=== PATIENT | female | born 1945 | race Caucasian/White ===

== ENCOUNTER 2019-03-03 18:29 | Emergency (ER) | payer MEDICARE, OTHER ==
--- NOTE | 2019-03-03 18:56 | ERPHSYRPT ---
- History of Present Illness Time Seen by Provider: 03/03/19 18:39 Historian: patient Exam Limitations: no limitations Patient Subjective Stated Complaint: Abdominal pain Triage Nursing Assessment: Patient brought back to ED via w/c and transferred to bed with assist of 1. Patient A+O x 3. Patient's skin pink, warm and dry. Patient complains of lower abdominal pain that radiate up through chest and into ha[place] shoulders 04/19 starting yesterday morning . Patient's abdomen round and tender. Physician History: C/o epigastric pain since yesterday, not radiating, denies nausea, vomiting, no cough SOB, fever, other complaints, blood pressure high, took baby ASA this morning, she had CABG in 2002. Timing/Duration: yesterday Activities at Onset: none Quality: sharpness Abdominal Pain Onset Location: epigastric Pain Radiation: no radiation Severity of Pain-Max: severe Severity of Pain-Current: moderate Modifying Factors: Improves With: nothing Associated Symptoms: No chest pain, No nausea, No rash, No shortness of breath, No vomiting Previous symptoms: no prior history Allergies/Adverse Reactions: No Known Drug Allergies Allergy (Unverified 03/03/19 18:37) Hx Influenza Vaccination/Date Given: No Hx Pneumococcal Vaccination/Date Given: No Immunizations Up to Date: Yes - Review of Systems Constitutional: No Symptoms Ears, Nose, & Throat: No Symptoms Respiratory: No Symptoms Cardiac: No Symptoms Abdominal/Gastrointestinal: Abdominal Pain, No Nausea, No Vomiting Genitourinary Symptoms: No Symptoms Skin: No Symptoms Neurological: No Symptoms All Other Systems: Reviewed and Negative - Past Medical History Pertinent Past Medical History: Yes Neurological History: No Pertinent History ENT History: No Pertinent History Cardiac History: Hypertension Respiratory History: No Pertinent History Endocrine Medical History: No Pertinent History Musculoskeletal History: No Pertinent History GI Medical History: No Pertinent History History: No Pertinent History Psycho-Social History: No Pertinent History Female Reproductive Disorders: No Pertinent History - Past Surgical History Past Surgical History: Yes Neuro Surgical History: No Pertinent History Cardiac: CABG, Pacemaker Respiratory: No Pertinent History Gastrointestinal: Cholecystectomy Genitourinary: No Pertinent History Musculoskeletal: No Pertinent History Female Surgical History: No Pertinent History - Social History Smoking Status: Never smoker Exposure to second hand smoke: No Drug Use: none Patient Lives Alone: No - Female History Hx Last Menstrual Period: menopausal Hx Now: No - Nursing Vital Signs Nursing Vital Signs: Initial Vital Signs Pulse Rate 65 03/03/19 18:38 Respiratory Rate 20 03/03/19 18:38 Blood Pressure 225/103 03/03/19 18:38 O2 Sat by Pulse Oximetry 100 03/03/19 18:38 Pain Scale Pain Intensity 0 - Physical Exam General Appearance: no apparent distress Eye Exam: eyes nml inspection Ears, Nose, Throat Exam: normal ENT inspection, moist mucous membranes Neck Exam: normal inspection, non-tender, supple, No carotid bruit, No JVD Respiratory Exam: normal breath sounds, lungs clear, airway intact Cardiovascular Exam: regular rate/rhythm, normal heart sounds, normal peripheral pulses, No murmur Gastrointestinal/Abdomen Exam: soft, normal bowel sounds, tenderness (epigastric , mild), No distention, No mass, No guarding, No pulsatile mass, No rebound, No organomegaly Back Exam: normal inspection, No CVA tenderness, No rash Extremity Exam: normal inspection, No calf tenderness, No deangelo's sign Neurologic Exam: alert, oriented x 3, cooperative, normal mood/affect Skin Exam: normal color, warm, dry, No rash, No petechiae, No cyanosis Lymphatic Exam: No adenopathy SpO2 Interpretation: normal SpO2: 100 O2 Delivery: Room Air - Course Nursing assessment & vital signs reviewed: Yes EKG Interpreted by Me: RATE (67/min), Other (paced) - Radiology Exams Chest X-ray Interpretation: Interpreted by me, Negative, Other (COPD, chronic changes) Ordered Tests: Active Orders 24 hr Category Date Time Status Band Leader STAT Care 03/03/19 18:48 Active EKG-ER Only STAT Care 03/03/19 18:48 Active EKG-ER Only STAT Care 03/03/19 20:56 Active IV Insertion STAT Care 03/03/19 18:48 Active CHEST 1 VIEW (PORTABLE) Stat Exams 03/03/19 18:48 Completed CBC W DIFF Stat Lab 03/03/19 19:07 Completed CK-Creatinine Phosphokinase Stat Lab 03/03/19 19:07 Completed CMP Stat Lab 03/03/19 19:07 Completed D-DIMER QUANTITATION Stat Lab 03/03/19 19:07 Completed LIPASE Stat Lab 03/03/19 19:07 Completed NT PRO BNP Stat Lab 03/03/19 19:07 Completed PROTIME WITH INR Stat Lab 03/03/19 19:07 Completed PTT Stat Lab 03/03/19 19:07 Completed TROPONIN Q3H Lab 03/03/19 19:07 Completed TROPONIN Q3H Lab 03/03/19 21:10 Completed TROPONIN Q3H Lab 03/04/19 01:00 Ordered TROPONIN Q3H Lab 03/04/19 04:00 Ordered TROPONIN Q3H Lab 03/04/19 07:00 Ordered Medication Summary Discontinued Medications Generic Name Dose Route Start Last Admin Trade Name Freq PRN Reason Stop Dose Admin Al Hydrox/Mg Hydrox/Simethicone Confirm 03/03/19 19:34 Maalox Es 30 Ml Unit Dose Administered 03/03/19 19:35 Dose 30 ml .ROUTE .STK-MED ONE Famotidine 20 mg 03/03/19 18:48 03/03/19 19:44 Pepcid 20 Mg Vial IV 03/03/19 18:49 20 mg STAT ONE Administration Famotidine Confirm 03/03/19 19:32 Pepcid 20 Mg Vial Administered 03/03/19 19:33 Dose 20 mg IV .STK-MED ONE Labetalol HCl 20 mg 03/03/19 18:49 03/03/19 19:44 Trandate 20 Mg/5 Ml Syringe IV 03/03/19 18:50 20 mg STAT ONE Administration Labetalol HCl Confirm 03/03/19 19:33 Trandate 100 Mg/20 Ml Mdv For Drip Administered 03/03/19 19:34 Dose 100 mg IV .STK-MED ONE Lidocaine HCl Confirm 03/03/19 19:34 Xylocaine Hcl Viscous * Administered 03/03/19 19:35 Dose 15 ml .ROUTE .STK-MED ONE Magnesium Hydroxide 45 ml 03/03/19 18:49 03/03/19 19:44 Gi Cocktail 45 Ml (Maalox/Lidocaine) PO 03/03/19 18:50 45 ml STAT ONE Administration Lab/Rad Data: Laboratory Result Diagrams 03/03/19 19:07 03/03/19 19:07 Laboratory Results 03/03/19 03/03/19 03/03/19 Range/Units 21:10 19:07 19:07 WBC (4.0-10.5) K/mm3 RBC (4.1-5.4) M/mm3 Hgb (12.0-16.0) gm/dl Hct (35-47) % MCV (78-100) fl MCH (26-32) pg MCHC (32-36) g/dl RDW (11.5-14.0) % Plt Count (150-450) K/mm3 MPV (6-9.5) fl Gran % (36.0-66.0) % Eos # (Auto) (0-0.5) Absolute Lymphs (auto) (1.0-4.6) Absolute Monos (auto) (0.0-1.3) Lymphocytes % (24.0-44.0) % Monocytes % (0.0-12.0) % Eosinophils % (0.00-5.0) % Basophils % (0.0-0.4) % Absolute Granulocytes (1.4-6.9) Basophils # (0-0.4) PT (9.95-12.35) SECONDS INR (0.8-3.0) APTT (25.3-37.0) SECONDS D-Dimer 423 (215-500) ng/mL Sodium (137-145) mmol/L Potassium (3.5-5.1) mmol/L Chloride (98-107) mmol/L Carbon Dioxide (22-30) mmol/L Anion Gap (5-15) MEQ/L BUN (7-17) mg/dL Creatinine (0.52-1.04) mg/dL Estimated GFR ML/MIN Glucose (74-106) mg/dL Calcium (8.4-10.2) mg/dL Total Bilirubin (0.2-1.3) mg/dL AST (14-36) U/L ALT (0-35) U/L Alkaline Phosphatase (38-126) U/L Creatine Kinase (30-135) U/L Troponin I 0.025 (0.000-0.034) ng/mL NT-Pro-B Natriuret Pep (0-1800) pg/mL Serum Total Protein (6.3-8.2) g/dL Albumin (3.5-5.0) g/dL Lipase 162 (23-300) U/L 03/03/19 03/03/19 03/03/19 Range/Units 19:07 19:07 19:07 WBC (4.0-10.5) K/mm3 RBC (4.1-5.4) M/mm3 Hgb (12.0-16.0) gm/dl Hct (35-47) % MCV (78-100) fl MCH (26-32) pg MCHC (32-36) g/dl RDW (11.5-14.0) % Plt Count (150-450) K/mm3 MPV (6-9.5) fl Gran % (36.0-66.0) % Eos # (Auto) (0-0.5) Absolute Lymphs (auto) (1.0-4.6) Absolute Monos (auto) (0.0-1.3) Lymphocytes % (24.0-44.0) % Monocytes % (0.0-12.0) % Eosinophils % (0.00-5.0) % Basophils % (0.0-0.4) % Absolute Granulocytes (1.4-6.9) Basophils # (0-0.4) PT 28.9 H (9.95-12.35) SECONDS INR 2.46 (0.8-3.0) APTT 34.0 (25.3-37.0) SECONDS D-Dimer (215-500) ng/mL Sodium 142 (137-145) mmol/L Potassium 3.8 (3.5-5.1) mmol/L Chloride 106 (98-107) mmol/L Carbon Dioxide 25 (22-30) mmol/L Anion Gap 15.3 H (5-15) MEQ/L BUN 25 H (7-17) mg/dL Creatinine 0.87 (0.52-1.04) mg/dL Estimated GFR > 60.0 ML/MIN Glucose 118 H (74-106) mg/dL Calcium 10.2 (8.4-10.2) mg/dL Total Bilirubin 0.60 (0.2-1.3) mg/dL AST 29 (14-36) U/L ALT 17 (0-35) U/L Alkaline Phosphatase 96 (38-126) U/L Creatine Kinase 28 L (30-135) U/L Troponin I < 0.012 (0.000-0.034) ng/mL NT-Pro-B Natriuret Pep 1980 H (0-1800) pg/mL Serum Total Protein 7.4 (6.3-8.2) g/dL Albumin 4.3 (3.5-5.0) g/dL Lipase (23-300) U/L 03/03/19 Range/Units 19:07 WBC 8.4 (4.0-10.5) K/mm3 RBC 4.32 (4.1-5.4) M/mm3 Hgb 13.1 (12.0-16.0) gm/dl Hct 40.2 (35-47) % MCV 93.1 (78-100) fl MCH 30.3 (26-32) pg MCHC 32.6 (32-36) g/dl RDW 13.2 (11.5-14.0) % Plt Count 173 (150-450) K/mm3 MPV 10.9 H (6-9.5) fl Gran % 81.4 H (36.0-66.0) % Eos # (Auto) 0.08 (0-0.5) Absolute Lymphs (auto) 0.97 L (1.0-4.6) Absolute Monos (auto) 0.48 (0.0-1.3) Lymphocytes % 11.5 L (24.0-44.0) % Monocytes % 5.7 (0.0-12.0) % Eosinophils % 1.0 (0.00-5.0) % Basophils % 0.4 (0.0-0.4) % Absolute Granulocytes 6.86 (1.4-6.9) Basophils # 0.03 (0-0.4) PT (9.95-12.35) SECONDS INR (0.8-3.0) APTT (25.3-37.0) SECONDS D-Dimer (215-500) ng/mL Sodium (137-145) mmol/L Potassium (3.5-5.1) mmol/L Chloride (98-107) mmol/L Carbon Dioxide (22-30) mmol/L Anion Gap (5-15) MEQ/L BUN (7-17) mg/dL Creatinine (0.52-1.04) mg/dL Estimated GFR ML/MIN Glucose (74-106) mg/dL Calcium (8.4-10.2) mg/dL Total Bilirubin (0.2-1.3) mg/dL AST (14-36) U/L ALT (0-35) U/L Alkaline Phosphatase (38-126) U/L Creatine Kinase (30-135) U/L Troponin I (0.000-0.034) ng/mL NT-Pro-B Natriuret Pep (0-1800) pg/mL Serum Total Protein (6.3-8.2) g/dL Albumin (3.5-5.0) g/dL Lipase (23-300) U/L - Progress Progress: improved Progress Note: 03/03/19 21:52 Pt was given labetalol IV GI cocktail and Pepcid IV, she states, her pain completely resolved, denies nausea, SOB or dizziness, feels much better. Repeat troponin: 0.025, slightly higher than the first one, but still within normal range. We discussed all her results, she is being discharged completely asymptomatic, stable, advised to rest x 2-3 days, and keep her appointment with her physician next Wednesday. She was advised to return immediately if shortness of breath, pain, vomiting, dizziness. Counseled pt/family regarding: lab results, diagnosis, need for follow-up, rad results - Departure Departure Disposition: Home Clinical Impression: Abdominal pain Qualifiers: Abdominal location: epigastric Qualified Code(s): R10.13 - Epigastric pain Condition: Stable Critical Care Time: No [facility] - Instructions: Acute Abdomen (Belly Pain), Adult (DC), Acid Reflux ( Gastroesophageal Reflux Disease), Adult (DC) Additional Instructions: Rest x 2-3 days, diet, and keep your appointment with your physician next Wednesday, return if difficulty breathing, pain, nausea, dizziness! Continue taking Omeprazole as directed!
[2019-03-03 19:19] LABS: BASOPHIL % 0.4 % (0.0-0.4); Basophil (Absolute #) 0.03 (0-0.4); Eosinophil (Absolute #) 0.08 (0-0.5); Granulocyte Absolute (ANC) 6.86 (1.4-6.9); Granulocytes % 81.4 % (36.0-66.0); Hematocrit 40.2 % (35-47); Hemoglobin 13.1 gm/dl (12.0-16.0); Lymphocyte (Absolute #) 0.97 (1.0-4.6); Lymphocytes % 11.5 % (24.0-44.0); Mean Cell Volume 93.1 fl (78-100); Mean Corpuscular Hemoglobin 30.3 pg (26-32); Mean Corpuscular Hgb Concent. 32.6 g/dl (32-36); Mean Platelet Volume 10.9 fl (6-9.5); Monocyte (Absolute #) 0.48 (0.0-1.3); Monocytes % 5.7 % (0.0-12.0); Platelet Count 173 K/mm3 (150-450); Red Blood Count 4.32 M/mm3 (4.1-5.4); Red Cell Distribution Width 13.2 % (11.5-14.0); White Blood Count 8.4 K/mm3 (4.0-10.5)
[2019-03-03 19:23] LABS: INR 2.46 (0.8-3.0); PROTIME 28.9 SECONDS (9.95-12.35)
[2019-03-03] MEDS ORDERED: Pepcid 20 MG VIAL IV ONE (19:32)
[2019-03-03] MEDS ORDERED: TRANDATE 100 MG/20 ML MDV FOR DRIP IV ONE (19:33)
[2019-03-03] MEDS ORDERED: MAALOX ES 30 ML UNIT DOSE ONE (19:34)
[2019-03-03] MEDS ORDERED: XYLOCAINE HCl Viscous ONE (19:34)
[2019-03-03 19:39] LABS: ALBUMIN 4.3 g/dL (3.5-5.0); ALKALINE PHOSPHATASE 96 U/L (38-126); ANION GAP 15.3 MEQ/L (5-15); BLOOD UREA NITROGEN 25 mg/dL (7-17); CHLORIDE 106 mmol/L (98-107); CK-Creatinine Phosphokinase 28 U/L (30-135); Calcium 10.2 mg/dL (8.4-10.2); Carbon Dioxide 25 mmol/L (22-30); Creatinine 1 0.87 mg/dL (0.52-1.04); Glucose 118 mg/dL (74-106); NT PRO BNP 1980 pg/mL (0-1800); Potassium 3.8 mmol/L (3.5-5.1); SGOT/AST 29 U/L (14-36); SGPT/ALT 17 U/L (0-35); SODIUM 142 mmol/L (137-145); Total Protein 7.4 g/dL (6.3-8.2)
[2019-03-03] MEDS: TRANDATE 20 MG/5 ML SYRINGE IV ONE (19:44)
[2019-03-03] MEDS: Pepcid 20 MG VIAL IV ONE (19:44)
[2019-03-03] MEDS: GI COCKTAIL 45 ML (Maalox/Lidocaine) PO ONE (19:44)
--- NOTE | 2019-03-03 21:50 | XRAY ---
Indication: Chest pain. Comparison: None Portable apical lordotic chest hyperinflated with chronic lung markings. No focal infiltrate, consolidation, or large effusion. Heart is not enlarged for AP portable technique and demonstrates CABG surgery and left-sided pacemaker. Bony thorax intact with osteopenia and degenerative changes. Impression: Nonacute chest with chronic features.
[2019-03-03 21:57] VITALS: O2SAT 100
[2019-03-03 22:06] VITALS: BP 128/49; PULSE 56
== END 2019-03-03 22:08 | disposition home or self-care (01) ==
LOC: ED 18:29
DX: R10.13 Epigastric pain (principal); I10 Essential (primary) hypertension; Z98.62 Peripheral vascular angioplasty status
CPT/HCPCS: 36000; 36415; 71045; 80053; 82550; 83690; 83880; 84484; 85025; 85379; 85610; 85730; 93005; 93041; 96374; 96375; 99284; A9270-GY

== ENCOUNTER 2019-10-18 17:44 | Emergency (ER) | payer MEDICARE ==
[2019-10-18] MEDS ORDERED: Zofran 4 MG/2 ML VIAL IV ONE (18:03)
[2019-10-18] MEDS ORDERED: MORPHINE SULFATE 4 MG INJ IV ONE (18:03)
[2019-10-18] MEDS ORDERED: TYLENOL 325 MG PO ONE (18:03)
[2019-10-18] MEDS ORDERED: NORCO 7.5/325 MG TAB PO ONE (18:06)
--- NOTE | 2019-10-18 18:22 | ERPHSYRPT ---
- History of Present Illness Time Seen by Provider: 10/18/19 18:00 Source: patient, family Patient Subjective Stated Complaint: pt here for a fall, she tripped stepping out of garage and fell outside on ground, pt co pain to left lower arm and wrist , and pain to left hip Triage Nursing Assessment: pt alert, resp easy, arrived per , she was able to get out of wc to bed with assist of one, she has deformity to left lower arrm, has strong raidal pulse, nail beds pink Physician History: 74 yo presented after she tripped while getting out of the garage , tried to catch herself with left outstretched hand and heard a popping sound. landed on left hip which is not casing much pain now. able to move her fingers but pain at wrist. no numbness of fingers. didnt hit her head , no LOC Occurred: just prior to arrival Method of Injury: fell Quality: sharpness Severity of Pain-Max: moderate Severity of Pain-Current: moderate Extremities Pain Location: forearm: left, wrist: left, hand: left Modifying Factors: Improves With: immobilization, movement Associated Symptoms: none Allergies/Adverse Reactions: No Known Drug Allergies Allergy (Verified 10/18/19 17:58) Home Medications: Atorvastatin Calcium 40 mg PO DAILY 12/22/15 [History] Losartan Potassium 50 mg [Cozaar 50 MG] 100 mg PO DAILY 12/22/15 [History] Escitalopram Oxalate [Lexapro] 20 mg PO DAILY 02/04/16 [History] Aspirin [Aspirin EC] 81 mg PO HS 02/15/18 [History] FA/Vit C/E/Zinc/Copper/Lut/Dov [Ocuvel Capsule] 1 each PO DAILY 02/15/18 [ History] Ferrous Sulfate 325 mg [Feosol 325 mg] 325 mg PO HS 02/15/18 [History] [place]-3 Fatty Acids [[place]-3] 1,000 mg PO DAILY 02/15/18 [History] Warfarin Sodium 3 mg [Coumadin 3 MG] 3 mg PO DAILY@1800 02/15/18 [History] Carvedilol 3.125 mg [Coreg 3.125 MG] 12.5 mg PO BID 02/16/18 [History] Cyanocobalamin/Folic AC/Vit B6 [Homocysteine Formula Tablet] 1 each PO DAILY [History] Buspirone HCl 5 mg [Buspar 5 mg] 5 mg DAILY 10/18/19 [History] Famotidine 20 mg [Pepcid 20 MG] 20 mg DAILY 10/18/19 [History] Hx Tetanus, Diphtheria Vaccination/Date Given: No Hx Influenza Vaccination/Date Given: Yes Hx Pneumococcal Vaccination/Date Given: Yes - Review of Systems Constitutional: No Symptoms Eyes: No Symptoms Ears, Nose, & Throat: No Symptoms Respiratory: No Symptoms Cardiac: No Symptoms Abdominal/Gastrointestinal: No Symptoms Genitourinary Symptoms: No Symptoms Musculoskeletal: Fall, Injury, Joint Pain, Joint Swelling Skin: No Symptoms Neurological: No Symptoms Psychological: No Symptoms Endocrine: No Symptoms Hematologic/Lymphatic: No Symptoms - Past Medical History Pertinent Past Medical History: Yes Neurological History: No Pertinent History ENT History: No Pertinent History, Cataracts, Macular Degeneration Cardiac History: Coronary Artery Disease, Myocardial Infarction (PR), High Cholesterol, Hypertension Respiratory History: No Pertinent History, Pneumonia Endocrine Medical History: No Pertinent History Musculoskeletal History: No Pertinent History, Other GI Medical History: No Pertinent History, Diverticulosis, Diverticulitis, Gallbladder Disease History: No Pertinent History, Other Psycho-Social History: No Pertinent History, Depression, Anxiety Female Reproductive Disorders: No Pertinent History Other Medical History: scleraderma? - Past Surgical History Past Surgical History: Yes Neuro Surgical History: No Pertinent History Cardiac: CABG, Valve Replacement, Cardiac Catheterization, Pacemaker Respiratory: No Pertinent History Gastrointestinal: Other, Cholecystectomy Genitourinary: Kidney Surgery Musculoskeletal: No Pertinent History Female Surgical History: No Pertinent History Other Surgical History: kidney stent x 2. colonoscopy and EGD 2016 - Social History Smoking Status: Former smoker How long have you smoked: 50 YEARS Exposure to second hand smoke: No Alcohol Use: Socially Drug Use: none Patient Lives Alone: No Significant Family History: hypertension - Female History Hx Last Menstrual Period: psot Hx Now: No - Nursing Vital Signs Nursing Vital Signs: Initial Vital Signs Pulse Rate 59 L 10/18/19 17:51 Respiratory Rate 18 10/18/19 17:51 Blood Pressure 129/71 10/18/19 17:51 O2 Sat by Pulse Oximetry 100 10/18/19 17:51 Pain Scale Pain Intensity 5 - Physical Exam General Appearance: no apparent distress Eyes, Ears, Nose, Throat Exam: normal ENT inspection, TMs normal, pharynx normal Neck Exam: normal inspection, non-tender, supple, full range of motion Cardiovascular/Respiratory Exam: chest non-tender, normal breath sounds, regular rate/rhythm, heart sounds normal Abdominal Exam: non-tender, soft Back Exam: normal inspection, normal range of motion Shoulder Exam: normal inspection, non-tender Elbow/Forearm Exam: normal inspection, non-tender, no evidence of injury, normal ROM Wrist Exam: bone tenderness, deformity, limited ROM, pain, soft tissue tenderness, swelling (LEFT WRIST) Hand Exam: limited ROM, soft tissue tenderness, swelling Neuro/Tendon Exam: normal sensation Mental Status Exam: alert, oriented x 3, cooperative Skin Exam: normal color SpO2 Interpretation: normal SpO2: 100 O2 Delivery: Room Air - Course Nursing assessment & vital signs reviewed: Yes Ordered Tests: Active Orders 24 hr Category Date Time Status WRIST (MIN 3 VIEWS) Stat Exams 10/18/19 18:19 Taken Medication Summary Discontinued Medications Generic Name Dose Route Start Last Admin Trade Name Nicolas PRN Reason Stop Dose Admin Acetaminophen 975 mg 10/18/19 18:03 10/18/19 18:19 Tylenol 325 Mg PO 10/18/19 18:04 Not Given STAT ONE Hydrocodone Bitart/Acetaminophen 1 tab 10/18/19 18:06 10/18/19 18:32 [place] 7.5/325 Mg Tab PO 10/18/19 18:07 1 tab STAT ONE Administration Morphine Sulfate 4 mg 10/18/19 18:03 10/18/19 18:19 Morphine Sulfate 4 Mg Inj IV 10/18/19 18:04 Not Given STAT ONE Ondansetron HCl 4 mg 10/18/19 18:03 10/18/19 18:19 Zofran 4 Mg/2 Ml Vial IV 10/18/19 18:04 Not Given STAT ONE - Progress Progress: improved, pain not gone completely, re-examined Progress Note: 10/18/19 18:57 Has left distal rad/ulna fracture with displacement but intact joint line. intact distal NV. SUGAR TONG IS APPLIED , RECOMMENDED ORTHOPEDIC FOLLOW UP WITH [facility]. Counseled pt/family regarding: diagnosis, need for follow-up, rad results - Departure Departure Disposition: Home Clinical Impression: Wrist fracture, left Qualifiers: Encounter type: initial encounter Fracture type: closed Qualified Code(s): S62.102A - Fracture of unspecified carpal bone, left wrist, initial encounter for closed fracture Condition: Stable Critical Care Time: No Referrals: BESSIE LANGSTON [Primary Care Provider] - Additional Instructions: FOLLOW UP WITH ORTHO CLINIC. USE PAIN MEDS NEEDED. KEEP IT ELEVATED. Prescriptions: Hydrocodone/Acetaminophen [[place] 7.5-325 Tablet] 1 tab PO Q4-6HPRN PRN 3 Days # 12 tablet MDD 4 PRN Reason: Pain
[2019-10-18 19:50] VITALS: BP 161/110; PULSE 100; O2SAT 97
--- NOTE | 2019-10-19 08:37 | XRAY ---
Indication: Pain following fall. Comparison: None 3 views of the left wrist demonstrates oblique fractures distal metadiaphysis of the radius/ulna with distal bony fragments displaced/subluxed posteriorly with soft tissue swelling. Elsewhere osteopenia and mild 1st metacarpal multangular degenerative changes.
== END 2019-10-18 19:51 | disposition home or self-care (01) ==
LOC: ED 17:44
DX: S62.102A Fracture of unspecified carpal bone, left wrist, initial encounter for closed fracture (principal); W01.198A Fall on same level from slipping, tripping and stumbling with subsequent striking against other object, initial encounter; M25.532 Pain in left wrist; M25.552 Pain in left hip; Z79.01 Long term (current) use of anticoagulants; Z79.899 Other long term (current) drug therapy; M25.432 Effusion, left wrist
CPT/HCPCS: 29126; 73110; 99284; A9270-GY

== ENCOUNTER 2019-11-04 13:39 | Emergency (ER) | payer MEDICARE ==
[2019-11-04] MEDS ORDERED: DUONEB 0.5-3 MG/3 ml Neb IH ONE ×2 (13:50→14:25)
[2019-11-04] MEDS ORDERED: Sodium Chloride 0.9% 1000 ML 1,000 ML ONE (13:57)
[2019-11-04] MEDS ORDERED: Sodium Chloride 0.9% 1000 ML 1,000 ML IV SCH (14:00)
--- NOTE | 2019-11-04 14:02 | ERPHSYRPT ---
- History of Present Illness Time Seen by Provider: 11/04/19 13:59 Source: patient, family Exam Limitations: no limitations Patient Subjective Stated Complaint: Pt had arm surgery almost 2 weeks ago and has just been laying around, she has been having a harder time breathing and she went to see Dr. Welch on Wednesday and was placed on an antibiotic and she feels that it is getting worse Triage Nursing Assessment: Pt brought to the ER by her , hypertensive, denies pain, stridor in right side lungs, coughs up mucus but unsure of color, pulses normal, skin N/W/D, pacemaker, arrythmia Physician History: Patient had arm surgery almost 2 weeks ago and has just been laying around, she has been having a harder time breathing and she went to see Dr. Welch on Wednesday and was placed on an antibiotic and she feels that it is getting worse enies pain, stridor in right side lungs, coughs up mucus but unsure of color,, no fever Timing/Duration: week(s) Activities at Onset: activity Severity of Dyspnea-Max: moderate Severity of Dyspnea-Current: moderate Possible Cause: occasional episodes Modifying Factors: Improves With: activity Associated Symptoms: cough, wheezing, weakness, productive cough International travel in last 2 weeks: No Allergies/Adverse Reactions: No Known Drug Allergies Allergy (Verified 11/04/19 13:54) Home Medications: Atorvastatin Calcium 40 mg PO DAILY 12/22/15 [History] Losartan Potassium 50 mg [Cozaar 50 MG] 100 mg PO DAILY 12/22/15 [History] Escitalopram Oxalate [Lexapro] 20 mg PO DAILY 02/04/16 [History] Aspirin [Aspirin EC] 81 mg PO HS 02/15/18 [History] FA/Vit C/E/Zinc/Copper/Lut/Dov [Ocuvel Capsule] 1 each PO DAILY 02/15/18 [ History] Ferrous Sulfate 325 mg [Feosol 325 mg] 325 mg PO HS 02/15/18 [History] [place]-3 Fatty Acids [[place]-3] 1,000 mg PO DAILY 02/15/18 [History] Warfarin Sodium 3 mg [Coumadin 3 MG] 3 mg PO DAILY@1800 02/15/18 [History] Carvedilol 3.125 mg [Coreg 3.125 MG] 12.5 mg PO BID 02/16/18 [History] Cyanocobalamin/Folic AC/Vit B6 [Homocysteine Formula Tablet] 1 each PO DAILY [History] Buspirone HCl 5 mg [Buspar 5 mg] 5 mg DAILY 10/18/19 [History] Famotidine 20 mg [Pepcid 20 MG] 20 mg DAILY 10/18/19 [History] Tramadol HCl 50 mg [Ultram 50 mg] 50 mg PO UD 11/04/19 [History] Hx Tetanus, Diphtheria Vaccination/Date Given: No Hx Influenza Vaccination/Date Given: Yes Hx Pneumococcal Vaccination/Date Given: Yes - Review of Systems Constitutional: Fatigue, Lethargy, No Fever, No Chills Eyes: No Symptoms Ears, Nose, & Throat: No Symptoms Respiratory: Dyspnea, Wheezing, No Cough Cardiac: No Chest Pain, No Edema, No Syncope Abdominal/Gastrointestinal: No Abdominal Pain, No Nausea, No Vomiting, No Diarrhea Genitourinary Symptoms: No Dysuria Musculoskeletal: No Back Pain, No Neck Pain Skin: No Rash Neurological: No Dizziness, No Focal Weakness, No Sensory Changes Psychological: No Symptoms Endocrine: No Symptoms All Other Systems: Reviewed and Negative - Past Medical History Pertinent Past Medical History: Yes Neurological History: No Pertinent History ENT History: No Pertinent History, Cataracts, Macular Degeneration Cardiac History: Coronary Artery Disease, Myocardial Infarction ([place]), High Cholesterol, Hypertension Respiratory History: No Pertinent History, Pneumonia Endocrine Medical History: No Pertinent History Musculoskeletal History: No Pertinent History, Other GI Medical History: No Pertinent History, Diverticulosis, Diverticulitis, Gallbladder Disease History: No Pertinent History, Other Psycho-Social History: No Pertinent History, Depression, Anxiety Female Reproductive Disorders: No Pertinent History Other Medical History: scleraderma? - Past Surgical History Past Surgical History: Yes Neuro Surgical History: No Pertinent History Cardiac: CABG, Valve Replacement, Cardiac Catheterization, Pacemaker Respiratory: No Pertinent History Gastrointestinal: Other, Cholecystectomy Genitourinary: Kidney Surgery Musculoskeletal: No Pertinent History Female Surgical History: No Pertinent History Other Surgical History: kidney stent x 2. colonoscopy and EGD 2016 - Social History Smoking Status: Former smoker How long have you smoked: 50 YEARS Exposure to second hand smoke: No Alcohol Use: Socially Drug Use: none Patient Lives Alone: No Significant Family History: hypertension - Nursing Vital Signs Nursing Vital Signs: Initial Vital Signs Temperature 98.1 F 11/04/19 13:42 Pulse Rate 63 11/04/19 13:42 Respiratory Rate 13 11/04/19 13:42 Blood Pressure 174/60 11/04/19 13:42 O2 Sat by Pulse Oximetry 98 11/04/19 13:42 Pain Scale Pain Intensity 0 - Physical Exam General Appearance: no apparent distress, alert Eye Exam: PERRL/EOMI Neck Exam: normal inspection, supple Respiratory Exam: crackles/rales, rhonchi, wheezing Cardiovascular/Chest Exam: irregular Abdominal/Gastrointestinal Exam: soft, No tenderness, No distention, No mass Extremity Exam: non-tender, normal range of motion, normal inspection, no calf tenderness, no pedal edema Neurologic Exam: alert, oriented x 3, cooperative, die caster II-XII nml as tested, sensation nml, No motor deficits Skin Exam: normal color, warm, No dry SpO2 Interpretation: normal SpO2: 98 O2 Delivery: Room Air - Course Nursing assessment & vital signs reviewed: Yes - Radiology Exams Chest X-ray Interpretation: Reviewed by me Ordered Tests: Active Orders 24 hr Category Date Time Status Loading Dock Helper STAT Care 11/04/19 13:55 Active EKG-ER Only STAT Care 11/04/19 13:50 Active IV Insertion STAT Care 11/04/19 13:55 Active Oxygen-ED Only Nasal Cannula 2 lpm Care 11/04/19 13:50 Active Pulse Oximetry (ED) STAT Care 11/04/19 13:55 Active CHEST 1 VIEW (PORTABLE) Stat Exams 11/04/19 13:52 Taken CBC W DIFF Stat Lab 11/04/19 13:50 Completed CMP Stat Lab 11/04/19 13:50 Completed D-DIMER QUANTITATIVE Stat Lab 11/04/19 13:50 Completed Lactic Acid Stat Lab 11/04/19 13:50 Completed MAGNESIUM Stat Lab 11/04/19 13:50 Completed NT PRO BNP Stat Lab 11/04/19 13:50 Completed PROTIME WITH INR Stat Lab 11/04/19 13:50 Completed TROPONIN Q3H Lab 11/04/19 13:50 Completed TROPONIN Q3H Lab 11/04/19 17:00 Ordered TROPONIN Q3H Lab 11/04/19 20:00 Ordered TROPONIN Q3H Lab 11/04/19 23:00 Ordered TROPONIN Q3H Lab 11/05/19 02:00 Ordered Peak Expiratory Flow Rate ONCE RT 11/04/19 14:35 Completed Respiratory Therapy Assessment DAILY RT 11/04/19 14:35 Completed Medication Summary Generic Name Dose Route Start Last Admin Trade Name Freq PRN Reason Stop Dose Admin Sodium Chloride 1,000 mls @ 50 mls/hr 11/04/19 14:00 11/04/19 13:58 Sodium Chloride 0.9% 1000 Ml IV 12/04/19 13:59 50 mls/hr .Q20H FELICIA Administration Discontinued Medications Generic Name Dose Route Start Last Admin Trade Name Freq PRN Reason Stop Dose Admin Albuterol/Ipratropium 3 ml 11/04/19 13:50 11/04/19 14:28 Duoneb 0.5-3 Mg/3 Ml Neb IH 11/04/19 13:51 3 ml STAT ONE Administration Albuterol/Ipratropium Confirm 11/04/19 14:25 Duoneb 0.5-3 Mg/3 Ml Neb Administered 11/04/19 14:26 Dose 3 ml IH .STK-MED ONE Lab/Rad Data: Laboratory Result Diagrams 11/04/19 13:50 11/04/19 13:50 Laboratory Results 11/04/19 11/04/19 11/04/19 Range/Units 13:50 13:50 13:50 WBC (4.0-10.5) K/mm3 RBC (4.1-5.4) M/mm3 Hgb (12.0-16.0) gm/dl Hct (35-47) % MCV (78-100) fl MCH (26-32) pg MCHC (32-36) g/dl RDW (11.5-14.0) % Plt Count (150-450) K/mm3 MPV (7.5-11.0) fl Gran % (36.0-66.0) % Eos # (Auto) (0-0.5) Absolute Lymphs (auto) (1.0-4.6) Absolute Monos (auto) (0.0-1.3) Lymphocytes % (24.0-44.0) % Monocytes % (0.0-12.0) % Eosinophils % (0.00-5.0) % Basophils % (0.0-0.4) % Absolute Granulocytes (1.4-6.9) Basophils # (0-0.4) PT 33.0 H (9.95-12.35) SECONDS INR 2.86 (0.8-3.0) D-Dimer 465 (215-500) ng/mL Sodium 143 (137-145) mmol/L Potassium 3.7 (3.5-5.1) mmol/L Chloride 106 (98-107) mmol/L Carbon Dioxide 29 (22-30) mmol/L Anion Gap 11.4 (5-15) MEQ/L BUN 24 H (7-17) mg/dL Creatinine 1.14 H (0.52-1.04) mg/dL Estimated GFR 49.3 ML/MIN Glucose 143 H (74-106) mg/dL Lactic Acid (0.4-2.0) Calcium 9.4 (8.4-10.2) mg/dL Magnesium 1.7 (1.6-2.3) mg/dL Total Bilirubin 0.80 (0.2-1.3) mg/dL AST 27 (14-36) U/L ALT 12 (0-35) U/L Alkaline Phosphatase 126 (38-126) U/L Troponin I < 0.012 (0.000-0.034) ng/mL NT-Pro-B Natriuret Pep 3410 H (0-1800) pg/mL Serum Total Protein 7.2 (6.3-8.2) g/dL Albumin 3.9 (3.5-5.0) g/dL 11/04/19 11/04/19 Range/Units 13:50 13:50 WBC 8.8 (4.0-10.5) K/mm3 RBC 3.76 L (4.1-5.4) M/mm3 Hgb 11.4 L (12.0-16.0) gm/dl Hct 35.6 (35-47) % MCV 94.7 (78-100) fl MCH 30.3 (26-32) pg MCHC 32.0 (32-36) g/dl RDW 13.8 (11.5-14.0) % Plt Count 217 (150-450) K/mm3 MPV 10.6 (7.5-11.0) fl Gran % 77.1 H (36.0-66.0) % Eos # (Auto) 0.23 (0-0.5) Absolute Lymphs (auto) 0.82 L (1.0-4.6) Absolute Monos (auto) 0.94 (0.0-1.3) Lymphocytes % 9.3 L (24.0-44.0) % Monocytes % 10.7 (0.0-12.0) % Eosinophils % 2.6 (0.00-5.0) % Basophils % 0.3 (0.0-0.4) % Absolute Granulocytes 6.78 (1.4-6.9) Basophils # 0.03 (0-0.4) PT (9.95-12.35) SECONDS INR (0.8-3.0) D-Dimer (215-500) ng/mL Sodium (137-145) mmol/L Potassium (3.5-5.1) mmol/L Chloride (98-107) mmol/L Carbon Dioxide (22-30) mmol/L Anion Gap (5-15) MEQ/L BUN (7-17) mg/dL Creatinine (0.52-1.04) mg/dL Estimated GFR ML/MIN Glucose (74-106) mg/dL Lactic Acid 1.4 (0.4-2.0) Calcium (8.4-10.2) mg/dL Magnesium (1.6-2.3) mg/dL Total Bilirubin (0.2-1.3) mg/dL AST (14-36) U/L ALT (0-35) U/L Alkaline Phosphatase (38-126) U/L Troponin I (0.000-0.034) ng/mL NT-Pro-B Natriuret Pep (0-1800) pg/mL Serum Total Protein (6.3-8.2) g/dL Albumin (3.5-5.0) g/dL - Progress Progress: unchanged Air Movement: good Blood Culture(s) Obtained: No Antibiotics given: No Discussed with Dr.: Other (Dr Johnny Mo covering for Dr Adelfo Arredondo. He advised patient to be seen at [facility] wednesday11/05/2019 8 AM) - Departure Departure Disposition: Home Clinical Impression: Pacemaker lead failure Qualifiers: Encounter type: initial encounter Qualified Code(s): T82.110A - Breakdown ( mechanical) of cardiac electrode, initial encounter Pacemaker lead malfunction Qualifiers: Encounter type: initial encounter Qualified Code(s): T82.110A - Breakdown ( mechanical) of cardiac electrode, initial encounter Condition: Stable Critical Care Time: Yes Critical Care Time(excluding separately billable procedures): Critical 30-74 mins Referrals: BESSIE WELCH [Primary Care Provider] - Instructions: Pacemaker Check Additional Instructions: Discharge/Care Plan ERICK SONG was seen on 11/04/19 in the Emergency Room. The patient was counseled regarding Diagnosis,Lab results, Imaging studies, need for follow up and when to return to the Emergency Room. Prescriptions given: Discharge Note I have spoken with the patient and/or caregivers. I have explained the patient' s condition, diagnosis and treatment plan based on the information available to me at this time. I have answered the patient's and/or caregiver's questions and addressed any concerns. The patient and/or caregivers have as good understanding of the patient's diagnosis, condition and treatment plan as can be expected at this point. The vital signs have been stable. The patient's condition is stable and appropriate for discharge from the emergency department. The patient will pursue further outpatient evaluation with the primary care physician or other designated or consulting physician as outlined in the discharge instructions. The patient and/or caregivers are agreeable to this plan of care and follow-up instructions have been explained in detail. The patient and/or caregivers have received these instruction. The patient/and or caregivers are aware that any significant change in condition or worsening of symptoms should prompt an immediate return to this or the closest emergency department or call 911. You are advised to be seen at pacemaker clinic on Wednesday06 November 2019 8 AM at [facility], advised by Dr. Johnny Mo who is covering for Dr. Hector Arredondo on 04 November 2019
[2019-11-04 14:09] LABS: Absolute Neutrophil Ct (ANC) 6.78 (1.4-6.9); BASOPHIL % 0.3 % (0.0-0.4); Basophil (Absolute #) 0.03 (0-0.4); Eosinophil % 2.6 % (0.00-5.0); Eosinophil (Absolute #) 0.23 (0-0.5); Hematocrit 35.6 % (35-47); Hemoglobin 11.4 gm/dl (12.0-16.0); Lymphocyte (Absolute #) 0.82 (1.0-4.6); Lymphocytes % 9.3 % (24.0-44.0); Mean Cell Volume 94.7 fl (78-100); Mean Corpuscular Hemoglobin 30.3 pg (26-32); Mean Platelet Volume 10.6 fl (7.5-11.0); Monocyte (Absolute #) 0.94 (0.0-1.3); Monocytes % 10.7 % (0.0-12.0); Neutrophil % 77.1 % (36.0-66.0); Platelet Count 217 K/mm3 (150-450); Red Blood Count 3.76 M/mm3 (4.1-5.4); Red Cell Distribution Width 13.8 % (11.5-14.0); White Blood Count 8.8 K/mm3 (4.0-10.5)
[2019-11-04 14:16] LABS: INR 2.86 (0.8-3.0)
[2019-11-04 14:29] LABS: ALBUMIN 3.9 g/dL (3.5-5.0); ANION GAP 11.4 MEQ/L (5-15); BILIRUBIN,TOTAL 0.8 mg/dL (0.2-1.3); Calcium 9.4 mg/dL (8.4-10.2); Creatinine 1 1.14 mg/dL (0.52-1.04); MAGNESIUM 1.7 mg/dL (1.6-2.3); Potassium 3.7 mmol/L (3.5-5.1); Total Protein 7.2 g/dL (6.3-8.2)
[2019-11-04 14:43] VITALS: O2SAT 98
[2019-11-04 15:17] VITALS: BP 156/61; PULSE 64
--- NOTE | 2019-11-04 20:49 | XRAY ---
Indication: Short of breath 3 days. COPD. Comparison: March 03, 2019. Portable chest demonstrates new bibasilar infiltrates versus atelectasis. Remaining heart and lungs unremarkable with stable left costophrenic angle blunting, cardiothoracic surgery, left pacemaker, and osteopenia.
== END 2019-11-04 15:25 | disposition home or self-care (01) ==
LOC: ED 13:39
DX: T82.110A Breakdown (mechanical) of cardiac electrode, initial encounter (principal)
CPT/HCPCS: 36000; 36415; 71045; 80053; 83605; 83735; 83880; 84484; 85025; 85379; 85610; 93005; 93041; 94150; 94640; 94760; 96360; 99284; 99291; A9270-GY

== ENCOUNTER 2019-11-23 01:10 | Observation (INO) | payer MEDICARE ==
[2019-11-23] MEDS ORDERED: Zithromax 500 MG/ 250 ML NaCl Premix 500 MG/250 ML IVPB IV STA (01:19)
[2019-11-23] MEDS ORDERED: ROCEPHIN 1 Gm-D5w 50 ml Bag** 1 G/50 ML IVPB IV STA (01:19)
--- NOTE | 2019-11-23 01:19 | ERPHSYRPT ---
- History of Present Illness Time Seen by Provider: 11/23/19 01:12 Source: patient Exam Limitations: no limitations Physician History: For the past hour pt has had shortness of air; denies chest pain, abdominal pain , nausea, vomiting, fever. Allergies/Adverse Reactions: No Known Drug Allergies Allergy (Verified 11/23/19 01:26) Home Medications: Atorvastatin Calcium 40 mg PO DAILY 12/22/15 [History] Aspirin [Aspirin EC] 81 mg PO HS 02/15/18 [History] FA/Vit C/E/Zinc/Copper/Lut/Dov [Ocuvel Capsule] 1 each PO DAILY 02/15/18 [ History] Ferrous Sulfate 325 mg [Feosol 325 mg] 325 mg PO HS 02/15/18 [History] [place]-3 Fatty Acids [[place]-3] 1,000 mg PO DAILY 02/15/18 [History] Warfarin Sodium 3 mg [Coumadin 3 MG] 3 mg PO DAILY@1800 02/15/18 [History] Carvedilol 3.125 mg [Coreg 3.125 MG] 12.5 mg PO BID 02/16/18 [History] Cyanocobalamin/Folic AC/Vit B6 [Homocysteine Formula Tablet] 1 each PO DAILY [History] Buspirone HCl 5 mg [Buspar 5 mg] 5 mg DAILY 10/18/19 [History] Famotidine 20 mg [Pepcid 20 MG] 20 mg DAILY 10/18/19 [History] Tramadol HCl 50 mg [Ultram 50 mg] 50 mg PO UD PRN 11/04/19 [History] PARoxetine HCl [Paxil] 10 mg PO DAILY 11/23/19 [History] Hx Tetanus, Diphtheria Vaccination/Date Given: No Hx Influenza Vaccination/Date Given: Yes Hx Pneumococcal Vaccination/Date Given: Yes - Review of Systems Constitutional: No Fever Respiratory: Dyspnea Cardiac: No Chest Pain Abdominal/Gastrointestinal: No Abdominal Pain, No Nausea, No Vomiting All Other Systems: Reviewed and Negative - Past Medical History Pertinent Past Medical History: Yes Neurological History: No Pertinent History ENT History: No Pertinent History, Cataracts, Macular Degeneration Cardiac History: Coronary Artery Disease, Myocardial Infarction ([place]), High Cholesterol, Hypertension Respiratory History: No Pertinent History, Pneumonia Endocrine Medical History: No Pertinent History Musculoskeletal History: No Pertinent History, Other GI Medical History: No Pertinent History, Diverticulosis, Diverticulitis, Gallbladder Disease History: No Pertinent History, Other Psycho-Social History: No Pertinent History, Depression, Anxiety Female Reproductive Disorders: No Pertinent History Other Medical History: scleraderma? - Past Surgical History Past Surgical History: Yes Neuro Surgical History: No Pertinent History Cardiac: CABG, Valve Replacement, Cardiac Catheterization, Pacemaker Respiratory: No Pertinent History Gastrointestinal: Other, Cholecystectomy Genitourinary: Kidney Surgery Musculoskeletal: No Pertinent History Female Surgical History: No Pertinent History Other Surgical History: kidney stent x 2. colonoscopy and EGD 2017 - Social History Smoking Status: Former smoker How long have you smoked: 50 YEARS Exposure to second hand smoke: No Alcohol Use: Socially Drug Use: none Patient Lives Alone: No Significant Family History: hypertension - Nursing Vital Signs Nursing Vital Signs: Initial Vital Signs Temperature 97.8 F 11/23/19 01:13 Pulse Rate 71 11/23/19 01:13 Respiratory Rate 22 11/23/19 01:13 Blood Pressure 194/105 11/23/19 01:13 O2 Sat by Pulse Oximetry 99 11/23/19 01:13 Pain Scale Pain Intensity 0 - Physical Exam General Appearance: alert Eye Exam: PERRL/EOMI Ears, Nose, Throat Exam: normal pharynx Neck Exam: normal inspection Respiratory Exam: wheezing (mild expiratory wheezing over posterior bases.) Cardiovascular/Chest Exam: No friction rub Abdominal/Gastrointestinal Exam: normal bowel sounds Extremity Exam: no pedal edema Neurologic Exam: alert, cooperative Skin Exam: warm, dry SpO2 Interpretation: normal SpO2: 99 - Course Nursing assessment & vital signs reviewed: Yes EKG Interpreted by Me: RATE (68), NORMAL AXIS, NORMAL INTERVALS, Right Bundle Branch Block, Other (pacemaker) - Radiology Exams Chest X-ray Interpretation: Teleradiologist Report (bibasilar subsegmental streaky opacities; persistent blunting of costophrenic sulci, left more conspicuous than right.) - CT Exams Chest CT Interpretation: Tele-radiologist Report (see report) Ordered Tests: Active Orders 24 hr Category Date Time Status Cow Washer STAT Care 11/23/19 01:20 Active EKG-ER Only STAT Care 11/23/19 01:19 Active IV Insertion STAT Care 11/23/19 01:19 Active Oxygen-ED Only Nasal Cannula 2 lpm Care 11/23/19 01:19 Active Pulse Oximetry (ED) STAT Care 11/23/19 01:19 Active CHEST 2 VIEWS (PA AND LAT) Stat Exams 11/23/19 01:21 Taken CHEST WITHOUT CONTRAST [CT] Stat Exams 11/23/19 03:12 Taken BLOOD CULTURE Stat Lab 11/23/19 01:35 Received CBC W DIFF Stat Lab 11/23/19 01:35 Completed CMP Stat Lab 11/23/19 01:35 Completed CULTURE,SPUTUM Stat Lab 11/23/19 01:19 Uncollected D-DIMER QUANTITATIVE Stat Lab 11/23/19 01:35 Completed MAGNESIUM Stat Lab 11/23/19 01:35 Completed NT PRO BNP Stat Lab 11/23/19 01:35 Completed PROTIME WITH INR Stat Lab 11/23/19 01:35 Completed PTT Stat Lab 11/23/19 01:35 Completed TROPONIN Q3H Lab 11/23/19 01:36 Completed TROPONIN Q3H Lab 11/23/19 04:30 Ordered TROPONIN Q3H Lab 11/23/19 07:30 Ordered TROPONIN Q3H Lab 11/23/19 10:30 Ordered TROPONIN Q3H Lab 11/23/19 13:30 Ordered Peak Expiratory Flow Rate ONCE RT 11/23/19 01:36 Active Respiratory Therapy Assessment DAILY RT 11/23/19 01:35 Active Medication Summary Generic Name Dose Route Start Last Admin Trade Name Freq PRN Reason Stop Dose Admin Sodium Chloride 1,000 mls @ 100 mls/hr 11/23/19 01:30 11/23/19 01:40 Sodium Chloride 0.9% 1000 Ml IV 12/23/19 01:29 100 mls/hr .Q10H FELICIA Administration Discontinued Medications Generic Name Dose Route Start Last Admin Trade Name Freq PRN Reason Stop Dose Admin Ceftriaxone Sodium/Dextrose 1 g in 50 mls @ 100 mls/hr 11/23/19 01:19 01:58 Rocephin 1 Gm-D5w 50 Ml Bag IV 11/23/19 01:48 100 ml/hr STAT STA 100 mls/hr Administration Azithromycin 500 mg in 250 mls @ 250 mls/hr 11/23/19 01:19 11/23/19 02:40 Zithromax 500 Mg/ 250 Ml Nacl Premix IV 11/23/19 02:18 500 mg/hr STAT STA 250 mls/hr Administration Azithromycin Confirm 11/23/19 01:30 Zithromax 500 Mg/ 250 Ml Nacl Premix Administered 11/23/19 01:31 Dose 500 mg in 250 mls @ ud IV .STK-MED ONE Ceftriaxone Sodium/Dextrose Confirm 11/23/19 01:30 Rocephin 1 Gm-D5w 50 Ml Bag Administered 11/23/19 01:31 Dose 1 g in 50 mls @ ud IV .STK-MED ONE Levalbuterol HCl 1.25 mg 11/23/19 01:25 11/23/19 01:32 Xopenex 1.25 Mg/0.5 Ml Ud Nebule IH 11/23/19 01:26 1.25 mg STAT ONE Administration Levalbuterol HCl Confirm 11/23/19 01:31 Xopenex 1.25 Mg/0.5 Ml Ud Nebule Administered 11/23/19 01:32 Dose 1.25 mg IH .STK-MED ONE Sodium Chloride Confirm 11/23/19 01:31 Sodium Chloride 3 Ml Ud Nebules Administered 11/23/19 01:32 Dose 3 ml IH .STK-MED ONE Lab/Rad Data: Laboratory Result Diagrams 11/23/19 01:35 11/23/19 01:35 Laboratory Results 11/23/19 11/23/19 11/23/19 Range/Units 01:36 01:35 01:35 WBC (4.0-10.5) K/mm3 RBC (4.1-5.4) M/mm3 Hgb (12.0-16.0) gm/dl Hct (35-47) % MCV (78-100) fl MCH (26-32) pg MCHC (32-36) g/dl RDW (11.5-14.0) % Plt Count (150-450) K/mm3 MPV (7.5-11.0) fl Gran % (36.0-66.0) % Eos # (Auto) (0-0.5) Absolute Lymphs (auto) (1.0-4.6) Absolute Monos (auto) (0.0-1.3) Lymphocytes % (24.0-44.0) % Monocytes % (0.0-12.0) % Eosinophils % (0.00-5.0) % Basophils % (0.0-0.4) % Absolute Granulocytes (1.4-6.9) Basophils # (0-0.4) PT 56.3 H (9.95-12.35) SECONDS INR 4.82 H (0.8-3.0) APTT 53.7 H (25.3-37.0) SECONDS D-Dimer 321 (215-500) ng/mL Sodium 142 (137-145) mmol/L Potassium 3.5 (3.5-5.1) mmol/L Chloride 111 H (98-107) mmol/L Carbon Dioxide 24 (22-30) mmol/L Anion Gap 10.4 (5-15) MEQ/L BUN 24 H (7-17) mg/dL Creatinine 1.07 H (0.52-1.04) mg/dL Estimated GFR 53.0 ML/MIN Glucose 143 H (74-106) mg/dL Calcium 9.0 (8.4-10.2) mg/dL Magnesium 1.8 (1.6-2.3) mg/dL Total Bilirubin 0.60 (0.2-1.3) mg/dL AST 30 (14-36) U/L ALT 13 (0-35) U/L Alkaline Phosphatase 127 H (38-126) U/L Troponin I 0.012 (0.000-0.034) ng/mL NT-Pro-B Natriuret Pep 2220 H (0-1800) pg/mL Serum Total Protein 6.8 (6.3-8.2) g/dL Albumin 3.7 (3.5-5.0) g/dL 11/23/19 Range/Units 01:35 WBC 10.7 H (4.0-10.5) K/mm3 RBC 3.57 L (4.1-5.4) M/mm3 Hgb 10.5 L (12.0-16.0) gm/dl Hct 33.8 L (35-47) % MCV 94.7 (78-100) fl MCH 29.4 (26-32) pg MCHC 31.1 L (32-36) g/dl RDW 14.4 H (11.5-14.0) % Plt Count 217 (150-450) K/mm3 MPV 10.7 (7.5-11.0) fl Gran % 73.8 H (36.0-66.0) % Eos # (Auto) 0.42 (0-0.5) Absolute Lymphs (auto) 1.28 (1.0-4.6) Absolute Monos (auto) 1.06 (0.0-1.3) Lymphocytes % 11.9 L (24.0-44.0) % Monocytes % 9.9 (0.0-12.0) % Eosinophils % 3.9 (0.00-5.0) % Basophils % 0.5 (0.0-0.4) % Absolute Granulocytes 7.93 H (1.4-6.9) Basophils # 0.05 (0-0.4) PT (9.95-12.35) SECONDS INR (0.8-3.0) APTT (25.3-37.0) SECONDS D-Dimer (215-500) ng/mL Sodium (137-145) mmol/L Potassium (3.5-5.1) mmol/L Chloride (98-107) mmol/L Carbon Dioxide (22-30) mmol/L Anion Gap (5-15) MEQ/L BUN (7-17) mg/dL Creatinine (0.52-1.04) mg/dL Estimated GFR ML/MIN Glucose (74-106) mg/dL Calcium (8.4-10.2) mg/dL Magnesium (1.6-2.3) mg/dL Total Bilirubin (0.2-1.3) mg/dL AST (14-36) U/L ALT (0-35) U/L Alkaline Phosphatase (38-126) U/L Troponin I (0.000-0.034) ng/mL NT-Pro-B Natriuret Pep (0-1800) pg/mL Serum Total Protein (6.3-8.2) g/dL Albumin (3.5-5.0) g/dL - Progress Discussed with : Keesha (obs) - Departure Departure Disposition: Observation Clinical Impression: Dyspnea, Bronchitis, Hypertension, Coronary artery disease, Depression Condition: Stable Critical Care Time: No Referrals: BESSIE LANGSTON [Primary Care Provider] -
[2019-11-23] MEDS ORDERED: Xopenex 1.25 MG/0.5 ML UD NEBULE IH ONE ×2 (01:25→01:31)
[2019-11-23] MEDS ORDERED: Sodium Chloride 0.9% 1000 ML 1,000 ML IV SCH (01:30)
[2019-11-23] MEDS ORDERED: Zithromax 500 MG/ 250 ML NaCl Premix 500 MG/250 ML IVPB IV ONE (01:30)
[2019-11-23] MEDS ORDERED: ROCEPHIN 1 Gm-D5w 50 ml Bag** 1 G/50 ML IVPB IV ONE (01:30)
[2019-11-23] MEDS ORDERED: Sodium Chloride 0.9% 1000 ML 1,000 ML ONE (01:30)
[2019-11-23] MEDS ORDERED: Sodium Chloride 3 ML UD NEBULES IH ONE (01:31)
[2019-11-23 01:39] LABS: Absolute Neutrophil Ct (ANC) 7.93 (1.4-6.9); BASOPHIL % 0.5 % (0.0-0.4); Basophil (Absolute #) 0.05 (0-0.4); Eosinophil % 3.9 % (0.00-5.0); Eosinophil (Absolute #) 0.42 (0-0.5); Hematocrit 33.8 % (35-47); Hemoglobin 10.5 gm/dl (12.0-16.0); Lymphocyte (Absolute #) 1.28 (1.0-4.6); Lymphocytes % 11.9 % (24.0-44.0); Mean Cell Volume 94.7 fl (78-100); Mean Corpuscular Hemoglobin 29.4 pg (26-32); Mean Corpuscular Hgb Concent. 31.1 g/dl (32-36); Mean Platelet Volume 10.7 fl (7.5-11.0); Monocyte (Absolute #) 1.06 (0.0-1.3); Monocytes % 9.9 % (0.0-12.0); Neutrophil % 73.8 % (36.0-66.0); Platelet Count 217 K/mm3 (150-450); Red Blood Count 3.57 M/mm3 (4.1-5.4); Red Cell Distribution Width 14.4 % (11.5-14.0); White Blood Count 10.7 K/mm3 (4.0-10.5)
[2019-11-23 01:49] LABS: INR 4.82 (0.8-3.0); PROTIME 56.3 SECONDS (9.95-12.35)
[2019-11-23 01:50] LABS: PTT 53.7 SECONDS (25.3-37.0)
[2019-11-23 02:01] LABS: ALBUMIN 3.7 g/dL (3.5-5.0); ANION GAP 10.4 MEQ/L (5-15); BILIRUBIN,TOTAL 0.6 mg/dL (0.2-1.3); Creatinine 1 1.07 mg/dL (0.52-1.04); MAGNESIUM 1.8 mg/dL (1.6-2.3); Potassium 3.5 mmol/L (3.5-5.1); Total Protein 6.8 g/dL (6.3-8.2)
[2019-11-23] MEDS ORDERED: MORPHINE SULFATE 2 MG INJ IV PRN (05:09)
[2019-11-23] MEDS ORDERED: Zofran 4 MG/2 ML VIAL IV PRN (05:09)
[2019-11-23] MEDS ORDERED: PROVENTIL 2.5 MG/3 ML NEB IH ONE (05:29)
[2019-11-23] MEDS: TYLENOL 325 MG PO PRN ×2 (05:32→18:41)
[2019-11-23] MEDS: PROVENTIL 2.5 MG/3 ML NEB IH SCH ×2 (05:32→10:14)
--- NOTE | 2019-11-23 08:58 | PCM.HP ---
History of Present Illness - Chief Complaint History of Present Illness: is a 74 year old female pt of mine from [facility] with HTD, CAD, hx blood clot, chronic renal insufficiency, mitral valve disorder, sclerodermatomyositis , and depression who was admitted to ER yesterday with acute SOB. She had been taking breathing tx but finished those a few days ago and was feeling well, but 1 hr prior to admission had SOB. No chest pain or discomfort whatsoever. She did feel presyncopal when she got up to go to the ER. In ER, her troponin was neg. Labs were non acute, some anemia (hgb 10.5). EKG grossly abnormal with widened QRS, paced rhythm, no change from old ekg, and no ST changes indicative of ischemia. This morning her second troponin has come back somewhat elevated at 0.036. Her CT chest showed bibasilar airspace disease, possibly infection. She was started on IV rocephin and zithromax. - Review of Systems Constitutional: No Fever Respiratory: Cough, Short Of Breath Neurological: Dizziness Psychological: No Anxiety, No Depression, No Suicidal Ideations, No Homicidal Ideations All Other Systems: Reviewed and Negative Medications & Allergies Home Medications: Home Medication List Atorvastatin Calcium 40 mg PO DAILY 12/22/15 [History Confirmed 11/23/19] Aspirin [Aspirin EC] 81 mg PO HS 02/15/18 [History Confirmed 11/23/19] FA/Vit C/E/Zinc/Copper/Lut/Dov [Ocuvel Capsule] 1 each PO DAILY 02/15/18 [ History Confirmed 11/23/19] Ferrous Sulfate 325 mg [Feosol 325 mg] 325 mg PO HS 02/15/18 [History Confirmed 11/23/19] Jupiter-3 Fatty Acids [Jupiter-3] 1,000 mg PO DAILY 02/15/18 [History Confirmed ] Warfarin Sodium 3 mg [Coumadin 3 MG] 3 mg PO DAILY@1800 02/15/18 [History Confirmed 11/23/19] Carvedilol 3.125 mg [Coreg 3.125 MG] 12.5 mg PO BID 02/16/18 [History Confirmed 11/23/19] Cyanocobalamin/Folic AC/Vit B6 [Homocysteine Formula Tablet] 1 each PO DAILY [History Confirmed 11/23/19] Buspirone HCl 5 mg [Buspar 5 mg] 5 mg BID 10/18/19 [History Confirmed ] Famotidine 20 mg [Pepcid 20 MG] 20 mg DAILY 10/18/19 [History Confirmed ] Tramadol HCl 50 mg [Ultram 50 mg] 50 mg PO UD PRN 11/04/19 [History Confirmed 11/23/19] PARoxetine HCl [Paxil] 40 mg PO DAILY 11/23/19 [History Confirmed 11/23/19] Allergies/Adverse Reactions: Allergies Allergy/AdvReac Type Severity Reaction Status Date / Time No Known Drug Allergies Allergy Verified 11/23/19 01:26 - Past Medical History Past Medical History: Yes Neurological History: No Pertinent History ENT History: No Pertinent History, Cataracts, Macular Degeneration Cardiac History: Coronary Artery Disease, Myocardial Infarction ([place]), High Cholesterol, Hypertension Respiratory History: No Pertinent History, Bronchitis, Pneumonia Endocrine Medical History: No Pertinent History Musculoskelatal History: No Pertinent History, Other GI Medical History: No Pertinent History, Gallbladder Disease History: No Pertinent History, Other Pyscho-Social History: No Pertinent History, Depression, Anxiety Reproductive Disorders: No Pertinent History Comment: skin ca, - Past Surgical History Past Surgical History: Yes Neuro Surgical History: No Pertinent History Cardiac History: CABG, Valve Replacement, Cardiac Catheterization, Pacemaker Respiratory Surgery: No Pertinent History GI Surgical History: Other, Cholecystectomy Genitourinary Surgical Hx: Kidney Surgery Musculskeletal Surgical Hx: No Pertinent History Female Surgical History: No Pertinent History Other Surgical History: kidney stent x 2. colonoscopy and EGD 2017 - Social History Smoking Status: Former smoker How long have you smoked: 50 YEARS Exposure to second hand smoke: No Alcohol: None Drug Use: none Significant Family History: hypertension - Physical Exam Vital Signs: Vital Signs - 24 hr Temp Pulse Resp BP Pulse Ox 11/23/19 07:56 98 F 66 16 166/70 95 11/23/19 06:23 68 18 99 11/23/19 06:04 97.7 F 58 L 17 139/65 97 11/23/19 05:08 97.8 F 62 20 167/78 99 11/23/19 04:32 99 11/23/19 04:16 62 20 167/78 100 11/23/19 03:12 63 14 174/61 100 11/23/19 02:18 61 18 176/74 100 11/23/19 01:37 61 18 100 11/23/19 01:24 99 11/23/19 01:13 97.8 F 71 22 194/105 97 Oxygen-Last 24 hours Oxygen Flowrate (L/min)-RT 2 General Appearance: no apparent distress, alert Neurologic Exam: oriented x 3, cooperative Eye Exam: eyes nml inspection Ears, Nose, Throat Exam: pharynx normal, moist mucous membranes Neck Exam: normal inspection, non-tender, No lymphadenopathy Respiratory Exam: normal breath sounds, lungs clear, No crackles/rales, No rhonchi, No wheezing Cardiovascular Exam: regular rate/rhythm (occ extra beat), normal heart sounds, No murmur Gastrointestinal/Abdomen Exam: soft, normal bowel sounds, No tenderness, No distention, No mass, No guarding, No rebound Back Exam: normal inspection, No CVA tenderness Extremity Exam: normal inspection, No pedal edema, No swelling Skin Exam: normal color, warm, dry, No rash Results - Labs Lab/Micro Results: Lab Results-Last 24 Hours 11/23/19 11/23/19 11/23/19 Range/Units 01:35 01:35 01:35 WBC 10.7 H (4.0-10.5) K/mm3 RBC 3.57 L (4.1-5.4) M/mm3 Hgb 10.5 L (12.0-16.0) gm/dl Hct 33.8 L (35-47) % MCV 94.7 (78-100) fl MCH 29.4 (26-32) pg MCHC 31.1 L (32-36) g/dl RDW 14.4 H (11.5-14.0) % Plt Count 217 (150-450) K/mm3 MPV 10.7 (7.5-11.0) fl Gran % 73.8 H (36.0-66.0) % Eos # (Auto) 0.42 (0-0.5) Absolute Lymphs (auto) 1.28 (1.0-4.6) Absolute Monos (auto) 1.06 (0.0-1.3) Lymphocytes % 11.9 L (24.0-44.0) % Monocytes % 9.9 (0.0-12.0) % Eosinophils % 3.9 (0.00-5.0) % Basophils % 0.5 (0.0-0.4) % Absolute Granulocytes 7.93 H (1.4-6.9) Basophils # 0.05 (0-0.4) PT 56.3 H (9.95-12.35) SECONDS INR 4.82 H (0.8-3.0) APTT 53.7 H (25.3-37.0) SECONDS D-Dimer 321 (215-500) ng/mL Sodium 142 (137-145) mmol/L Potassium 3.5 (3.5-5.1) mmol/L Chloride 111 H (98-107) mmol/L Carbon Dioxide 24 (22-30) mmol/L Anion Gap 10.4 (5-15) MEQ/L BUN 24 H (7-17) mg/dL Creatinine 1.07 H (0.52-1.04) mg/dL Estimated GFR 53.0 ML/MIN Glucose 143 H (74-106) mg/dL Calcium 9.0 (8.4-10.2) mg/dL Magnesium 1.8 (1.6-2.3) mg/dL Total Bilirubin 0.60 (0.2-1.3) mg/dL AST 30 (14-36) U/L ALT 13 (0-35) U/L Alkaline Phosphatase 127 H (38-126) U/L Troponin I (0.000-0.034) ng/mL NT-Pro-B Natriuret Pep 2220 H (0-1800) pg/mL Serum Total Protein 6.8 (6.3-8.2) g/dL Albumin 3.7 (3.5-5.0) g/dL 11/23/19 11/23/19 11/23/19 Range/Units 01:36 04:43 07:46 WBC (4.0-10.5) K/mm3 RBC (4.1-5.4) M/mm3 Hgb (12.0-16.0) gm/dl Hct (35-47) % MCV (78-100) fl MCH (26-32) pg MCHC (32-36) g/dl RDW (11.5-14.0) % Plt Count (150-450) K/mm3 MPV (7.5-11.0) fl Gran % (36.0-66.0) % Eos # (Auto) (0-0.5) Absolute Lymphs (auto) (1.0-4.6) Absolute Monos (auto) (0.0-1.3) Lymphocytes % (24.0-44.0) % Monocytes % (0.0-12.0) % Eosinophils % (0.00-5.0) % Basophils % (0.0-0.4) % Absolute Granulocytes (1.4-6.9) Basophils # (0-0.4) PT (9.95-12.35) SECONDS INR (0.8-3.0) APTT (25.3-37.0) SECONDS D-Dimer (215-500) ng/mL Sodium (137-145) mmol/L Potassium (3.5-5.1) mmol/L Chloride (98-107) mmol/L Carbon Dioxide (22-30) mmol/L Anion Gap (5-15) MEQ/L BUN (7-17) mg/dL Creatinine (0.52-1.04) mg/dL Estimated GFR ML/MIN Glucose (74-106) mg/dL Calcium (8.4-10.2) mg/dL Magnesium (1.6-2.3) mg/dL Total Bilirubin (0.2-1.3) mg/dL AST (14-36) U/L ALT (0-35) U/L Alkaline Phosphatase (38-126) U/L Troponin I 0.012 0.036 H* 0.039 H* (0.000-0.034) ng/mL NT-Pro-B Natriuret Pep (0-1800) pg/mL Serum Total Protein (6.3-8.2) g/dL Albumin (3.5-5.0) g/dL - Radiology Impressions Radiology Exams & Impressions: Radiology Procedures Category Date Time Status CHEST 2 VIEWS (PA AND LAT) Stat Exams 11/23/19 01:21 Taken CHEST WITHOUT CONTRAST [CT] Stat Exams 11/23/19 03:12 Taken - Other Procedures and Tests Respiratory Therapy 11/23/19 05:09 Oxygen Nasal Cannula 2 lpm 11/23/19 06:21 Peak Expiratory Flow Rate ONCE Respiratory Therapy Assessment DAILY Assessment/Plan (1) Dyspnea Current Visit: Yes Status: Acute Assessment & Plan: D-dimer was normal. CT chest with possible lung infection, so treating for pneumonia. Her second troponin is elevated - if this trend continues upward, will consult cardiology. Code(s): R06.00 - DYSPNEA, UNSPECIFIED (2) Pneumonia Current Visit: Yes Status: Acute Qualifiers: Pneumonia type: due to unspecified organism Laterality: bilateral Lung location: lower lobe of lung Qualified Code(s): J18.9 - Pneumonia, unspecified organism Code(s): J18.9 - PNEUMONIA, UNSPECIFIED ORGANISM (3) Elevated INR Current Visit: Yes Status: Acute Assessment & Plan: INR 4.3 Code(s): R79.1 - ABNORMAL COAGULATION PROFILE (4) Coronary artery disease Current Visit: Yes Status: Chronic Qualifiers: Coronary Disease-Associated Artery/Lesion type: bypass graft [place] vs. transplanted heart: [place] heart Associated angina: without angina Qualified Code(s): I25.810 - Atherosclerosis of coronary artery bypass graft(s) without angina pectoris Code(s): I25.10 - ATHSCL HEART DISEASE OF [place] CORONARY ARTERY W/O ANG PCTRS (5) Hypertension Current Visit: Yes Status: Chronic Qualifiers: Hypertension type: essential hypertension Qualified Code(s): I10 - Essential (primary) hypertension Code(s): I10 - ESSENTIAL (PRIMARY) HYPERTENSION
--- NOTE | 2019-11-23 09:02 | XRAY ---
Indication: Dyspnea. Comparison: November 04, 2019. AP/lateral chest demonstrates new cardiomegaly with new small bibasilar infiltrates/atelectasis/effusions. Upper lungs clear. Rule out cardiac decompensation/fluid overload. Superimposed pneumonia not completely excluded.
--- NOTE | 2019-11-23 09:03 | XRAY ---
Indication: Chest pain and dyspnea. Recent pneumonia. Multiple contiguous axial images obtained through the chest without contrast as ordered. Comparison: September 11, 2015. Heart is now enlarged again with previous mitral valve replacement surgery. New left-sided dual-lead pacemaker. No pericardial effusion. Aorta remains arteriosclerotic without aneurysm. Again a few paratracheal lymph nodes minimally enlarged in the interim. Largest lymph node measures 1.6 x 2.1 cm distally. New small hiatal hernia. Examination of the lungs demonstrates new small bilateral pleural effusions right greater than left with minimal bibasilar compressive atelectasis. Elsewhere there is scattered bilateral mid to lower lung fibrosis/scarring. Stable tiny right lung calcified granulomas and 8 mm left lower lobe noncalcified nodule. Bony thorax again demonstrates moderate osteopenia, minimal degenerative changes throughout the spine, and sternotomy wires. Limited upper abdomen now demonstrates 12.3 cm splenomegaly. Micro-calculus in each kidney not previously imaged largest measuring 6 mm on the right. Query incompletely visualized right hydronephrosis versus extrarenal pelvis. Impression: 1. New cardiomegaly with left-sided dual-lead pacemaker. Also new small bilateral effusions. Rule out cardiac decompensation/fluid overload. Superimposed pneumonia not completely excluded. 2. New enlarged nonspecific distal paratracheal lymph node, small hiatal hernia, and splenomegaly. 3. Stable benign 8 mm left lower lobe noncalcified nodule and right lung calcified granulomas. 4. New finding bilateral renal micro-calculus not previously imaged. Query incompletely visualized right hydronephrosis versus extrarenal pelvis. Comment: Preliminary interpretation was made by C. No critical discrepancy.
[2019-11-23] MEDS ORDERED: ULTRAM 50 MG PO PRN (09:39)
[2019-11-23] MEDS ORDERED: [UNRECOGNIZED DRUG - OTHER] PO SCH (10:00)
[2019-11-23] MEDS ORDERED: VIT B6 PO SCH (10:00)
[2019-11-23] MEDS ORDERED: [UNRECOGNIZED DRUG - OTHER] PO SCH (10:00)
[2019-11-23] MEDS ORDERED: OMEGA PO SCH (10:00)
[2019-11-23] MEDS ORDERED: NON-FORMULARY ITEM (Atorvastatin Calcium [Atorvastatin Calcium] 40 MG) PO SCH (10:00)
[2019-11-23] MEDS ORDERED: CYANOCOBALAMIN PO SCH (10:00)
[2019-11-23] MEDS ORDERED: FATTY ACIDS PO SCH (10:00)
[2019-11-23] MEDS ORDERED: FOLIC AC PO SCH (10:00)
[2019-11-23] MEDS ORDERED: Coreg 3.125 MG PO SCH (10:00)
[2019-11-23] MEDS ORDERED: MEDICATION INTERVENTION MC SCH (10:15)
[2019-11-23] MEDS ORDERED: PROVENTIL 2.5 MG/3 ML NEB IH PRN (10:18)
[2019-11-23] MEDS: THERAGRAN MULTIVITAMIN PO SCH (10:42)
[2019-11-23] MEDS: COREG 12.5 MG PO SCH ×2 (10:42→21:32)
[2019-11-23] MEDS: Ocuvite Tablet PO SCH (10:43)
[2019-11-23] MEDS: Pepcid 20 MG PO SCH (10:43)
[2019-11-23] MEDS: Paxil 20 MG PO SCH (10:43)
[2019-11-23] MEDS: FISH OIL 1,000 MG CAPSULE PO SCH (10:43)
[2019-11-23] MEDS: BUSPAR 5 MG PO SCH ×2 (10:44→18:41)
[2019-11-23] MEDS: Sodium Chloride 0.9% 1000 ML 1,000 ML IV SCH ×2 (12:36→21:48)
[2019-11-23] MEDS: ECOTRIN 81 MG PO SCH (21:32)
[2019-11-23] MEDS: FEOSOL 325 MG PO SCH (21:32)
[2019-11-23] MEDS: ROCEPHIN 1 Gm-D5w 50 ml Bag** 1 G/50 ML IVPB IV SCH (21:32)
[2019-11-23] MEDS: ZOCOR 20MG PO SCH (21:33)
[2019-11-23] MEDS: Zithromax 500 MG/ 250 ML NaCl Premix 500 MG/250 ML IVPB IV SCH (22:37)
[2019-11-24] MEDS: TYLENOL 325 MG PO PRN ×2 (00:23→19:18)
[2019-11-24 05:23] LABS: Absolute Neutrophil Ct (ANC) 6.35 (1.4-6.9); BASOPHIL % 0.3 % (0.0-0.4); Basophil (Absolute #) 0.02 (0-0.4); Eosinophil % 0.3 % (0.00-5.0); Eosinophil (Absolute #) 0.02 (0-0.5); Hematocrit 28.2 % (35-47); Hemoglobin 8.6 gm/dl (12.0-16.0); Lymphocytes % 8.9 % (24.0-44.0); Mean Cell Volume 95.9 fl (78-100); Mean Corpuscular Hemoglobin 29.3 pg (26-32); Mean Corpuscular Hgb Concent. 30.5 g/dl (32-36); Mean Platelet Volume 10.9 fl (7.5-11.0); Monocyte (Absolute #) 0.76 (0.0-1.3); Monocytes % 9.7 % (0.0-12.0); Neutrophil % 80.8 % (36.0-66.0); Platelet Count 154 K/mm3 (150-450); Red Blood Count 2.94 M/mm3 (4.1-5.4); Red Cell Distribution Width 14.6 % (11.5-14.0); White Blood Count 7.9 K/mm3 (4.0-10.5)
[2019-11-24 05:50] LABS: INR 4.19 (0.8-3.0); PROTIME 48.8 SECONDS (9.95-12.35)
[2019-11-24 06:15] LABS: ALBUMIN 3.1 g/dL (3.5-5.0); ALKALINE PHOSPHATASE 99 U/L (38-126); ANION GAP 6.4 MEQ/L (5-15); BLOOD UREA NITROGEN 22 mg/dL (7-17); CHLORIDE 118 mmol/L (98-107); Calcium 8.5 mg/dL (8.4-10.2); Carbon Dioxide 23 mmol/L (22-30); Creatinine 1 0.95 mg/dL (0.52-1.04); Glucose 109 mg/dL (74-106); Potassium 3.4 mmol/L (3.5-5.1); SGOT/AST 40 U/L (14-36); SGPT/ALT 18 U/L (0-35); SODIUM 144 mmol/L (137-145)
--- NOTE | 2019-11-24 08:28 | PCM.NOTE ---
Date and Time: 11/24/19821 Subjective Assessment: Pt's BPs upt o 160s, 170s systolic; at home when she checks they run 120s, 130s systolic. She is feeling a little short of breath this morning. - Review of Systems Constitutional: No Fever Respiratory: Cough, Short Of Breath Objective Exam General Appearance: no apparent distress, alert Neurologic Exam: oriented x 3, cooperative Skin Exam: normal color, warm, dry, No rash Ears, Nose, Throat Exam: moist mucous membranes Respiratory Exam: diminished breath sounds, wheezing (throughout), No crackles/ rales, No rhonchi Cardiovascular Exam: regular rate/rhythm, normal heart sounds, No murmur Extremity Exam: normal inspection, swelling (trace LE edema bilat) Back Exam: normal inspection OBJECTIVE DATA Vital Signs: Vital Signs - 24 hr Temp Pulse Resp BP Pulse Ox 11/24/19 08:18 62 18 96 11/24/19 07:44 97 11/24/19 07:26 97.4 F 61 18 132/61 95 11/24/19 04:00 97.4 F 63 17 140/65 95 11/24/19 00:00 97.4 F 71 17 142/65 98 11/23/19 20:00 97.8 F 73 19 176/70 98 11/23/19 16:00 98.2 F 68 20 170/62 96 11/23/19 11:51 97.9 F 64 23 169/65 94 L 11/23/19 10:55 97 11/23/19 10:16 72 16 98 11/23/19 08:50 98 F 66 16 166/70 95 Pain Assessment - Last Documented Pain Intensity 4 Pain Scale Used 0-10 Pain Scale,FLACC Intake and Output: Intake & Output 11/21/19 11/22/19 11/23/19 11/24/19 11:59 11:59 11:59 11:59 Intake Total 3719 Balance 3719 Weight 65.2 kg 67 kg Lab Results: Lab Results-Last 24 Hours 11/23/19 11/23/19 11/23/19 Range/Units 07:46 10:20 14:00 WBC (4.0-10.5) K/mm3 RBC (4.1-5.4) M/mm3 Hgb (12.0-16.0) gm/dl Hct (35-47) % MCV (78-100) fl MCH (26-32) pg MCHC (32-36) g/dl RDW (11.5-14.0) % Plt Count (150-450) K/mm3 MPV (7.5-11.0) fl Gran % (36.0-66.0) % Eos # (Auto) (0-0.5) Absolute Lymphs (auto) (1.0-4.6) Absolute Monos (auto) (0.0-1.3) Lymphocytes % (24.0-44.0) % Monocytes % (0.0-12.0) % Eosinophils % (0.00-5.0) % Basophils % (0.0-0.4) % Absolute Granulocytes (1.4-6.9) Basophils # (0-0.4) PT (9.95-12.35) SECONDS INR (0.8-3.0) Sodium (137-145) mmol/L Potassium (3.5-5.1) mmol/L Chloride (98-107) mmol/L Carbon Dioxide (22-30) mmol/L Anion Gap (5-15) MEQ/L BUN (7-17) mg/dL Creatinine (0.52-1.04) mg/dL Estimated GFR ML/MIN Glucose (74-106) mg/dL Calcium (8.4-10.2) mg/dL Total Bilirubin (0.2-1.3) mg/dL AST (14-36) U/L ALT (0-35) U/L Alkaline Phosphatase (38-126) U/L Troponin I 0.039 H* 0.030 0.022 (0.000-0.034) ng/mL Serum Total Protein (6.3-8.2) g/dL Albumin (3.5-5.0) g/dL 11/24/19 11/24/19 11/24/19 Range/Units 05:00 05:00 05:00 WBC 7.9 (4.0-10.5) K/mm3 RBC 2.94 L (4.1-5.4) M/mm3 Hgb 8.6 L (12.0-16.0) gm/dl Hct 28.2 L (35-47) % MCV 95.9 (78-100) fl MCH 29.3 (26-32) pg MCHC 30.5 L (32-36) g/dl RDW 14.6 H (11.5-14.0) % Plt Count 154 (150-450) K/mm3 MPV 10.9 (7.5-11.0) fl Gran % 80.8 H (36.0-66.0) % Eos # (Auto) 0.02 (0-0.5) Absolute Lymphs (auto) 0.70 L (1.0-4.6) Absolute Monos (auto) 0.76 (0.0-1.3) Lymphocytes % 8.9 L (24.0-44.0) % Monocytes % 9.7 (0.0-12.0) % Eosinophils % 0.3 (0.00-5.0) % Basophils % 0.3 (0.0-0.4) % Absolute Granulocytes 6.35 (1.4-6.9) Basophils # 0.02 (0-0.4) PT 48.8 H (9.95-12.35) SECONDS INR 4.19 H (0.8-3.0) Sodium 144 (137-145) mmol/L Potassium 3.4 L (3.5-5.1) mmol/L Chloride 118 H (98-107) mmol/L Carbon Dioxide 23 (22-30) mmol/L Anion Gap 6.4 (5-15) MEQ/L BUN 22 H (7-17) mg/dL Creatinine 0.95 (0.52-1.04) mg/dL Estimated GFR > 60.0 ML/MIN Glucose 109 H (74-106) mg/dL Calcium 8.5 (8.4-10.2) mg/dL Total Bilirubin 0.40 (0.2-1.3) mg/dL AST 40 H (14-36) U/L ALT 18 (0-35) U/L Alkaline Phosphatase 99 (38-126) U/L Troponin I (0.000-0.034) ng/mL Serum Total Protein 6.0 L (6.3-8.2) g/dL Albumin 3.1 L (3.5-5.0) g/dL Radiology Exams: Radiology Procedures Category Date Time Status CHEST 2 VIEWS (PA AND LAT) Stat Exams 11/23/19 01:21 Completed CHEST WITHOUT CONTRAST [CT] Stat Exams 11/23/19 03:12 Completed Assessment/Plan (1) Pneumonia Current Visit: Yes Status: Acute Qualifiers: Pneumonia type: due to unspecified organism Laterality: bilateral Lung location: lower lobe of lung Qualified Code(s): J18.9 - Pneumonia, unspecified organism Assessment & Plan: On Rocephin and zithromax day #3. Added IV solumedrol 40mg TID tid. Code(s): J18.9 - PNEUMONIA, UNSPECIFIED ORGANISM (2) Dyspnea Current Visit: Yes Status: Acute Qualifiers: Dyspnea type: shortness of breath Qualified Code(s): R06.02 - Shortness of breath; R06.00 - Dyspnea, unspecified; R06.01 - Orthopnea Assessment & Plan: Likely due to pneumonia; she ruled out for AR with an initial very small troponin elevation that returned to normal for her 4th and 5th troponins. If she gets up and is feeling well today she may be able to go home, but if continues short of breath at all, she needs to stay and have an overnight pulse ox done tonight. Code(s): R06.00 - DYSPNEA, UNSPECIFIED (3) Elevated INR Current Visit: Yes Status: Acute Code(s): R79.1 - ABNORMAL COAGULATION PROFILE (4) Coronary artery disease Current Visit: Yes Status: Chronic Qualifiers: Coronary Disease-Associated Artery/Lesion type: bypass graft [place] vs. transplanted heart: [place] heart Associated angina: without angina Qualified Code(s): I25.810 - Atherosclerosis of coronary artery bypass graft(s) without angina pectoris Code(s): I25.10 - ATHSCL HEART DISEASE OF [place] CORONARY ARTERY W/O ANG PCTRS (5) Hypertension Current Visit: Yes Status: Chronic Qualifiers: Hypertension type: essential hypertension Qualified Code(s): I10 - Essential (primary) hypertension Code(s): I10 - ESSENTIAL (PRIMARY) HYPERTENSION
[2019-11-24] MEDS: BUSPAR 5 MG PO SCH ×2 (09:56→21:42)
[2019-11-24] MEDS: solu-MEDROL 40 MG IV SCH ×3 (09:56→21:42)
[2019-11-24] MEDS: COREG 12.5 MG PO SCH ×2 (09:56→21:43)
[2019-11-24] MEDS: FISH OIL 1,000 MG CAPSULE PO SCH (09:56)
[2019-11-24] MEDS: Paxil 20 MG PO SCH (09:56)
[2019-11-24] MEDS: Pepcid 20 MG PO SCH (09:56)
[2019-11-24] MEDS: Ocuvite Tablet PO SCH (09:56)
[2019-11-24] MEDS: THERAGRAN MULTIVITAMIN PO SCH (09:56)
[2019-11-24] MEDS: Sodium Chloride 0.9% 1000 ML 1,000 ML IV SCH ×2 (09:57→20:14)
[2019-11-24] MEDS: PROVENTIL 2.5 MG/3 ML NEB IH SCH ×3 (11:06→21:24)
[2019-11-24] MEDS: FEOSOL 325 MG PO SCH (21:42)
[2019-11-24] MEDS: ROCEPHIN 1 Gm-D5w 50 ml Bag** 1 G/50 ML IVPB IV SCH (21:42)
[2019-11-24] MEDS: ECOTRIN 81 MG PO SCH (21:42)
[2019-11-24] MEDS: ZOCOR 20MG PO SCH (21:42)
[2019-11-24] MEDS: Zithromax 500 MG/ 250 ML NaCl Premix 500 MG/250 ML IVPB IV SCH (22:28)
[2019-11-25] MEDS: PROVENTIL 2.5 MG/3 ML NEB IH SCH ×4 (07:01→19:02)
[2019-11-25] MEDS: Sodium Chloride 0.9% 1000 ML 1,000 ML IV SCH ×2 (08:38→17:57)
[2019-11-25] MEDS ORDERED: APRESOLINE 20 MG/ML INJ IV ONE (08:50)
[2019-11-25] MEDS ORDERED: KLONOPIN PO ONE (09:17)
[2019-11-25] MEDS ORDERED: Klonopin 0.5 MG PO ONE (09:30)
[2019-11-25] MEDS: BUSPAR 5 MG PO SCH ×2 (09:33→21:05)
[2019-11-25] MEDS: Pepcid 20 MG PO SCH (09:33)
[2019-11-25] MEDS: THERAGRAN MULTIVITAMIN PO SCH (09:34)
[2019-11-25] MEDS: FISH OIL 1,000 MG CAPSULE PO SCH (09:34)
[2019-11-25] MEDS: Ocuvite Tablet PO SCH (09:34)
[2019-11-25] MEDS: COREG 12.5 MG PO SCH ×2 (09:34→21:05)
[2019-11-25] MEDS: Paxil 20 MG PO SCH (09:43)
[2019-11-25] MEDS: solu-MEDROL 40 MG IV SCH ×3 (10:55→21:06)
[2019-11-25] MEDS ORDERED: TRANDATE 100MG/20 ML MDV IV ONE (11:40)
[2019-11-25] MEDS: TYLENOL 325 MG PO PRN ×2 (12:34→21:04)
[2019-11-25] MEDS: Zestril 5 MG PO SCH (15:06)
--- NOTE | 2019-11-25 17:49 | PCM.NOTE ---
Date and Time: 11/25/19 0900 Subjective Assessment: Patient seen and examined this am. Patient reports that she is feeling better since admission. Patient reports that she has never been told she has COPD. She reports that she is less short of breath then when she was first admitted but she gets extremely short of breath when she gets up to go to the bathroom. Patient denies any chest pain. She reports that she has had some lower pedal edema. She has been getting breathing tx and steroids. - Review of Systems Constitutional: No Fever, No Weakness Eyes: No Symptoms Ears, Nose, & Throat: No Symptoms Respiratory: Cough, Short Of Breath Cardiac: Edema, No Chest Pain Abdominal/Gastrointestinal: No Abdominal Pain, No Nausea, No Vomiting, No Diarrhea, No Constipation Neurological: No Headache Objective Exam General Appearance: mild distress Neurologic Exam: alert, oriented x 3, cooperative, normal mood/affect Skin Exam: normal color, warm, dry, No rash Eye Exam: eyes nml inspection Ears, Nose, Throat Exam: moist mucous membranes Neck Exam: normal inspection Respiratory Exam: diminished breath sounds, accessory muscle use (upon entering patients room she was using accessory muscles to breath she reports this happened because she had just gotten back in bed after getting up to go to the bathroom), crackles/rales Cardiovascular Exam: regular rate/rhythm, normal heart sounds, No murmur, No friction rub, No gallop Gastrointestinal/Abdomen Exam: soft, normal bowel sounds, No tenderness, No distention Extremity Exam: pedal edema OBJECTIVE DATA Vital Signs: Vital Signs - 24 hr Temp Pulse Resp BP Pulse Ox 11/25/19 16:12 76 18 95 11/25/19 15:37 98.6 F 73 18 147/63 96 11/25/19 12:11 68 71 H 97 11/25/19 12:00 97.7 F 68 16 198/78 97 11/25/19 08:00 97.6 F 72 18 195/78 95 11/25/19 07:03 63 18 96 11/25/19 04:00 97.6 F 68 16 138/64 94 L 11/24/19 23:57 97.7 F 69 18 150/70 95 11/24/19 21:35 94 L 11/24/19 21:27 73 20 95 11/24/19 20:23 98.2 F 60 21 198/92 92 L Pain Assessment - Last Documented Pain Intensity 0 Pain Scale Used 0-10 Pain Scale Intake and Output: Intake & Output 11/23/19 11/24/19 11/25/19 11/26/19 11:59 11:59 11:59 11:59 Intake Total 4079 4496 1618 Output Total 800 Balance 4079 3696 1618 Weight 65.2 kg 67 kg 67.3 kg Multi-Disciplinary Progress Notes: Multi-Disciplinary Progress Notes 11/25/19 16:52 Respiratory Note by Taryn Matos ROOM AIR AMBULATION 95% Initialized on 11/25/19 16:52 - END OF NOTE 11/25/19 08:21 Respiratory Note by Taryn Matos PT DOES NOT QUALIFY FOR HOME O2 AT THIS TIME Initialized on 11/25/19 08:21 - END OF NOTE Assessment/Plan (1) Pneumonia Current Visit: Yes Status: Acute Qualifiers: Pneumonia type: due to unspecified organism Laterality: bilateral Lung location: lower lobe of lung Qualified Code(s): J18.9 - Pneumonia, unspecified organism Assessment & Plan: Patient would be on day 4 of azith. She was requiring oxygen initially but her resp status has improved and she did not qualify for home oxygen both with overnight evaluation and with walking challenge. Patient has been afebrile. Her cough is still present. She still has SOB with getting up to go to bathroom. Will continue with current tx Code(s): J18.9 - PNEUMONIA, UNSPECIFIED ORGANISM (2) Bronchitis Current Visit: Yes Status: Acute Assessment & Plan: Patient may have some underlying bronchitis as well. She is on steroids currently to help with cough and wheeze. Patient will likely have to go home on steroid taper Code(s): J40 - BRONCHITIS, NOT SPECIFIED ACUTE OR CHRONIC (3) Dyspnea Current Visit: Yes Status: Acute Qualifiers: Dyspnea type: shortness of breath Qualified Code(s): R06.02 - Shortness of breath; R06.00 - Dyspnea, unspecified; R06.01 - Orthopnea Assessment & Plan: Patient had testing performed for home oxygen and she did not qualify. Patient is being treated for pneumonia and bronchitis which is likely the cause of her dyspnea. Patient's dyspnea has improved during hospital stay Code(s): R06.00 - DYSPNEA, UNSPECIFIED (4) Hypertension Current Visit: Yes Status: Chronic Qualifiers: Hypertension type: essential hypertension Qualified Code(s): I10 - Essential (primary) hypertension Assessment & Plan: Patient has reported hx of HTN. She is on coreg BID. She has been hypertensive today where I could not send her home. She has been given PRN medication for the HTN which has decreased her blood pressure but it is still having elevated spikes. Patient is not complaining of chest pain or headache. Patient is on medication that can cause bp elevation but this seems more then expected. Will continue to monitor and have PRN meds available. Code(s): I10 - ESSENTIAL (PRIMARY) HYPERTENSION (5) Depression Current Visit: Yes Status: Acute Assessment & Plan: Continue with routine home meds Code(s): F32.9 - MAJOR DEPRESSIVE DISORDER, SINGLE EPISODE, UNSPECIFIED (6) Elevated INR Current Visit: Yes Status: Acute Assessment & Plan: Patient will have to follow up with this as outpatient as she has had some medication changes during her hospital stay Code(s): R79.1 - ABNORMAL COAGULATION PROFILE
[2019-11-25] MEDS: TRANDATE 100MG/20 ML MDV IV PRN (17:58)
[2019-11-25] MEDS: ROCEPHIN 1 Gm-D5w 50 ml Bag** 1 G/50 ML IVPB IV SCH (21:05)
[2019-11-25] MEDS: FEOSOL 325 MG PO SCH (21:05)
[2019-11-25] MEDS: ZOCOR 20MG PO SCH (21:05)
[2019-11-25] MEDS: ECOTRIN 81 MG PO SCH (21:05)
[2019-11-25] MEDS: Zithromax 500 MG/ 250 ML NaCl Premix 500 MG/250 ML IVPB IV SCH (22:23)
[2019-11-26] MEDS: Sodium Chloride 0.9% 1000 ML 1,000 ML IV SCH (05:36)
[2019-11-26] MEDS: PROVENTIL 2.5 MG/3 ML NEB IH SCH ×4 (06:49→19:25)
[2019-11-26] MEDS: TRANDATE 100MG/20 ML MDV IV PRN ×3 (09:08→21:55)
[2019-11-26] MEDS: COREG 12.5 MG PO SCH ×2 (09:13→22:22)
[2019-11-26] MEDS: THERAGRAN MULTIVITAMIN PO SCH (09:13)
[2019-11-26] MEDS: Ocuvite Tablet PO SCH (09:13)
[2019-11-26] MEDS: FISH OIL 1,000 MG CAPSULE PO SCH (09:13)
[2019-11-26] MEDS: Paxil 20 MG PO SCH (09:14)
[2019-11-26] MEDS: BUSPAR 5 MG PO SCH ×2 (09:14→21:47)
[2019-11-26] MEDS: Pepcid 20 MG PO SCH (09:14)
[2019-11-26] MEDS: solu-MEDROL 40 MG IV SCH ×3 (09:16→21:47)
[2019-11-26] MEDS: Zestril 5 MG PO SCH (09:16)
[2019-11-26] MEDS ORDERED: ULTRAM 50 MG PO PRN (10:03)
[2019-11-26 12:03] LABS: Absolute Neutrophil Ct (ANC) 7.98 (1.4-6.9); Basophil (Absolute #) 0 (0-0.4); Eosinophil (Absolute #) 0 (0-0.5); Hematocrit 29.8 % (35-47); Hemoglobin 9.4 gm/dl (12.0-16.0); Lymphocyte (Absolute #) 0.35 (1.0-4.6); Mean Cell Volume 95.5 fl (78-100); Mean Corpuscular Hemoglobin 30.1 pg (26-32); Mean Corpuscular Hgb Concent. 31.5 g/dl (32-36); Mean Platelet Volume 10.8 fl (7.5-11.0); Monocyte (Absolute #) 0.45 (0.0-1.3); Monocytes % 5.1 % (0.0-12.0); Neutrophil % 90.9 % (36.0-66.0); Platelet Count 188 K/mm3 (150-450); Red Blood Count 3.12 M/mm3 (4.1-5.4); Red Cell Distribution Width 15.4 % (11.5-14.0); White Blood Count 8.8 K/mm3 (4.0-10.5)
[2019-11-26 12:15] LABS: ANION GAP 11.2 MEQ/L (5-15); BLOOD UREA NITROGEN 24 mg/dL (7-17); CHLORIDE 116 mmol/L (98-107); Calcium 8.4 mg/dL (8.4-10.2); Carbon Dioxide 20 mmol/L (22-30); Creatinine 1 0.91 mg/dL (0.52-1.04); Glucose 157 mg/dL (74-106); NT PRO BNP 10700 pg/mL (0-1800); Potassium 3.5 mmol/L (3.5-5.1); SODIUM 144 mmol/L (137-145)
[2019-11-26] MEDS ORDERED: Lasix 40 MG/4 ML IV ONE (12:15)
[2019-11-26] MEDS ORDERED: Klor Con 10 MEQ PO ONE (12:15)
--- NOTE | 2019-11-26 13:05 | PCM.NOTE ---
Date and Time: 11/26/19 1304 Subjective Assessment: 74 yr old female seen and examined this am. Patient is reporting SOB. She is reporting she feels like she needs a water pill. She has a prescription for them at home that she only takes as needed. Patient is reporting that she feels her chest is congested. She reports that she feels her cough is starting to be a little productive. She did have a headache yesterday but that has resolved today. Patient is reporting that she does have htn that she takes medication for but denies any bp issues on her medications. No other reported concerns. - Review of Systems Constitutional: No Fever, No Weakness Eyes: No Symptoms Ears, Nose, & Throat: No Nose Congestion, No Sinus Drainage Respiratory: Cough, Short Of Breath, No Wheezing Cardiac: No Chest Pain, No Edema Abdominal/Gastrointestinal: No Abdominal Pain, No Nausea, No Vomiting, No Diarrhea, No Constipation Genitourinary Symptoms: No Symptoms Neurological: Headache (yesterday but has resolved), No Dizziness Psychological: Anxiety Objective Exam General Appearance: mild distress Neurologic Exam: alert, oriented x 3, cooperative, normal mood/affect Skin Exam: normal color, warm, dry, No rash Eye Exam: eyes nml inspection Ears, Nose, Throat Exam: moist mucous membranes Respiratory Exam: accessory muscle use, other (coarse breath sounds), No lungs clear, No respiratory distress, No diminished breath sounds, No wheezing Cardiovascular Exam: regular rate/rhythm, other (Patient has had a mitral valve replacement. No murmur detected but prominent s1s2), No friction rub, No gallop Gastrointestinal/Abdomen Exam: soft, normal bowel sounds, No tenderness, No distention Extremity Exam: normal inspection OBJECTIVE DATA Vital Signs: Vital Signs - 24 hr Temp Pulse Resp BP Pulse Ox 11/26/19 10:27 63 18 98 11/26/19 08:00 97.5 F 67 16 186/80 98 11/26/19 06:51 67 16 98 11/26/19 04:00 97.8 F 66 18 140/63 95 11/25/19 23:53 97.6 F 66 18 165/72 94 L 11/25/19 20:00 97.7 F 65 20 149/66 96 11/25/19 19:05 68 20 95 11/25/19 16:12 76 18 95 11/25/19 15:37 98.6 F 73 18 147/63 96 Pain Assessment - Last Documented Pain Intensity 0 Pain Scale Used 0-10 Pain Scale Intake and Output: Intake & Output 11/24/19 11/25/19 11/26/19 11/27/19 11:59 11:59 11:59 11:59 Intake Total 4073 4493 3444 Output Total 800 Balance 4076 3351 3447 Weight 67 kg 67.3 kg 71.8 kg Lab Results: Lab Results-Last 24 Hours 11/26/19 11/26/19 Range/Units 11:30 11:30 WBC 8.8 (4.0-10.5) K/mm3 RBC 3.12 L (4.1-5.4) M/mm3 Hgb 9.4 L (12.0-16.0) gm/dl Hct 29.8 L (35-47) % MCV 95.5 (78-100) fl MCH 30.1 (26-32) pg MCHC 31.5 L (32-36) g/dl RDW 15.4 H (11.5-14.0) % Plt Count 188 (150-450) K/mm3 MPV 10.8 (7.5-11.0) fl Gran % 90.9 H (36.0-66.0) % Eos # (Auto) 0 (0-0.5) Absolute Lymphs (auto) 0.35 L (1.0-4.6) Absolute Monos (auto) 0.45 (0.0-1.3) Lymphocytes % 4.0 L (24.0-44.0) % Monocytes % 5.1 (0.0-12.0) % Eosinophils % 0.0 (0.00-5.0) % Basophils % 0.0 (0.0-0.4) % Absolute Granulocytes 7.98 H (1.4-6.9) Basophils # 0 (0-0.4) Sodium 144 (137-145) mmol/L Potassium 3.5 (3.5-5.1) mmol/L Chloride 116 H (98-107) mmol/L Carbon Dioxide 20 L (22-30) mmol/L Anion Gap 11.2 (5-15) MEQ/L BUN 24 H (7-17) mg/dL Creatinine 0.91 (0.52-1.04) mg/dL Estimated GFR > 60.0 ML/MIN Glucose 157 H (74-106) mg/dL Calcium 8.4 (8.4-10.2) mg/dL NT-Pro-B Natriuret Pep 57850 H (0-1800) pg/mL Multi-Disciplinary Progress Notes: Multi-Disciplinary Progress Notes 11/25/19 16:52 Respiratory Note by Taryn Matos RO[facility]BULATION 95% Initialized on 11/25/19 16:52 - END OF NOTE Assessment/Plan (1) Pneumonia Current Visit: Yes Status: Acute Qualifiers: Pneumonia type: due to unspecified organism Laterality: bilateral Lung location: lower lobe of lung Qualified Code(s): J18.9 - Pneumonia, unspecified organism Assessment & Plan: Patient is on IV antibiotics. She has been afebrile and her WBC has trended down. Her cough is improving. Pneumonia is resolving Code(s): J18.9 - PNEUMONIA, UNSPECIFIED ORGANISM (2) Bronchitis Current Visit: Yes Status: Acute Code(s): J40 - BRONCHITIS, NOT SPECIFIED ACUTE OR CHRONIC (3) Dyspnea Current Visit: Yes Status: Acute Qualifiers: Dyspnea type: shortness of breath Qualified Code(s): R06.02 - Shortness of breath; R06.00 - Dyspnea, unspecified; R06.01 - Orthopnea Assessment & Plan: Likely related to decompensated heart failure. Patient had IV fluids discontinued. She was given lasix x1 dose IV today with PO potassium. Patient may require more lasix tomorrow for diuresis. This could also be related to her diagnosis of pnuemonia which she is receiving tx for. Code(s): R06.00 - DYSPNEA, UNSPECIFIED (4) Hypertension Current Visit: Yes Status: Chronic Qualifiers: Hypertension type: essential hypertension Qualified Code(s): I10 - Essential (primary) hypertension Assessment & Plan: Patient has required PRN doses of medication for HTN. IV fluids were discontinued which could have contributed to elevated bp. Patient is also receiving steroids which could also be increasing her bp. Will continue to monitor for elevated bp and treat as necessary. Code(s): I10 - ESSENTIAL (PRIMARY) HYPERTENSION (5) Depression Current Visit: Yes Status: Acute Assessment & Plan: Routine home meds were resumed Code(s): F32.9 - MAJOR DEPRESSIVE DISORDER, SINGLE EPISODE, UNSPECIFIED (6) Elevated INR Current Visit: Yes Status: Acute Assessment & Plan: Patient will be needing repeat INR tomorrow per her H and P. Code(s): R79.1 - ABNORMAL COAGULATION PROFILE (7) Anemia Current Visit: Yes Status: Acute Assessment & Plan: likely anemia of chronic disease. Patient's hgb has remained stable during admission. Code(s): D64.9 - ANEMIA, UNSPECIFIED
[2019-11-26 14:19] LABS: Slide Review 1 YES
[2019-11-26] MEDS: TYLENOL 325 MG PO PRN ×2 (15:54→21:47)
[2019-11-26] MEDS: ZOCOR 20MG PO SCH (21:46)
[2019-11-26] MEDS: ROCEPHIN 1 Gm-D5w 50 ml Bag** 1 G/50 ML IVPB IV SCH (21:46)
[2019-11-26] MEDS: ECOTRIN 81 MG PO SCH (21:47)
[2019-11-26] MEDS: FEOSOL 325 MG PO SCH (21:47)
[2019-11-26] MEDS ORDERED: APRESOLINE 20 MG/ML INJ IV PRN (22:14)
[2019-11-26] MEDS ORDERED: Klonopin 0.5 MG ONE (22:26)
[2019-11-26] MEDS: Zithromax 500 MG/ 250 ML NaCl Premix 500 MG/250 ML IVPB IV SCH (22:32)
[2019-11-27 05:07] LABS: INR 1.6 (0.8-3.0); PROTIME 18.2 SECONDS (9.95-12.35)
[2019-11-27] MEDS ORDERED: Sodium Chloride 0.9% 10 ML FLUSH Syringe IV PRN (05:12)
[2019-11-27] MEDS: PROVENTIL 2.5 MG/3 ML NEB IH SCH (06:43)
[2019-11-27] MEDS ORDERED: Zestril 5 MG PO SCH (07:47)
--- NOTE | 2019-11-27 08:26 | PCM.NOTE ---
Date and Time: 11/27/19817 Subjective Assessment: Pt continues to have elevated BPs, up to 202 systolic yesterday. She feels " out of it" this morning but is AAOx3 when I wake her (wakes to touch). - Review of Systems Constitutional: No Fever Respiratory: Cough, Short Of Breath Objective Exam General Appearance: no apparent distress, alert Neurologic Exam: oriented x 3, cooperative Skin Exam: normal color, warm, dry, No rash Respiratory Exam: diminished breath sounds, crackles/rales (bilat lower lobes), rhonchi (RLL), wheezing (faint, throughout) Cardiovascular Exam: regular rate/rhythm, normal heart sounds, No murmur Gastrointestinal/Abdomen Exam: soft, normal bowel sounds, No tenderness, No distention, No mass, No guarding, No rebound Extremity Exam: normal inspection, No pedal edema, No swelling Back Exam: normal inspection, No rash OBJECTIVE DATA Vital Signs: Vital Signs - 24 hr Temp Pulse Resp BP Pulse Ox 11/27/19 06:44 69 16 95 11/27/19 06:15 73 168/78 11/27/19 04:30 68 158/60 11/27/19 03:15 96.7 F 60 19 180/72 95 11/27/19 00:03 98.1 F 62 16 130/60 95 11/26/19 19:40 97.8 F 70 17 202/76 97 11/26/19 19:27 73 27 H 93 L 11/26/19 16:00 97.8 F 65 18 160/64 93 L 11/26/19 14:32 66 18 96 11/26/19 12:00 97.9 F 65 20 152/70 97 11/26/19 10:27 63 18 98 Pain Assessment - Last Documented Pain Intensity 3 Pain Scale Used 0-10 Pain Scale Intake and Output: Intake & Output 11/24/19 11/25/19 11/26/19 11/27/19 11:59 11:59 11:59 11:59 Intake Total 4079 4496 3441 1837 Output Total 800 Balance 4079 3696 3441 1837 Weight 67 kg 67.3 kg 71.8 kg Lab Results: Lab Results-Last 24 Hours 11/26/19 11/26/19 11/27/19 Range/Units 11:30 11:30 04:20 WBC 8.8 (4.0-10.5) K/mm3 RBC 3.12 L (4.1-5.4) M/mm3 Hgb 9.4 L (12.0-16.0) gm/dl Hct 29.8 L (35-47) % MCV 95.5 (78-100) fl MCH 30.1 (26-32) pg MCHC 31.5 L (32-36) g/dl RDW 15.4 H (11.5-14.0) % Plt Count 188 (150-450) K/mm3 MPV 10.8 (7.5-11.0) fl Gran % 90.9 H (36.0-66.0) % Eos # (Auto) 0 (0-0.5) Absolute Lymphs (auto) 0.35 L (1.0-4.6) Absolute Monos (auto) 0.45 (0.0-1.3) Lymphocytes % 4.0 L (24.0-44.0) % Monocytes % 5.1 (0.0-12.0) % Eosinophils % 0.0 (0.00-5.0) % Basophils % 0.0 (0.0-0.4) % Absolute Granulocytes 7.98 H (1.4-6.9) Basophils # 0 (0-0.4) PT 18.2 H (9.95-12.35) SECONDS INR 1.60 (0.8-3.0) Sodium 144 (137-145) mmol/L Potassium 3.5 (3.5-5.1) mmol/L Chloride 116 H (98-107) mmol/L Carbon Dioxide 20 L (22-30) mmol/L Anion Gap 11.2 (5-15) MEQ/L BUN 24 H (7-17) mg/dL Creatinine 0.91 (0.52-1.04) mg/dL Estimated GFR > 60.0 ML/MIN Glucose 157 H (74-106) mg/dL Calcium 8.4 (8.4-10.2) mg/dL NT-Pro-B Natriuret Pep 00329 H (0-1800) pg/mL Slides for Path Review YES Assessment/Plan (1) Hypertension Current Visit: Yes Status: Chronic Qualifiers: Hypertension type: essential hypertension Qualified Code(s): I10 - Essential (primary) hypertension Assessment & Plan: Received several doses of prn meds last night. Hx renal artery stent. Consulting cardiology today. Was just started on lisinopril during this admission; increased from 5mg to 10mg daily today. Code(s): I10 - ESSENTIAL (PRIMARY) HYPERTENSION (2) Pneumonia Current Visit: Yes Status: Acute Qualifiers: Pneumonia type: due to unspecified organism Laterality: bilateral Lung location: lower lobe of lung Qualified Code(s): J18.9 - Pneumonia, unspecified organism Assessment & Plan: On IV rocephin day #5, stopped the zithromax today. Code(s): J18.9 - PNEUMONIA, UNSPECIFIED ORGANISM (3) Dyspnea Current Visit: Yes Status: Acute Qualifiers: Dyspnea type: shortness of breath Qualified Code(s): R06.02 - Shortness of breath; R06.00 - Dyspnea, unspecified; R06.01 - Orthopnea Assessment & Plan: Has also had some CHF. She's unsure if she has dyspnea as she hasn't been up yet. Last night she had 2 doses labetalol and 1 dose of hydralazine prn. Also received klonopin last night. Steroids were discontinued due to fear that it was contributing to her hypertension. Code(s): R06.00 - DYSPNEA, UNSPECIFIED (4) Elevated INR Current Visit: Yes Status: Resolved Assessment & Plan: Actually low today, will give lovenox and restart coumadin at home dose. Code(s): R79.1 - ABNORMAL COAGULATION PROFILE (5) Coronary artery disease Current Visit: Yes Status: Chronic Qualifiers: Coronary Disease-Associated Artery/Lesion type: bypass graft [place] vs. transplanted heart: [place] heart Associated angina: without angina Qualified Code(s): I25.810 - Atherosclerosis of coronary artery bypass graft(s) without angina pectoris Code(s): I25.10 - ATHSCL HEART DISEASE OF [place] CORONARY ARTERY W/O ANG PCTRS (6) Anemia Current Visit: Yes Status: Chronic Qualifiers: Anemia type: unspecified type Qualified Code(s): D64.9 - Anemia, unspecified Code(s): D64.9 - ANEMIA, UNSPECIFIED
[2019-11-27] MEDS: Ocuvite Tablet PO SCH (08:32)
[2019-11-27] MEDS: Paxil 20 MG PO SCH (08:32)
[2019-11-27] MEDS: THERAGRAN MULTIVITAMIN PO SCH (08:32)
[2019-11-27] MEDS: COREG 12.5 MG PO SCH (08:32)
[2019-11-27] MEDS: Pepcid 20 MG PO SCH (08:32)
[2019-11-27] MEDS: BUSPAR 5 MG PO SCH (08:33)
[2019-11-27] MEDS: FISH OIL 1,000 MG CAPSULE PO SCH (08:33)
[2019-11-27] MEDS: TYLENOL 325 MG PO PRN (08:39)
[2019-11-27] MEDS ORDERED: Klor Con 10 MEQ PO ONE (10:00)
[2019-11-27] MEDS ORDERED: solu-MEDROL 40 MG IV SCH (10:00)
[2019-11-27] MEDS ORDERED: ENOXAPARIN SODIUM SQ SCH (10:00)
[2019-11-27] MEDS ORDERED: Lasix 40 MG PO ONE (10:00)
--- NOTE | 2019-11-27 17:17 | PCM.DS ---
Discharge Summary Date of Admission: 11/23/19 05:03 Admitting Physician: BESSIE LANGSTON Consults: Consults on Case 11/27/19 08:18 Consult Cardiology ROUTINE Primary Care Provider: BESSIE LANGSTON Allergies Allergies No Known Drug Allergies Allergy (Verified 11/23/19 01:26) Hospital Summary - Hospital Course Hospital Course: is a 74 year old female pt of mine from [facility] with HTN, hx renal artery stent, CAD (with hx CABG), hx blood clot, chronic renal insufficiency, mechanical mitral valve, sclerodermatomyositis, and depression who was admitted to ER with SOB; no chest pain or discomfort whatsoever. She did feel presyncopal when she got up to go to the ER. Initial troponins were negative, although she did have two that were slightly elevated and returned to nl. EKG grossly abnormal with widened QRS, paced rhythm , no change from old ekg, and no ST changes indicative of ischemia. Her CT chest showed bibasilar airspace disease, possibly infection. She was started on IV rocephin and zithromax and IV solumedrol. She improved with respect to SOB over the next few days, but started having quite high blood pressures - up to 202 systolic yesterday (was given IV labetalol x 2 and IV hydralazine x 1). She was started on po lisinopril several days ago; this morning I added po norvasc 5mg daily. I consulted cardiology due to her extensive heart history, renal stent, and mechanical valve; they did agree with transfer to manage her HTN, mechanical valve, and anticoagulation (pt's oiler helper is Dr. Arredondo). Yesterday pt was noted to be volume overloaded and a dose of IV lasix was given. Pt was on po warfarin when she came to the hospital; INR was elevated over 4 and her coumadin was held (giselle as pt was on antibiotics). However this morning her INR was 1.6 so she was started on lovenox 40mg SQ daily and her home dose of warfarin. Renal function has been stable throughout her stay. Pt is being transferred to [facility] under Dr. Fernandez, hospitalist (thank you) with [place] [facility] consulting. - Vitals & Intake/Output Vital Signs: Vital Signs Temperature 97.9 F 11/27/19 16:43 Pulse Rate 63 02/17/20 16:43 Respiratory Rate 18 11/27/19 16:43 Blood Pressure 148/58 11/27/19 16:43 O2 Sat by Pulse Oximetry 96 11/27/19 16:43 Intake & Output: Intake & Output 11/25/19 11/26/19 11/27/19 11/28/19 11:59 11:59 11:59 11:59 Intake Total 4496 3441 1831 360 Output Total 800 Balance 3696 3441 1837 360 Weight 67.3 kg 71.8 kg 68.3 kg - Lab Result Diagrams: 11/26/19 11:30 11/26/19 11:30 Lab Results-Last 24 Hrs: Lab Results-Last 24 Hours 11/27/19 Range/Units 04:20 PT 18.2 H (9.95-12.35) SECONDS INR 1.60 (0.8-3.0) Micro Results-Entire Visit: Microbiology 11/23/19 01:35 Blood Culture Gram Stain - Final Blood Not Reportable Blood Culture - Final NO GROWTH 11/23/19 01:35 Blood Culture Gram Stain - Final Blood Not Reportable Blood Culture - Final NO GROWTH - Procedures and Test Procedures and Tests throughout Hospitalization: Therapy Orders & Screens 11/23/19 01:35 Respiratory Therapy Assessment DAILY Comment: 11/23/19 01:36 Peak Expiratory Flow Rate ONCE Comment: Reason For Exam: 11/23/19 05:09 EKG REPEAT IN AM Comment: Oxygen Nasal Cannula 2 lpm Comment: Respiratory Therapy Consult Comment: Reason For Exam: 11/23/19 06:21 Peak Expiratory Flow Rate ONCE Comment: Reason For Exam: Respiratory Therapy Assessment DAILY Comment: 11/23/19 09:05 RT Screen per Nursing Assess ONCE Comment: Protocol Order Physician Instructions: Greater than 3 points order RT Admission Screen Reason For Exam: Triggered on Admission Diagnosis: Dyspnea, Bronchitis Diagnosis: Dyspnea, Bronchitis Pneumonia: Yes Home O2: No Asthma: No CHF: No Home CPAP/BIPAP: No Home Nebs/MDI: Yes Total Points: 8 Discharge Exam General Appearance: no apparent distress, alert, other (exam done this morning) Neurologic Exam: oriented x 3, cooperative Eye Exam: eyes nml inspection Ears, Nose, Throat Exam: moist mucous membranes Respiratory Exam: diminished breath sounds, crackles/rales (bibasilar), rhonchi (RLL), wheezing (faint, throughout) Cardiovascular Exam: regular rate/rhythm, normal heart sounds, No murmur Back Exam: normal inspection, No rash Extremity Exam: normal inspection, No pedal edema, No swelling Skin Exam: normal color, warm, dry, No rash Final Diagnosis/Problem List - Final Discharge Diagnosis/Problem (1) Hypertension Current Visit: Yes Status: Chronic Assessment & Plan: With hypertensive emergency yesterday (last BP > 170 systolic was at 3 a.m.). Transferring pt. Code(s): I10 - ESSENTIAL (PRIMARY) HYPERTENSION (2) Pneumonia Current Visit: Yes Status: Acute Assessment & Plan: On IV rocephin, day #5 today (just d/c'd IV zithromax today). She is a little wheezy, but her steroids were d/c'd as there was concern that that may be contributing to her hypertension. Code(s): J18.9 - PNEUMONIA, UNSPECIFIED ORGANISM (3) Dyspnea Current Visit: Yes Status: Acute Code(s): R06.00 - DYSPNEA, UNSPECIFIED (4) Elevated INR Current Visit: Yes Status: Resolved Assessment & Plan: On lovenox for low INR (her goal 2.5-3.5). Code(s): R79.1 - ABNORMAL COAGULATION PROFILE (5) Coronary artery disease Current Visit: Yes Status: Chronic Code(s): I25.10 - ATHSCL HEART DISEASE OF [place] CORONARY ARTERY W/O ANG PCTRS (6) Anemia Current Visit: Yes Status: Chronic Assessment & Plan: likely anemia of chronic disease with superimposed dilution. Code(s): D64.9 - ANEMIA, UNSPECIFIED (7) H/O mitral valve replacement with mechanical valve Current Visit: Yes Status: Chronic Code(s): Z95.2 - PRESENCE OF PROSTHETIC HEART VALVE - Discharge Disposition: DC TO [facility] Condition: Fair Prescriptions: No Action Atorvastatin Calcium 40 mg PO DAILY Ferrous Sulfate 325 mg [Feosol 325 mg] 325 mg PO HS Warfarin Sodium 3 mg [Coumadin 3 MG] 3 mg PO DAILY@1800 Aspirin [Aspirin EC] 81 mg PO HS Girard-3 Fatty Acids [Girard-3] 1,000 mg PO DAILY FA/Vit C/E/Zinc/Copper/Lut/Dov [Ocuvel Capsule] 1 each PO DAILY Carvedilol 3.125 mg [Coreg 3.125 MG] 12.5 mg PO BID Cyanocobalamin/Folic AC/Vit B6 [Homocysteine Formula Tablet] 1 each PO DAILY Buspirone HCl 5 mg [Buspar 5 mg] 5 mg BID Famotidine 20 mg [Pepcid 20 MG] 20 mg DAILY Tramadol HCl 50 mg [Ultram 50 mg] 50 mg PO QIDPRN PRN PRN Reason: Pain PARoxetine HCl [Paxil] 40 mg PO DAILY Follow up with: BESSIE LANGSTON [Primary Care Provider] - 1 Week
[2019-11-27] MEDS ORDERED: Coumadin 1 MG PO SCH (18:00)
[2019-11-27] MEDS ORDERED: Coumadin 3 MG PO SCH (18:00)
[2019-11-27 19:43] VITALS: BP 170/62; PULSE 62; O2SAT 97
[2019-11-27] MEDS ORDERED: Klonopin 0.5 MG PO ONE ×2 (22:15→22:29)
[2019-11-28] MEDS ORDERED: Coumadin 3 MG PO SCH (18:00)
== END 2019-11-27 20:17 | disposition home or self-care (01) ==
LOC: ED 01:10 → MED SURG 05:03
PROVIDERS: ADMIT Family Medicine; ATTEND Family Medicine
DX: I12.9 Hypertensive chronic kidney disease with stage 1 through stage 4 chronic kidney disease, or unspecified chronic kidney disease (principal); N18.9 Chronic kidney disease, unspecified; J18.9 Pneumonia, unspecified organism; R06.00 Dyspnea, unspecified; R79.1 Abnormal coagulation profile; D64.9 Anemia, unspecified; Z95.2 Presence of prosthetic heart valve; I25.810 Atherosclerosis of coronary artery bypass graft(s) without angina pectoris; Z79.01 Long term (current) use of anticoagulants; Z79.899 Other long term (current) drug therapy; I25.2 Old myocardial infarction; E78.00 Pure hypercholesterolemia, unspecified; F41.8 Other specified anxiety disorders; Z85.828 Personal history of other malignant neoplasm of skin; Z95.0 Presence of cardiac pacemaker
CPT/HCPCS: 36000; 36415; 71046; 71250; 80048; 80053; 83735; 83880; 84484; 85025; 85379; 85610; 85730; 87040; 93005; 93041; 93268; 94150; 94640; 94760; 94762; 96365; 96367; 99285; G0378; J0360; J0456; J0696; J1650; J1940; J2920; J7609; A9270-GY

== ENCOUNTER 2021-03-18 17:03 | Emergency (ER) | payer MEDICARE ==
--- NOTE | 2021-03-18 17:57 | ERPHSYRPT ---
- History of Present Illness Time Seen by Provider: 03/18/21 17:10 Source: patient Exam Limitations: no limitations Patient Subjective Stated Complaint: Pt states "I am a little short of breath. I had a revision done on my pacemaker 10 days ago and i was just at Dr Barry office and they told me to come here." Triage Nursing Assessment: PT presented alert and oriented X 3, skin pwd. Pt ambulates with an upright steady gait, able to speak in clear full sentences pt slightly short of breath. Physician History: Patient is a 75-year-old female presents to our ED as referral from her primary care doctor for a CT scan of chest to rule out PE. Patient states she has a history of cardiac stents x2. Her car jockey is Dr. Hawley. Patient has been experiencing some shortness of breath with exertion. Patient states she had a pacemaker revision 10 days ago. Patient is normally on Coumadin. Patient states that she was given antibiotics and since then they have been having trouble regulating her INR. Patient symptoms are progressive. Symptoms are moderate in intensity. Exertion worsens symptomology. No associated nausea vomiting or diaphoresis. Patient denies leg swelling or calf pain. Patient voices no other complaints or concerns at this time. Patient does state that she was wheezing at the time of her primary care doctor's office visit. Patient was treated with albuterol. Patient is currently not wheezing. Timing/Duration: today Severity: moderate Modifying Factors: Improves With: movement Associated Symptoms: shortness of breath, chest pain, No nausea, No vomiting, No abdominal pain, No heartburn, No diaphoresis, No cough, No chills, No fever Allergies/Adverse Reactions: acetaminophen [From [place]] Allergy (Intermediate, Verified 03/18/21 17:11) itching, swelling head hydrocodone [From [place]] Allergy (Intermediate, Verified 03/18/21 17:11) itching, swelling head Home Medications: Atorvastatin Calcium 40 mg PO DAILY 12/22/15 [History] FA/Vit C/E/Zinc/Copper/Lut/Dov [Ocuvel Capsule] 1 each PO DAILY 02/15/18 [History] [place]-3 Fatty Acids [[place]-3] 1,000 mg PO DAILY 02/15/18 [History] Warfarin Sodium 3 mg [Coumadin 3 MG] 3 mg PO DAILY@1800 02/15/18 [History] Carvedilol 3.125 mg [Coreg 3.125 MG] 12.5 mg PO BID 02/16/18 [History] Cyanocobalamin/Folic AC/Vit B6 [Homocysteine Formula Tablet] 1 each PO DAILY 1 11/07/17 [History] Buspirone HCl 5 mg [Buspar 5 mg] 5 mg BID 10/18/19 [History] Famotidine 20 mg [Pepcid 20 MG] 20 mg DAILY 10/18/19 [History] Hx Tetanus, Diphtheria Vaccination/Date Given: No Hx Influenza Vaccination/Date Given: Yes Hx Pneumococcal Vaccination/Date Given: Yes Immunizations Up to Date: Yes Travel Risk - International Travel Have you traveled outside of the country in past 3 weeks: No - Coronavirus Screening Are you exhibiting any of the following symptoms?: No Close contact with a COVID-19 positive Pt in past 14-21 Days: No - Vaccine Status Have you recieved a Covid-19 vaccination: Yes Subject Scientific Research: [employer] - Vaccination Dates Date of 2cond Vaccination (if applicable): 11/2020 - Past Medical History Pertinent Past Medical History: Yes Neurological History: No Pertinent History ENT History: No Pertinent History, Cataracts, Macular Degeneration Cardiac History: Coronary Artery Disease, Myocardial Infarction ([place]), High Cholesterol, Hypertension Respiratory History: No Pertinent History, Bronchitis, Pneumonia Endocrine Medical History: No Pertinent History Musculoskeletal History: No Pertinent History, Other GI Medical History: No Pertinent History, Gallbladder Disease History: No Pertinent History, Other Psycho-Social History: No Pertinent History, Depression, Anxiety Female Reproductive Disorders: No Pertinent History Other Medical History: skin ca, - Past Surgical History Past Surgical History: Yes Neuro Surgical History: No Pertinent History Cardiac: CABG, Valve Replacement, Cardiac Catheterization, Pacemaker Respiratory: No Pertinent History Gastrointestinal: Other, Cholecystectomy Genitourinary: Kidney Surgery Musculoskeletal: No Pertinent History Female Surgical History: No Pertinent History Other Surgical History: kidney stent x 2. colonoscopy and EGD 2017. revision of pacemaker - Social History Smoking Status: Former smoker How long have you smoked: 50 YEARS Exposure to second hand smoke: No Alcohol Use: Socially Drug Use: none Patient Lives Alone: No Significant Family History: hypertension - Female History Hx Now: No - Nursing Vital Signs Nursing Vital Signs: Initial Vital Signs Temperature 97.2 F 03/18/21 17:04 Pulse Rate 62 03/18/21 17:04 Respiratory Rate 20 03/18/21 17:04 Blood Pressure 240/94 03/18/21 17:04 O2 Sat by Pulse Oximetry 99 03/18/21 17:04 Pain Scale Pain Intensity 0 - Physical Exam General Appearance: no apparent distress, alert Eye Exam: PERRL/EOMI, eyes nml inspection Ears, Nose, Throat Exam: normal ENT inspection, TMs normal, pharynx normal, moist mucous membranes Neck Exam: normal inspection, non-tender, supple, full range of motion Respiratory Exam: normal breath sounds, lungs clear, No respiratory distress Cardiovascular Exam: regular rate/rhythm, normal heart sounds, normal peripheral pulses Gastrointestinal/Abdomen Exam: soft, normal bowel sounds, No tenderness, No mass Back Exam: normal inspection, normal range of motion, No CVA tenderness, No vertebral tenderness Extremity Exam: normal inspection, normal range of motion, pelvis stable Neurologic Exam: alert, oriented x 3, cooperative, normal mood/affect, nml cerebellar function, nml station & gait, sensation nml, No motor deficits Skin Exam: normal color, warm, dry, No rash Lymphatic Exam: No adenopathy SpO2 Interpretation: normal SpO2: 98 O2 Delivery: Room Air - Course Nursing assessment & vital signs reviewed: Yes EKG Interpreted by Me: RATE (63) - CT Exams Chest CT Interpretation: Tele-radiologist Report (For PE. Cardiomegaly, bibasilar fibrosis/scarring, small hiatal hernia 8 mm right renal stone. No new acute findings.) Ordered Tests: Active Orders 24 hr Category Date Time Status Ham Marker STAT Care 03/18/21 17:44 Completed EKG-ER Only STAT Care 03/18/21 17:43 Completed IV Insertion STAT Care 03/18/21 17:43 Completed Pulse Oximetry (ED) STAT Care 03/18/21 17:43 Completed CHEST WITH CONTRAST [CT] Stat Exams 03/18/21 19:19 Taken CBC W DIFF Stat Lab 03/18/21 17:53 Completed CMP Stat Lab 03/18/21 17:53 Completed D-DIMER QUANTITATIVE Stat Lab 03/18/21 17:53 Completed MAGNESIUM Stat Lab 03/18/21 17:53 Completed PROTIME WITH INR Stat Lab 03/18/21 17:53 Completed PTT Stat Lab 03/18/21 17:53 Completed TROPONIN Q3H Lab 03/18/21 17:53 Completed TROPONIN Q3H Lab 03/18/21 20:57 Completed UA W/RFX UR CULTURE Stat Lab 03/18/21 18:45 Completed Medication Summary Discontinued Medications Generic Name Dose Route Start Last Admin Trade Name Freq PRN Reason Stop Dose Admin Aspirin 324 mg 03/18/21 22:09 03/18/21 22:20 Baby Aspirin 81 Mg Chew PO 03/18/21 22:10 324 mg STAT ONE Administration Nitroglycerin/Dextrose 250 mls @ 1.5 mls/hr 03/18/21 22:21 03/18/21 22:41 Ntg 0.2mg/Ml In D5w Glass IV 04/17/21 22:20 5 mcg/min .Q24H PRN 1.5 mls/hr CHEST PAIN Administration Protocol 5 MCG/MIN Nitroglycerin/Dextrose Confirm 03/18/21 22:31 Ntg 0.2mg/Ml In D5w Glass Administered 03/18/21 22:32 Dose 250 mls @ ud IV .STK-MED ONE Lab/Rad Data: Laboratory Result Diagrams 03/18/21 17:53 03/18/21 17:53 Laboratory Results 03/18/21 03/18/21 03/18/21 Range/Units 20:57 18:45 17:53 WBC (4.0-10.5) K/mm3 RBC (4.1-5.4) M/mm3 Hgb (12.0-16.0) gm/dl Hct (35-47) % MCV (78-100) fl MCH (26-32) pg MCHC (32-36) g/dl RDW (11.5-14.0) % Plt Count (150-450) K/mm3 MPV (7.5-11.0) fl Gran % (36.0-66.0) % Eos # (Auto) (0-0.5) Absolute Lymphs (auto) (1.0-4.6) Absolute Monos (auto) (0.0-1.3) Lymphocytes % (24.0-44.0) % Monocytes % (0.0-12.0) % Eosinophils % (0.00-5.0) % Basophils % (0.0-0.4) % Absolute Granulocytes (1.4-6.9) Basophils # (0-0.4) PT (9.95-12.35) SECONDS INR (0.8-3.0) APTT (25.3-37.0) SECONDS D-Dimer (215-500) ng/mL Sodium (137-145) mmol/L Potassium (3.5-5.1) mmol/L Chloride (98-107) mmol/L Carbon Dioxide (22-30) mmol/L Anion Gap (5-15) MEQ/L BUN (7-17) mg/dL Creatinine (0.52-1.04) mg/dL Estimated GFR ML/MIN Glucose (74-106) mg/dL Calcium (8.4-10.2) mg/dL Magnesium (1.6-2.3) mg/dL Total Bilirubin (0.2-1.3) mg/dL AST (14-36) U/L ALT (0-35) U/L Alkaline Phosphatase (38-126) U/L Troponin I 0.124 H* 0.025 (0.000-0.034) ng/mL Serum Total Protein (6.3-8.2) g/dL Albumin (3.5-5.0) g/dL Urine Color STRAW (YELLOW) Urine Appearance CLEAR (CLEAR) Urine pH 6.0 (5-6) Ur Specific [place] 1.006 (1.005-1.025) Urine Protein NEGATIVE (Negative) Urine Ketones NEGATIVE (NEGATIVE) Urine Blood NEGATIVE (0-5) Jordin/ul Urine Nitrite NEGATIVE (NEGATIVE) Urine Bilirubin NEGATIVE (NEGATIVE) Urine Urobilinogen NEGATIVE (0-1) mg/dL Ur Leukocyte Esterase NEGATIVE (NEGATIVE) Urine WBC (Auto) 11-15 (0-5) /HPF Urine RBC (Auto) 3-5 (0-2) /HPF U Epithel Cells (Auto) NONE (FEW) /HPF Urine Bacteria (Auto) NONE (NEGATIVE) /HPF Urine Mucus (Auto) SLIGHT (NEGATIVE) /HPF Urine Culture Reflexed NO (NO) Urine Glucose NEGATIVE (NEGATIVE) mg/dL 03/18/21 03/18/21 03/18/21 Range/Units 17:53 17:53 17:53 WBC 7.5 (4.0-10.5) K/mm3 RBC 4.22 (4.1-5.4) M/mm3 Hgb 12.7 (12.0-16.0) gm/dl Hct 40.7 (35-47) % MCV 96.4 (78-100) fl MCH 30.1 (26-32) pg MCHC 31.2 L (32-36) g/dl RDW 13.6 (11.5-14.0) % Plt Count 163 (150-450) K/mm3 MPV 10.3 (7.5-11.0) fl Gran % 73.2 H (36.0-66.0) % Eos # (Auto) 0.20 (0-0.5) Absolute Lymphs (auto) 1.08 (1.0-4.6) Absolute Monos (auto) 0.70 (0.0-1.3) Lymphocytes % 14.3 L (24.0-44.0) % Monocytes % 9.3 (0.0-12.0) % Eosinophils % 2.7 (0.00-5.0) % Basophils % 0.5 (0.0-0.4) % Absolute Granulocytes 5.51 (1.4-6.9) Basophils # 0.04 (0-0.4) PT 42.7 H (9.95-12.35) SECONDS INR 3.73 H (0.8-3.0) APTT 42.7 H (25.3-37.0) SECONDS D-Dimer 658 H* (215-500) ng/mL Sodium 141 (137-145) mmol/L Potassium 3.8 (3.5-5.1) mmol/L Chloride 107 (98-107) mmol/L Carbon Dioxide 25 (22-30) mmol/L Anion Gap 12.1 (5-15) MEQ/L BUN 19 H (7-17) mg/dL Creatinine 0.93 (0.52-1.04) mg/dL Estimated GFR > 60.0 ML/MIN Glucose 112 H (74-106) mg/dL Calcium 9.5 (8.4-10.2) mg/dL Magnesium 1.7 (1.6-2.3) mg/dL Total Bilirubin 0.90 (0.2-1.3) mg/dL AST 44 H (14-36) U/L ALT 22 (0-35) U/L Alkaline Phosphatase 105 (38-126) U/L Troponin I (0.000-0.034) ng/mL Serum Total Protein 6.4 (6.3-8.2) g/dL Albumin 4.3 (3.5-5.0) g/dL Urine Color (YELLOW) Urine Appearance (CLEAR) Urine pH (5-6) Ur Specific [place] (1.005-1.025) Urine Protein (Negative) Urine Ketones (NEGATIVE) Urine Blood (0-5) Jordin/ul Urine Nitrite (NEGATIVE) Urine Bilirubin (NEGATIVE) Urine Urobilinogen (0-1) mg/dL Ur Leukocyte Esterase (NEGATIVE) Urine WBC (Auto) (0-5) /HPF Urine RBC (Auto) (0-2) /HPF U Epithel Cells (Auto) (FEW) /HPF Urine Bacteria (Auto) (NEGATIVE) /HPF Urine Mucus (Auto) (NEGATIVE) /HPF Urine Culture Reflexed (NO) Urine Glucose (NEGATIVE) mg/dL - Progress Progress: improved Progress Note: Patient second troponin elevated. Patient currently anticoagulated. Her INR is 3.73. Patient received full dose aspirin. Nitro drip initiated. Due to elevated troponin patient will require higher level of care. Patient's car jockey is on staff at [facility]. We attempted transfer to [facility] however they have no beds available. We contacted [facility]. Patient was accepted by [facility]. Case discussed with Dr. Cramer ER physician who accepts transfer. Plan of care discussed with patient. She agrees to transfer to [facility] for further evaluation and treatment. She voices no other complaints concerns at this time. 03/18/21 22:22 Counseled pt/family regarding: lab results, diagnosis, rad results - Departure Departure Disposition: Transfer Clinical Impression: ACS (acute coronary syndrome), SOB (shortness of breath), Cardiomegaly, Hiatal hernia, Nephrolithiasis, NSTEMI (non-ST elevated myocardial infarction) Condition: Stable Critical Care Time: No Referrals: BESSIE MASSEY [Primary Care Provider] -
[2021-03-18 18:00] LABS: INR 3.73 (0.8-3.0); PROTIME 42.7 SECONDS (9.95-12.35)
[2021-03-18 18:03] LABS: PTT 42.7 SECONDS (25.3-37.0)
[2021-03-18 18:04] LABS: ALBUMIN 4.3 g/dL (3.5-5.0); ALKALINE PHOSPHATASE 105 U/L (38-126); ANION GAP 12.1 MEQ/L (5-15); BLOOD UREA NITROGEN 19 mg/dL (7-17); CHLORIDE 107 mmol/L (98-107); Calcium 9.5 mg/dL (8.4-10.2); Carbon Dioxide 25 mmol/L (22-30); Creatinine 1 0.93 mg/dL (0.52-1.04); EST GLOMERULAR FILTRATION RATE > 60.0 ML/MIN; Glucose 112 mg/dL (74-106); MAGNESIUM 1.7 mg/dL (1.6-2.3); Potassium 3.8 mmol/L (3.5-5.1); SGOT/AST 44 U/L (14-36); SGPT/ALT 22 U/L (0-35); SODIUM 141 mmol/L (137-145); Total Protein 6.4 g/dL (6.3-8.2)
[2021-03-18 18:15] LABS: Absolute Neutrophil Ct (ANC) 5.51 (1.4-6.9); BASOPHIL % 0.5 % (0.0-0.4); Basophil (Absolute #) 0.04 (0-0.4); Eosinophil % 2.7 % (0.00-5.0); Hematocrit 40.7 % (35-47); Hemoglobin 12.7 gm/dl (12.0-16.0); Lymphocyte (Absolute #) 1.08 (1.0-4.6); Lymphocytes % 14.3 % (24.0-44.0); Mean Cell Volume 96.4 fl (78-100); Mean Corpuscular Hemoglobin 30.1 pg (26-32); Mean Corpuscular Hgb Concent. 31.2 g/dl (32-36); Mean Platelet Volume 10.3 fl (7.5-11.0); Monocytes % 9.3 % (0.0-12.0); Neutrophil % 73.2 % (36.0-66.0); Platelet Count 163 K/mm3 (150-450); Red Blood Count 4.22 M/mm3 (4.1-5.4); Red Cell Distribution Width 13.6 % (11.5-14.0); White Blood Count 7.5 K/mm3 (4.0-10.5)
[2021-03-18 20:07] LABS: Appearance CLEAR (CLEAR); Bilirubin NEGATIVE (NEGATIVE); Blood NEGATIVE Ery/ul (0-5); Glucose NEGATIVE (NEGATIVE); Ketones NEGATIVE (NEGATIVE); Leukocyte Esterase NEGATIVE (NEGATIVE); Mucus SLIGHT /HPF (NEGATIVE); Nitrite NEGATIVE (NEGATIVE); Protein,Urine Dip NEGATIVE (Negative); Specific Gravity 1.006 (1.005-1.025); Urobilinogen NEGATIVE mg/dL (0-1)
[2021-03-18 21:14] VITALS: O2SAT 98
[2021-03-18] MEDS ORDERED: BABY ASPIRIN 81 MG CHEW PO ONE (22:09)
[2021-03-18] MEDS ORDERED: Ntg 0.2MG/Ml in D5W GLASS*** 250 ML IV PRN (22:21)
[2021-03-18] MEDS ORDERED: Ntg 0.2MG/Ml in D5W GLASS*** 250 ML IV ONE (22:31)
[2021-03-18 22:45] VITALS: BP 220/85; PULSE 65
--- NOTE | 2021-03-19 09:07 | XRAY ---
Indication: Short of breath and chest pain. Elevated d-dimer. Multiple contiguous axial images obtained through the chest using 80 cc Isovue 370 contrast and PE protocol. Comparison: November 23, 2019. There is good opacification of the pulmonary arteries to include the lobar and segmental branches. No pulmonary embolus. Heart remains enlarged again with mitral valve replacement surgery and left pacemaker. Aorta remains moderately arteriosclerotic without aneurysm/dissection. Stable 1.6 x 2.1 cm distal paratracheal lymph node. No new mediastinal/hilar lymphadenopathy. Stable small hiatal hernia. Lungs again demonstrate pulmonary emphysema with scattered fibrosis/scarring again greatest in both lower lobes. There remains a few calcified granulomas in both lower lobes. No new pulmonary mass/nodule, infiltrate, or effusion. Bony thorax intact again with osteopenia, mild degenerative changes throughout the spine, and sternotomy wires. Limited upper abdomen again demonstrates cholecystotomy clips and 8 mm right renal calculus. Impression: 1. Negative pulmonary embolus. 2. Again scattered pulmonary fibrosis/scarring and old granulomatous disease. No new/acute cardiopulmonary abnormalities. 3. Again cardiomegaly with postoperative changes, enlarged nonspecific distal paratracheal lymph node, small hiatal hernia, and right renal calculus.
== END 2021-03-18 23:00 | disposition short-term general hospital (02) ==
LOC: ED 17:03
DX: I24.9 Acute ischemic heart disease, unspecified (principal); I51.7 Cardiomegaly; R06.02 Shortness of breath; K44.9 Diaphragmatic hernia without obstruction or gangrene; N20.0 Calculus of kidney; I21.4 Non-ST elevation (NSTEMI) myocardial infarction
CPT/HCPCS: 36000; 36415; 71260; 80053; 81001; 83735; 84484; 85025; 85379; 85610; 85730; 93005; 93041; 94760; 99285; A9270-GY

== ENCOUNTER 2021-12-03 15:25 | Emergency (ER) | payer MEDICARE ==
[2021-12-03] MEDS ORDERED: XYLOCAINE 1% HCL 20 ML MDV IJ ONE (15:26)
--- NOTE | 2021-12-03 15:33 | ERPHSYRPT ---
- History of Present Illness Time Seen by Provider: 12/03/21 15:33 Source: patient Exam Limitations: no limitations Physician History: This is a 76-year-old white female patient of Dr. Ellis Adkins and presents with bilateral hip and lower back pain. She has a history of chronic recurrent low back pain and hip pain. In fact, on 11/20/2021, she underwent an x-ray of the sacrum/coccyx and the lumbar spine. Both showed no acute fractures or other acute bony changes. Patient was seen at [facility] in [facility] the prior to this evaluation today with the same issue. Patient denies any recent falls or trauma. Patient has never seen a n eurologist, back specialist or pain specialist. Today there was some gross hematuria present and she has the persistent bilateral back pain and bilateral hip pain and was sent to the emergency department for further evaluation. Patient has a history of hypertension, coronary artery disease on Coumadin, anxiety and depression. She does not have chest pain. She does not have shortness of breath and she has no abdominal pain. Timing/Duration: intermittent, worse Back Pain Location: lumbar spine, paraspinous muscles Back Pain Radiation: buttocks Severity of Pain-Max: moderate Severity of Pain-Current: moderate Modifying Factors: Improves With: movement Associated Symptoms: lower back pain, muscle spasms, No urinary incontinence, No loss of bowel control, No problems urinating, No numbness in legs/feet, No sensory/motor loss Previous symptoms: same symptoms as today, recently seen, recently treated Allergies/Adverse Reactions: No Known Drug Allergies Allergy (Verified 12/03/21 15:45) Home Medications: Atorvastatin Calcium 40 mg PO DAILY 12/22/15 [History] FA/Vit C/E/Zinc/Copper/Lut/Dov [Ocuvel Capsule] 1 each PO DAILY 02/15/18 [History] [place]-3 Fatty Acids [[place]-3] 1,000 mg PO DAILY 02/15/18 [History] Warfarin Sodium 3 mg [Coumadin 3 MG] 3 mg PO DAILY@1800 02/15/18 [History] Carvedilol 3.125 mg [Coreg 3.125 MG] 12.5 mg PO BID 02/16/18 [History] Cyanocobalamin/Folic AC/Vit B6 [Homocysteine Formula Tablet] 1 each PO DAILY 09/07/18 [History] Buspirone HCl 5 mg [Buspar 5 mg] 5 mg BID 10/18/19 [History] Famotidine 20 mg [Pepcid 20 MG] 20 mg DAILY 10/18/19 [History] Hx Tetanus, Diphtheria Vaccination/Date Given: No Hx Influenza Vaccination/Date Given: Yes Hx Pneumococcal Vaccination/Date Given: Yes Travel Risk - International Travel Have you traveled outside of the country in past 3 weeks: No - Coronavirus Screening Are you exhibiting any of the following symptoms?: No Close contact with a COVID-19 positive Pt in past 14-21 Days: No - Vaccine Status Have you recieved a Covid-19 vaccination: Yes Skin Specialist: Moderna - Vaccination Dates Date of 2cond Vaccination (if applicable): 11/2020 - Review of Systems Constitutional: No Symptoms Eyes: No Symptoms Ears, Nose, & Throat: No Symptoms Respiratory: No Symptoms Cardiac: No Symptoms Abdominal/Gastrointestinal: No Symptoms Genitourinary Symptoms: Hematuria Musculoskeletal: Back Pain Skin: No Symptoms Neurological: No Symptoms Psychological: No Symptoms Endocrine: No Symptoms Hematologic/Lymphatic: No Symptoms Immunological/Allergic: No Symptoms All Other Systems: Reviewed and Negative - Past Medical History Pertinent Past Medical History: Yes Neurological History: No Pertinent History ENT History: No Pertinent History, Cataracts, Macular Degeneration Cardiac History: Coronary Artery Disease, Myocardial Infarction ([place]), High Cholesterol, Hypertension Respiratory History: No Pertinent History, Bronchitis, Pneumonia Endocrine Medical History: No Pertinent History Musculoskeletal History: No Pertinent History, Other GI Medical History: No Pertinent History, Gallbladder Disease History: No Pertinent History, Other Psycho-Social History: No Pertinent History, Depression, Anxiety Female Reproductive Disorders: No Pertinent History Other Medical History: skin ca, - Past Surgical History Past Surgical History: Yes Neuro Surgical History: No Pertinent History Cardiac: CABG, Valve Replacement, Cardiac Catheterization, Pacemaker Respiratory: No Pertinent History Gastrointestinal: Other, Cholecystectomy Genitourinary: Kidney Surgery Musculoskeletal: No Pertinent History Female Surgical History: No Pertinent History Other Surgical History: kidney stent x 2. colonoscopy and EGD 2017. revision of pacemaker - Social History Smoking Status: Former smoker How long have you smoked: 50 YEARS Exposure to second hand smoke: No Alcohol Use: Socially Drug Use: none Patient Lives Alone: No Significant Family History: hypertension - Nursing Vital Signs Nursing Vital Signs: Initial Vital Signs Temperature 96.5 F 12/03/21 15:29 Pulse Rate 60 12/03/21 15:29 Blood Pressure 169/61 12/03/21 15:29 O2 Sat by Pulse Oximetry 97 12/03/21 15:29 Pain Scale Pain Intensity [Hip] 3 Pain Intensity 2 - Physical Exam General Appearance: no apparent distress, alert, anxiety, obese Eye Exam: PERRL/EOMI, eyes nml inspection Ears, Nose, Throat Exam: normal ENT inspection, moist mucous membranes Neck Exam: normal inspection, non-tender, supple, full range of motion Respiratory Exam: normal breath sounds, lungs clear, airway intact, No chest tenderness, No respiratory distress Cardiovascular Exam: regular rate/rhythm, normal heart sounds, normal peripheral pulses Gastrointestinal Exam: soft, normal bowel sounds, No tenderness Pelvic Exam: not done Rectal Exam: not done Back Exam: normal inspection, decreased range of motion, muscle spasm, No vertebral tenderness Extremity Exam: normal inspection, normal range of motion, pelvis stable Neurologic Exam: alert, oriented x 3, cooperative, revenue manager II-XII nml as tested, normal mood/affect, sensation nml Skin Exam: normal color, warm, dry Lymphatic Exam: No adenopathy SpO2 Interpretation: normal O2 Delivery: Room Air - Course Nursing assessment & vital signs reviewed: Yes Ordered Tests: Active Orders 24 hr Category Date Time Status ABDOMEN AND PELVIS W/0 CONTRAS [CT] Stat Exams 12/03/21 15:56 Completed CULTURE,URINE Stat Lab 12/03/21 16:08 Received UA W/RFX UR CULTURE Stat Lab 12/03/21 16:08 Completed Medication Summary Discontinued Medications Generic Name Dose Route Start Last Admin Trade Name Nicolas PRN Reason Stop Dose Admin Ceftriaxone Sodium 1,000 mg 12/03/21 16:42 12/03/21 16:50 Ceftriaxone Sodium 1000 Mg Inj Vial IM 12/03/21 16:43 1,000 mg STAT ONE Administration Ceftriaxone Sodium Confirm 12/03/21 16:46 Ceftriaxone Sodium 1000 Mg Inj Vial Administered 12/03/21 16:47 Dose 1,000 mg .ROUTE .STK-MED ONE Hydromorphone HCl 0.5 mg 12/03/21 17:31 Hydromorphone 1 Mg/1ml Inj 1 Mg/Ml Syringe IM 12/03/21 17:32 STAT ONE Ondansetron HCl 4 mg 12/03/21 17:31 Zofran 4 Mg/Udtablet Orally Disintegrating PO 12/03/21 17:32 STAT ONE Lab/Rad Data: Laboratory Results 12/03/21 Range/Units 16:08 Urine Color YELLOW (YELLOW) Urine Appearance CLOUDY (CLEAR) Urine pH 5.0 (5-6) Ur Specific [place] 1.018 (1.005-1.025) Urine Protein 100 (Negative) Urine Ketones NEGATIVE (NEGATIVE) Urine Blood LARGE (0-5) Jordin/ul Urine Nitrite NEGATIVE (NEGATIVE) Urine Bilirubin NEGATIVE (NEGATIVE) Urine Urobilinogen NEGATIVE (0-1) mg/dL Ur Leukocyte Esterase LARGE (NEGATIVE) Urine WBC (Auto) >100 (0-5) /HPF Urine RBC (Auto) >101 (0-2) /HPF U Epithel Cells (Auto) NONE (FEW) /HPF Urine Bacteria (Auto) MODERATE (NEGATIVE) /HPF Urine Culture Reflexed ORDERED SEPARATELY (NO) Urine Glucose NEGATIVE (NEGATIVE) mg/dL - Progress Progress: improved, pain not gone completely Progress Note: 12/03/21 17:39 CT scan of the abdomen pelvis shows right UPJ obstruction with a 1 cm calculus. There is mild hydronephrosis. There is no evidence of any perinephric stranding or edema. Medical decision making: I spoke with urologist Dr. Freed and reviewed the patient history, physical findings and results from the CAT scan of the abdomen pelvis. He wanted to make sure we culture the urine and place the patient on antibiotics and provide the patient with pain control. Patient is to call his office tomorrow to make arrangements for follow-up appointment and to make sure that they tell his office that the emergency room physician spoke with him and she is to be seen this week in the office. Counseled pt/family regarding: lab results, diagnosis, need for follow-up, rad results - Departure Departure Disposition: Home Clinical Impression: Obstruction of right ureteropelvic junction (UPJ) due to stone Condition: Stable Critical Care Time: No Referrals: BESSIE RICK [Primary Care Provider] - Follow up/PCP as directed Additional Instructions: Drink plenty of fluids. Call Dr. Freed, urologist in [facility] first thing tomorrow morning. The phone number we have provided you. You are to tell the office staff that you were seen in the emergency room and the emergency room doctor spoke with Dr. Freed. Dr. Freed wants you to be seen either tomorrow or Wednesday. Hold your Coumadin. Do not restart your Coumadin until you are told to by Dr. Freed. Prescriptions: Hydrocodone/APAP 5/325 [[place] 5/325 mg] 1 each PO Q8H PRN PRN #6 tablet MDD 3 PRN Reason: Pain Smz/Tmp Ds Tablet [Bactrim Ds Tablet] 1 udtab PO BID #14 tablet
[2021-12-03 16:15] LABS: Appearance CLOUDY (CLEAR); Bacteria MODERATE /HPF (NEGATIVE); Bilirubin NEGATIVE (NEGATIVE); Blood LARGE Ery/ul (0-5); Glucose NEGATIVE (NEGATIVE); Ketones NEGATIVE (NEGATIVE); Leukocyte Esterase LARGE (NEGATIVE); Nitrite NEGATIVE (NEGATIVE); Protein,Urine Dip 100 (Negative); RBC >101 /HPF (0-2); Specific Gravity 1.018 (1.005-1.025); Urobilinogen NEGATIVE mg/dL (0-1); WBC >100 /HPF (0-5)
[2021-12-03] MEDS ORDERED: Rocephin 1000 MG INJ IM ONE (16:42)
[2021-12-03] MEDS ORDERED: Rocephin 1000 MG INJ ONE (16:46)
--- NOTE | 2021-12-03 17:14 | XRAY ---
Indication: Hematuria and back pain. Multiple contiguous axial images obtained through the abdomen and pelvis without contrast using renal stone protocol. Comparison: September 03, 2015. Study is mildly degraded by respiration artifact throughout. Lung bases again demonstrates scattered subsegmental atelectasis/scarring, bronchiectasis, and bilateral lower lobe calcified granulomas. No infiltrate or effusion. Heart not enlarged. New small hiatal hernia. New 1 cm right UPJ calculus with mild hydronephrosis. No perinephric fluid or stranding. Urinary bladder mildly distended with new intraluminal air either iatrogenic from recent catheterization versus gas-forming bacterial infection. Noncontrasted stomach and bowel loops appear nonobstructed again with mild sigmoid diverticulosis. Again cholecystectomy. No free fluid/air. Remaining liver, pancreas, spleen, adrenal glands, kidneys, ureters, bladder, and uterus are unremarkable. The remains heavy scattered vascular calcifications. No AAA. Osseous structures intact again with osteopenia and minimal lumbar levoscoliosis. Impression: 1. Respiration artifact. 2. New 1 cm right UPJ calculus producing obstructive uropathy. 3. New urinary bladder intraluminal air either iatrogenic versus gas-forming bacterial infection. 4. New small hiatal hernia. 5. Again sigmoid sigmoid diverticulosis, pulmonary atelectasis/scarring/bronchiectasis, arteriosclerotic disease, chronic bony findings, and old granulomatous disease.
[2021-12-03 17:15] VITALS: O2SAT 97
[2021-12-03] MEDS ORDERED: Hydromorphone 1 mg/ml Injection IM ONE (17:31)
[2021-12-03] MEDS ORDERED: ZOFRAN ODT 4 MG PO ONE (17:31)
[2021-12-03] MEDS ORDERED: Zofran 4 MG/2 ML VIAL ONE (17:45)
[2021-12-03] MEDS ORDERED: Hydromorphone 1 mg/ml Injection ONE (17:46)
[2021-12-03] MEDS ORDERED: ZOFRAN ODT 4 MG ONE (17:49)
[2021-12-03 18:04] VITALS: BP 174/68; PULSE 61
== END 2021-12-03 18:28 | disposition home or self-care (01) ==
LOC: ED 15:25
DX: M25.552 Pain in left hip (principal); M25.551 Pain in right hip; G89.29 Other chronic pain; I25.10 Atherosclerotic heart disease of native coronary artery without angina pectoris; E78.5 Hyperlipidemia, unspecified; I10 Essential (primary) hypertension; Z79.891 Long term (current) use of opiate analgesic; Z79.899 Other long term (current) drug therapy
CPT/HCPCS: 74176; 81001; 87077; 87086; 87186; 96372; 99284; J0696; J1170; J2405; Q0162

== ENCOUNTER 2022-02-10 11:47 | Inpatient (IN) | payer MEDICARE ==
--- NOTE | 2022-02-10 12:05 | ERPHSYRPT ---
- History of Present Illness Time Seen by Provider: 02/10/22 11:55 Source: patient Exam Limitations: no limitations Physician History: Patient is a 76-year-old femalePresents to our ED for evaluation Of shortness of breath. Symptoms started 4 days ago. Patient states she was getting out of her recliner when she felt a sudden pop. Since then patient has been experiencing shortness of breath and pain. Patient describes a pain in the lower chest and epigastric region. Pain described as a bad sensation that is squeezing her lower chest and upper abdomen. Patient intermittently experiences pain rating to her back. Patient is here today. Patient observed to be hypertensive. Patient's pain rated 7 out of 10. No specific worsening improving factors. Patient admits to a recent history of a pelvic fracture for which she is currently recovering. No associated nausea or vomiting. No diarrhea. No rash. Patient voices no other complaints or concerns at this time. Timing/Duration: day(s) (4 days ago) Severity: moderate Modifying Factors: Improves With: nothing Associated Symptoms: denies symptoms Allergies/Adverse Reactions: No Known Drug Allergies Allergy (Verified 02/10/22 12:08) Home Medications: Atorvastatin Calcium 40 mg PO DAILY 12/22/15 [History] FA/Vit C/E/Zinc/Copper/Lut/Dov [Ocuvel Capsule] 1 each PO DAILY 02/15/18 [History] Mineral-3 Fatty Acids [Mineral-3] 1,000 mg PO DAILY 02/15/18 [History] Warfarin Sodium 3 mg [Coumadin 3 MG] 3 mg PO DAILY@1800 02/15/18 [History] Carvedilol 3.125 mg [Coreg 3.125 MG] 12.5 mg PO BID 02/16/18 [History] Cyanocobalamin/Folic AC/Vit B6 [Homocysteine Formula Tablet] 1 each PO DAILY 09/07/18 [History] Buspirone HCl 5 mg [Buspar 5 mg] 5 mg BID 10/18/19 [History] Amiodarone HCl 200 mg PO DAILY 02/10/22 [History] Escitalopram Oxalate [Lexapro] 20 mg PO DAILY 02/10/22 [History] Hx Tetanus, Diphtheria Vaccination/Date Given: No Hx Influenza Vaccination/Date Given: Yes Hx Pneumococcal Vaccination/Date Given: Yes Travel Risk - Vaccine Status Have you recieved a Covid-19 vaccination: Yes 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 - Vaccination Dates Date of 2cond Vaccination (if applicable): 11/2020 - Review of Systems Constitutional: No Symptoms, No Fever, No Chills Eyes: No Symptoms Ears, Nose, & Throat: No Symptoms Respiratory: No Symptoms, No Cough, No Dyspnea Cardiac: No Symptoms, No Chest Pain, No Edema, No Syncope Abdominal/Gastrointestinal: No Symptoms, No Abdominal Pain, No Nausea, No Vomiting, No Diarrhea Genitourinary Symptoms: No Symptoms, No Dysuria Musculoskeletal: No Symptoms, No Back Pain, No Neck Pain Skin: No Symptoms, No Rash Neurological: No Symptoms, No Dizziness, No Focal Weakness, No Sensory Changes Psychological: No Symptoms Endocrine: No Symptoms Hematologic/Lymphatic: No Symptoms Immunological/Allergic: No Symptoms All Other Systems: Reviewed and Negative - Past Medical History Pertinent Past Medical History: Yes Neurological History: No Pertinent History ENT History: No Pertinent History, Cataracts, Macular Degeneration Cardiac History: Coronary Artery Disease, Myocardial Infarction ([place]), High Chol esterol, Hypertension Respiratory History: No Pertinent History, Bronchitis, Pneumonia Endocrine Medical History: No Pertinent History Musculoskeletal History: No Pertinent History, Other GI Medical History: No Pertinent History, Gallbladder Disease History: No Pertinent History, Other Psycho-Social History: No Pertinent History, Depression, Anxiety Female Reproductive Disorders: No Pertinent History Other Medical History: skin ca, - Past Surgical History Past Surgical History: Yes Neuro Surgical History: No Pertinent History Cardiac: CABG, Valve Replacement, Cardiac Catheterization, Pacemaker Respiratory: No Pertinent History Gastrointestinal: Other, Cholecystectomy Genitourinary: Kidney Surgery Musculoskeletal: No Pertinent History Female Surgical History: No Pertinent History Other Surgical History: kidney stent x 2. colonoscopy and EGD 2017. revision of pacemaker - Social History Smoking Status: Former smoker How long have you smoked: 50 YEARS Exposure to second hand smoke: No Alcohol Use: Socially Drug Use: none Patient Lives Alone: No Significant Family History: hypertension - Nursing Vital Signs Nursing Vital Signs: Initial Vital Signs Temperature 96.9 F 02/10/22 11:49 Pulse Rate 60 02/10/22 11:49 Respiratory Rate 14 02/10/22 11:49 Blood Pressure 182/133 02/10/22 11:49 O2 Sat by Pulse Oximetry 98 02/10/22 11:49 Pain Scale Pain Intensity 0 - Physical Exam General Appearance: no apparent distress, alert Eye Exam: PERRL/EOMI, eyes nml inspection Ears, Nose, Throat Exam: normal ENT inspection, TMs normal, pharynx normal, moist mucous membranes Neck Exam: normal inspection, non-tender, supple, full range of motion Respiratory Exam: normal breath sounds, lungs clear, airway intact, No respiratory distress Cardiovascular Exam: regular rate/rhythm, normal heart sounds, normal peripheral pulses Gastrointestinal/Abdomen Exam: soft, normal bowel sounds, No tenderness, No mass Back Exam: normal inspection, normal range of motion, No CVA tenderness, No vertebral tenderness Extremity Exam: normal inspection, normal range of motion, pelvis stable Neurologic Exam: alert, oriented x 3, cooperative, normal mood/affect, nml cerebellar function, nml station & gait, sensation nml, No motor deficits Skin Exam: normal color, warm, dry, No rash Lymphatic Exam: No adenopathy SpO2 Interpretation: normal SpO2: 98 O2 Delivery: Room Air - Course Nursing assessment & vital signs reviewed: Yes EKG Interpreted by Me: RATE (60), Sinus Rhythm, NORMAL AXIS, NORMAL INTERVALS - CT Exams Chest CT Interpretation: Tele-radiologist Report (Atherosclerotic disease of the thoracic aorta. No pulmonary embolism. Cardiomegaly. Evidence of mitral valve replacement with a pacemaker. Diffuse pulmonary emphysema with fibrosis. Lung granuloma. New bilateral effusions osteopenia.) Abdomen/Pelvis CT Interpretation: Tele-radiologist Report (Abdominal aorta shows atheroscler otic disease. No AAA or dissection. There are arterial calcifications. No critical stenosis. Colonic fecal debris. Splenomegaly renal cyst osteopenia old healing pubic ramus fracture) Ordered Tests: Active Orders 24 hr Category Date Time Status Employment Program Representative STAT Care 02/10/22 11:59 Active EKG-ER Only STAT Care 02/10/22 11:58 Active IV Insertion STAT Care 02/10/22 11:58 Active IV Insertion-2nd Peripheral STAT Care 02/10/22 16:18 Active Pulse Oximetry (ED) STAT Care 02/10/22 11:58 Active CTA ABD/PEL W AND/OR W/O CONTR [CT] Stat Exams 02/10/22 15:18 Completed CTA CHEST W AND/OR WO [CT] Stat Exams 02/10/22 12:00 Completed BNP [NT PRO BNP] Stat Lab 02/10/22 17:32 Ordered CBC W DIFF Stat Lab 02/10/22 12:10 Completed CMP Stat Lab 02/10/22 12:10 Completed PROTIME WITH INR Stat Lab 02/10/22 12:10 Completed PTT Stat Lab 02/10/22 12:10 Completed TROPONIN Q3H Lab 02/10/22 12:10 Completed TROPONIN Q3H Lab 02/10/22 15:34 Completed TROPONIN Q3H Lab 02/10/22 18:00 Ordered TROPONIN Q3H Lab 02/10/22 21:00 Ordered TROPONIN Q3H Lab 02/11/22 00:00 Ordered Transfer Order Routine Transfer 02/10/22 Ordered Medication Summary Generic Name Dose Route Start Last Admin Trade Name Freq PRN Reason Stop Dose Admin Magnesium Sulfate/Dextrose 100 mls @ 100 mls/hr 02/10/22 13:00 02/10/22 15:49 Magnesium 1 Gm / 100 Ml D5w IV 02/10/22 14:59 100 mls/hr Q1H FELICIA Administration Nicardipine HCl 25 mg/ Sodium 250 mls @ 0 mls/hr 02/10/22 15:46 02/10/22 16:20 Chloride IV 03/12/22 15:45 50 ml/hr .Q0M PRN 50 mls/hr TITRATE FOR BLOOD PRESSURE Administration Protocol Titrate Discontinued Medications Generic Name Dose Route Start Last Admin Trade Name Freq PRN Reason Stop Dose Admin Carvedilol 12.5 mg 02/10/22 14:38 02/10/22 15:27 Carvedilol 12.5 Mg Tablet PO 02/10/22 14:39 12.5 mg ONCE STA Administration Potassium Chloride 20 meq in 100 mls @ 50 mls/hr 02/10/22 12:48 02/10/22 12:53 Potassium Chloride 20 Meq In Water 100ml IV 02/10/22 14:47 50 mls/hr STAT ONE Administration Potassium Chloride Confirm 02/10/22 12:51 Potassium Chloride 20 Meq In Water 100ml Administered 02/10/22 12:52 Dose 100 mls @ ud IV .STK-MED ONE Sodium Chloride Confirm 02/10/22 13:02 Sodium Chloride 0.9% 1000 Ml Administered 02/10/22 13:03 Dose 1,000 mls @ ud .ROUTE .STK-MED ONE Sodium Chloride 1,000 mls @ 999 mls/hr 02/10/22 13:03 02/10/22 14:27 Sodium Chloride 0.9% 1000 Ml IV 02/10/22 14:03 Infused .Q1H1M STA Infusion Morphine Sulfate 2 mg 02/10/22 12:35 02/10/22 12:39 Morphine Sulfate 2 Mg/Ml Inj IV 02/10/22 12:36 2 mg STAT ONE Administration Morphine Sulfate Confirm 02/10/22 12:38 Morphine Sulfate 2 Mg/Ml Inj Administered 02/10/22 12:39 Dose 2 mg .ROUTE .STK-MED ONE Morphine Sulfate 4 mg 02/10/22 17:29 02/10/22 17:31 Morphine Sulfate 4 Mg/Ml Injection IV 02/10/22 17:30 4 mg STAT ONE Administration Morphine Sulfate Confirm 02/10/22 17:30 Morphine Sulfate 4 Mg/Ml Injection Administered 02/10/22 17:31 Dose 4 mg .ROUTE .STK-MED ONE Lab/Rad Data: Laboratory Result Diagrams 02/10/22 12:10 02/10/22 12:10 Laboratory Results 02/10/22 02/10/22 02/10/22 Range/Units 16:00 15:34 12:10 WBC (4.0-10.5) K/mm3 RBC (4.1-5.4) M/mm3 Hgb (12.0-16.0) gm/dl Hct (35-47) % MCV (78-100) fl MCH (26-32) pg MCHC (32-36) g/dl RDW (11.5-14.0) % Plt Count (150-450) K/mm3 MPV (7.5-11.0) fl Gran % (36.0-66.0) % Eos # (Auto) (0-0.5) Absolute Lymphs (auto) (1.0-4.6) Absolute Monos (auto) (0.0-1.3) Lymphocytes % (24.0-44.0) % Monocytes % (0.0-12.0) % Eosinophils % (0.00-5.0) % Basophils % (0.0-0.4) % Absolute Granulocytes (1.4-6.9) Basophils # (0-0.4) PT 52.4 H (9.4-12.5) SECONDS INR 4.44 H (0.8-3.0) APTT 52.9 H (25.1-36.5) SECONDS Sodium (137-145) mmol/L Potassium (3.5-5.1) mmol/L Chloride (98-107) mmol/L Carbon Dioxide (22-30) mmol/L Anion Gap (5-15) MEQ/L BUN (7-17) mg/dL Creatinine (0.52-1.04) mg/dL Estimated GFR ML/MIN Glucose (74-106) mg/dL Calcium (8.4-10.2) mg/dL Total Bilirubin (0.2-1.3) mg/dL AST (14-36) U/L ALT (0-35) U/L Alkaline Phosphatase (38-126) U/L Troponin I 0.028 (0.000-0.034) ng/mL Serum Total Protein (6.3-8.2) g/dL Albumin (3.5-5.0) g/dL Influenza Type A Ag NEGATIVE (NEGATIVE) Influenza Type B Ag NEGATIVE (NEGATIVE) RSV (PCR) NEGATIVE (Negative) SARS-CoV-2 (PCR) NEGATIVE (NEGATIVE) Slides for Path Review 02/10/22 02/10/22 02/10/22 Range/Units 12:10 12:10 12:10 WBC 5.8 (4.0-10.5) K/mm3 RBC 3.90 L (4.1-5.4) M/mm3 Hgb 11.0 L (12.0-16.0) gm/dl Hct 36.3 (35-47) % MCV 93.1 (78-100) fl MCH 28.2 (26-32) pg MCHC 30.3 L (32-36) g/dl RDW 14.5 H (11.5-14.0) % Plt Count 166 (150-450) K/mm3 MPV 11.6 H (7.5-11.0) fl Gran % 78.3 H (36.0-66.0) % Eos # (Auto) 0.10 (0-0.5) Absolute Lymphs (auto) 0.52 L (1.0-4.6) Absolute Monos (auto) 0.62 (0.0-1.3) Lymphocytes % 9.0 L (24.0-44.0) % Monocytes % 10.7 (0.0-12.0) % Eosinophils % 1.7 (0.00-5.0) % Basophils % 0.3 (0.0-0.4) % Absolute Granulocytes 4.54 (1.4-6.9) Basophils # 0.02 (0-0.4) PT (9.4-12.5) SECONDS INR (0.8-3.0) APTT (25.1-36.5) SECONDS Sodium 142 (137-145) mmol/L Potassium 2.7 L* (3.5-5.1) mmol/L Chloride 102 (98-107) mmol/L Carbon Dioxide 30 (22-30) mmol/L Anion Gap 12.4 (5-15) MEQ/L BUN 14 (7-17) mg/dL Creatinine 0.89 (0.52-1.04) mg/dL Estimated GFR > 60.0 ML/MIN Glucose 135 H (74-106) mg/dL Calcium 8.6 (8.4-10.2) mg/dL Total Bilirubin 0.80 (0.2-1.3) mg/dL AST 54 H (14-36) U/L ALT 26 (0-35) U/L Alkaline Phosphatase 258 H (38-126) U/L Troponin I 0.025 (0.000-0.034) ng/mL Serum Total Protein 6.7 (6.3-8.2) g/dL Albumin 3.7 (3.5-5.0) g/dL Influenza Type A Ag (NEGATIVE) Influenza Type B Ag (NEGATIVE) RSV (PCR) (Negative) SARS-CoV-2 (PCR) (NEGATIVE) Slides for Path Review YES - Progress Progress: improved Progress Note: Patient reassessed. Pain improved with morphine. 1 of morphine wears down pain recurs. Patient requires multiple doses of morphine for pain control. CT chest abdomen pelvis negative for dissection. Troponin mildly uptrending however not positive per se. We observe patient's blood pressure however continued to rise. Patient started on nicardipine drip. Case discussed with Dr. Corral who accepts admission to observation. Plan of care discussed with patient. She agrees to admission at [facility] for further evaluation and treatment. Portions of this note were created with voice recognition technology. There may be grammatical, spelling, punctuation or sound alike errors 02/10/22 17:45 Discussed with : Mohan Will see patient in: hospital (observation) Counseled pt/family regarding: lab results, diagnosis, rad results - Departure Departure Disposition: Home Clinical Impression: Hypokalemia, Hypertensive urgency, Osteopenia, Cardiomegaly, Lung granuloma, Bilateral pleural effusion, Aortic arterial sclerosis, Colonic fecal debris, Splenomegaly, Renal cyst, Healing pubic ramus fracture Condition: Stable Critical Care Time: No Referrals: BESSIE RICK [Primary Care Provider] - Follow up/PCP as directed
[2022-02-10 12:35] LABS: ALBUMIN 3.7 g/dL (3.5-5.0); ALKALINE PHOSPHATASE 258 U/L (38-126); ANION GAP 12.4 MEQ/L (5-15); BLOOD UREA NITROGEN 14 mg/dL (7-17); CHLORIDE 102 mmol/L (98-107); Calcium 8.6 mg/dL (8.4-10.2); Carbon Dioxide 30 mmol/L (22-30); Creatinine 1 0.89 mg/dL (0.52-1.04); EST GLOMERULAR FILTRATION RATE > 60.0 ML/MIN; Glucose 135 mg/dL (74-106); SGOT/AST 54 U/L (14-36); SGPT/ALT 26 U/L (0-35); SODIUM 142 mmol/L (137-145); Total Protein 6.7 g/dL (6.3-8.2)
[2022-02-10] MEDS ORDERED: MORPHINE SULFATE 2 MG INJ IV ONE (12:35)
[2022-02-10 12:38] LABS: Absolute Neutrophil Ct (ANC) 4.54 (1.4-6.9); Basophil (Absolute #) 0.02 (0-0.4); Eosinophil % 1.7 % (0.00-5.0); Hematocrit 36.3 % (35-47); Lymphocyte (Absolute #) 0.52 (1.0-4.6); Mean Cell Volume 93.1 fl (78-100); Mean Corpuscular Hemoglobin 28.2 pg (26-32); Mean Corpuscular Hgb Concent. 30.3 g/dl (32-36); Mean Platelet Volume 11.6 fl (7.5-11.0); Monocyte (Absolute #) 0.62 (0.0-1.3); Monocytes % 10.7 % (0.0-12.0); Neutrophil % 78.3 % (36.0-66.0); Platelet Count 166 K/mm3 (150-450); Red Cell Distribution Width 14.5 % (11.5-14.0); White Blood Count 5.8 K/mm3 (4.0-10.5)
[2022-02-10] MEDS ORDERED: MORPHINE SULFATE 2 MG INJ ONE (12:38)
[2022-02-10 12:41] LABS: Potassium 2.7 mmol/L (3.5-5.1)
[2022-02-10] MEDS ORDERED: POTASSIUM CHLORIDE 20 mEq IN WATER 100ML 20 MEQ/100 ML BAG IV ONE (12:48)
[2022-02-10] MEDS ORDERED: POTASSIUM CHLORIDE 20 mEq IN WATER 100ML 100 ML IV ONE (12:51)
[2022-02-10 13:02] LABS: INR 4.44 (0.8-3.0); PROTIME 52.4 SECONDS (9.4-12.5)
[2022-02-10] MEDS ORDERED: Sodium Chloride 0.9% 1000 ML 1,000 ML ONE (13:02)
[2022-02-10] MEDS ORDERED: Sodium Chloride 0.9% 1000 ML 1,000 ML IV STA (13:03)
[2022-02-10 13:05] LABS: PTT 52.9 SECONDS (25.1-36.5)
[2022-02-10] MEDS ORDERED: COREG 12.5 MG PO STA (14:38)
[2022-02-10 15:12] LABS: Slide Review 1 YES
--- NOTE | 2022-02-10 15:25 | XRAY ---
Indication: Chest pain, short of breath, nausea, and vomiting. Aortic dissection. Conventional CTA chest performed using 100 cc Isovue 370 contrast. Two-dimensional sagittal and coronal reformatted images obtained. Comparison: March 18, 2021 Thoracic aorta again moderately arteriosclerotic without aneurysm/dissection. No central pulmonary embolus. Heart remains enlarged again with mitral valve replacement and left pacemaker. No pathologic mediastinal/hilar lymphadenopathy. Lungs again demonstrate diffuse pulmonary emphysema, scattered fibrosis/scarring, and tiny calcified granulomas. New small bilateral effusions with mild bibasilar compressive atelectasis. Bony thorax intact again with osteopenia, degenerative changes, as sternotomy wires. CTA abdomen/pelvis reported separately. Impression: 1. Again arteriosclerotic thoracic aorta. Continued negative for thoracic aneurysm/dissection. 2. Again cardiomegaly with new small bilateral effusions and bibasilar compressive atelectasis. Rule out cardiac decompensation/CHF. 3. Chronic findings including pulmonary emphysema, scattered fibrosis/scarring, chronic bony findings, and old granulomatous disease.
--- NOTE | 2022-02-10 15:32 | XRAY ---
Indication: Chest pain, short of breath, nausea, and vomiting. Aortic dissection. Conventional CTA abdomen/pelvis performed using 100 cc Isovue 370 contrast. Two-dimensional sagittal and coronal reformatted images obtained. Comparison: December 03, 2021 CTA chest reported separately. Abdominal aorta again demonstrates moderate/significant arteriosclerotic disease including major branches. Negative for AAA/dissection. Origins celiac, superior mesenteric, and lesser degree inferior mesenteric arteries demonstrates arterial scattered calcifications without critical stenosis/obstruction. A single renal arteries supply each kidney with patent stent grafts bilaterally. More distal renal arteries are unremarkable. Noncontrasted stomach and bowel loops nonobstructed. There is mild scattered colonic fecal debris greatest in the left hemicolon and sigmoid colon. Again previous cholecystectomy with prominent biliary tree. No free fluid/air. . New 13 cm splenomegaly. Stable 3 cm left lower renal cyst. Remaining liver, pancreas, spleen, adrenal glands, kidneys, ureters, bladder, and uterus are unremarkable. No pathologic retroperitoneal lymphadenopathy. Osseous structures intact again with osteopenia. New finding minimally displaced healing right pubic symphysis fracture and minimally angulated healing sacral fracture approximately S2 level. Impression: 1. Again extensive arteriosclerotic disease as detailed. Continue negative AAA/dissection. 2. New mild left hemicolon fecal stasis and splenomegaly. 3. New finding healing right pubic symphysis and healing sacral fractures. 4. Chronic findings including left renal cyst, cholecystectomy with prominent biliary tree, and osteopenia.
[2022-02-10] MEDS ORDERED: Magnesium 1 Gm / 100 Ml D5W*** 100 ML IV ONE ×2 (15:43→15:48)
[2022-02-10] MEDS: Magnesium 1 Gm / 100 Ml D5W*** 100 ML IV SCH ×2 (15:44→15:49)
[2022-02-10] MEDS: CARDENE*** 25 MG in Sodium Chloride 0.9% 250 ML 240 ML IV PRN ×2 (16:20→22:16)
[2022-02-10 16:54] LABS: INFLUENZA A NEGATIVE (NEGATIVE); INFLUENZA B NEGATIVE (NEGATIVE); RESPIRATORY SYNCTIAL VIRUS NEGATIVE (Negative); SARS-CoV-2 Xpert Express NEGATIVE (NEGATIVE)
[2022-02-10] MEDS ORDERED: MORPHINE SULFATE 4 MG INJ IV ONE (17:29)
[2022-02-10] MEDS ORDERED: MORPHINE SULFATE 4 MG INJ ONE (17:30)
[2022-02-10] MEDS ORDERED: Klor Con 10 MEQ PO ONE (17:53)
[2022-02-10] MEDS ORDERED: Senokot-S Tablet PO PRN (18:07)
[2022-02-10] MEDS ORDERED: TYLENOL 325 MG PO PRN (18:07)
[2022-02-10] MEDS ORDERED: MAALOX ES 30 ML UNIT DOSE PO PRN (18:07)
[2022-02-10] MEDS ORDERED: MILK OF MAGNESIA 30 ML PO PRN (18:07)
[2022-02-10] MEDS ORDERED: MORPHINE SULFATE 4 MG INJ IV PRN (18:23)
[2022-02-10] MEDS: PHENERGAN 25 MG PO PRN (18:30)
[2022-02-10] MEDS ORDERED: CARDENE IV ONE (20:58)
[2022-02-10] MEDS ORDERED: Dextrose 5%/Water IV Soln. 250 ML 250 ML IV ONE (20:58)
[2022-02-11] MEDS ORDERED: CARDENE IV ONE (02:03)
[2022-02-11] MEDS ORDERED: Dextrose 5%/Water IV Soln. 250 ML 250 ML IV ONE (02:04)
[2022-02-11] MEDS: CARDENE*** 25 MG in Sodium Chloride 0.9% 250 ML 240 ML IV PRN (03:18)
[2022-02-11 04:52] LABS: Hematocrit 32.8 % (35-47); Hemoglobin 9.8 gm/dl (12.0-16.0); Mean Cell Volume 94.3 fl (78-100); Mean Corpuscular Hemoglobin 28.2 pg (26-32); Mean Corpuscular Hgb Concent. 29.9 g/dl (32-36); Platelet Count 158 K/mm3 (150-450); Red Blood Count 3.48 M/mm3 (4.1-5.4); Red Cell Distribution Width 14.7 % (11.5-14.0); White Blood Count 6.3 K/mm3 (4.0-10.5)
[2022-02-11 05:11] LABS: INR 4.52 (0.8-3.0); PROTIME 53.3 SECONDS (9.4-12.5)
[2022-02-11 05:22] LABS: ALBUMIN 3.2 g/dL (3.5-5.0); ALKALINE PHOSPHATASE 357 U/L (38-126); ANION GAP 7.8 MEQ/L (5-15); BLOOD UREA NITROGEN 12 mg/dL (7-17); CHLORIDE 104 mmol/L (98-107); Calcium 8.3 mg/dL (8.4-10.2); Carbon Dioxide 30 mmol/L (22-30); Creatinine 1 0.81 mg/dL (0.52-1.04); EST GLOMERULAR FILTRATION RATE > 60.0 ML/MIN; Glucose 89 mg/dL (74-106); MAGNESIUM 2.2 mg/dL (1.6-2.3); Potassium 3.1 mmol/L (3.5-5.1); SGOT/AST 79 U/L (14-36); SGPT/ALT 30 U/L (0-35); SODIUM 139 mmol/L (137-145); Total Protein 5.9 g/dL (6.3-8.2)
[2022-02-11 06:52] LABS: Risk Ratio 4.3
[2022-02-11] MEDS ORDERED: NORCO 5/325 MG PO PRN (06:59)
--- NOTE | 2022-02-11 08:54 | PCM.HP ---
History of Present Illness - Chief Complaint Chief Complaint: Hypertensive urgency History of Present Illness: is a 76 year old female pt of mine from [facility] with CAD, anemia, artificial mitral valve, HTN, and recent pelvic fx who was admitted through ER with back pain and hypertensive urgency. Admitted for pain control and on nicardipine drip for BP initially 200-230 systolic in ER. Four days ago she was in her recliner and grasped the arms to pull herself out of it. She felt a pop then had 2/10 pain in the R thoracic area, just lateral to the spine. Last night her pain was worse, 7-8/10, with SOB, and she came to ER. She was having some pain on the left side as well last night. She received IV morphine with decrease of her pain. She had CTA chest and abdomen to rule out aortic dissection; the images were negative and non-acute (did show possible CHF and new splenomegaly). Troponins were detectable but all in the normal range. Last dose of morphine was last night and pain is currently 4/10 on the R side. She was up to the bathroom and did well. She states that before this, she was feeling good with respect to pelvic fracture - up to 10-15 steps without her walker. - Review of Systems Respiratory: Short Of Breath Cardiac: Chest Pain (wiht urination, pain radiates from pelvic area to the chest) Genitourinary Symptoms: Dysuria Musculoskeletal: Back Pain, Other (pelvic pain) Psychological: No Anxiety, No Depression All Other Systems: Reviewed and Negative Medications & Allergies Home Medications: Home Medication List Atorvastatin Calcium 40 mg PO DAILY 12/22/15 [History Confirmed 02/10/22] FA/Vit C/E/Zinc/Copper/Lut/Dov [Ocuvel Capsule] 1 each PO DAILY 02/15/18 [History Confirmed 02/10/22] Mesa-3 Fatty Acids [Mesa-3] 1,000 mg PO DAILY 02/15/18 [History Confirmed 02/10/22] Warfarin Sodium 3 mg [Coumadin 3 MG] 3 mg PO DAILY@1800 02/15/18 [History Confirmed 02/10/22] Carvedilol 3.125 mg [Coreg 3.125 MG] 12.5 mg PO BID 02/16/18 [History Confirmed 02/10/22] Cyanocobalamin/Folic AC/Vit B6 [Homocysteine Formula Tablet] 1 each PO DAILY 09/07/18 [History Confirmed 02/10/22] Buspirone HCl 5 mg [Buspar 5 mg] 5 mg BID 10/18/19 [History Confirmed 02/10/22] Hydrocodone/APAP 5/325 [[place] 5/325 mg] 1 each PO Q8H PRN PRN #6 tablet MDD 3 12/03/21 [Rx Confirmed 02/10/22] Amiodarone HCl 200 mg PO DAILY 02/10/22 [History Confirmed 02/10/22] Escitalopram Oxalate [Lexapro] 20 mg PO DAILY 02/10/22 [History Confirmed 02/10/22] Allergies/Adverse Reactions: Allergies Allergy/AdvReac Type Severity Reaction Status Date / Time No Known Drug Allergies Allergy Verified 02/10/22 12:08 - Past Medical History Past Medical History: Yes Neurological History: No Pertinent History ENT History: No Pertinent History, Cataracts, Macular Degeneration Cardiac History: Coronary Artery Disease, Myocardial Infarction ([place]), High Cholesterol, Hypertension Respiratory History: No Pertinent History, Bronchitis, Pneumonia Endocrine Medical History: No Pertinent History Musculoskelatal History: No Pertinent History, Other GI Medical History: No Pertinent History, Gallbladder Disease History: No Pertinent History, Other Pyscho-Social History: No Pertinent History, Depression, Anxiety Reproductive Disorders: No Pertinent History Comment: skin ca, - Female History Are you now?: No - Past Surgical History Past Surgical History: Yes Neuro Surgical History: No Pertinent History Cardiac History: CABG, Valve Replacement, Cardiac Catheterization, Pacemaker Respiratory Surgery: No Pertinent History GI Surgical History: Other, Cholecystectomy Genitourinary Surgical Hx: Kidney Surgery Musculskeletal Surgical Hx: No Pertinent History Female Surgical History: No Pertinent History Other Surgical History: kidney stent x 2. colonoscopy and EGD 2017. revision of pacemaker - Social History Smoking Status: Former smoker How long have you smoked: 50 YEARS Exposure to second hand smoke: No Alcohol: None Drug Use: none Significant Family History: hypertension - Physical Exam Vital Signs: Vital Signs - 24 hr Temp Pulse Resp BP BP Pulse Ox 02/11/22 08:00 60 17 144/46 94 L 02/11/22 07:54 60 02/11/22 07:28 93 L 02/11/22 07:00 97.5 F 60 15 146/49 143/34 91 L 02/11/22 06:00 97.3 F 60 13 142/47 97 02/11/22 05:00 97.1 F 60 15 138/40 97 02/11/22 04:00 97.1 F 60 17 127/51 96 02/11/22 03:00 97.5 F 60 15 119/45 97 02/11/22 02:00 97.7 F 60 20 129/43 97 02/11/22 01:00 97.7 F 60 18 143/47 96 02/11/22 00:01 60 02/11/22 00:00 97.7 F 60 16 142/43 96 02/10/22 22:59 97.3 F 60 21 151/64 92 L 02/10/22 22:00 97.7 F 60 16 151/64 92 L 02/10/22 21:00 97.7 F 66 14 144/50 92 L 02/10/22 20:00 97.5 F 66 19 160/57 94 L 02/10/22 19:00 97.7 F 60 17 142/43 94 L 02/10/22 18:34 97.6 F 60 18 154/52 97 02/10/22 18:15 60 18 154/52 97 02/10/22 17:55 98 02/10/22 17:51 97.6 F 60 18 152/49 92 L 02/10/22 17:27 60 14 163/54 95 02/10/22 16:10 58 L 20 226/70 98 02/10/22 15:43 97.6 F 60 20 234/76 97 02/10/22 14:17 97.2 F 60 20 218/75 96 02/10/22 13:14 60 19 192/74 98 02/10/22 12:52 60 182/133 96 02/10/22 12:07 97 02/10/22 11:49 96.9 F 60 14 182/133 98 General Appearance: no apparent distress, alert Neurologic Exam: oriented x 3, cooperative Eye Exam: eyes nml inspection Ears, Nose, Throat Exam: moist mucous membranes Neck Exam: normal inspection Respiratory Exam: normal breath sounds, lungs clear, No crackles/rales, No rhonchi, No wheezing Cardiovascular Exam: regular rate/rhythm, normal heart sounds, No murmur Gastrointestinal/Abdomen Exam: soft, normal bowel sounds, No tenderness, No distention, No mass, No guarding, No rebound Back Exam: normal inspection, other (paraspinal thoracic areas are nontender, no rash, no erythema), No rash Extremity Exam: normal inspection, No pedal edema, No swelling Skin Exam: normal color, warm, dry, No rash Results - Labs Lab/Micro Results: Lab Results-Last 24 Hours 02/10/22 02/10/22 02/10/22 Range/Units 12:10 12:10 12:10 WBC 5.8 (4.0-10.5) K/mm3 RBC 3.90 L (4.1-5.4) M/mm3 Hgb 11.0 L (12.0-16.0) gm/dl Hct 36.3 (35-47) % MCV 93.1 (78-100) fl MCH 28.2 (26-32) pg MCHC 30.3 L (32-36) g/dl RDW 14.5 H (11.5-14.0) % Plt Count 166 (150-450) K/mm3 MPV 11.6 H (7.5-11.0) fl Gran % 78.3 H (36.0-66.0) % Eos # (Auto) 0.10 (0-0.5) Absolute Lymphs (auto) 0.52 L (1.0-4.6) Absolute Monos (auto) 0.62 (0.0-1.3) Lymphocytes % 9.0 L (24.0-44.0) % Monocytes % 10.7 (0.0-12.0) % Eosinophils % 1.7 (0.00-5.0) % Basophils % 0.3 (0.0-0.4) % Absolute Granulocytes 4.54 (1.4-6.9) Basophils # 0.02 (0-0.4) PT (9.4-12.5) SECONDS INR (0.8-3.0) APTT (25.1-36.5) SECONDS Sodium 142 (137-145) mmol/L Potassium 2.7 L* (3.5-5.1) mmol/L Chloride 102 (98-107) mmol/L Carbon Dioxide 30 (22-30) mmol/L Anion Gap 12.4 (5-15) MEQ/L BUN 14 (7-17) mg/dL Creatinine 0.89 (0.52-1.04) mg/dL Estimated GFR > 60.0 ML/MIN Glucose 135 H (74-106) mg/dL Calcium 8.6 (8.4-10.2) mg/dL Magnesium (1.6-2.3) mg/dL Total Bilirubin 0.80 (0.2-1.3) mg/dL AST 54 H (14-36) U/L ALT 26 (0-35) U/L Alkaline Phosphatase 258 H (38-126) U/L Troponin I 0.025 (0.000-0.034) ng/mL NT-Pro-B Natriuret Pep (0-1800) pg/mL Serum Total Protein 6.7 (6.3-8.2) g/dL Albumin 3.7 (3.5-5.0) g/dL Triglycerides (30-150) mg/dL Cholesterol (50-200) mg/dL LDL Cholesterol (30-100) mg/dL HDL Cholesterol (40-60) mg/dL Heart Disease Risk Ratio Influenza Type A Ag (NEGATIVE) Influenza Type B Ag (NEGATIVE) RSV (PCR) (Negative) SARS-CoV-2 (PCR) (NEGATIVE) Slides for Path Review YES 02/10/22 02/10/22 02/10/22 Range/Units 12:10 15:34 16:00 WBC (4.0-10.5) K/mm3 RBC (4.1-5.4) M/mm3 Hgb (12.0-16.0) gm/dl Hct (35-47) % MCV (78-100) fl MCH (26-32) pg MCHC (32-36) g/dl RDW (11.5-14.0) % Plt Count (150-450) K/mm3 MPV (7.5-11.0) fl Gran % (36.0-66.0) % Eos # (Auto) (0-0.5) Absolute Lymphs (auto) (1.0-4.6) Absolute Monos (auto) (0.0-1.3) Lymphocytes % (24.0-44.0) % Monocytes % (0.0-12.0) % Eosinophils % (0.00-5.0) % Basophils % (0.0-0.4) % Absolute Granulocytes (1.4-6.9) Basophils # (0-0.4) PT 52.4 H (9.4-12.5) SECONDS INR 4.44 H (0.8-3.0) APTT 52.9 H (25.1-36.5) SECONDS Sodium (137-145) mmol/L Potassium (3.5-5.1) mmol/L Chloride (98-107) mmol/L Carbon Dioxide (22-30) mmol/L Anion Gap (5-15) MEQ/L BUN (7-17) mg/dL Creatinine (0.52-1.04) mg/dL Estimated GFR ML/MIN Glucose (74-106) mg/dL Calcium (8.4-10.2) mg/dL Magnesium (1.6-2.3) mg/dL Total Bilirubin (0.2-1.3) mg/dL AST (14-36) U/L ALT (0-35) U/L Alkaline Phosphatase (38-126) U/L Troponin I 0.028 (0.000-0.034) ng/mL NT-Pro-B Natriuret Pep (0-1800) pg/mL Serum Total Protein (6.3-8.2) g/dL Albumin (3.5-5.0) g/dL Triglycerides (30-150) mg/dL Cholesterol (50-200) mg/dL LDL Cholesterol (30-100) mg/dL HDL Cholesterol (40-60) mg/dL Heart Disease Risk Ratio Influenza Type A Ag NEGATIVE (NEGATIVE) Influenza Type B Ag NEGATIVE (NEGATIVE) RSV (PCR) NEGATIVE (Negative) SARS-CoV-2 (PCR) NEGATIVE (NEGATIVE) Slides for Path Review 02/10/22 02/10/22 02/10/22 Range/Units 17:32 18:55 21:50 WBC (4.0-10.5) K/mm3 RBC (4.1-5.4) M/mm3 Hgb (12.0-16.0) gm/dl Hct (35-47) % MCV (78-100) fl MCH (26-32) pg MCHC (32-36) g/dl RDW (11.5-14.0) % Plt Count (150-450) K/mm3 MPV (7.5-11.0) fl Gran % (36.0-66.0) % Eos # (Auto) (0-0.5) Absolute Lymphs (auto) (1.0-4.6) Absolute Monos (auto) (0.0-1.3) Lymphocytes % (24.0-44.0) % Monocytes % (0.0-12.0) % Eosinophils % (0.00-5.0) % Basophils % (0.0-0.4) % Absolute Granulocytes (1.4-6.9) Basophils # (0-0.4) PT (9.4-12.5) SECONDS INR (0.8-3.0) APTT (25.1-36.5) SECONDS Sodium (137-145) mmol/L Potassium (3.5-5.1) mmol/L Chloride (98-107) mmol/L Carbon Dioxide (22-30) mmol/L Anion Gap (5-15) MEQ/L BUN (7-17) mg/dL Creatinine (0.52-1.04) mg/dL Estimated GFR ML/MIN Glucose (74-106) mg/dL Calcium (8.4-10.2) mg/dL Magnesium (1.6-2.3) mg/dL Total Bilirubin (0.2-1.3) mg/dL AST (14-36) U/L ALT (0-35) U/L Alkaline Phosphatase (38-126) U/L Troponin I 0.031 0.029 (0.000-0.034) ng/mL NT-Pro-B Natriuret Pep 2520 H (0-1800) pg/mL Serum Total Protein (6.3-8.2) g/dL Albumin (3.5-5.0) g/dL Triglycerides (30-150) mg/dL Cholesterol (50-200) mg/dL LDL Cholesterol (30-100) mg/dL HDL Cholesterol (40-60) mg/dL Heart Disease Risk Ratio Influenza Type A Ag (NEGATIVE) Influenza Type B Ag (NEGATIVE) RSV (PCR) (Negative) SARS-CoV-2 (PCR) (NEGATIVE) Slides for Path Review 02/11/22 02/11/22 02/11/22 Range/Units 00:45 04:15 04:15 WBC 6.3 (4.0-10.5) K/mm3 RBC 3.48 L (4.1-5.4) M/mm3 Hgb 9.8 L (12.0-16.0) gm/dl Hct 32.8 L (35-47) % MCV 94.3 (78-100) fl MCH 28.2 (26-32) pg MCHC 29.9 L (32-36) g/dl RDW 14.7 H (11.5-14.0) % Plt Count 158 (150-450) K/mm3 MPV 11.0 (7.5-11.0) fl Gran % (36.0-66.0) % Eos # (Auto) (0-0.5) Absolute Lymphs (auto) (1.0-4.6) Absolute Monos (auto) (0.0-1.3) Lymphocytes % (24.0-44.0) % Monocytes % (0.0-12.0) % Eosinophils % (0.00-5.0) % Basophils % (0.0-0.4) % Absolute Granulocytes (1.4-6.9) Basophils # (0-0.4) PT (9.4-12.5) SECONDS INR (0.8-3.0) APTT (25.1-36.5) SECONDS Sodium (137-145) mmol/L Potassium (3.5-5.1) mmol/L Chloride (98-107) mmol/L Carbon Dioxide (22-30) mmol/L Anion Gap (5-15) MEQ/L BUN (7-17) mg/dL Creatinine (0.52-1.04) mg/dL Estimated GFR ML/MIN Glucose (74-106) mg/dL Calcium (8.4-10.2) mg/dL Magnesium (1.6-2.3) mg/dL Total Bilirubin (0.2-1.3) mg/dL AST (14-36) U/L ALT (0-35) U/L Alkaline Phosphatase (38-126) U/L Troponin I 0.024 (0.000-0.034) ng/mL NT-Pro-B Natriuret Pep (0-1800) pg/mL Serum Total Protein (6.3-8.2) g/dL Albumin (3.5-5.0) g/dL Triglycerides 137 (30-150) mg/dL Cholesterol 169 (50-200) mg/dL LDL Cholesterol 98 (30-100) mg/dL HDL Cholesterol 39 L (40-60) mg/dL Heart Disease Risk Ratio 4.3 Influenza Type A Ag (NEGATIVE) Influenza Type B Ag (NEGATIVE) RSV (PCR) (Negative) SARS-CoV-2 (PCR) (NEGATIVE) Slides for Path Review 02/11/22 02/11/22 Range/Units 04:15 04:15 WBC (4.0-10.5) K/mm3 RBC (4.1-5.4) M/mm3 Hgb (12.0-16.0) gm/dl Hct (35-47) % MCV (78-100) fl MCH (26-32) pg MCHC (32-36) g/dl RDW (11.5-14.0) % Plt Count (150-450) K/mm3 MPV (7.5-11.0) fl Gran % (36.0-66.0) % Eos # (Auto) (0-0.5) Absolute Lymphs (auto) (1.0-4.6) Absolute Monos (auto) (0.0-1.3) Lymphocytes % (24.0-44.0) % Monocytes % (0.0-12.0) % Eosinophils % (0.00-5.0) % Basophils % (0.0-0.4) % Absolute Granulocytes (1.4-6.9) Basophils # (0-0.4) PT 53.3 H (9.4-12.5) SECONDS INR 4.52 H (0.8-3.0) APTT (25.1-36.5) SECONDS Sodium 139 (137-145) mmol/L Potassium 3.1 L (3.5-5.1) mmol/L Chloride 104 (98-107) mmol/L Carbon Dioxide 30 (22-30) mmol/L Anion Gap 7.8 (5-15) MEQ/L BUN 12 (7-17) mg/dL Creatinine 0.81 (0.52-1.04) mg/dL Estimated GFR > 60.0 ML/MIN Glucose 89 (74-106) mg/dL Calcium 8.3 L (8.4-10.2) mg/dL Magnesium 2.2 (1.6-2.3) mg/dL Total Bilirubin 0.60 (0.2-1.3) mg/dL AST 79 H (14-36) U/L ALT 30 (0-35) U/L Alkaline Phosphatase 357 H (38-126) U/L Troponin I (0.000-0.034) ng/mL NT-Pro-B Natriuret Pep (0-1800) pg/mL Serum Total Protein 5.9 L (6.3-8.2) g/dL Albumin 3.2 L (3.5-5.0) g/dL Triglycerides (30-150) mg/dL Cholesterol (50-200) mg/dL LDL Cholesterol (30-100) mg/dL HDL Cholesterol (40-60) mg/dL Heart Disease Risk Ratio Influenza Type A Ag (NEGATIVE) Influenza Type B Ag (NEGATIVE) RSV (PCR) (Negative) SARS-CoV-2 (PCR) (NEGATIVE) Slides for Path Review - Radiology Impressions Radiology Exams & Impressions: Radiology Procedures Category Date Time Status CTA ABD/PEL W AND/OR W/O CONTR [CT] Stat Exams 02/10/22 15:18 Completed CTA CHEST W AND/OR WO [CT] Stat Exams 02/10/22 12:00 Completed - Other Procedures and Tests Respiratory Therapy 02/10/22 23:33 Oxygen NASAL CANNULA 2 lpm 02/12/22 05:00 EKG DAILY 02/13/22 05:00 EKG DAILY Assessment/Plan (1) Back pain Current Visit: Yes Status: Acute Qualifiers: Back pain location: thoracic back pain Chronicity: acute Back pain laterality: bilateral Qualified Code(s): M54.6 - Pain in thoracic spine Assessment & Plan: Bony thorax intact on CT chest. Likely muscle/rib pull. Ruled out aortic dissection. Try starting [place] 10. PT consult. Anticipate between back pain and HTN may be 1-2 more days before she is ready to d/c to home. Code(s): M54.9 - DORSALGIA, UNSPECIFIED (2) Hypertensive urgency Current Visit: Yes Status: Acute Assessment & Plan: Much improved; will be weaning off the nicardipene drip this morning. Likely was elevated due to her pain levels. Code(s): I16.0 - HYPERTENSIVE URGENCY (3) Hypokalemia Current Visit: Yes Status: Acute Assessment & Plan: improved today; give po repletion and check mg. Code(s): E87.6 - HYPOKALEMIA (4) Anemia Current Visit: No Status: Chronic Qualifiers: Anemia type: unspecified type Qualified Code(s): D64.9 - Anemia, unspecified Assessment & Plan: has been on Fe TID - recheck Fe studies. Code(s): D64.9 - ANEMIA, UNSPECIFIED
[2022-02-11] MEDS: BUSPAR 5 MG PO SCH ×2 (09:12→21:06)
[2022-02-11] MEDS: COREG 12.5 MG PO SCH ×2 (09:12→21:06)
[2022-02-11] MEDS: Ocuvite Tablet PO SCH (09:12)
[2022-02-11] MEDS: Cordarone 200 MG PO SCH (09:12)
[2022-02-11] MEDS: HYDROCODONE-ACETAMIN 10-325 MG PO PRN ×4 (09:13→23:35)
[2022-02-11] MEDS: Klor Con 10 MEQ PO SCH ×2 (09:13→21:07)
[2022-02-11] MEDS ORDERED: CARDENE*** 25 MG in Sodium Chloride 0.9% 250 ML 240 ML IV PRN (09:28)
[2022-02-11 09:32] LABS: Iron 23 ug/dL (37-170); Iron Saturation 7 % (20-39); TIBC 309 ug/dL (265-462)
[2022-02-11] MEDS ORDERED: ZOCOR 20MG PO SCH (10:00)
[2022-02-11] MEDS ORDERED: NON-FORMULARY ITEM (Escitalopram Oxalate [Lexapro] 20 MG Tablet) PO SCH (10:00)
[2022-02-11] MEDS ORDERED: [UNRECOGNIZED DRUG - OTHER] PO SCH (10:00)
[2022-02-11] MEDS ORDERED: Coreg 3.125 MG PO SCH (10:00)
[2022-02-11] MEDS ORDERED: Lexapro 10 MG PO SCH (10:00)
[2022-02-11] MEDS ORDERED: LIPITOR 40MG PO SCH (10:00)
[2022-02-11 15:43] LABS: Bacteria MODERATE /HPF (NEGATIVE); WBC >100 /HPF (0-5)
[2022-02-11 15:44] LABS: Appearance SLIGHTLY CLOUDY (CLEAR); Bilirubin NEGATIVE (NEGATIVE); Glucose NEGATIVE (NEGATIVE); Ketones NEGATIVE (NEGATIVE)
[2022-02-11 15:45] LABS: Nitrite NEGATIVE (NEGATIVE); Protein,Urine Dip 30 (Negative); RBC TRACE-INTACT Ery/ul (0-5); Urine Cultured Indicated? YES; Urobilinogen 0.2 mg/dL (0-1)
[2022-02-11 15:46] LABS: Dipstick done @ ? MAIN LAB
[2022-02-11] MEDS: ZOCOR 20MG PO SCH (21:06)
[2022-02-11] MEDS: Lexapro 10 MG PO SCH (21:07)
[2022-02-12] MEDS: HYDROCODONE-ACETAMIN 10-325 MG PO PRN ×3 (04:05→16:04)
[2022-02-12 05:11] LABS: Hematocrit 34.5 % (35-47); Hemoglobin 10.2 gm/dl (12.0-16.0); Mean Cell Volume 94.8 fl (78-100); Mean Corpuscular Hgb Concent. 29.6 g/dl (32-36); Mean Platelet Volume 11.4 fl (7.5-11.0); Platelet Count 178 K/mm3 (150-450); Red Blood Count 3.64 M/mm3 (4.1-5.4); Red Cell Distribution Width 14.9 % (11.5-14.0); White Blood Count 5.4 K/mm3 (4.0-10.5)
[2022-02-12 05:32] LABS: ANION GAP 10.9 MEQ/L (5-15); Calcium 8.5 mg/dL (8.4-10.2); Creatinine 1 1.11 mg/dL (0.52-1.04); EST GLOMERULAR FILTRATION RATE 50.5 ML/MIN; MAGNESIUM 1.9 mg/dL (1.6-2.3); Potassium 3.6 mmol/L (3.5-5.1)
[2022-02-12] MEDS: ROCEPHIN 1 Gm-D5w 50 ml Bag** 1 G/50 ML IVPB IV SCH ×2 (07:36→07:39)
[2022-02-12] MEDS ORDERED: PROVENTIL 2.5 MG/3 ML NEB IH ONE ×2 (08:08→08:36)
[2022-02-12] MEDS: PROVENTIL 2.5 MG/3 ML NEB IH PRN ×2 (08:55→20:20)
[2022-02-12] MEDS: MORPHINE SULFATE 4 MG INJ IV PRN ×2 (09:18→21:38)
[2022-02-12] MEDS: ENTRESTO 49 MG-51 MG TABLET PO SCH ×2 (09:19→21:38)
[2022-02-12] MEDS: Ocuvite Tablet PO SCH (09:20)
[2022-02-12] MEDS: Cordarone 200 MG PO SCH (09:20)
[2022-02-12] MEDS: BUSPAR 5 MG PO SCH ×2 (09:20→21:37)
[2022-02-12] MEDS: COREG 12.5 MG PO SCH ×2 (09:20→21:37)
[2022-02-12] MEDS: Klor Con 10 MEQ PO SCH ×2 (09:20→21:38)
--- NOTE | 2022-02-12 10:36 | XRAY ---
Indication: Left upper quadrant/rib pain 3-4 weeks. Comparison: None KUB nonacute and nonobstructed with mild scattered colonic fecal debris greatest in left hemicolon. Urinary bladder contrast from recent CTA exam. Incidental cholecystectomy clips and bilateral renal artery stents. Osseous structures demonstrate osteopenia and CT proven healing sacral and right pubic symphysis fractures.
--- NOTE | 2022-02-12 12:46 | PCM.NOTE ---
Date and Time: 02/12/22 1243 Subjective Assessment: Pt having more pain today along L lower rib, worse than at admission. Having nausea due to pain. Just received a po norco at the time of exam. - Review of Systems Constitutional: No Fever Abdominal/Gastrointestinal: Nausea Objective Exam General Appearance: moderate distress, alert Neurologic Exam: oriented x 3, cooperative Skin Exam: normal color, warm, dry, No rash Eye Exam: eyes nml inspection Neck Exam: normal inspection Respiratory Exam: normal breath sounds, lungs clear, other (TTP L inferiormost rib and R inferiormost rib), No crackles/rales, No rhonchi, No wheezing Cardiovascular Exam: regular rate/rhythm, normal heart sounds, No murmur Gastrointestinal/Abdomen Exam: soft, normal bowel sounds, No tenderness, No distention, No mass, No guarding, No rebound Extremity Exam: normal inspection, No pedal edema, No swelling Back Exam: normal inspection, No rash OBJECTIVE DATA Vital Signs: Vital Signs - 24 hr Temp Pulse Resp BP Pulse Ox 02/12/22 12:00 98.1 F 60 16 165/65 96 02/12/22 11:59 16 02/12/22 08:33 60 16 96 02/12/22 07:44 95 02/12/22 07:42 97.9 F 60 21 166/52 92 L 02/12/22 07:39 60 16 02/12/22 04:00 97.5 F 60 16 166/68 95 02/12/22 03:00 60 17 154/57 94 L 02/12/22 01:51 79 17 149/69 94 L 02/12/22 01:00 60 16 168/61 95 02/12/22 00:01 60 02/12/22 00:00 60 15 180/59 96 02/11/22 23:00 97.7 F 60 18 163/48 96 02/11/22 22:00 60 18 157/44 96 02/11/22 21:00 60 16 171/53 98 02/11/22 20:00 60 16 170/60 97 02/11/22 19:00 97.7 F 65 18 157/55 97 02/11/22 18:00 60 16 157/50 02/11/22 17:38 98 02/11/22 17:00 60 17 166/53 95 05/04/22 16:00 97.5 F 60 19 151/51 95 02/11/22 15:00 60 16 141/51 95 02/11/22 14:00 60 18 138/50 02/11/22 13:00 60 17 143/47 Pain Assessment - Last Documented Pain Intensity 9 Pain Scale Used 0-10 Pain Scale Intake and Output: Intake & Output 02/10/22 02/11/22 02/12/22 02/13/22 11:59 11:59 11:59 11:59 Intake Total 1264 300 Output Total 700 Balance 1264 -400 Weight 61.235 kg 61.235 kg 60.7 kg Lab Results: Lab Results-Last 24 Hours 02/11/22 02/12/22 02/12/22 Range/Units Unknown 04:10 04:10 WBC 5.4 (4.0-10.5) K/mm3 RBC 3.64 L (4.1-5.4) M/mm3 Hgb 10.2 L (12.0-16.0) gm/dl Hct 34.5 L (35-47) % MCV 94.8 (78-100) fl MCH 28.0 (26-32) pg MCHC 29.6 L (32-36) g/dl RDW 14.9 H (11.5-14.0) % Plt Count 178 (150-450) K/mm3 MPV 11.4 H (7.5-11.0) fl Sodium 139 (137-145) mmol/L Potassium 3.6 (3.5-5.1) mmol/L Chloride 103 (98-107) mmol/L Carbon Dioxide 29 (22-30) mmol/L Anion Gap 10.9 (5-15) MEQ/L BUN 18 H (7-17) mg/dL Creatinine 1.11 H (0.52-1.04) mg/dL Estimated GFR 50.5 ML/MIN Glucose 93 (74-106) mg/dL Calcium 8.5 (8.4-10.2) mg/dL Magnesium 1.9 (1.6-2.3) mg/dL Urinalys Dipstick Clnc MAIN LAB Urine Color YELLOW (YELLOW) Urine Appearance SLIGHTLY CLOUDY (CLEAR) Urine pH 6.0 (5-6) Ur Specific [place] 1.020 (1.005-1.025) POC Urine Protein Conf 30 (Negative) Urine Ketones NEGATIVE (NEGATIVE) Urine Nitrite NEGATIVE (NEGATIVE) Urine Bilirubin NEGATIVE (NEGATIVE) Urine Urobilinogen 0.2 (0-1) mg/dL Urine Leukocytes MODERATE (NEGATIVE) Urine WBC (Auto) >100 (0-5) /HPF Urine RBC (Auto) 11-15 (0-2) /HPF U Epithel Cells (Auto) NONE (FEW) /HPF Urine Bacteria (Auto) MODERATE (NEGATIVE) /HPF Urine RBC TRACE-INTACT (0-5) Jordin/ul Ur Culture Indicated? YES Urine Glucose NEGATIVE (NEGATIVE) mg/dL Radiology Exams: Radiology Procedures Category Date Time Status CTA ABD/PEL W AND/OR W/O CONTR [CT] Stat Exams 02/10/22 15:18 Completed CTA CHEST W AND/OR WO [CT] Stat Exams 02/10/22 12:00 Completed KUB Urgent Exams 02/12/22 10:10 Completed Multi-Disciplinary Progress Notes: Multi-Disciplinary Progress Notes 02/12/22 08:36 Case Management Note by Meredith Woodward S/W PATIENT- SHE CONTINUES TO DENY ANY NEW/DIFFERENT NEEDS AT TIME OF DC. 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 SHE REPORTS HER CAN ASSIST HER NEEDED WELL Initialized on 02/12/22 08:36 - END OF NOTE Assessment/Plan (1) Back pain Current Visit: Yes Status: Acute Qualifiers: Back pain location: thoracic back pain Chronicity: acute Back pain laterality: bilateral Qualified Code(s): M54.6 - Pain in thoracic spine Assessment & Plan: has been migratory; rib pain today. give morphine IV as needed. Code(s): M54.9 - DORSALGIA, UNSPECIFIED (2) Hypertensive urgency Current Visit: Yes Status: Acute Assessment & Plan: BP better, one of 180 systolic overnight but was 166/68 this morning. Likely still elevated due to pain. Code(s): I16.0 - HYPERTENSIVE URGENCY (3) Hypokalemia Current Visit: Yes Status: Resolved Code(s): E87.6 - HYPOKALEMIA (4) Anemia Current Visit: No Status: Chronic Qualifiers: Anemia type: unspecified type Qualified Code(s): D64.9 - Anemia, unspecified Code(s): D64.9 - ANEMIA, UNSPECIFIED
[2022-02-12] MEDS: PHENERGAN 25 MG PO PRN (17:08)
[2022-02-12] MEDS: Lexapro 10 MG PO SCH (21:37)
[2022-02-12] MEDS: ZOCOR 20MG PO SCH (21:38)
[2022-02-13] MEDS: HYDROCODONE-ACETAMIN 10-325 MG PO PRN ×3 (04:34→19:50)
[2022-02-13] MEDS ORDERED: Cyclobenzaprine 10 MG PO PRN (05:45)
--- NOTE | 2022-02-13 07:54 | PCM.NOTE ---
Date and Time: 02/13/22 0753 Subjective Assessment: bp remains poorly controlled, pain is better controlled per patient. she plans to return to home with [facility], states she believes she can care for herself. Objective Exam General Appearance: no apparent distress, alert Neurologic Exam: alert, oriented x 3 Respiratory Exam: normal breath sounds, lungs clear, No respiratory distress Cardiovascular Exam: regular rate/rhythm, normal heart sounds Gastrointestinal/Abdomen Exam: soft, No tenderness, No mass OBJECTIVE DATA Vital Signs: Vital Signs - 24 hr Temp Pulse Resp BP Pulse Ox 02/13/22 04:00 98.2 F 60 20 178/56 95 02/13/22 00:00 97.9 F 64 16 149/52 98 02/12/22 20:22 60 18 95 02/12/22 20:00 98.7 F 60 18 176/51 95 02/12/22 19:03 65 18 95 02/12/22 16:00 18 02/12/22 15:53 98.1 F 60 17 175/59 96 02/12/22 12:00 98.1 F 60 16 165/65 96 02/12/22 11:59 16 02/12/22 08:33 60 16 96 Pain Assessment - Last Documented Pain Intensity 2 Pain Scale Used 0-10 Pain Scale Intake and Output: Intake & Output 02/10/22 02/11/22 02/12/22 02/13/22 11:59 11:59 11:59 11:59 Intake Total 1264 300 440 Output Total 700 200 Balance 1264 -400 240 Weight 61.235 kg 61.235 kg 60.7 kg 63.7 kg Radiology Exams: Radiology Procedures Category Date Time Status KUB Urgent Exams 02/12/22 10:10 Completed Multi-Disciplinary Progress Notes: Multi-Disciplinary Progress Notes 02/12/22 19:17 Physical Therapy Note by Marco [email or web address] PT. SEEN BY Luis PEOPLES A.M. SPOKE W/ RN AND SHE REPORTED PT. DID NOT SLEEP WELL LAST NIGHT D/T L RIB PN. PT. SLEPT MOST OF THE MORNING AND HAD PN MEDS. DID NOT WANT TO GO FOR WALK, BUT DID AGREE TO GET UP FOR LUNCH. PT. PERFORMED SUPINE TO SIT W/ CGA-SBA. PT. PERFORMED SIT TO STAND MOD I. PT. AMBULATED TO BATHROOM W/ RW AND CGA-SBA. PERFORMED COMMODE TRANSFER AND HYGIENE W/ SBA. PT. SAT IN CHAIR FOR LUNCH. BP STABLE W/ ACTIVITY. DID REPORTS SOME DIZZINESS AFTER SUPINE TO SIT. PT. TO CONT. W/ P.T. VIA [facility] AFTER D/C. Initialized on 02/12/22 19:17 - END OF NOTE 02/12/22 08:36 Case Management Note by Meredith Woodward S/W PATIENT- SHE CONTINUES TO DENY ANY NEW/DIFFERENT NEEDS AT TIME OF DC. SHE PLANS TO RETURN HOME TO HER PRIOR LEVEL OF FUNCTIONING WITH [facility] TO CONTINUE. SHE REPORTS HER CAN ASSIST HER NEEDED WELL Initialized on 02/12/22 08:36 - END OF NOTE Assessment/Plan (1) UTI (urinary tract infection) Current Visit: Yes Status: Acute Assessment & Plan: pansensitive e coli on culture, continue rocephin Code(s): N39.0 - URINARY TRACT INFECTION, SITE NOT SPECIFIED (2) Hypertension Current Visit: No Status: Chronic Qualifiers: Hypertension type: essential hypertension Assessment & Plan: continue coreg, entresto, add amlodipine 5mg today Code(s): I10 - ESSENTIAL (PRIMARY) HYPERTENSION
[2022-02-13] MEDS: ROCEPHIN 1 Gm-D5w 50 ml Bag** 1 G/50 ML IVPB IV SCH (09:53)
[2022-02-13] MEDS: ENTRESTO 49 MG-51 MG TABLET PO SCH ×2 (09:53→21:16)
[2022-02-13] MEDS: Cordarone 200 MG PO SCH (09:53)
[2022-02-13] MEDS: Klor Con 10 MEQ PO SCH ×2 (09:53→21:16)
[2022-02-13] MEDS: BUSPAR 5 MG PO SCH ×2 (09:54→21:17)
[2022-02-13] MEDS: COREG 12.5 MG PO SCH ×2 (09:54→21:17)
[2022-02-13] MEDS: Ocuvite Tablet PO SCH (09:54)
[2022-02-13] MEDS: NORVASC 5 MG PO SCH (09:55)
[2022-02-13] MEDS: Cyclobenzaprine 10 MG PO PRN ×2 (13:12→22:14)
[2022-02-13] MEDS: APRESOLINE 20 MG/ML INJ IV PRN (16:34)
[2022-02-13] MEDS: PROVENTIL 2.5 MG/3 ML NEB IH PRN ×2 (17:04→22:44)
[2022-02-13] MEDS: ZOCOR 20MG PO SCH (21:17)
[2022-02-13] MEDS: Lexapro 10 MG PO SCH (21:17)
[2022-02-14] MEDS: HYDROCODONE-ACETAMIN 10-325 MG PO PRN ×3 (00:12→22:46)
[2022-02-14 05:39] LABS: Absolute Neutrophil Ct (ANC) 2.95 (1.4-6.9); Basophil (Absolute #) 0.01 (0-0.4); Eosinophil % 4.9 % (0.00-5.0); Eosinophil (Absolute #) 0.21 (0-0.5); Hematocrit 34.8 % (35-47); Hemoglobin 10.3 gm/dl (12.0-16.0); Lymphocyte (Absolute #) 0.55 (1.0-4.6); Lymphocytes % 12.9 % (24.0-44.0); Mean Cell Volume 94.6 fl (78-100); Mean Corpuscular Hgb Concent. 29.6 g/dl (32-36); Mean Platelet Volume 11.1 fl (7.5-11.0); Monocyte (Absolute #) 0.53 (0.0-1.3); Monocytes % 12.5 % (0.0-12.0); Neutrophil % 69.5 % (36.0-66.0); Platelet Count 143 K/mm3 (150-450); Red Blood Count 3.68 M/mm3 (4.1-5.4); Red Cell Distribution Width 14.9 % (11.5-14.0); White Blood Count 4.3 K/mm3 (4.0-10.5)
[2022-02-14 05:56] LABS: ANION GAP 9.9 MEQ/L (5-15); Calcium 8.4 mg/dL (8.4-10.2); Creatinine 1 0.98 mg/dL (0.52-1.04); EST GLOMERULAR FILTRATION RATE 58.3 ML/MIN; Potassium 4.5 mmol/L (3.5-5.1)
--- NOTE | 2022-02-14 07:17 | PCM.DS ---
Discharge Summary Date of Admission: 02/12/22 12:43 Admitting Physician: BESSIE RICK Primary Care Provider: BESSIE RICK Allergies Allergies No Known Drug Allergies Allergy (Verified 02/10/22 12:08) Hospital Summary - Hospital Course Hospital Course: patient admitted with Dr Corral for uti, intractable back pain and uncontrolled hypertension. she is well controlled with po pain meds, bp is better controlled and she will go home with home health. - Vitals & Intake/Output Vital Signs: Vital Signs Temperature 96.8 F 02/14/22 04:00 Pulse Rate 60 02/14/22 04:00 Respiratory Rate 17 02/14/22 04:00 Blood Pressure 134/42 02/14/22 04:00 O2 Sat by Pulse Oximetry 94 L 02/14/22 04:00 Intake & Output: Intake & Output 02/11/22 02/12/22 02/13/22 02/14/22 11:59 11:59 11:59 11:59 Intake Total 1264 300 440 410 Output Total 700 400 800 Balance 1264 -400 40 -390 Weight 61.235 kg 60.7 kg 63.7 kg - Lab Result Diagrams: 02/14/22 05:26 02/14/22 05:26 Lab Results-Last 24 Hrs: Lab Results-Last 24 Hours 02/14/22 02/14/22 Range/Units 05:26 05:26 WBC 4.3 (4.0-10.5) K/mm3 RBC 3.68 L (4.1-5.4) M/mm3 Hgb 10.3 L (12.0-16.0) gm/dl Hct 34.8 L (35-47) % MCV 94.6 (78-100) fl MCH 28.0 (26-32) pg MCHC 29.6 L (32-36) g/dl RDW 14.9 H (11.5-14.0) % Plt Count 143 L (150-450) K/mm3 MPV 11.1 H (7.5-11.0) fl Gran % 69.5 H (36.0-66.0) % Eos # (Auto) 0.21 (0-0.5) Absolute Lymphs (auto) 0.55 L (1.0-4.6) Absolute Monos (auto) 0.53 (0.0-1.3) Lymphocytes % 12.9 L (24.0-44.0) % Monocytes % 12.5 H (0.0-12.0) % Eosinophils % 4.9 (0.00-5.0) % Basophils % 0.2 (0.0-0.4) % Absolute Granulocytes 2.95 (1.4-6.9) Basophils # 0.01 (0-0.4) Sodium 139 (137-145) mmol/L Potassium 4.5 (3.5-5.1) mmol/L Chloride 107 (98-107) mmol/L Carbon Dioxide 26 (22-30) mmol/L Anion Gap 9.9 (5-15) MEQ/L BUN 21 H (7-17) mg/dL Creatinine 0.98 (0.52-1.04) mg/dL Estimated GFR 58.3 ML/MIN Glucose 87 (74-106) mg/dL Calcium 8.4 (8.4-10.2) mg/dL Micro Results-Entire Visit: Microbiology 02/11/22 Unknown Urine Culture - Final Urine, Void Escherichia Coli - Radiology Exams Ordered Rad Exams-Entire Visit: Radiology Procedures Category Date Time Status KUB Urgent Exams 02/12/22 10:10 Completed - Procedures and Test Procedures and Tests throughout Hospitalization: Therapy Orders & Screens 02/10/22 18:07 EKG Q8HX2,QAMX3,PRN Comment: 02/10/22 19:58 EKG ROUTINE Comment: Diagnosis: Hypertensive urgency 02/10/22 23:33 Oxygen NASAL CANNULA 2 lpm Comment: Diagnosis: Hypertensive urgency 02/11/22 05:00 EKG DAILY Comment: Diagnosis: Hypertensive urgency 02/11/22 13:34 PT Eval & Treat (MD Order) ONCE Reason for Eval:: back pain, hx recent fractured pelvis Diagnosis: Hypertensive urgency 02/12/22 05:00 EKG DAILY Comment: Diagnosis: Hypertensive urgency 02/12/22 08:32 Respiratory Therapy Assessment DAILY Comment: Diagnosis: Hypertensive urgency 02/13/22 05:00 EKG DAILY Comment: Diagnosis: Hypertensive urgency Discharge Exam General Appearance: no apparent distress Neurologic Exam: alert, oriented x 3 Respiratory Exam: normal breath sounds, lungs clear, No respiratory distress Cardiovascular Exam: regular rate/rhythm, normal heart sounds Gastrointestinal/Abdomen Exam: soft, No tenderness, No mass Extremity Exam: normal inspection, normal range of motion Skin Exam: normal color, warm, dry Final Diagnosis/Problem List - Final Discharge Diagnosis/Problem (1) UTI (urinary tract infection) Current Visit: Yes Status: Acute Assessment & Plan: home on po keflex based on culture Code(s): N39.0 - URINARY TRACT INFECTION, SITE NOT SPECIFIED (2) Hypertension Current Visit: No Status: Chronic Assessment & Plan: better controlled with addition of amlodipine, continue at home. Code(s): I10 - ESSENTIAL (PRIMARY) HYPERTENSION (3) Back pain Current Visit: Yes Status: Acute Assessment & Plan: po pain med ordered. home health consulted Code(s): M54.9 - DORSALGIA, UNSPECIFIED - Discharge Disposition: Home, Self-Care Condition: Stable Prescriptions: New Cyclobenzaprine HCl 5 mg PO TID PRN #30 tablet Hydrocodone/Acetaminophen [Hydrocodone-Acetamin 10-325 mg] 1 tablet PO Q4H PRN PRN #28 tablet MDD 6 PRN Reason: Pain Cephalexin Mh 500 mg [Keflex 500 mg] 500 mg PO Q6H #20 cap Amlodipine Besylate 5 mg [Norvasc 5 mg] 5 mg PO QAM #30 tablet Continue Atorvastatin Calcium 40 mg PO HS Warfarin Sodium 3 mg [Coumadin 3 MG] 3 mg PO DAILY@1800 [place]-3 Fatty Acids [[place]-3] 1,000 mg PO DAILY FA/Vit C/E/Zinc/Copper/Lut/Dov [Ocuvel Capsule] 1 each PO DAILY Carvedilol 3.125 mg [Coreg 3.125 MG] 12.5 mg PO BID Cyanocobalamin/Folic AC/Vit B6 [Homocysteine Formula Tablet] 1 each PO DAILY Buspirone HCl 5 mg [Buspar 5 mg] 5 mg BID Amiodarone HCl 200 mg PO DAILY Escitalopram Oxalate [Lexapro] 20 mg PO HS Sacubitril/Valsartan [Entresto 24 mg-26 mg Tablet] 1 tab PO BID Discontinued Hydrocodone/APAP 5/325 [[place] 5/325 mg] 1 each PO Q8H PRN PRN #6 tablet MDD 3 PRN Reason: Pain Instructions: Preventing Falls in the Older Adult, High Blood Pressure (DC) Additional Instructions: [facility] WILL CONTINUE TO CARE FOR YOU. THEIR PHONE NUMBER IS [phone] Follow up with: BESSIE RICK [Primary Care Provider] - 02/19/22 10:15 am
[2022-02-14] MEDS: APRESOLINE 20 MG/ML INJ IV PRN (09:12)
[2022-02-14] MEDS: BUSPAR 5 MG PO SCH ×2 (09:22→21:17)
[2022-02-14] MEDS: ENTRESTO 49 MG-51 MG TABLET PO SCH ×2 (09:22→21:17)
[2022-02-14] MEDS: NORVASC 5 MG PO SCH (09:23)
[2022-02-14] MEDS: Klor Con 10 MEQ PO SCH ×2 (09:23→21:17)
[2022-02-14] MEDS: Cordarone 200 MG PO SCH (09:24)
[2022-02-14] MEDS: ROCEPHIN 1 Gm-D5w 50 ml Bag** 1 G/50 ML IVPB IV SCH (09:24)
[2022-02-14] MEDS: Ocuvite Tablet PO SCH (09:25)
[2022-02-14] MEDS: COREG 12.5 MG PO SCH ×2 (09:27→21:17)
[2022-02-14 10:27] LABS: Slide Review 1 YES
[2022-02-14] MEDS: PROVENTIL 2.5 MG/3 ML NEB IH PRN (10:30)
[2022-02-14] MEDS ORDERED: CLONIDINE 0.1 MG TABLET PO ONE (11:47)
[2022-02-14] MEDS: ZOCOR 20MG PO SCH (21:17)
[2022-02-14] MEDS: Lexapro 10 MG PO SCH (21:17)
[2022-02-14] MEDS: CLONIDINE 0.1 MG TABLET PO SCH (21:19)
[2022-02-14] MEDS: Cyclobenzaprine 10 MG PO PRN (21:22)
[2022-02-15 07:15] VITALS: BP 160/52; PULSE 65; O2SAT 98
[2022-02-15] MEDS: HYDROCODONE-ACETAMIN 10-325 MG PO PRN (07:55)
--- NOTE | 2022-02-15 08:08 | PCM.DS ---
Discharge Summary Date of Admission: 02/12/22 12:43 Admitting Physician: BESSIE RICK Primary Care Provider: BESSIE RICK Allergies Allergies No Known Drug Allergies Allergy (Verified 02/10/22 12:08) Hospital Summary - Hospital Course Hospital Course: discharge was held due to bp control, patient was very anxious at time of discharge and bp went very high, improved with addition of clonidine. she is c/o pain in her back and chest which has been present all throughout her stay. she is stable and ready for discharge today. - Vitals & Intake/Output Vital Signs: Vital Signs Temperature 97.3 F 02/15/22 07:14 Pulse Rate 65 02/15/22 07:17 Respiratory Rate 18 02/15/22 07:17 Blood Pressure 160/52 02/15/22 07:14 O2 Sat by Pulse Oximetry 98 02/15/22 07:17 Intake & Output: Intake & Output 02/12/22 02/13/22 02/14/22 02/15/22 11:59 11:59 11:59 11:59 Intake Total 300 440 410 680 Output Total 700 323 139 9260 Balance -400 40 -390 -1170 Weight 60.7 kg 63.7 kg 62.4 kg 60.8 kg - Lab Result Diagrams: 02/14/22 05:26 02/14/22 05:26 Lab Results-Last 24 Hrs: Lab Results-Last 24 Hours 02/14/22 Range/Units 05:26 Slides for Path Review YES Micro Results-Entire Visit: Microbiology 02/11/22 Unknown Urine Culture - Final Urine, Void Escherichia Coli - Procedures and Test Procedures and Tests throughout Hospitalization: Therapy Orders & Screens 02/10/22 18:07 EKG Q8HX2,QAMX3,PRN Comment: 02/10/22 19:58 EKG ROUTINE Comment: Diagnosis: Hypertensive urgency 02/10/22 23:33 Oxygen NASAL CANNULA 2 lpm Comment: Diagnosis: Hypertensive urgency 02/11/22 05:00 EKG DAILY Comment: Diagnosis: Hypertensive urgency 02/11/22 13:34 PT Eval & Treat ( Order) ONCE Reason for Eval:: back pain, hx recent fractured pelvis Diagnosis: Hypertensive urgency 02/12/22 05:00 EKG DAILY Comment: Diagnosis: Hypertensive urgency 02/12/22 08:32 Respiratory Therapy Assessment DAILY Comment: Diagnosis: Hypertensive urgency 02/13/22 05:00 EKG DAILY Comment: Diagnosis: Hypertensive urgency Discharge Exam General Appearance: no apparent distress Neurologic Exam: alert, oriented x 3 Respiratory Exam: normal breath sounds, lungs clear, No respiratory distress Cardiovascular Exam: regular rate/rhythm, normal heart sounds Gastrointestinal/Abdomen Exam: soft, No tenderness, No mass Extremity Exam: normal inspection, normal range of motion Final Diagnosis/Problem List - Final Discharge Diagnosis/Problem (1) UTI (urinary tract infection) Current Visit: Yes Status: Acute Code(s): N39.0 - URINARY TRACT INFECTION, SITE NOT SPECIFIED (2) Hypertension Current Visit: No Status: Chronic Code(s): I10 - ESSENTIAL (PRIMARY) HYPERTENSION (3) Back pain Current Visit: Yes Status: Acute Code(s): M54.9 - DORSALGIA, UNSPECIFIED - Discharge Disposition: Home, Self-Care Condition: Stable Prescriptions: New Cyclobenzaprine HCl 5 mg PO TID PRN #30 tablet Hydrocodone/Acetaminophen [Hydrocodone-Acetamin 10-325 mg] 1 tablet PO Q4H PRN PRN #28 tablet MDD 6 PRN Reason: Pain Cephalexin Mh 500 mg [Keflex 500 mg] 500 mg PO Q6H #20 cap Amlodipine Besylate 5 mg [Norvasc 5 mg] 5 mg PO QAM #30 tablet Clonidine HCl 0.1 mg [Clonidine 0.1 mg Tablet] 0.1 mg PO BID 7 Days #14 tablet Clonidine HCl 0.1 mg [Clonidine 0.1 mg Tablet] 0.1 mg PO BID #14 tablet Continue Atorvastatin Calcium 40 mg PO HS Warfarin Sodium 3 mg [Coumadin 3 MG] 3 mg PO DAILY@1800 [place]-3 Fatty Acids [[place]-3] 1,000 mg PO DAILY FA/Vit C/E/Zinc/Copper/Lut/Dov [Ocuvel Capsule] 1 each PO DAILY Carvedilol 3.125 mg [Coreg 3.125 MG] 12.5 mg PO BID Cyanocobalamin/Folic AC/Vit B6 [Homocysteine Formula Tablet] 1 each PO DAILY Buspirone HCl 5 mg [Buspar 5 mg] 5 mg BID Amiodarone HCl 200 mg PO DAILY Escitalopram Oxalate [Lexapro] 20 mg PO HS Sacubitril/Valsartan [Entresto 24 mg-26 mg Tablet] 1 tab PO BID Discontinued Hydrocodone/APAP 5/325 [[place] 5/325 mg] 1 each PO Q8H PRN PRN #6 tablet MDD 3 PRN Reason: Pain Instructions: Preventing Falls in the Older Adult, High Blood Pressure (DC) Additional Instructions: [facility] WILL CONTINUE TO CARE FOR YOU. THEIR PHONE NUMBER IS [phone] Follow up with: BESSIE RICK [Primary Care Provider] - 02/19/22 10:15 am Forms: Discharge Instructions
[2022-02-15] MEDS: Klor Con 10 MEQ PO SCH (09:12)
[2022-02-15] MEDS: COREG 12.5 MG PO SCH (09:12)
[2022-02-15] MEDS: ENTRESTO 49 MG-51 MG TABLET PO SCH (09:12)
[2022-02-15] MEDS: CLONIDINE 0.1 MG TABLET PO SCH (09:12)
[2022-02-15] MEDS: Ocuvite Tablet PO SCH (09:12)
[2022-02-15] MEDS: NORVASC 5 MG PO SCH (09:12)
[2022-02-15] MEDS: Cordarone 200 MG PO SCH (09:13)
[2022-02-15] MEDS: BUSPAR 5 MG PO SCH (09:13)
[2022-02-15] MEDS: ROCEPHIN 1 Gm-D5w 50 ml Bag** 1 G/50 ML IVPB IV SCH (09:29)
== END 2022-02-15 11:51 | disposition home health service (06) | DRG 690 ==
LOC: ED 11:47 → ICU 18:04 → OBSVTOIN 02-12 12:43
PROVIDERS: ADMIT Family Medicine; ATTEND Family Medicine
DX: N39.0 Urinary tract infection, site not specified (principal); I10 Essential (primary) hypertension; M54.9 Dorsalgia, unspecified; M54.6 Pain in thoracic spine; R07.9 Chest pain, unspecified; I25.10 Atherosclerotic heart disease of native coronary artery without angina pectoris; I16.0 Hypertensive urgency; D64.9 Anemia, unspecified; E78.00 Pure hypercholesterolemia, unspecified; E87.6 Hypokalemia; Z79.899 Other long term (current) drug therapy; Z79.01 Long term (current) use of anticoagulants; Z20.828 Contact with and (suspected) exposure to other viral communicable diseases; Z87.81 Personal history of (healed) traumatic fracture
CPT/HCPCS: 0241U; 36000; 36415; 71275; 74018; 74174; 80048; 80053; 80061; 81015; 82728; 83540; 83550; 83721; 83735; 83880; 84484; 85025; 85027; 85610; 85730; 87077; 87086; 87186; 93005; 93041; 93268; 94640; 94760; 94762; 96360; 96365; 96366; 96367; 96374; 96376; 99285; J0360; J0696; J2270; J3475; J3480; J7609; A9270-GY; G0378

== ENCOUNTER 2022-02-18 19:25 | Emergency (ER) | payer MEDICARE ==
[2022-02-18 19:56] VITALS: PULSE 60
--- NOTE | 2022-02-18 20:25 | ERPHSYRPT ---
- History of Present Illness Time Seen by Provider: 02/18/22 19:55 Source: patient Exam Limitations: no limitations Patient Subjective Stated Complaint: pt states "I was just discharge from here Wednesday with the same thing. My blood pressure was 197/83." Triage Nursing Assessment: pt came into the er via wheelchair; pt is axo x4; c/o HTN; pt states 4/10 pain to back; pt states recently discharged from hospital with HTN; pt states she was started on 3 new medication; HTN was 204/59 on arrival; clear heart tone; clear lung sounds in all lobes; strong hailee radial pulses; strong hailee pedal pulses Physician History: Patient is a 76-year-old female presents to emergency department for evaluation of hypertension. Patient was in our hospital approximately 1 week ago. Patient was discharged last Wednesday. Patient was evaluated and treated for hypertension. Patient was started on a new antihypertensive regimen. Patient states she was at home and checked her blood pressure. Blood pressure was initially 160s. Patient checked it several hours later and it was 190 systolic. Patient became concerned and came to our ED. Patient otherwise asymptomatic. No chest pain or shortness of breath. No nausea vomiting or diaphoresis. No headache or blurred vision. No dizziness. Patient feels well otherwise. Patient voices no other complaints or concerns at this time. Timing/Duration: today Severity: moderate Modifying Factors: Improves With: nothing Associated Symptoms: denies symptoms Allergies/Adverse Reactions: No Known Drug Allergies Allergy (Verified 02/18/22 19:49) Home Medications: Atorvastatin Calcium 40 mg PO HS 12/22/15 [History] FA/Vit C/E/Zinc/Copper/Lut/Dov [Ocuvel Capsule] 1 each PO DAILY 02/15/18 [History] [place]-3 Fatty Acids [[place]-3] 1,000 mg PO DAILY 02/15/18 [History] Warfarin Sodium 3 mg [Coumadin 3 MG] 3 mg PO DAILY@1800 02/15/18 [History] Carvedilol 3.125 mg [Coreg 3.125 MG] 12.5 mg PO BID 02/16/18 [History] Cyanocobalamin/Folic AC/Vit B6 [Homocysteine Formula Tablet] 1 each PO DAILY 09/07/18 [History] Buspirone HCl 5 mg [Buspar 5 mg] 5 mg BID 10/18/19 [History] Amiodarone HCl 200 mg PO DAILY 02/10/22 [History] Escitalopram Oxalate [Lexapro] 20 mg PO HS 02/10/22 [History] Sacubitril/Valsartan [Entresto 24 mg-26 mg Tablet] 1 tab PO BID 02/12/22 [History] Hx Tetanus, Diphtheria Vaccination/Date Given: No Hx Influenza Vaccination/Date Given: Yes Hx Pneumococcal Vaccination/Date Given: Yes Travel Risk - International Travel Have you traveled outside of the country in past 3 weeks: No - Coronavirus Screening Are you exhibiting any of the following symptoms?: No Close contact with a COVID-19 positive Pt in past 14-21 Days: No - Vaccine Status Have you recieved a Covid-19 vaccination: Yes [employer]: [employer] - Vaccination Dates Date of 2cond Vaccination (if applicable): 11/2020 - Review of Systems Constitutional: No Symptoms, No Fever, No Chills Eyes: No Symptoms Ears, Nose, & Throat: No Symptoms Respiratory: No Symptoms, No Cough, No Dyspnea Cardiac: No Symptoms, No Chest Pain, No Edema, No Syncope Abdominal/Gastrointestinal: No Symptoms, No Abdominal Pain, No Nausea, No Vomiting, No Diarrhea Genitourinary Symptoms: No Symptoms, No Dysuria Musculoskeletal: No Symptoms, No Back Pain, No Neck Pain Skin: No Symptoms, No Rash Neurological: No Symptoms, No Dizziness, No Focal Weakness, No Sensory Changes Psychological: No Symptoms Endocrine: No Symptoms Hematologic/Lymphatic: No Symptoms Immunological/Allergic: No Symptoms All Other Systems: Reviewed and Negative - Past Medical History Pertinent Past Medical History: Yes Neurological History: No Pertinent History ENT History: No Pertinent History, Cataracts, Macular Degeneration Cardiac History: Coronary Artery Disease, Myocardial Infarction (AR), High Cholesterol, Hypertension Respiratory History: No Pertinent History, Bronchitis, Pneumonia Endocrine Medical History: No Pertinent History Musculoskeletal History: No Pertinent History, Other GI Medical History: No Pertinent History, Gallbladder Disease History: No Pertinent History, Other Psycho-Social History: No Pertinent History, Depression, Anxiety Female Reproductive Disorders: No Pertinent History Other Medical History: skin ca, - Past Surgical History Past Surgical History: Yes Neuro Surgical History: No Pertinent History Cardiac: CABG, Valve Replacement, Cardiac Catheterization, Pacemaker Respiratory: No Pertinent History Gastrointestinal: Other, Cholecystectomy Genitourinary: Kidney Surgery Musculoskeletal: No Pertinent History Female Surgical History: No Pertinent History Other Surgical History: kidney stent x 2. colonoscopy and EGD 2017. revision of pacemaker - Social History Smoking Status: Former smoker How long have you smoked: 50 YEARS Exposure to second hand smoke: No Alcohol Use: Socially Drug Use: none Patient Lives Alone: No Significant Family History: hypertension - Nursing Vital Signs Nursing Vital Signs: Initial Vital Signs Temperature 99 F 02/18/22 19:49 Pulse Rate 60 02/18/22 19:49 Respiratory Rate 16 02/18/22 19:49 Blood Pressure 204/59 02/18/22 19:49 O2 Sat by Pulse Oximetry 99 02/18/22 19:49 Pain Scale Pain Intensity 8 - Physical Exam General Appearance: no apparent distress, alert Eye Exam: PERRL/EOMI, eyes nml inspection Ears, Nose, Throat Exam: normal ENT inspection, TMs normal, pharynx normal, moist mucous membranes Neck Exam: normal inspection, non-tender, supple, full range of motion Respiratory Exam: normal breath sounds, lungs clear, airway intact, No respiratory distress Cardiovascular Exam: regular rate/rhythm, normal heart sounds, normal peripheral pulses Gastrointestinal/Abdomen Exam: soft, normal bowel sounds, No tenderness, No mass Back Exam: normal inspection, normal range of motion, No CVA tenderness, No vertebral tenderness Extremity Exam: normal inspection, normal range of motion, pelvis stable Neurologic Exam: alert, oriented x 3, cooperative, normal mood/affect, nml cerebellar function, nml station & gait, sensation nml, No motor deficits Skin Exam: normal color, warm, dry, No rash Lymphatic Exam: No adenopathy SpO2 Interpretation: normal SpO2: 99 O2 Delivery: Room Air - Course Nursing assessment & vital signs reviewed: Yes EKG Interpreted by Me: RATE (60 atrial paced complexes. Prolonged OK interval. Right bundle branch block) - Radiology Exams L-Spine X-ray Interpretation: Interpreted by me (Osteopenia, degenerative changes, no fractures or dislocations. No soft tissue abnormalities. Right upper quadrant surgical clips) Ordered Tests: Active Orders 24 hr Category Date Time Status News Clipping Cutter STAT Care 02/18/22 20:19 Active EKG-ER Only STAT Care 02/18/22 20:15 Active IV Insertion STAT Care 02/18/22 20:15 Active Pulse Oximetry (ED) STAT Care 02/18/22 20:15 Active THORACOLUMBAR SPINE Stat Exams 02/19/22 00:03 Ordered CBC W DIFF Stat Lab 02/18/22 20:15 Completed CMP Stat Lab 02/18/22 20:15 Completed PROTIME WITH INR Stat Lab 02/18/22 00:01 Completed PTT Stat Lab 02/18/22 00:01 Completed TROPONIN Q3H Lab 02/18/22 20:15 Completed TROPONIN Q3H Lab 02/18/22 23:05 Completed TROPONIN Q3H Lab 02/19/22 02:30 Ordered TROPONIN Q3H Lab 02/19/22 05:30 Ordered TROPONIN Q3H Lab 02/19/22 08:30 Ordered Medication Summary Discontinued Medications Generic Name Dose Route Start Last Admin Trade Name Freq PRN Reason Stop Dose Admin Hydrocodone Bitart/Acetaminophen 1 tablet 02/18/22 23:04 02/18/22 23:05 Hydrocodone/Acetamin 10-325 Mg Tablet PO 02/18/22 23:05 1 tablet ONCE STA Administration Ketorolac Tromethamine 30 mg 02/19/22 00:04 02/19/22 00:17 Ketorolac Tromethamine 30 Mg/Ml Inj IV 02/19/22 00:05 30 mg STAT ONE Administration Ketorolac Tromethamine Confirm 02/19/22 00:16 Ketorolac Tromethamine 30 Mg/Ml Inj Administered 02/19/22 00:17 Dose 30 mg .ROUTE .STK-MED ONE Lab/Rad Data: Laboratory Result Diagrams 02/18/22 20:15 02/18/22 20:15 Laboratory Results 02/18/22 02/18/22 02/18/22 Range/Units 23:05 20:15 20:15 WBC (4.0-10.5) K/mm3 RBC (4.1-5.4) M/mm3 Hgb (12.0-16.0) gm/dl Hct (35-47) % MCV (78-100) fl MCH (26-32) pg MCHC (32-36) g/dl RDW (11.5-14.0) % Plt Count (150-450) K/mm3 MPV (7.5-11.0) fl Gran % (36.0-66.0) % Eos # (Auto) (0-0.5) Absolute Lymphs (auto) (1.0-4.6) Absolute Monos (auto) (0.0-1.3) Lymphocytes % (24.0-44.0) % Monocytes % (0.0-12.0) % Eosinophils % (0.00-5.0) % Basophils % (0.0-0.4) % Absolute Granulocytes (1.4-6.9) Basophils # (0-0.4) PT (9.4-12.5) SECONDS INR (0.8-3.0) APTT (25.1-36.5) SECONDS Sodium 139 (137-145) mmol/L Potassium 3.5 (3.5-5.1) mmol/L Chloride 111 H (98-107) mmol/L Carbon Dioxide 23 (22-30) mmol/L Anion Gap 8.2 (5-15) MEQ/L BUN 13 (7-17) mg/dL Creatinine 0.89 (0.52-1.04) mg/dL Estimated GFR > 60.0 ML/MIN Glucose 100 (74-106) mg/dL Calcium 8.8 (8.4-10.2) mg/dL Total Bilirubin 0.50 (0.2-1.3) mg/dL AST 70 H (14-36) U/L ALT 35 (0-35) U/L Alkaline Phosphatase 327 H (38-126) U/L Troponin I < 0.012 0.014 (0.000-0.034) ng/mL Serum Total Protein 6.7 (6.3-8.2) g/dL Albumin 3.8 (3.5-5.0) g/dL 02/18/22 02/18/22 Range/Units 20:15 00:01 WBC 5.2 (4.0-10.5) K/mm3 RBC 3.87 L (4.1-5.4) M/mm3 Hgb 10.8 L (12.0-16.0) gm/dl Hct 35.8 (35-47) % MCV 92.5 (78-100) fl MCH 27.9 (26-32) pg MCHC 30.2 L (32-36) g/dl RDW 14.9 H (11.5-14.0) % Plt Count 174 (150-450) K/mm3 MPV 11.3 H (7.5-11.0) fl Gran % 73.1 H (36.0-66.0) % Eos # (Auto) 0.09 (0-0.5) Absolute Lymphs (auto) 0.78 L (1.0-4.6) Absolute Monos (auto) 0.51 (0.0-1.3) Lymphocytes % 15.1 L (24.0-44.0) % Monocytes % 9.9 (0.0-12.0) % Eosinophils % 1.7 (0.00-5.0) % Basophils % 0.2 (0.0-0.4) % Absolute Granulocytes 3.78 (1.4-6.9) Basophils # 0.01 (0-0.4) PT 33.3 H (9.4-12.5) SECONDS INR 2.82 (0.8-3.0) APTT 45.3 H (25.1-36.5) SECONDS Sodium (137-145) mmol/L Potassium (3.5-5.1) mmol/L Chloride (98-107) mmol/L Carbon Dioxide (22-30) mmol/L Anion Gap (5-15) MEQ/L BUN (7-17) mg/dL Creatinine (0.52-1.04) mg/dL Estimated GFR ML/MIN Glucose (74-106) mg/dL Calcium (8.4-10.2) mg/dL Total Bilirubin (0.2-1.3) mg/dL AST (14-36) U/L ALT (0-35) U/L Alkaline Phosphatase (38-126) U/L Troponin I (0.000-0.034) ng/mL Serum Total Protein (6.3-8.2) g/dL Albumin (3.5-5.0) g/dL - Progress Progress: improved Progress Note: Patient reassessed. She feels well. Patient complains of chronic back pain. X-ray performed shows osteopenia degenerative changes. No fracture dislocations. No soft tissue abnormalities. Troponin negative x2. Case discussed with Dr. Corral. Dr. Corral will see patient tomorrow morning in her office at 9 AM. Patient states she is got an appointment scheduled with Dr. Corral at 10 AM. Patient's blood pressure at discharge is 172/62. 02/19/22 00:41 02/19/22 00:[address] Mohan Will see patient in: office Counseled pt/family regarding: lab results, diagnosis, need for follow-up, rad results - Departure Departure Disposition: Home Clinical Impression: Elevated alkaline phosphatase level, Back pain, Hypertension, Normocytic anemia Condition: Stable Critical Care Time: No Referrals: BESSIE RICK [Primary Care Provider] - Follow up/PCP as directed Additional Instructions: Discharge/Care Plan ERICK SONG was seen on 02/19/22 in the Emergency Room. The patient was counseled regarding Diagnosis,Lab results, Imaging studies, need for follow up and when to return to the Emergency Room. Prescriptions given: Discharge Note I have spoken with the patient and/or caregivers. I have explained the patient's condition, diagnosis and treatment plan based on the information available to me at this time. I have answered the patient's and/or caregiver's questions and addressed any concerns. The patient and/or caregivers have as good understanding of the patient's diagnosis, condition and treatment plan as can be expected at this point. The vital signs have been stable. The patient's condition is stable and appropriate for discharge from the emergency department. The patient will pursue further outpatient evaluation with the primary care physician or other designated or consulting physician as outlined in the discharge instructions. The patient and/or caregivers are agreeable to this plan of care and follow-up instructions have been explained in detail. The patient and/or caregivers have received these instruction. The patient/and or caregivers are aware that any significant change in condition or worsening of symptoms should prompt an immediate return to this or the closest emergency department or call 911.
[2022-02-18 20:31] LABS: Absolute Neutrophil Ct (ANC) 3.78 (1.4-6.9); Basophil (Absolute #) 0.01 (0-0.4); Eosinophil % 1.7 % (0.00-5.0); Eosinophil (Absolute #) 0.09 (0-0.5); Hematocrit 35.8 % (35-47); Hemoglobin 10.8 gm/dl (12.0-16.0); Lymphocyte (Absolute #) 0.78 (1.0-4.6); Lymphocytes % 15.1 % (24.0-44.0); Mean Cell Volume 92.5 fl (78-100); Mean Corpuscular Hemoglobin 27.9 pg (26-32); Mean Corpuscular Hgb Concent. 30.2 g/dl (32-36); Mean Platelet Volume 11.3 fl (7.5-11.0); Monocyte (Absolute #) 0.51 (0.0-1.3); Monocytes % 9.9 % (0.0-12.0); Neutrophil % 73.1 % (36.0-66.0); Platelet Count 174 K/mm3 (150-450); Red Blood Count 3.87 M/mm3 (4.1-5.4); Red Cell Distribution Width 14.9 % (11.5-14.0); White Blood Count 5.2 K/mm3 (4.0-10.5)
[2022-02-18 20:45] LABS: ALBUMIN 3.8 g/dL (3.5-5.0); ALKALINE PHOSPHATASE 327 U/L (38-126); ANION GAP 8.2 MEQ/L (5-15); BLOOD UREA NITROGEN 13 mg/dL (7-17); CHLORIDE 111 mmol/L (98-107); Calcium 8.8 mg/dL (8.4-10.2); Carbon Dioxide 23 mmol/L (22-30); Creatinine 1 0.89 mg/dL (0.52-1.04); EST GLOMERULAR FILTRATION RATE > 60.0 ML/MIN; Glucose 100 mg/dL (74-106); Potassium 3.5 mmol/L (3.5-5.1); SGOT/AST 70 U/L (14-36); SGPT/ALT 35 U/L (0-35); SODIUM 139 mmol/L (137-145); Total Protein 6.7 g/dL (6.3-8.2)
[2022-02-18] MEDS ORDERED: HYDROCODONE-ACETAMIN 10-325 MG PO STA (23:04)
[2022-02-19] MEDS ORDERED: TORAdol 30 mg Injection IV ONE (00:04)
[2022-02-19 00:05] LABS: INR 2.82 (0.8-3.0); PROTIME 33.3 SECONDS (9.4-12.5)
[2022-02-19 00:07] LABS: PTT 45.3 SECONDS (25.1-36.5)
[2022-02-19] MEDS ORDERED: TORAdol 30 mg Injection ONE (00:16)
[2022-02-19 00:45] VITALS: BP 172/62; O2SAT 99
--- NOTE | 2022-02-19 09:06 | XRAY ---
Indication: Pain. No known injury. Comparison: None AP/lateral views centered at thoracolumbar junction demonstrates normal alignment with vertebral body heights/disc spaces maintained. There is mild osteopenia, minimal L4 endplate spurring, bilateral L5-S1 degenerative facet arthropathy, extensive scattered vascular calcifications with bilateral renal artery stent grafts, and cholecystectomy clips. No other bony, articular, or soft tissue abnormalities. Impression: Nonacute lumbar spine with chronic features.
== END 2022-02-19 01:00 | disposition home or self-care (01) ==
LOC: ED 19:25
DX: I10 Essential (primary) hypertension (principal); R74.8 Abnormal levels of other serum enzymes; M54.9 Dorsalgia, unspecified; D64.9 Anemia, unspecified; E78.5 Hyperlipidemia, unspecified; Z79.01 Long term (current) use of anticoagulants; Z79.899 Other long term (current) drug therapy
CPT/HCPCS: 36000; 36415; 72080; 80053; 84484; 85025; 85610; 85730; 93005; 93041; 94760; 96375; 99284; J1885; A9270-GY

== ENCOUNTER 2022-09-06 11:16 | Observation (INO) | payer MEDICARE ==
--- NOTE | 2022-09-06 11:44 | ERPHSYRPT ---
- History of Present Illness Time Seen by Provider: 09/06/22 11:44 Source: patient, family Exam Limitations: no limitations Physician History: This is a 77-year-old white female patient who presents with several day history of shortness of air and mild cough. Patient was brought into the emergency department by wheelchair by her spouse. Patient also has had increased fatigue and weakness. Patient denies chest pain. She denies nausea vomiting or diarrhea. She has no abdominal pain. Patient is on Coumadin. She has had valve replacement and has a pacemaker in place. Patient also has a coronary artery bypass in the past. She has a history of coronary disease/myocardial infarction, and hypertension. Timing/Duration: day(s) (Patient states for several days. At least a week) Severity of Dyspnea-Max: mild (To moderate) Severity of Dyspnea-Current: mild Possible Cause: occasional episodes Modifying Factors: Improves With: coughing (Mild) Associated Symptoms: cough (Mild), weakness, No chest pain/discomfort, No wheezing Allergies/Adverse Reactions: No Known Drug Allergies Allergy (Verified 02/18/22 19:49) Home Medications: Atorvastatin Calcium 40 mg PO HS 12/22/15 [History] FA/Vit C/E/Zinc/Copper/Lut/Dov [Ocuvel Capsule] 1 each PO DAILY 02/15/18 [History] [place]-3 Fatty Acids [[place]-3] 1,000 mg PO DAILY 02/15/18 [History] Warfarin Sodium 3 mg [Coumadin 3 MG] 3 mg PO DAILY@1800 02/15/18 [History] Carvedilol 3.125 mg [Coreg 3.125 MG] 12.5 mg PO DAILY 02/16/18 [History] Cyanocobalamin/Folic AC/Vit B6 [Homocysteine Formula Tablet] 1 each PO DAILY 09/07/18 [History] Buspirone HCl 5 mg [Buspar 5 mg] 3.75 mg PO BID 10/18/19 [History] Amiodarone HCl 200 mg PO DAILY 02/10/22 [History] Escitalopram Oxalate [Lexapro] 20 mg PO HS 02/10/22 [History] Folic Acid 1 mg [Folate 1 mg] 1,332 mcg PO DAILY 04/07/22 [History] Sacubitril/Valsartan [Entresto 49 mg-51 mg Tablet] 1 each PO BID 04/07/22 [History] Spironolactone 25 mg [Aldactone 25 MG] 25 mg PO DAILY 04/07/22 [History] Hx Tetanus, Diphtheria Vaccination/Date Given: No Hx Influenza Vaccination/Date Given: Yes Hx Pneumococcal Vaccination/Date Given: Yes Travel Risk - International Travel Have you traveled outside of the country in past 3 weeks: No - Coronavirus Screening Are you exhibiting any of the following symptoms?: Yes Symptoms: Cough: New Onset, Shortness of Breath - Vaccine Status Have you recieved a Covid-19 vaccination: Yes Delivery Of Shopping News: Moderna - Vaccination Dates Date of 2cond Vaccination (if applicable): 11/2020 - Review of Systems Constitutional: Weakness Eyes: No Symptoms Ears, Nose, & Throat: No Symptoms Respiratory: Dyspnea Cardiac: No Symptoms, No Chest Pain Abdominal/Gastrointestinal: No Symptoms, No Abdominal Pain, No Nausea, No Vomiting, No Diarrhea, No Constipation Genitourinary Symptoms: No Symptoms Musculoskeletal: No Symptoms Skin: No Symptoms Neurological: No Symptoms Psychological: No Symptoms Endocrine: No Symptoms Hematologic/Lymphatic: No Symptoms Immunological/Allergic: No Symptoms All Other Systems: Reviewed and Negative - Past Medical History Pertinent Past Medical History: Yes Neurological History: No Pertinent History ENT History: Cataracts, Macular Degeneration Cardiac History: Coronary Artery Disease, Myocardial Infarction (NH), High Cholesterol, Hypertension Respiratory History: Bronchitis, Emphysema, Pneumonia Endocrine Medical History: No Pertinent History Musculoskeletal History: Osteoporosis, Other GI Medical History: Gallbladder Disease History: Other Psycho-Social History: Depression, Anxiety Female Reproductive Disorders: No Pertinent History Other Medical History: skin ca,. hx kidney stones and hx intermittant kidney failure - Past Surgical History Past Surgical History: Yes Neuro Surgical History: No Pertinent History Cardiac: CABG, Valve Replacement, Cardiac Catheterization, Pacemaker Respiratory: No Pertinent History Gastrointestinal: Other, Cholecystectomy Genitourinary: Kidney Surgery Musculoskeletal: No Pertinent History Female Surgical History: No Pertinent History Other Surgical History: kidney stent x 2. colonoscopy and EGD 2017. revision of pacemaker - Social History Smoking Status: Former smoker How long have you smoked: 50 YEARS Exposure to second hand smoke: No Alcohol Use: Socially Drug Use: none Patient Lives Alone: No Significant Family History: hypertension - Nursing Vital Signs Nursing Vital Signs: Initial Vital Signs Temperature 98.8 F 09/06/22 11:16 Pulse Rate 60 09/06/22 11:16 Respiratory Rate 20 09/06/22 11:16 Blood Pressure 211/70 09/06/22 11:16 O2 Sat by Pulse Oximetry 100 09/06/22 11:16 Pain Scale Pain Intensity 0 - Physical Exam General Appearance: no apparent distress, alert, anxiety Eye Exam: PERRL/EOMI, eyes nml inspection Ears, Nose, Throat Exam: hearing grossly normal, normal ENT inspection, normal pharynx Neck Exam: normal inspection, non-tender, supple, full range of motion Respiratory Exam: normal breath sounds, lungs clear, airway intact, No chest tenderness, No respiratory distress Cardiovascular/Chest Exam: normal heart sounds, regular rate/rhythm Abdominal/Gastrointestinal Exam: soft, normal bowel sounds, No tenderness Rectal Exam: not done Extremity Exam: non-tender, normal range of motion, normal inspection Neurologic Exam: alert, oriented x 3, cooperative, time study analyst II-XII nml as tested, normal mood/affect, nml cerebellar function, nml station & gait, sensation nml Skin Exam: normal color, warm, dry Lymphatic Exam: No adenopathy SpO2 Interpretation: normal - Course Nursing assessment & vital signs reviewed: Yes EKG Interpreted by Me: RATE (60), Right Bundle Branch Block, Other (Reveal paced rhythm. No acute ischemic changes on today's EKG.) Ordered Tests: Active Orders 24 hr Category Date Time Status Customer Professional STAT Care 09/06/22 12:44 Active EKG-ER Only STAT Care 09/06/22 12:43 Active IV Insertion STAT Care 09/06/22 12:43 Active Pulse Oximetry (ED) STAT Care 09/06/22 12:43 Active CHEST 1 VIEW (PORTABLE) Stat Exams 09/06/22 13:12 Taken BLOOD CULTURE Stat Lab 09/06/22 14:20 Received CBC W DIFF Stat Lab 09/06/22 14:15 Completed CMP Stat Lab 09/06/22 14:15 Completed D-DIMER QUANTITATIVE Stat Lab 09/06/22 14:15 Completed Lactic Acid Stat Lab 09/06/22 14:16 Completed NT PRO BNP Stat Lab 09/06/22 14:15 Completed PT INR [PROTIME WITH INR] Stat Lab 09/06/22 13:07 Completed TROPONIN Q4H Lab 09/06/22 14:15 Completed TROPONIN Q4H Lab 09/06/22 16:45 Ordered TROPONIN Q4H Lab 09/06/22 20:45 Ordered Transfer Order Routine Transfer 09/06/22 Ordered Medication Summary Discontinued Medications Generic Name Dose Route Start Last Admin Trade Name Freq PRN Reason Stop Dose Admin Furosemide 40 mg 09/06/22 16:43 Furosemide 40 Mg/4 Ml Vial IV 09/06/22 16:44 STAT ONE Potassium Chloride 20 meq 09/06/22 16:41 Potassium Chloride Tab 10 Meq Tab PO 09/06/22 16:42 STAT ONE Lab/Rad Data: Laboratory Result Diagrams 09/06/22 14:15 09/06/22 14:15 Laboratory Results 09/06/22 09/06/22 09/06/22 Range/Units 14:16 14:15 14:15 WBC (4.0-10.5) x10^3/uL RBC (4.1-5.4) x10^6/uL Hgb (12.0-16.0) g/dL Hct (35-47) % MCV (78-100) fL MCH (26-32) pg MCHC (32-36) g/dL RDW (11.5-14.0) % Plt Count (150-450) x10^3/uL MPV (7.5-11.0) fL Gran % (36.0-66.0) % Immature Gran % (Auto) (0.00-0.4) % Nucleat RBC Rel Count (0.00-0.1) % Eos # (Auto) (0-0.5) x10^3/uL Immature Gran # (Auto) (0.00-0.03) x10^3u/L Absolute Lymphs (auto) (1.0-4.6) x10^3/uL Absolute Monos (auto) (0.0-1.3) x10^3/uL Absolute Nucleated RBC (0.00-0.01) x10^3u/L Lymphocytes % (24.0-44.0) % Monocytes % (0.0-12.0) % Eosinophils % (0.00-5.0) % Basophils % (0.0-0.4) % Absolute Granulocytes (1.4-6.9) x10^3/uL Basophils # (0-0.4) x10^3/uL PT (9.4-12.5) SECONDS INR (0.8-3.0) D-Dimer 0.27 (0.0-0.50) mg/L Sodium (137-145) mmol/L Potassium (3.5-5.1) mmol/L Chloride (98-107) mmol/L Carbon Dioxide (22-30) mmol/L Anion Gap (5-15) MEQ/L BUN (7-17) mg/dL Creatinine (0.52-1.04) mg/dL Estimated GFR ML/MIN Glucose (74-106) mg/dL Lactic Acid 0.6 (0.4-2.0) Calcium (8.4-10.2) mg/dL Total Bilirubin (0.2-1.3) mg/dL AST (14-36) U/L ALT (0-35) U/L Alkaline Phosphatase (38-126) U/L Troponin I < 0.012 (0.000-0.034) ng/mL NT-Pro-B Natriuret Pep (0-1800) pg/mL Serum Total Protein (6.3-8.2) g/dL Albumin (3.5-5.0) g/dL Influenza Type A Ag (NEGATIVE) Influenza Type B Ag (NEGATIVE) RSV (PCR) (Negative) SARS-CoV-2 (PCR) (NEGATIVE) Slides for Path Review 09/06/22 09/06/22 09/06/22 Range/Units 14:15 14:15 14:00 WBC 3.6 L (4.0-10.5) x10^3/uL RBC 2.65 L (4.1-5.4) x10^6/uL Hgb 7.7 L (12.0-16.0) g/dL Hct 26.1 L (35-47) % MCV 98.5 (78-100) fL MCH 29.1 (26-32) pg MCHC 29.5 L (32-36) g/dL RDW 15.9 H (11.5-14.0) % Plt Count 118 L (150-450) x10^3/uL MPV 10.5 (7.5-11.0) fL Gran % 74.8 H (36.0-66.0) % Immature Gran % (Auto) 0.3 (0.00-0.4) % Nucleat RBC Rel Count 0.0 (0.00-0.1) % Eos # (Auto) 0.07 (0-0.5) x10^3/uL Immature Gran # (Auto) 0.01 (0.00-0.03) x10^3u/L Absolute Lymphs (auto) 0.42 L (1.0-4.6) x10^3/uL Absolute Monos (auto) 0.39 (0.0-1.3) x10^3/uL Absolute Nucleated RBC 0.00 (0.00-0.01) x10^3u/L Lymphocytes % 11.6 L (24.0-44.0) % Monocytes % 10.8 (0.0-12.0) % Eosinophils % 1.9 (0.00-5.0) % Basophils % 0.6 (0.0-0.4) % Absolute Granulocytes 2.71 (1.4-6.9) x10^3/uL Basophils # 0.02 (0-0.4) x10^3/uL PT (9.4-12.5) SECONDS INR (0.8-3.0) D-Dimer (0.0-0.50) mg/L Sodium 138 (137-145) mmol/L Potassium 3.2 L (3.5-5.1) mmol/L Chloride 111 H (98-107) mmol/L Carbon Dioxide 22 (22-30) mmol/L Anion Gap 8.7 (5-15) MEQ/L BUN 13 (7-17) mg/dL Creatinine 0.78 (0.52-1.04) mg/dL Estimated GFR > 60.0 ML/MIN Glucose 87 (74-106) mg/dL Lactic Acid (0.4-2.0) Calcium 8.3 L (8.4-10.2) mg/dL Total Bilirubin 0.70 (0.2-1.3) mg/dL AST 50 H (14-36) U/L ALT 26 (0-35) U/L Alkaline Phosphatase 173 H (38-126) U/L Troponin I (0.000-0.034) ng/mL NT-Pro-B Natriuret Pep 1940 H (0-1800) pg/mL Serum Total Protein 5.6 L (6.3-8.2) g/dL Albumin 3.1 L (3.5-5.0) g/dL Influenza Type A Ag NEGATIVE (NEGATIVE) Influenza Type B Ag NEGATIVE (NEGATIVE) RSV (PCR) NEGATIVE (Negative) SARS-CoV-2 (PCR) NEGATIVE (NEGATIVE) Slides for Path Review YES 09/06/22 Range/Units 13:07 WBC (4.0-10.5) x10^3/uL RBC (4.1-5.4) x10^6/uL Hgb (12.0-16.0) g/dL Hct (35-47) % MCV (78-100) fL MCH (26-32) pg MCHC (32-36) g/dL RDW (11.5-14.0) % Plt Count (150-450) x10^3/uL MPV (7.5-11.0) fL Gran % (36.0-66.0) % Immature Gran % (Auto) (0.00-0.4) % Nucleat RBC Rel Count (0.00-0.1) % Eos # (Auto) (0-0.5) x10^3/uL Immature Gran # (Auto) (0.00-0.03) x10^3u/L Absolute Lymphs (auto) (1.0-4.6) x10^3/uL Absolute Monos (auto) (0.0-1.3) x10^3/uL Absolute Nucleated RBC (0.00-0.01) x10^3u/L Lymphocytes % (24.0-44.0) % Monocytes % (0.0-12.0) % Eosinophils % (0.00-5.0) % Basophils % (0.0-0.4) % Absolute Granulocytes (1.4-6.9) x10^3/uL Basophils # (0-0.4) x10^3/uL PT 21.5 H (9.4-12.5) SECONDS INR 2.18 (0.8-3.0) D-Dimer (0.0-0.50) mg/L Sodium (137-145) mmol/L Potassium (3.5-5.1) mmol/L Chloride (98-107) mmol/L Carbon Dioxide (22-30) mmol/L Anion Gap (5-15) MEQ/L BUN (7-17) mg/dL Creatinine (0.52-1.04) mg/dL Estimated GFR ML/MIN Glucose (74-106) mg/dL Lactic Acid (0.4-2.0) Calcium (8.4-10.2) mg/dL Total Bilirubin (0.2-1.3) mg/dL AST (14-36) U/L ALT (0-35) U/L Alkaline Phosphatase (38-126) U/L Troponin I (0.000-0.034) ng/mL NT-Pro-B Natriuret Pep (0-1800) pg/mL Serum Total Protein (6.3-8.2) g/dL Albumin (3.5-5.0) g/dL Influenza Type A Ag (NEGATIVE) Influenza Type B Ag (NEGATIVE) RSV (PCR) (Negative) SARS-CoV-2 (PCR) (NEGATIVE) Slides for Path Review - Progress Progress: improved, re-examined Air Movement: fair Progress Note: 09/06/22 13:22 Chest x-ray shows bibasilar fluid versus infiltrate 09/06/22 16:39 Medical decision-making: This patient has anemia, hypokalemia and thrombocytope rafael as well as leukopenia. I reviewed her old labs and these are new findings. There has been no changes in her medication. Patient has normal D-dimer and normal troponin levels. I spoke with Dr. Williamson and we will repeat labs in the morning as well as supplement her with some oral potassium and obtain an iron level, B12 level and reticulocyte count. Blood Culture(s) Obtained: No Antibiotics given: No Discussed with : Dina Counseled pt/family regarding: lab results, diagnosis, rad results - Departure Departure Disposition: Observation Clinical Impression: Anemia, Thrombocytopenia, Leukopenia, Hypokalemia, CHF (congestive heart failure) Condition: Stable Critical Care Time: No Referrals: ANA MARIA GUIDRY [Primary Care Provider] - Follow up/PCP as directed Instructions: Heart Failure
[2022-09-06 13:28] LABS: INR 2.18 (0.8-3.0); PROTIME 21.5 SECONDS (9.4-12.5)
[2022-09-06 14:41] LABS: Absolute Neutrophil Ct (ANC) 2.71 x10^3/uL (1.4-6.9); Basophil (Absolute #) 0.02 x10^3/uL (0-0.4); Eosinophil % 1.9 % (0.00-5.0); Eosinophil (Absolute #) 0.07 x10^3/uL (0-0.5); Hematocrit 26.1 % (35-47); Hemoglobin 7.7 g/dL (12.0-16.0); Lymphocyte (Absolute #) 0.42 x10^3/uL (1.0-4.6); Lymphocytes % 11.6 % (24.0-44.0); Mean Cell Volume 98.5 fL (78-100); Mean Corpuscular Hemoglobin 29.1 pg (26-32); Mean Corpuscular Hgb Concent. 29.5 g/dL (32-36); Mean Platelet Volume 10.5 fL (7.5-11.0); Monocyte (Absolute #) 0.39 x10^3/uL (0.0-1.3); Monocytes % 10.8 % (0.0-12.0); Neutrophil % 74.8 % (36.0-66.0); Platelet Count 118 x10^3/uL (150-450); Red Blood Count 2.65 x10^6/uL (4.1-5.4); Red Cell Distribution Width 15.9 % (11.5-14.0); White Blood Count 3.6 x10^3/uL (4.0-10.5)
[2022-09-06 14:55] LABS: INFLUENZA A NEGATIVE (NEGATIVE); INFLUENZA B NEGATIVE (NEGATIVE); RESPIRATORY SYNCTIAL VIRUS NEGATIVE (Negative); SARS-CoV-2 Xpert Express NEGATIVE (NEGATIVE)
[2022-09-06 15:04] LABS: ALBUMIN 3.1 g/dL (3.5-5.0); ALKALINE PHOSPHATASE 173 U/L (38-126); ANION GAP 8.7 MEQ/L (5-15); BLOOD UREA NITROGEN 13 mg/dL (7-17); CHLORIDE 111 mmol/L (98-107); Calcium 8.3 mg/dL (8.4-10.2); Carbon Dioxide 22 mmol/L (22-30); Creatinine 1 0.78 mg/dL (0.52-1.04); EST GLOMERULAR FILTRATION RATE > 60.0 ML/MIN; Glucose 87 mg/dL (74-106); NT PRO BNP 1940 pg/mL (0-1800); Potassium 3.2 mmol/L (3.5-5.1); SGOT/AST 50 U/L (14-36); SGPT/ALT 26 U/L (0-35); SODIUM 138 mmol/L (137-145); Total Protein 5.6 g/dL (6.3-8.2)
[2022-09-06 15:48] LABS: Slide Review 1 YES
[2022-09-06] MEDS ORDERED: Klor Con PO ONE ×2 (16:41→16:51)
[2022-09-06] MEDS ORDERED: Lasix 40 MG/4 ML IV ONE (16:43)
[2022-09-06] MEDS ORDERED: Lasix 40 MG/4 ML ONE (16:51)
[2022-09-06] MEDS ORDERED: Lasix 20 MG/2 ML IV SCH (17:56)
[2022-09-06] MEDS ORDERED: Zofran 4 MG/2 ML VIAL IV PRN (17:56)
[2022-09-06] MEDS ORDERED: Cyclobenzaprine 10 MG PO PRN (19:36)
[2022-09-06] MEDS ORDERED: JANTOVEN PO ONE (19:45)
[2022-09-06] MEDS: ENTRESTO 49 MG-51 MG TABLET PO SCH (20:18)
[2022-09-06] MEDS: BUSPAR 5 MG PO SCH (20:18)
[2022-09-06] MEDS: Lexapro PO SCH (20:19)
[2022-09-06] MEDS: Ocuvite Tablet PO SCH (20:24)
[2022-09-06] MEDS: TYLENOL 325 MG PO PRN (20:24)
--- NOTE | 2022-09-06 20:47 | XRAY ---
Indication: Cough and short of breath. Comparison: September 10, 2021 Portable chest demonstrates new diffuse bilateral hazy patchy airspace disease. Stable chronic left costophrenic angle pleural parenchymal fibrosis/scarring. Heart not enlarged again with cardiac valve replacement, CABG, and left pacemaker. Bony thorax intact with osteopenia, degenerative changes, and old left 5/6 rib fractures.
[2022-09-06] MEDS ORDERED: PROVENTIL 2.5 MG/3 ML NEB IH PRN (21:27)
[2022-09-06] MEDS ORDERED: LIPITOR 40MG PO SCH (22:00)
[2022-09-07] MEDS: Advair Hfa 115/21 Common canister IH SCH ×2 (05:01→18:52)
[2022-09-07 05:03] LABS: Absolute Neutrophil Ct (ANC) 2.29 x10^3/uL (1.4-6.9); Basophil (Absolute #) 0.01 x10^3/uL (0-0.4); Eosinophil % 2.2 % (0.00-5.0); Eosinophil (Absolute #) 0.07 x10^3/uL (0-0.5); Hematocrit 23.9 % (35-47); Hemoglobin 7.2 g/dL (12.0-16.0); Lymphocyte (Absolute #) 0.43 x10^3/uL (1.0-4.6); Lymphocytes % 13.2 % (24.0-44.0); Mean Cell Volume 96.4 fL (78-100); Mean Corpuscular Hgb Concent. 30.1 g/dL (32-36); Monocyte (Absolute #) 0.44 x10^3/uL (0.0-1.3); Monocytes % 13.5 % (0.0-12.0); Neutrophil % 70.5 % (36.0-66.0); Platelet Count 121 x10^3/uL (150-450); Red Blood Count 2.48 x10^6/uL (4.1-5.4); White Blood Count 3.3 x10^3/uL (4.0-10.5)
[2022-09-07] MEDS: TYLENOL 325 MG PO PRN ×3 (05:37→21:57)
[2022-09-07 05:46] LABS: ALBUMIN 3.1 g/dL (3.5-5.0); ANION GAP 5.7 MEQ/L (5-15); BILIRUBIN,TOTAL 0.6 mg/dL (0.2-1.3); Calcium 8.3 mg/dL (8.4-10.2); Creatinine 1 1.11 mg/dL (0.52-1.04); EST GLOMERULAR FILTRATION RATE 50.4 ML/MIN; Potassium 3.2 mmol/L (3.5-5.1); Total Protein 5.6 g/dL (6.3-8.2)
[2022-09-07 06:23] LABS: Slide Review 1 YES
[2022-09-07] MEDS ORDERED: Cyclobenzaprine 10 MG PO PRN (06:55)
[2022-09-07] MEDS: Ocuvite Tablet PO SCH ×2 (09:16→21:57)
[2022-09-07] MEDS: Cyclobenzaprine 10 MG PO SCH ×3 (09:16→21:56)
[2022-09-07] MEDS: ENTRESTO 49 MG-51 MG TABLET PO SCH ×2 (09:16→21:56)
[2022-09-07] MEDS: BUSPAR 5 MG PO SCH ×2 (09:16→21:56)
[2022-09-07] MEDS ORDERED: CYANOCOBALAMIN PO SCH (10:00)
[2022-09-07] MEDS ORDERED: OMEGA PO SCH (10:00)
[2022-09-07] MEDS ORDERED: [UNRECOGNIZED DRUG - OTHER] PO SCH (10:00)
[2022-09-07] MEDS ORDERED: FATTY ACIDS PO SCH (10:00)
[2022-09-07] MEDS ORDERED: FLUZONE HIGH-DOSE QUAD 2022-23 IM ONE (10:00)
[2022-09-07] MEDS ORDERED: VIT B6 PO SCH (10:00)
[2022-09-07] MEDS ORDERED: Lasix 20 MG/2 ML IV SCH (10:00)
[2022-09-07] MEDS ORDERED: FOLIC AC PO SCH (10:00)
[2022-09-07] MEDS: FOLATE 1 MG PO SCH (10:01)
[2022-09-07] MEDS: FOLTX (FOLBIC) PO SCH (10:01)
[2022-09-07] MEDS: FISH OIL 1,000 MG CAPSULE PO SCH (10:02)
[2022-09-07] MEDS: COREG 12.5 MG PO SCH (10:02)
[2022-09-07] MEDS: Cordarone 200 MG PO SCH (10:02)
[2022-09-07] MEDS: Aldactone 25 MG PO SCH (10:02)
--- NOTE | 2022-09-07 11:56 | XRAY ---
Indication: Right breast pain. Low hemoglobin. Multiple contiguous images obtained through the abdomen and pelvis without as ordered. Comparison: December 03, 2021 Mild respiration artifact throughout the abdomen and including lung bases. Lung bases demonstrates new small bilateral effusions with compressive atelectasis, right greater than left. Stable mild left lower lobe subsegmental atelectasis/scarring and tiny right lower lobe calcified granulomas. Heart is now borderline enlarged again with mitral valve replacement surgery and cardiac pacer lead. New radiopacities in the distal esophagus, GE junction, and stomach presumed ingested medication or bismuth with GERD. Noncontrasted stomach and bowel loops are nonobstructed. New mild diffuse fecal stasis throughout greatest in the descending and sigmoid. Again sigmoid diverticulosis without diverticulitis and cholecystectomy. No free fluid/air. Remaining liver, pancreas, spleen, adrenal glands, kidneys, ureters, bladder, and uterus are unremarkable for noncontrast exam. There remains a few scattered aortoiliac calcifications without AAA. Osseous structures intact again with osteopenia and minimal lumbar levoscoliosis. New findings healing anterolateral right 6-06/20/11 rib fractures, healing right pubic symphysis fracture, and healing bilateral sacral insufficiency fractures. Impression: 1. Respiration artifact. 2. New borderline cardiomegaly with bibasilar effusions. Rule out cardiac decompensation/CHF. Superimposed pneumonia not completely excluded. 3. New finding for GERD. 4. New mild diffuse fecal stasis greatest left hemicolon. 5. New findings including right ribs, right pubic symphysis, and bilateral sacral insufficiency healing fractures. 6. Again chronic findings including sigmoid diverticulosis, chronic bony findings, and heavy arteriosclerotic disease.
[2022-09-07] MEDS ORDERED: K-LYTE PO ONE (12:05)
--- NOTE | 2022-09-07 17:47 | PCM.HP ---
History of Present Illness - Chief Complaint Chief Complaint: Anemia History of Present Illness: is a 77 year old female patient of Dr Barbara Bob (PCP) and Dr Arredondo(Construction Cost Estimator) with Hx HTN, CAD([place]), CHF and mechanical heart valve on Coumadin and emphysema who presented to ER with fatigue/generalized weakness and shortness of breath and mild cough. Denies fever or chest pain . Hgb 7.7 in ER and this AM = 7.2, INR=2.1, pro BNP= 2100. Stool this morning heme negative. Patient was admitted to Dr Williamson's service yesterday evening but is requesting transfer to [facility] where her specialists can follow her. I spoke to Hospitalist at [facility], Dr Hooper, who accepted patient to [facility] floor on telemetry with Dr Arredondo to consult as soon as bed becomes available. CTabd /pelvis and gen surg consult for possible scope ordered. - Review of Systems Constitutional: Fatigue, Weakness Eyes: No Symptoms Ears, Nose, & Throat: No Symptoms Respiratory: Cough, Short Of Breath Cardiac: No Chest Pain Abdominal/Gastrointestinal: No Abdominal Pain, No Nausea, No Vomiting, No Diarrhea, No Hematochezia, No Melena Genitourinary Symptoms: No Symptoms Musculoskeletal: Other (rib pain after minor trauma -pulled refrigerator door int ribs) Skin: No Symptoms Neurological: No Symptoms Psychological: No Symptoms Endocrine: No Symptoms Hematologic/Lymphatic: Other (on coumadin (heart valve replaced)) Immunological/Allergic: No Symptoms Medications & Allergies Home Medications: Home Medication List Atorvastatin Calcium 40 mg PO HS 12/22/15 [History Confirmed 09/06/22] FA/Vit C/E/Zinc/Copper/Lut/Dov [Ocuvel Capsule] 1 each PO BID 02/15/18 [History Confirmed 09/06/22] [place]-3 Fatty Acids [[place]-3] 1,000 mg PO DAILY 02/15/18 [History Confirmed 09/06/22] Warfarin Sodium 3 mg [Coumadin 3 MG] 3 mg PO DAILY@1800 02/15/18 [History Confirmed 09/06/22] Carvedilol 3.125 mg [Coreg 3.125 MG] 12.5 mg PO DAILY 02/16/18 [History Confirmed 09/06/22] Cyanocobalamin/Folic AC/Vit B6 [Homocysteine Formula Tablet] 1 each PO DAILY 09/07/18 [History Confirmed 09/06/22] Buspirone HCl 5 mg [Buspar 5 mg] 7.5 mg PO BID 10/18/19 [History Confirmed 09/06/22] Amiodarone HCl 200 mg PO DAILY 02/10/22 [History Confirmed 09/06/22] Escitalopram Oxalate [Lexapro] 20 mg PO HS 02/10/22 [History Confirmed 09/06/22] Cyclobenzaprine HCl 5 mg PO TID PRN #30 tablet 02/14/22 [Rx Confirmed 09/06/22] Folic Acid 1 mg [Folate 1 mg] 1,332 mcg PO DAILY 04/07/22 [History Confirmed 09/06/22] Sacubitril/Valsartan [Entresto 49 mg-51 mg Tablet] 1 each PO BID 04/07/22 [History Confirmed 09/06/22] Spironolactone 25 mg [Aldactone 25 MG] 25 mg PO DAILY 04/07/22 [History Confirmed 09/06/22] Allergies/Adverse Reactions: Allergies Allergy/AdvReac Type Severity Reaction Status Date / Time No Known Drug Allergies Allergy Verified 02/18/22 19:49 - Past Medical History Past Medical History: Yes Neurological History: No Pertinent History ENT History: Cataracts, Macular Degeneration Cardiac History: Congestive Heart Failure, Coronary Artery Disease, High Cholesterol, Hypertension, Myocardial Infarction ([place]) Respiratory History: Bronchitis, Emphysema, Pneumonia Endocrine Medical History: No Pertinent History Musculoskelatal History: Osteoporosis, Other GI Medical History: Gallbladder Disease History: Other Pyscho-Social History: Depression, Anxiety Reproductive Disorders: No Pertinent History Comment: skin ca,. hx kidney stones and hx intermittant kidney failure. anemia - Female History Are you now?: No - Past Surgical History Past Surgical History: Yes Neuro Surgical History: No Pertinent History Cardiac History: CABG, Valve Replacement, Cardiac Catheterization, Pacemaker Respiratory Surgery: No Pertinent History GI Surgical History: Other, Cholecystectomy Genitourinary Surgical Hx: Kidney Surgery Musculskeletal Surgical Hx: No Pertinent History Female Surgical History: No Pertinent History Other Surgical History: kidney stent x 2. colonoscopy and EGD 2016. revision of pacemaker. stent x 1 in 2020 - Social History Smoking Status: Former smoker How long have you smoked: 50 yrs Exposure to second hand smoke: No Alcohol: None Drug Use: none Significant Family History: hypertension - Physical Exam Vital Signs: Vital Signs - 24 hr Temp Pulse Resp BP Pulse Ox 09/07/22 16:00 97.1 F 60 17 137/63 93 L 09/07/22 11:16 98.1 F 60 18 142/64 94 L 09/07/22 06:53 98.0 F 64 18 126/58 95 09/07/22 05:00 61 16 95 09/07/22 03:39 97.5 F 60 19 123/58 96 09/06/22 23:59 97.7 F 60 18 143/62 97 09/06/22 19:46 97.3 F 60 202/79 93 L 09/06/22 19:05 60 16 99 09/06/22 18:12 97.3 F 60 202/79 93 L 09/06/22 18:01 97.3 F 60 202/79 93 L General Appearance: no apparent distress (is pale) Neurologic Exam: alert, oriented x 3, cooperative, 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 nml as tested, normal mood/affect Eye Exam: eyes nml inspection Ears, Nose, Throat Exam: normal ENT inspection Neck Exam: normal inspection Respiratory Exam: diminished breath sounds (bases), No crackles/rales, No rhonchi, No wheezing Cardiovascular Exam: regular rate/rhythm, other (loud mechanical heart valve click) Gastrointestinal/Abdomen Exam: soft (increased BS), No tenderness, No distention, No guarding Pelvic Exam: not done Rectal Exam: not done, other (heme neg stoool today) Back Exam: No CVA tenderness Extremity Exam: other (no calf tenderness and no pitting edema) Skin Exam: pale Results - Labs Lab/Micro Results: Lab Results-Last 24 Hours 09/06/22 09/06/22 09/06/22 Range/Units 13:00 13:00 13:00 WBC (4.0-10.5) x10^3/uL RBC (4.1-5.4) x10^6/uL Hgb (12.0-16.0) g/dL Hct (35-47) % MCV (78-100) fL MCH (26-32) pg MCHC (32-36) g/dL RDW (11.5-14.0) % Plt Count (150-450) x10^3/uL MPV (7.5-11.0) fL Gran % (36.0-66.0) % Immature Gran % (Auto) (0.00-0.4) % Reticulocyte % (Auto) 2.8 H (0.6-2.6) % Nucleat RBC Rel Count (0.00-0.1) % Eos # (Auto) (0-0.5) x10^3/uL Immature Gran # (Auto) (0.00-0.03) x10^3u/L Absolute Lymphs (auto) (1.0-4.6) x10^3/uL Absolute Monos (auto) (0.0-1.3) x10^3/uL Absolute Nucleated RBC (0.00-0.01) x10^3u/L Lymphocytes % (24.0-44.0) % Monocytes % (0.0-12.0) % Eosinophils % (0.00-5.0) % Basophils % (0.0-0.4) % Absolute Granulocytes (1.4-6.9) x10^3/uL Basophils # (0-0.4) x10^3/uL Retic Hgb Content 29.1 (28-38) pg Sodium (137-145) mmol/L Potassium (3.5-5.1) mmol/L Chloride (98-107) mmol/L Carbon Dioxide (22-30) mmol/L Anion Gap (5-15) MEQ/L BUN (7-17) mg/dL Creatinine (0.52-1.04) mg/dL Estimated GFR ML/MIN Glucose (74-106) mg/dL Calcium (8.4-10.2) mg/dL Iron 25 L (37-170) ug/dL Total Bilirubin (0.2-1.3) mg/dL AST (14-36) U/L ALT (0-35) U/L Alkaline Phosphatase (38-126) U/L Troponin I (0.000-0.034) ng/mL NT-Pro-B Natriuret Pep (0-1800) pg/mL Serum Total Protein (6.3-8.2) g/dL Albumin (3.5-5.0) g/dL Vitamin B12 310 (239-931) pg/mL Stool Occult Blood (NEGATIVE) Slides for Path Review 09/06/22 09/07/22 09/07/22 Range/Units 17:40 04:09 04:09 WBC 3.3 L (4.0-10.5) x10^3/uL RBC 2.48 L (4.1-5.4) x10^6/uL Hgb 7.2 L (12.0-16.0) g/dL Hct 23.9 L (35-47) % MCV 96.4 (78-100) fL MCH 29.0 (26-32) pg MCHC 30.1 L (32-36) g/dL RDW 16.0 H (11.5-14.0) % Plt Count 121 L (150-450) x10^3/uL MPV 11.0 (7.5-11.0) fL Gran % 70.5 H (36.0-66.0) % Immature Gran % (Auto) 0.3 (0.00-0.4) % Reticulocyte % (Auto) (0.6-2.6) % Nucleat RBC Rel Count 0.0 (0.00-0.1) % Eos # (Auto) 0.07 (0-0.5) x10^3/uL Immature Gran # (Auto) 0.01 (0.00-0.03) x10^3u/L Absolute Lymphs (auto) 0.43 L (1.0-4.6) x10^3/uL Absolute Monos (auto) 0.44 (0.0-1.3) x10^3/uL Absolute Nucleated RBC 0.00 (0.00-0.01) x10^3u/L Lymphocytes % 13.2 L (24.0-44.0) % Monocytes % 13.5 H (0.0-12.0) % Eosinophils % 2.2 (0.00-5.0) % Basophils % 0.3 (0.0-0.4) % Absolute Granulocytes 2.29 (1.4-6.9) x10^3/uL Basophils # 0.01 (0-0.4) x10^3/uL Retic Hgb Content (28-38) pg Sodium 140 (137-145) mmol/L Potassium 3.2 L (3.5-5.1) mmol/L Chloride 109 H (98-107) mmol/L Carbon Dioxide 28 (22-30) mmol/L Anion Gap 5.7 (5-15) MEQ/L BUN 16 (7-17) mg/dL Creatinine 1.11 H (0.52-1.04) mg/dL Estimated GFR 50.4 ML/MIN Glucose 87 (74-106) mg/dL Calcium 8.3 L (8.4-10.2) mg/dL Iron (37-170) ug/dL Total Bilirubin 0.60 (0.2-1.3) mg/dL AST 49 H (14-36) U/L ALT 26 (0-35) U/L Alkaline Phosphatase 162 H (38-126) U/L Troponin I < 0.012 (0.000-0.034) ng/mL NT-Pro-B Natriuret Pep 2150 H (0-1800) pg/mL Serum Total Protein 5.6 L (6.3-8.2) g/dL Albumin 3.1 L (3.5-5.0) g/dL Vitamin B12 (239-931) pg/mL Stool Occult Blood (NEGATIVE) Slides for Path Review YES 09/07/22 Range/Units 09:54 WBC (4.0-10.5) x10^3/uL RBC (4.1-5.4) x10^6/uL Hgb (12.0-16.0) g/dL Hct (35-47) % MCV (78-100) fL MCH (26-32) pg MCHC (32-36) g/dL RDW (11.5-14.0) % Plt Count (150-450) x10^3/uL MPV (7.5-11.0) fL Gran % (36.0-66.0) % Immature Gran % (Auto) (0.00-0.4) % Reticulocyte % (Auto) (0.6-2.6) % Nucleat RBC Rel Count (0.00-0.1) % Eos # (Auto) (0-0.5) x10^3/uL Immature Gran # (Auto) (0.00-0.03) x10^3u/L Absolute Lymphs (auto) (1.0-4.6) x10^3/uL Absolute Monos (auto) (0.0-1.3) x10^3/uL Absolute Nucleated RBC (0.00-0.01) x10^3u/L Lymphocytes % (24.0-44.0) % Monocytes % (0.0-12.0) % Eosinophils % (0.00-5.0) % Basophils % (0.0-0.4) % Absolute Granulocytes (1.4-6.9) x10^3/uL Basophils # (0-0.4) x10^3/uL Retic Hgb Content (28-38) pg Sodium (137-145) mmol/L Potassium (3.5-5.1) mmol/L Chloride (98-107) mmol/L Carbon Dioxide (22-30) mmol/L Anion Gap (5-15) MEQ/L BUN (7-17) mg/dL Creatinine (0.52-1.04) mg/dL Estimated GFR ML/MIN Glucose (74-106) mg/dL Calcium (8.4-10.2) mg/dL Iron (37-170) ug/dL Total Bilirubin (0.2-1.3) mg/dL AST (14-36) U/L ALT (0-35) U/L Alkaline Phosphatase (38-126) U/L Troponin I (0.000-0.034) ng/mL NT-Pro-B Natriuret Pep (0-1800) pg/mL Serum Total Protein (6.3-8.2) g/dL Albumin (3.5-5.0) g/dL Vitamin B12 (239-931) pg/mL Stool Occult Blood NEGATIVE (NEGATIVE) Slides for Path Review - Radiology Impressions Radiology Exams & Impressions: Radiology Procedures Category Date Time Status ABDOMEN AND PELVIS W/0 CONTRAS [CT] Routine Exams 09/07/22 09:28 Completed CHEST 1 VIEW (PORTABLE) Stat Exams 09/06/22 13:12 Completed - Other Procedures and Tests Respiratory Therapy 09/06/22 21:20 Oxygen Nasal Cannula 2 lpm Respiratory Therapy Assessment DAILY Assessment/Plan (1) Anemia Current Visit: Yes Status: Acute Qualifiers: Anemia type: unspecified type Qualified Code(s): D64.9 - Anemia, unspecified Assessment & Plan: stool heme neg X 1 - see CT abd/pelvis Code(s): D64.9 - ANEMIA, UNSPECIFIED (2) Mechanical heart valve present Current Visit: Yes Status: Chronic Code(s): Z95.2 - PRESENCE OF PROSTHETIC HEART VALVE (3) jail current use of anticoagulant therapy Current Visit: Yes Status: Chronic Assessment & Plan: coumadin - INR = 2.1 on admission. Hold coumadin dose tonight Code(s): Z79.01 - EDI DEVELOPER (CURRENT) USE OF ANTICOAGULANTS (4) CHF (congestive heart failure) Current Visit: Yes Status: Acute Qualifiers: Heart failure chronicity: acute on chronic Assessment & Plan: Lasix given in ER Code(s): I50.9 - HEART FAILURE, UNSPECIFIED
[2022-09-07 19:31] LABS: Iron 28 ug/dL (37-170); Iron Saturation 8 % (20-39); TIBC 330 ug/dL (265-462)
[2022-09-07] MEDS: Lexapro PO SCH (21:56)
[2022-09-07] MEDS: ZOCOR 20MG PO SCH (21:57)
[2022-09-07 23:45] LABS: CROSS MATCH (PRBC) COMPATIBLE (COMPATIBLE)
[2022-09-07 23:46] LABS: ABO TYPING A; Antibody Screen NEGATIVE (NEGATIVE); RH TYPING POSITIVE
[2022-09-07] MEDS ORDERED: Sodium Chloride 0.9% 500 ML 500 ML IV ONE (23:52)
[2022-09-08] MEDS: NORCO 5/325 MG PO PRN ×2 (01:20→21:10)
[2022-09-08 05:10] LABS: Absolute Neutrophil Ct (ANC) 3.13 x10^3/uL (1.4-6.9); Basophil (Absolute #) 0.02 x10^3/uL (0-0.4); Eosinophil % 3.1 % (0.00-5.0); Eosinophil (Absolute #) 0.13 x10^3/uL (0-0.5); Hematocrit 28.7 % (35-47); Lymphocyte (Absolute #) 0.42 x10^3/uL (1.0-4.6); Mean Cell Volume 92.3 fL (78-100); Mean Corpuscular Hgb Concent. 30.3 g/dL (32-36); Monocytes % 11.9 % (0.0-12.0); Neutrophil % 74.3 % (36.0-66.0); Platelet Count 120 x10^3/uL (150-450); Red Blood Count 3.11 x10^6/uL (4.1-5.4); Red Cell Distribution Width 18.3 % (11.5-14.0); White Blood Count 4.2 x10^3/uL (4.0-10.5)
[2022-09-08 05:16] LABS: Hemoglobin 8.7 g/dL (12.0-16.0)
[2022-09-08 06:09] LABS: Slide Review 1 YES
[2022-09-08 06:16] LABS: INR 3.62 (0.8-3.0); PROTIME 34.1 SECONDS (9.4-12.5)
[2022-09-08] MEDS: Advair Hfa 115/21 Common canister IH SCH ×2 (06:50→19:08)
[2022-09-08 07:46] LABS: ALBUMIN 3.1 g/dL (3.5-5.0); ANION GAP 8.4 MEQ/L (5-15); BILIRUBIN,TOTAL 2.6 mg/dL (0.2-1.3); Calcium 8.4 mg/dL (8.4-10.2); Creatinine 1 1.24 mg/dL (0.52-1.04); EST GLOMERULAR FILTRATION RATE 44.3 ML/MIN; Potassium 3.6 mmol/L (3.5-5.1); Total Protein 5.7 g/dL (6.3-8.2)
--- NOTE | 2022-09-08 07:56 | CONS ---
CONSULT DATE: 09/07/2022 HISTORY: The patient has history of shortness of breath and a little bit of cough. She came in and she had anemia, fatigue and weakness. She denied any chest pain. She denied any abdominal pain. She denied any nausea, vomiting, diarrhea or bloody stools. She has been on warfarin for mitral valve replacement in the past. She also had coronary artery bypass graft and pacemaker in the past. She denies any bloody stools or melena. PAST MEDICAL HISTORY: Cataracts. Coronary artery disease. High cholesterol. Hypertension. Myocardial infarction. Bronchitis. Emphysema. Skin cancer. Kidney stones. PAST SURGICAL HISTORY: Stents for kidney stones in the past. She had cholecystectomy in the past. Last colonoscopy it looks like five years ago. She thought maybe Dr. Ger Wiggins did it. HOME MEDICATIONS: Atorvastatin. She had been on multivitamin of folic acid, vitamin C, vitamin E, zinc, copper, lutein, Zeaxanthin (Ocuvel) capsule. She has been on [place]-3 fatty acid. She has been on warfarin, carvedilol, cyanocobalamin/folic acid/vitamin B6. Amiodarone, escitalopram, folic acid, Entresto, spironolactone. ALLERGIES: NKDA. FAMILY HISTORY: Hypertension. SOCIAL HISTORY: Former smoker. REVIEW OF SYSTEMS: Fourteen systems reviewed. No chest pain or palpitations other systems negative or noncontributory as above and per preadmission questionnaire. LAB DATA AND TESTS: Hemoglobin 7.7, PLT 118,000 [address] she came in. CT showed some cardiomegaly, reflux, fecal stasis. PHYSICAL EXAMINATION: GENERAL: A chronically ill female in no acute distress. HEENT: Sclera nonicteric. CHEST: Equal excursion, nonlabored breathing. CVS: Rhythm and pulse. ABDOMEN: Soft, nontender. No peritoneal signs. EXTREMITIES: No significant edema. NEURO: Alert and oriented. PSYCH: Appropriate mood and affect. SKIN: Dry. IMPRESSION: Anemia with hemoglobin 7.7. The patient is on anticoagulation for heart disease, mitral valve replacement, coronary artery bypass graft and pacemaker. I am seeing the patient for Dr. Ryan Mccurdy who was fashion artist for our group today. If she stays in the hospital he could plan on endoscopy later in the week. If she gets transferred to [place] either he could do an upper and lower endoscope versus having GI do. She understands general risk of bleeding or infection, risk of bowel injury or perforation, risk of missed or nondiagnosis but not limited to. She understands that she is a high risk of bleeding as she would have to go back on anticoagulation postoperatively, risk of stroke holding her anticoagulation temporarily. I suggest holding her Coumadin and switching her over the Lovenox or some other anticoagulant that can wear off quicker than the Coumadin.
[2022-09-08] MEDS ORDERED: Vitamin K 10 MG/ML PO ONE (09:08)
[2022-09-08] MEDS: COREG 12.5 MG PO SCH (09:57)
[2022-09-08] MEDS: Cordarone 200 MG PO SCH (09:57)
[2022-09-08] MEDS: Ocuvite Tablet PO SCH ×2 (09:57→21:06)
[2022-09-08] MEDS: FISH OIL 1,000 MG CAPSULE PO SCH (09:57)
[2022-09-08] MEDS: BUSPAR 5 MG PO SCH ×2 (09:57→21:05)
[2022-09-08] MEDS: ENTRESTO 49 MG-51 MG TABLET PO SCH ×2 (09:58→21:06)
[2022-09-08] MEDS: FOLTX (FOLBIC) PO SCH (09:58)
[2022-09-08] MEDS: Aldactone 25 MG PO SCH (09:58)
[2022-09-08] MEDS: FOLATE 1 MG PO SCH (09:58)
[2022-09-08] MEDS: FEOSOL 325 MG PO SCH ×2 (09:58→21:06)
[2022-09-08] MEDS: Cyclobenzaprine 10 MG PO SCH ×3 (09:58→21:05)
[2022-09-08] MEDS: Lexapro PO SCH (21:06)
[2022-09-08] MEDS: ZOCOR 20MG PO SCH (21:06)
[2022-09-09 03:57] LABS: Hematocrit 28.4 % (35-47); Hemoglobin 8.6 g/dL (12.0-16.0); Mean Cell Volume 93.4 fL (78-100); Mean Corpuscular Hemoglobin 28.3 pg (26-32); Mean Corpuscular Hgb Concent. 30.3 g/dL (32-36); Mean Platelet Volume 10.8 fL (7.5-11.0); Platelet Count 111 x10^3/uL (150-450); Red Blood Count 3.04 x10^6/uL (4.1-5.4); Red Cell Distribution Width 18.6 % (11.5-14.0); White Blood Count 3.3 x10^3/uL (4.0-10.5)
[2022-09-09 04:17] LABS: ANION GAP 8.2 MEQ/L (5-15); Calcium 8.2 mg/dL (8.4-10.2); Creatinine 1 1.14 mg/dL (0.52-1.04); EST GLOMERULAR FILTRATION RATE 48.9 ML/MIN; Potassium 3.6 mmol/L (3.5-5.1)
[2022-09-09 04:59] LABS: INR 1.65 (0.8-3.0); PROTIME 16.7 SECONDS (9.4-12.5)
[2022-09-09] MEDS: Advair Hfa 115/21 Common canister IH SCH (07:04)
[2022-09-09] MEDS: FEOSOL 325 MG PO SCH (09:23)
[2022-09-09] MEDS: FOLATE 1 MG PO SCH (09:23)
[2022-09-09] MEDS: BUSPAR 5 MG PO SCH (09:24)
[2022-09-09] MEDS: FISH OIL 1,000 MG CAPSULE PO SCH (09:24)
[2022-09-09] MEDS: Cyclobenzaprine 10 MG PO SCH (09:24)
[2022-09-09] MEDS: ENTRESTO 49 MG-51 MG TABLET PO SCH (09:25)
[2022-09-09] MEDS: Ocuvite Tablet PO SCH (09:25)
[2022-09-09] MEDS: FOLTX (FOLBIC) PO SCH (09:26)
[2022-09-09] MEDS: Cordarone 200 MG PO SCH (09:26)
[2022-09-09] MEDS: Aldactone 25 MG PO SCH (09:26)
[2022-09-09] MEDS: COREG 12.5 MG PO SCH (09:26)
[2022-09-09 11:41] VITALS: BP 145/66; PULSE 63; O2SAT 95
== END 2022-09-09 12:25 | disposition home or self-care (01) ==
LOC: ED 11:16 → MED SURG 17:54
PROVIDERS: ADMIT Family Medicine; ATTEND Family Medicine
DX: D64.9 Anemia, unspecified (principal); I11.0 Hypertensive heart disease with heart failure; I50.9 Heart failure, unspecified; I25.10 Atherosclerotic heart disease of native coronary artery without angina pectoris; R77.8 Other specified abnormalities of plasma proteins; E78.5 Hyperlipidemia, unspecified; Z79.899 Other long term (current) drug therapy; Z20.828 Contact with and (suspected) exposure to other viral communicable diseases; Z79.01 Long term (current) use of anticoagulants; Z85.828 Personal history of other malignant neoplasm of skin
CPT/HCPCS: 0241U; 36000; 36415; 36430; 71045; 74176; 80048; 80053; 82607; 82728; 83540; 83550; 83605; 83880; 84484; 85025; 85027; 85045; 85046; 85379; 85610; 86850; 86900; 86901; 86922; 87040; 93005; 93041; 94640; 94760; 96374; 99285; G0008; G0328; P9016; 82274; 90662; 93268; 96375; J1940; J3430; A9270-GY; G0378

== ENCOUNTER 2022-10-15 14:18 | Observation (INO) | payer MEDICARE ==
[2022-10-15 15:20] LABS: Absolute Neutrophil Ct (ANC) 7.11 x10^3/uL (1.4-6.9); Basophil (Absolute #) 0.02 x10^3/uL (0-0.4); Eosinophil (Absolute #) 0 x10^3/uL (0-0.5); Hematocrit 27.6 % (35-47); Hemoglobin 8.5 g/dL (12.0-16.0); Mean Cell Volume 101.1 fL (78-100); Mean Corpuscular Hemoglobin 31.1 pg (26-32); Mean Corpuscular Hgb Concent. 30.8 g/dL (32-36); Mean Platelet Volume 10.9 fL (7.5-11.0); Monocyte (Absolute #) 0.76 x10^3/uL (0.0-1.3); Monocytes % 8.9 % (0.0-12.0); Neutrophil % 83.5 % (36.0-66.0); Platelet Count 167 x10^3/uL (150-450); Red Blood Count 2.73 x10^6/uL (4.1-5.4); Red Cell Distribution Width 19.4 % (11.5-14.0); White Blood Count 8.5 x10^3/uL (4.0-10.5)
[2022-10-15 15:44] LABS: INR 1.64 (0.8-3.0); PROTIME 16.6 SECONDS (9.4-12.5)
[2022-10-15 15:55] LABS: ALBUMIN 3.5 g/dL (3.5-5.0); ALKALINE PHOSPHATASE 249 U/L (38-126); BLOOD UREA NITROGEN 26 mg/dL (7-17); CHLORIDE 111 mmol/L (98-107); Carbon Dioxide 25 mmol/L (22-30); Creatinine 1 1.03 mg/dL (0.52-1.04); EST GLOMERULAR FILTRATION RATE 54.9 ML/MIN; Glucose 122 mg/dL (74-106); MAGNESIUM 2.1 mg/dL (1.6-2.3); Potassium 4.1 mmol/L (3.5-5.1); SGOT/AST 80 U/L (14-36); SGPT/ALT 40 U/L (0-35); SODIUM 140 mmol/L (137-145); TROPONIN < 0.012 ng/mL (0.000-0.034)
--- NOTE | 2022-10-15 15:57 | ERPHSYRPT ---
- History of Present Illness Time Seen by Provider: 10/15/22 14:48 Source: patient, family Exam Limitations: no limitations Patient Subjective Stated Complaint: Pt c/o of dizziness, overall not feeling well, near syncopal episode at doctors office, hypertension, anemia Triage Nursing Assessment: Pt brought to the ER by her , hypertensive, denies pain, anemic, weak, got dizzy at doctors office and stated that she felt like she was going to pass out, Dr. Dharmesh Guidry recommended her to come to the ER due to her blood pressure being elevated, pulses normal, skin n/w/d, states that she feels short of breath Physician History: 77 years old female with history of hypertension, mechanical heart valve on Coumadin, chronic anemia of unknown cause possible GI loss and is scheduled to have scope done in the next few days is sent in ER from primary care with blood pressure in 160s and she started to feel little lightheaded with standing up and ambulating. Patient reports it felt as if she was going to pass out. Denies any chest pain palpitations or shortness of breath before or after the episode. She is back to her normal now. She does not report any focal numbness tingling or weakness. Patient reports usually her blood pressure is in 120s. She switched from Coumadin to Lovenox today before the procedure. Denies any nausea vomiting or diarrhea. Timing/Duration: resolved prior to arrival, sudden Severity: moderate Modifying Factors: Worsens With: movement Associated Symptoms: weakness (Generalized), No nausea, No vomiting, No abdominal pain, No shortness of breath, No heartburn, No diaphoresis, No cough, No chills, No chest pain, No fever, No headaches, No loss of appetite, No malaise, No syncope, No seizure Allergies/Adverse Reactions: No Known Drug Allergies Allergy (Verified 10/15/22 15:08) Home Medications: Atorvastatin Calcium 40 mg PO HS 12/22/15 [History] FA/Vit C/E/Zinc/Copper/Lut/Dov [Ocuvel Capsule] 1 each PO BID 02/15/18 [History] Frankston-3 Fatty Acids [Frankston-3] 1,000 mg PO DAILY 02/15/18 [History] Warfarin Sodium 3 mg [Coumadin 3 MG] 3 mg PO DAILY@1800 02/15/18 [History] Carvedilol 3.125 mg [Coreg 3.125 MG] 12.5 mg PO DAILY 02/16/18 [History] Cyanocobalamin/Folic AC/Vit B6 [Homocysteine Formula Tablet] 1 each PO DAILY 09/07/18 [History] Buspirone HCl 5 mg [Buspar 5 mg] 7.5 mg PO BID 10/18/19 [History] Amiodarone HCl 200 mg PO DAILY 02/10/22 [History] Escitalopram Oxalate [Lexapro] 20 mg PO HS 02/10/22 [History] Folic Acid 1 mg [Folate 1 mg] 1,332 mcg PO DAILY 04/07/22 [History] Sacubitril/Valsartan [Entresto 49 mg-51 mg Tablet] 1 each PO BID 04/07/22 [History] Spironolactone 25 mg [Aldactone 25 MG] 25 mg PO DAILY 04/07/22 [History] Hx Tetanus, Diphtheria Vaccination/Date Given: No Hx Influenza Vaccination/Date Given: Yes Hx Pneumococcal Vaccination/Date Given: Yes Travel Risk - International Travel Have you traveled outside of the country in past 3 weeks: No - Coronavirus Screening Are you exhibiting any of the following symptoms?: No - Vaccine Status Have you recieved a Covid-19 vaccination: Yes Real Time Operator: Moderna - Vaccination Dates Date of 2cond Vaccination (if applicable): 12/2020 - Review of Systems Constitutional: Fatigue, Weakness Eyes: No Symptoms Ears, Nose, & Throat: No Symptoms Respiratory: No Symptoms Cardiac: No Symptoms Abdominal/Gastrointestinal: No Symptoms Genitourinary Symptoms: No Symptoms Musculoskeletal: Arthralgias Skin: No Symptoms Neurological: Dizziness Psychological: No Symptoms Endocrine: No Symptoms Hematologic/Lymphatic: No Symptoms Immunological/Allergic: No Symptoms - Past Medical History Pertinent Past Medical History: Yes Neurological History: No Pertinent History ENT History: Cataracts, Macular Degeneration Cardiac History: Congestive Heart Failure, Coronary Artery Disease, High Cholesterol, Hypertension, Myocardial Infarction ([place]) Respiratory History: Bronchitis, Emphysema, Pneumonia Endocrine Medical History: No Pertinent History Musculoskeletal History: Osteoporosis, Other GI Medical History: Gallbladder Disease History: Other Psycho-Social History: Depression, Anxiety Female Reproductive Disorders: No Pertinent History Other Medical History: skin ca,. hx kidney stones and hx intermittant kidney failure. anemia - Past Surgical History Past Surgical History: Yes Neuro Surgical History: No Pertinent History Cardiac: CABG, Valve Replacement, Cardiac Catheterization, Pacemaker Respiratory: No Pertinent History Gastrointestinal: Other, Cholecystectomy Genitourinary: Kidney Surgery Musculoskeletal: No Pertinent History Female Surgical History: No Pertinent History Other Surgical History: kidney stent x 2. colonoscopy and EGD 2017. revision of pacemaker. stent x 1 in 2020 - Social History Smoking Status: Former smoker How long have you smoked: 50 yrs Exposure to second hand smoke: No Alcohol Use: Socially Drug Use: none Patient Lives Alone: No Significant Family History: hypertension - Nursing Vital Signs Nursing Vital Signs: Initial Vital Signs Temperature 96.7 F 10/15/22 14:57 Pulse Rate 60 10/15/22 14:57 Respiratory Rate 12 10/15/22 14:57 Blood Pressure 177/67 10/15/22 14:57 O2 Sat by Pulse Oximetry 100 10/15/22 14:57 Pain Scale Pain Intensity 0 - Physical Exam General Appearance: no apparent distress, alert Eye Exam: PERRL/EOMI Ears, Nose, Throat Exam: normal ENT inspection, TMs normal, pharynx normal, moist mucous membranes Neck Exam: normal inspection, non-tender, supple, full range of motion Respiratory Exam: normal breath sounds, lungs clear Cardiovascular Exam: regular rate/rhythm, normal heart sounds Gastrointestinal/Abdomen Exam: soft, normal bowel sounds, No tenderness Back Exam: normal inspection, normal range of motion Extremity Exam: normal inspection, normal range of motion Neurologic Exam: alert, oriented x 3, cooperative, facilities administrator II-XII nml as tested, normal mood/affect, nml cerebellar function, sensation nml, No motor deficits Skin Exam: normal color SpO2 Interpretation: normal SpO2: 100 O2 Delivery: Room Air - Course EKG Interpreted by Me: RATE (Atrial paced rhythm 60), NORMAL INTERVALS, Right Bundle Branch Block, Non-specific ST Changes Ordered Tests: Active Orders 24 hr Category Date Time Status Screen Handler STAT Care 10/15/22 15:01 Active EKG-ER Only STAT Care 10/15/22 15:00 Active IV Insertion STAT Care 10/15/22 15:00 Active CHEST 1 VIEW (PORTABLE) Stat Exams 10/15/22 15:00 Completed HEAD WITHOUT CONTRAST [CT] Stat Exams 10/15/22 15:01 Completed CBC W DIFF Stat Lab 10/15/22 15:18 Completed CMP Stat Lab 10/15/22 15:18 Completed MAGNESIUM Stat Lab 10/15/22 15:18 Completed PT INR [PROTIME WITH INR] Stat Lab 10/15/22 15:18 Completed TROPONIN Q4H Lab 10/15/22 15:18 Completed TROPONIN Q4H Lab 10/15/22 19:00 Ordered TROPONIN Q4H Lab 10/15/22 23:00 Ordered UA W/RFX UR CULTURE Stat Lab 10/15/22 15:00 Ordered Transfer Order Routine Transfer 10/15/22 Ordered Medication Summary Generic Name Dose Route Start Last Admin Trade Name Freq PRN Reason Stop Dose Admin Sodium Chloride 1,000 mls @ 75 mls/hr 10/15/22 17:45 Sodium Chloride 0.9% 1000 Ml IV 11/14/22 17:44 .[id number] [facility] Lab/Rad Data: Laboratory Result Diagrams 10/15/22 15:18 10/15/22 15:18 Laboratory Results 10/15/22 10/15/22 10/15/22 Range/Units 15:18 15:18 15:18 WBC 8.5 (4.0-10.5) x10^3/uL RBC 2.73 L (4.1-5.4) x10^6/uL Hgb 8.5 L (12.0-16.0) g/dL Hct 27.6 L (35-47) % MCV 101.1 H (78-100) fL MCH 31.1 (26-32) pg MCHC 30.8 L (32-36) g/dL RDW 19.4 H (11.5-14.0) % Plt Count 167 (150-450) x10^3/uL MPV 10.9 (7.5-11.0) fL Gran % 83.5 H (36.0-66.0) % Immature Gran % (Auto) 0.4 (0.00-0.4) % Nucleat RBC Rel Count 0.0 (0.00-0.1) % Eos # (Auto) 0 (0-0.5) x10^3/uL Immature Gran # (Auto) 0.03 (0.00-0.03) x10^3u/L Absolute Lymphs (auto) 0.60 L (1.0-4.6) x10^3/uL Absolute Monos (auto) 0.76 (0.0-1.3) x10^3/uL Absolute Nucleated RBC 0.00 (0.00-0.01) x10^3u/L Lymphocytes % 7.0 L (24.0-44.0) % Monocytes % 8.9 (0.0-12.0) % Eosinophils % 0.0 (0.00-5.0) % Basophils % 0.2 (0.0-0.4) % Absolute Granulocytes 7.11 H (1.4-6.9) x10^3/uL Basophils # 0.02 (0-0.4) x10^3/uL PT 16.6 H (9.4-12.5) SECONDS INR 1.64 (0.8-3.0) Sodium 140 (137-145) mmol/L Potassium 4.1 (3.5-5.1) mmol/L Chloride 111 H (98-107) mmol/L Carbon Dioxide 25 (22-30) mmol/L Anion Gap 8.0 (5-15) MEQ/L BUN 26 H (7-17) mg/dL Creatinine 1.03 (0.52-1.04) mg/dL Estimated GFR 54.9 ML/MIN Glucose 122 H (74-106) mg/dL Calcium 9.0 (8.4-10.2) mg/dL Magnesium 2.1 (1.6-2.3) mg/dL Total Bilirubin 0.70 (0.2-1.3) mg/dL AST 80 H (14-36) U/L ALT 40 H (0-35) U/L Alkaline Phosphatase 249 H (38-126) U/L Troponin I < 0.012 (0.000-0.034) ng/mL Serum Total Protein 6.0 L (6.3-8.2) g/dL Albumin 3.5 (3.5-5.0) g/dL - Progress Progress: unchanged, re-examined Progress Note: 10/15/22 17:51 77 years old female with multiple medical problems including mechanical heart valve on anticoagulation, hypertension, chronic anemia of unknown cause was scheduled to have colonoscopies soon with evaluated the ER after she had a high blood pressure and feeling lightheaded while at the primary care office. Patient feels lightheaded with ambulation but denies any chest pain palpitations or shortness of breath. EKG showed paced rhythm with no acute ischemic changes and negative initial troponins. He is given gentle hydration. Work-up showed hemoglobin of 8.5 which was 9.7 yesterday. Patient denies any dark stool, hematochezia or hemoptysis. No hematuria. I have obtained CT head because of her being on anticoagulation and is negative. Chest x-ray negative for any acute cardiopulmonary findings as well. I have ambulated her in the ER and she can hardly go to the door and wanted to go back on the bed because she was feeling lightheaded and as if she was going to pass out. No tachycardia. I have discussed with Dr. Williamson, since patient is symptomatic, recommended type crossmatch and transfusing 1 unit. Patient is being admitted to the hospitalist service. Discussed with : Dina Will see patient in: hospital (observation) Counseled pt/family regarding: lab results, diagnosis, need for follow-up, rad results - Departure Departure Disposition: Observation Clinical Impression: Symptomatic anemia, Lightheadedness Condition: Stable Critical Care Time: No Referrals: ANA MARIA GUIDRY [Primary Care Provider] - Follow up/PCP as directed
--- NOTE | 2022-10-15 16:11 | XRAY ---
Indication: Dizziness. Hypertension. Multiple contiguous axial images obtained through the head without contrast. Comparison: None Age-appropriate global atrophy and minimal periventricular degenerative micro-ischemia bilaterally. 8 mm right external capsule and smaller 4 mm right basal ganglia lacunar infarcts No acute intracranial hemorrhage, abnormal extra-axial fluid collection, or mass effect. Fourth ventricle is midline without hydrocephalus. Barrera-white matter differentiation preserved. Bony calvarium intact. Visualized paranasal sinuses and mastoid air cells are clear. Impression: Nonacute senile brain with right external capsule and right basal ganglia remote lacunar infarcts.
--- NOTE | 2022-10-15 16:17 | XRAY ---
Indication: Dizziness. Hypertension. Comparison: September 06, 2022 Portable chest again hyperinflated with clearing previous bibasilar airspace disease. 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 Heart not enlarged. Bony thorax intact again with osteopenia, degenerative changes, and old bilateral rib fractures. Impression: Nonacute chest with chronic features.
[2022-10-15] MEDS ORDERED: Sodium Chloride 0.9% 1000 ML 1,000 ML IV SCH (17:45)
[2022-10-15] MEDS ORDERED: APRESOLINE 20 MG/ML INJ IV ONE (18:12)
[2022-10-15 19:12] LABS: INFLUENZA A NEGATIVE (NEGATIVE); INFLUENZA B NEGATIVE (NEGATIVE); RESPIRATORY SYNCTIAL VIRUS NEGATIVE (Negative); SARS-CoV-2 Xpert Express NEGATIVE (NEGATIVE)
[2022-10-15 20:50] LABS: ABO TYPING A
[2022-10-15 20:51] LABS: Antibody Screen NEGATIVE (NEGATIVE); RH TYPING POSITIVE
[2022-10-15] MEDS ORDERED: TYLENOL 325 MG PO PRN (21:30)
[2022-10-15] MEDS ORDERED: Zofran 4 MG/2 ML VIAL IV PRN (21:30)
[2022-10-15 21:46] LABS: CROSS MATCH (PRBC) COMPATIBLE (COMPATIBLE)
[2022-10-15] MEDS ORDERED: BUSPAR 5 MG PO SCH (23:30)
[2022-10-15] MEDS ORDERED: ZOCOR 20MG PO SCH (23:30)
[2022-10-15] MEDS ORDERED: COREG 12.5 MG PO SCH (23:31)
[2022-10-15] MEDS ORDERED: clonazePAM PO SCH (23:31)
[2022-10-15] MEDS ORDERED: CLONIDINE 0.1 MG TABLET PO SCH (23:32)
[2022-10-15] MEDS ORDERED: Cyclobenzaprine 10 MG PO PRN (23:32)
[2022-10-15] MEDS ORDERED: Trandate 100 MG PO SCH (23:33)
[2022-10-15] MEDS ORDERED: Lexapro PO SCH (23:33)
[2022-10-15] MEDS ORDERED: ULTRAM 50 MG PO PRN (23:34)
[2022-10-15] MEDS ORDERED: ENTRESTO 49 MG-51 MG TABLET PO SCH (23:34)
[2022-10-15] MEDS ORDERED: PROVENTIL 2.5 MG/3 ML NEB IH PRN (23:55)
[2022-10-15 23:56] LABS: Appearance Clear (Clear); Bacteria None Seen /HPF (None Seen); Bilirubin Negative (Negative); Blood Negative (Negative); Epithelial Cells None Seen /HPF (None Seen); Glucose Negative (Negative); Ketones Trace (Negative); Leukocyte Esterase Negative (Negative); Nitrite Negative (Negative); Ph 5.5 (4.6-8.0); Protein,Urine Dip Trace (Negative); RBC 0-2 /HPF (0-5); Urobilinogen 0.2 mg/dL (0.2); WBC 0-2 /HPF (0-5)
[2022-10-15 23:57] LABS: ADD URINE CULTURE? NO (NO)
[2022-10-16] MEDS: PROVENTIL 2.5 MG/3 ML NEB IH SCH ×2 (00:12→01:21)
[2022-10-16 01:34] LABS: Absolute Neutrophil Ct (ANC) 4.81 x10^3/uL (1.4-6.9); Basophil (Absolute #) 0.02 x10^3/uL (0-0.4); Eosinophil % 0.5 % (0.00-5.0); Eosinophil (Absolute #) 0.03 x10^3/uL (0-0.5); Hematocrit 30.4 % (35-47); Lymphocyte (Absolute #) 0.52 x10^3/uL (1.0-4.6); Lymphocytes % 8.8 % (24.0-44.0); Mean Cell Volume 100.3 fL (78-100); Mean Corpuscular Hemoglobin 29.7 pg (26-32); Mean Corpuscular Hgb Concent. 29.6 g/dL (32-36); Mean Platelet Volume 10.8 fL (7.5-11.0); Monocyte (Absolute #) 0.53 x10^3/uL (0.0-1.3); Monocytes % 8.9 % (0.0-12.0); Neutrophil % 81.2 % (36.0-66.0); Platelet Count 138 x10^3/uL (150-450); Red Blood Count 3.03 x10^6/uL (4.1-5.4); Red Cell Distribution Width 20.2 % (11.5-14.0); White Blood Count 5.9 x10^3/uL (4.0-10.5)
[2022-10-16 01:57] LABS: ANION GAP 7.1 MEQ/L (5-15); BILIRUBIN,TOTAL 0.8 mg/dL (0.2-1.3); Calcium 8.3 mg/dL (8.4-10.2); Creatinine 1 1.01 mg/dL (0.52-1.04); EST GLOMERULAR FILTRATION RATE 56.2 ML/MIN; Potassium 3.7 mmol/L (3.5-5.1); Total Protein 5.6 g/dL (6.3-8.2)
[2022-10-16] MEDS ORDERED: Advair Hfa 115/21 Common canister IH SCH (07:00)
[2022-10-16 07:43] VITALS: BP 133/80; PULSE 63; O2SAT 97
[2022-10-16] MEDS ORDERED: PROTONIX 40 MG IV IV SCH (10:00)
== END 2022-10-16 09:49 | disposition home or self-care (01) ==
LOC: ED 14:18 → MED SURG 21:08
PROVIDERS: ADMIT Family Medicine; ATTEND Family Medicine
DX: D64.9 Anemia, unspecified (principal); R55 Syncope and collapse; I11.0 Hypertensive heart disease with heart failure; I50.9 Heart failure, unspecified; I25.10 Atherosclerotic heart disease of native coronary artery without angina pectoris; Z79.01 Long term (current) use of anticoagulants; Z79.899 Other long term (current) drug therapy; Z20.828 Contact with and (suspected) exposure to other viral communicable diseases; Z85.828 Personal history of other malignant neoplasm of skin
CPT/HCPCS: 0241U; 36000; 36415; 36430; 70450; 71045; 80053; 81001; 83735; 84484; 85025; 85610; 86850; 86900; 86901; 86922; 93005; 93041; 94640; 94760; 99285; P9016; 93268; A9270-GY; G0378

== ENCOUNTER 2022-10-18 20:20 | Emergency (ER) | payer MEDICARE ==
[2022-10-18 20:47] VITALS: PULSE 60; O2SAT 98
--- NOTE | 2022-10-18 21:26 | ERPHSYRPT ---
- History of Present Illness Source: patient, other (Son) Exam Limitations: no limitations Patient Subjective Stated Complaint: I took 7 Tylenol by accident, thinking it was my Sutab for my colonoscopy tomorrow. Triage Nursing Assessment: pt ambulated to ER without diff. Pt was brought in by her son. Pt accidentally took 7 ES Tylenol all 2 minutes apart starting at 8pm tonight, instead of taking her Sutab for her colonoscopy tomorrow. Pt's gave her the bottle and she has macular degeneration and didn't realize it was the wrong bottle until she had taken 7 of them. She realized there was more pills in the bottle than just 12 (which is what she should've been taking). Pt denies any pain or any other symptoms. Physician History: 77 yo WF w macular degeneration accidently took 3.5gms of tylenol by mistake when she was supposed to be taking her bowel prep pills. Pt/son brought in bottle and deny other ingestion or suicide attempt. She denies any symptoms at this time. [place] Poison Control state not critical ingestion and ok to send home wo tylenol level or observation. Timing/Duration: other (before arrival) Severity: mild Modifying Factors: Improves With: nothing Associated Symptoms: denies symptoms Allergies/Adverse Reactions: No Known Drug Allergies Allergy (Verified 10/18/22 20:58) Home Medications: Atorvastatin Calcium 40 mg PO HS 12/22/15 [History] Warfarin Sodium 3 mg [Coumadin 3 MG] 3 mg PO DAILY@1800 02/15/18 [History] Carvedilol 3.125 mg [Coreg 3.125 MG] 12.5 mg PO BID 02/16/18 [History] Buspirone HCl 5 mg [Buspar 5 mg] 7.5 mg PO BID 10/18/19 [History] Amiodarone HCl 200 mg PO DAILY 02/10/22 [History] Escitalopram Oxalate [Lexapro] 20 mg PO HS 02/10/22 [History] Sacubitril/Valsartan [Entresto 49 mg-51 mg Tablet] 1 each PO BID 04/07/22 [History] Albuterol 2.5 mg/3 ml Neb [Proventil 2.5 mg/3 ml Neb] 2.5 mg IH BID 03/02 [History] Amlodipine Besylate 5 mg [Norvasc 5 mg] 5 mg PO DAILY 10/15/22 [History] Bumetanide 1 mg [Bumex 1 mg] 0.5 mg PO DAILY 10/15/22 [History] Cefdinir 300 mg PO Q12H 10/15/22 [History] Clonazepam [Klonopin] 0.5 mg PO BID 10/15/22 [History] Clonidine HCl 0.1 mg [Clonidine 0.1 mg Tablet] 0.1 mg PO BID 10/15/22 [History] Denosumab 60 mg [Prolia 60 mg Injection] 60 mg SQ UD 10/15/22 [History] Fluticasone/Umeclidin/Vilanter [Trelegy Ellipta 100-62.5-25] 1 each IH DAILY 10/15/22 [History] Labetalol HCl 100 mg [Trandate 100 MG] 100 mg PO BID 10/15/22 [History] NIFEdipine [Nifedipine ER] 90 mg PO DAILY 10/15/22 [History] [place]ax[place]-3 Fatty Acids/Fish Oil [Fish Oil 1,000 mg Capsule] 1,000 mg PO DAILY 10/15/22 [History] Omeprazole 20 mg PO DAILY 10/15/22 [History] Prednisone 20 mg [Deltasone 20 mg] 20 mg PO DAILY 10/15/22 [History] Tramadol HCl 50 mg [Ultram 50 mg] 50 mg PO Q8H PRN PRN 10/15/22 [History] Hx Tetanus, Diphtheria Vaccination/Date Given: Yes Hx Influenza Vaccination/Date Given: No Hx Pneumococcal Vaccination/Date Given: No Immunizations Up to Date: No Travel Risk - International Travel Have you traveled outside of the country in past 3 weeks: No - Coronavirus Screening Are you exhibiting any of the following symptoms?: Yes Symptoms: Cough: New Onset Close contact with a COVID-19 positive Pt in past 14-21 Days: No - Vaccine Status Have you recieved a Covid-19 vaccination: Yes C++ Professor: Moderna - Vaccination Dates Date of 2cond Vaccination (if applicable): . - Review of Systems Constitutional: No Symptoms Eyes: No Symptoms Ears, Nose, & Throat: No Symptoms Respiratory: No Symptoms Cardiac: No Symptoms Abdominal/Gastrointestinal: No Symptoms Genitourinary Symptoms: No Symptoms Musculoskeletal: No Symptoms Skin: No Symptoms Neurological: No Symptoms Psychological: No Symptoms Endocrine: No Symptoms Hematologic/Lymphatic: No Symptoms Immunological/Allergic: No Symptoms - Past Medical History Pertinent Past Medical History: Yes Neurological History: No Pertinent History ENT History: Cataracts, Macular Degeneration Cardiac History: Congestive Heart Failure, Coronary Artery Disease, Hypertension, Myocardial Infarction ([place]) Respiratory History: Bronchitis, Emphysema, Pneumonia Endocrine Medical History: No Pertinent History Musculoskeletal History: Osteoporosis, Other GI Medical History: Gallbladder Disease History: Other Psycho-Social History: Depression, Anxiety Female Reproductive Disorders: No Pertinent History Other Medical History: skin ca,. hx kidney stones. anemia - Past Surgical History Past Surgical History: Yes Neuro Surgical History: No Pertinent History Cardiac: CABG, Valve Replacement, Cardiac Catheterization, Pacemaker Respiratory: No Pertinent History Gastrointestinal: Other, Cholecystectomy Genitourinary: Kidney Surgery Musculoskeletal: No Pertinent History Female Surgical History: No Pertinent History Other Surgical History: kidney stent x 2. colonoscopy and EGD 2016. revision of pacemaker. stent x 1 in 2020 - Social History Smoking Status: Former smoker How long have you smoked: 50 yrs Exposure to second hand smoke: No Alcohol Use: Socially Drug Use: none Patient Lives Alone: No Significant Family History: hypertension - Nursing Vital Signs Nursing Vital Signs: Initial Vital Signs Temperature 97.0 F 10/18/22 20:45 Pulse Rate 60 10/18/22 20:45 Respiratory Rate 18 10/18/22 20:45 Blood Pressure 204/72 10/18/22 20:45 O2 Sat by Pulse Oximetry 98 10/18/22 20:45 Pain Scale Pain Intensity 0 Hypertensive - Physical Exam General Appearance: no apparent distress Eye Exam: PERRL/EOMI, eyes nml inspection Ears, Nose, Throat Exam: normal ENT inspection, TMs normal, pharynx normal, moist mucous membranes Neck Exam: normal inspection, non-tender, supple, full range of motion, No meningismus, No mass, No Brudzinski, No Kernig's Respiratory Exam: airway intact, crackles/rales (Bibasilar rales), No respiratory distress Cardiovascular Exam: regular rate/rhythm, murmur (Audible prosthetic valve) Gastrointestinal/Abdomen Exam: soft, normal bowel sounds, No tenderness Back Exam: normal inspection, normal range of motion, No CVA tenderness, No vertebral tenderness Extremity Exam: normal inspection, normal range of motion Neurologic Exam: alert, oriented x 3, cooperative, division head II-XII nml as tested, n ormal mood/affect, nml cerebellar function, nml station & gait, sensation nml Skin Exam: normal color, warm, dry Lymphatic Exam: No adenopathy SpO2 Interpretation: normal SpO2: 98 O2 Delivery: Room Air - Course Nursing assessment & vital signs reviewed: Yes - Progress Progress Note: 10/18/22 21:27 Pt w non-critical ingestion per [facility] wo need for tylenol level or observation. She is without symptoms and will be sent home 10/18/22 21:29 BP decreased without treatment Counseled pt/family regarding: diagnosis, need for follow-up - Departure Departure Disposition: Home Clinical Impression: Accidental drug ingestion Condition: Stable Critical Care Time: No Referrals: ANA MARIA GUIDRY [Primary Care Provider] - Follow up/PCP as directed Instructions: Acetaminophen Poisoning (DC) Additional Instructions: Avoid any tylenol for 2 days Follow up with your family MD Return to ER as needed
[2022-10-18 21:29] VITALS: BP 174/61
== END 2022-10-18 21:37 | disposition home or self-care (01) ==
LOC: ED 20:20
DX: Z03.6 Encounter for observation for suspected toxic effect from ingested substance ruled out (principal); Z79.01 Long term (current) use of anticoagulants; Z79.52 Long term (current) use of systemic steroids; Z79.891 Long term (current) use of opiate analgesic; Z79.899 Other long term (current) drug therapy
CPT/HCPCS: 99283

== ENCOUNTER 2023-01-16 11:47 | Emergency (ER) | payer MEDICARE ==
[2023-01-16] MEDS ORDERED: Lasix 40 MG/4 ML IV ONE (11:57)
[2023-01-16] MEDS ORDERED: Sodium Chloride 0.9% 1000 ML 1,000 ML IV SCH (12:00)
[2023-01-16] MEDS ORDERED: Sodium Chloride 0.9% 1000 ML 1,000 ML ONE (12:02)
[2023-01-16] MEDS ORDERED: Lasix 40 MG/4 ML ONE (12:02)
[2023-01-16] MEDS ORDERED: ROCEPHIN 1 Gm-D5w 50 ml Bag** 1 G/50 ML IVPB IV STA (12:02)
[2023-01-16] MEDS ORDERED: ROCEPHIN 1 Gm-D5w 50 ml Bag** 1 G/50 ML IVPB IV ONE (12:04)
--- NOTE | 2023-01-16 12:19 | ERPHSYRPT ---
- History of Present Illness Time Seen by Provider: 01/16/23 12:14 Source: patient Exam Limitations: no limitations Patient Subjective Stated Complaint: C/O SOB for the past 4-5 days Triage Nursing Assessment: Patient brought back to ER in W/C. She is alert and oriented. She is SOB. Lungs moist, noted rhonchi throughout lung kirkpatrick. 02 sats 100% on room air. Patient is pale. Skin is edematous; pitting edema to BLE and BUE. Physician History: Patient is 77-year-old female with significant past medical history of jorge luis estive heart failure hypertensive heart disease, Atrial fibrillation, mitral valve regurgitation status post mitral valve replacement and on chronic anticoagulation therapy started having a shortness of breath for last 2 to 3 days which got worse today so she came to the emergency room. She denies any fever chills nausea vomiting or heavy pressure type of chest pain. Patient has been on warfarin and her last INR was 7.9. Patient has been anemic recently and she was told that it is due to warfarin. Patient is short of breath but able to finish her sentence. Patient oxygen saturation around 100% in the emergency room. Timing/Duration: day(s) (2-3 days) Activities at Onset: none Severity of Dyspnea-Max: moderate Severity of Dyspnea-Current: moderate Possible Cause: frequent episodes Modifying Factors: Improves With: nothing Associated Symptoms: denies symptoms Allergies/Adverse Reactions: No Known Drug Allergies Allergy (Verified 01/16/23 11:50) Home Medications: Warfarin Sodium 3 mg [Coumadin 3 MG] 3 mg PO DAILY@1800 02/15/18 [History] Amiodarone HCl 200 mg PO DAILY 02/10/22 [History] Omeprazole 40 mg PO DAILY 10/15/22 [History] Tramadol HCl 50 mg [Ultram 50 mg] 50 mg PO Q12H PRN PRN 10/15/22 [History] Enoxaparin Sodium [Enoxaparin Sodium] 30 mg SQ BID 01/16/23 [History] PANTOPRAZOLE 40 mg Tablet [Protonix 40MG Tablet] 1 tab PO BID 01/16/23 [History] Sacubitril/Valsartan [Entresto 24 mg-26 mg Tablet] 1 tab PO BID 01/16/23 [History] Spironolactone 25 mg [Aldactone 25 MG] 1 tab PO DAILY 01/16/23 [History] Sucralfate 1 gm [Carafate 1 GM] 1 tab PO TID 01/16/23 [History] Warfarin Sodium 1 tab PO DAILY 01/16/23 [History] Hx Tetanus, Diphtheria Vaccination/Date Given: Yes Hx Influenza Vaccination/Date Given: No Hx Pneumococcal Vaccination/Date Given: No Travel Risk - International Travel Have you traveled outside of the country in past 3 weeks: No - Coronavirus Screening Are you exhibiting any of the following symptoms?: Yes Symptoms: Shortness of Breath Close contact with a COVID-19 positive Pt in past 14-21 Days: No - Vaccine Status Have you recieved a Covid-19 vaccination: Yes [employer]: Moderna - Vaccination Dates Date of 2cond Vaccination (if applicable): ? - Review of Systems Constitutional: Weakness, No Fever, No Chills Eyes: No Symptoms Ears, Nose, & Throat: No Symptoms Respiratory: Dyspnea, Dyspnea on Exertion (PAUL), No Cough Cardiac: Orthopnea, PND, No Chest Pain, No Edema, No Syncope Abdominal/Gastrointestinal: No Abdominal Pain, No Nausea, No Vomiting, No Diarrhea Genitourinary Symptoms: No Dysuria Musculoskeletal: No Back Pain, No Neck Pain Skin: No Rash Neurological: No Dizziness, No Focal Weakness, No Sensory Changes Psychological: No Symptoms Endocrine: No Symptoms All Other Systems: Reviewed and Negative - Past Medical History Pertinent Past Medical History: Yes Neurological History: No Pertinent History ENT History: Cataracts, Macular Degeneration Cardiac History: Arrhythmia, Congestive Heart Failure, Coronary Artery Disease, Hypertension, Myocardial Infarction (ND) Respiratory History: Bronchitis, Emphysema, Pneumonia Endocrine Medical History: No Pertinent History Musculoskeletal History: Osteoporosis, Other GI Medical History: Gallbladder Disease History: Other Psycho-Social History: Depression, Anxiety Female Reproductive Disorders: No Pertinent History Other Medical History: skin ca, kidney stones, anemia - Past Surgical History Past Surgical History: Yes Neuro Surgical History: No Pertinent History Cardiac: CABG, Valve Replacement, Cardiac Catheterization, Pacemaker Respiratory: No Pertinent History Gastrointestinal: Other, Cholecystectomy Genitourinary: Kidney Surgery Musculoskeletal: No Pertinent History Female Surgical History: No Pertinent History Other Surgical History: kidney stent x 2. colonoscopy and EGD 2016. revision of pacemaker. stent x 1 in 2020 - Social History Smoking Status: Former smoker How long have you smoked: 50 yrs Exposure to second hand smoke: No Alcohol Use: Socially Drug Use: none Patient Lives Alone: No Significant Family History: hypertension - Nursing Vital Signs Nursing Vital Signs: Initial Vital Signs Temperature 97.6 F 01/16/23 11:48 Pulse Rate 62 01/16/23 11:48 Respiratory Rate 22 01/16/23 11:48 Blood Pressure 158/52 01/16/23 11:48 O2 Sat by Pulse Oximetry 100 01/16/23 11:48 Pain Scale Pain Intensity 0 - Physical Exam General Appearance: moderate distress, alert Eye Exam: PERRL/EOMI Neck Exam: normal inspection, supple Respiratory Exam: diminished breath sounds, crackles/rales, rhonchi, wheezing Cardiovascular/Chest Exam: murmur (mitral area), irregular Abdominal/Gastrointestinal Exam: soft, No tenderness, No distention, No mass Extremity Exam: non-tender, normal range of motion, normal inspection, no calf tenderness, no pedal edema Neurologic Exam: alert, oriented x 3, cooperative, foundation maker II-XII nml as tested, sensation nml, No motor deficits Skin Exam: normal color, warm, No dry SpO2 Interpretation: normal SpO2: 100 O2 Delivery: Room Air - Course Nursing assessment & vital signs reviewed: Yes EKG Interpreted by Me: Non-specific ST Changes Rhythm Strip: Atrial Fibrillation - Radiology Exams Chest X-ray Interpretation: Reviewed by me (CHF, COPD changes), No Pneumonia Ordered Tests: Active Orders 24 hr Category Date Time Status Staff Development Coordinator Rn STAT Care 01/16/23 11:56 Active EKG-ER Only STAT Care 01/16/23 11:55 Active [place]ph[place] [Catheter-[place] Hemphill] STAT Care 01/16/23 12:00 Active Oxygen-ED Only Nasal Cannula 2 lpm Care 01/16/23 11:55 Active ABDOMEN WITH CONTRAST [CT] Stat Exams 01/16/23 13:16 Ordered CHEST 1 VIEW (PORTABLE) Stat Exams 01/16/23 11:51 Taken CHEST WITH CONTRAST [CT] Stat Exams 01/16/23 13:16 Ordered CBC W DIFF Stat Lab 01/16/23 12:33 Completed CMP Stat Lab 01/16/23 12:12 Completed MAGNESIUM Stat Lab 01/16/23 12:12 Completed NT PRO BNPII Stat Lab 01/16/23 12:33 Completed PROTIME WITH INR Stat Lab 01/16/23 12:33 Completed TROPONIN Q4H Lab 01/16/23 12:33 Completed TROPONIN Q4H Lab 01/16/23 16:00 Ordered TROPONIN Q4H Lab 01/16/23 20:00 Ordered UA W/RFX UR CULTURE Stat Lab 01/16/23 12:40 Received Medication Summary Generic Name Dose Route Start Last Admin Trade Name Freq PRN Reason Stop Dose Admin Sodium Chloride 1,000 mls @ 50 mls/hr 01/16/23 12:00 01/16/23 12:15 Sodium Chloride 0.9% 1000 Ml IV 02/15/23 11:59 50 mls/hr .Q20H FELICIA Administration Discontinued Medications Generic Name Dose Route Start Last Admin Trade Name Freq PRN Reason Stop Dose Admin Furosemide 40 mg 01/16/23 11:57 01/16/23 12:15 Furosemide 40 Mg/4 Ml Vial IV 01/16/23 11:58 40 mg STAT ONE Administration Furosemide Confirm 01/16/23 12:02 Furosemide 40 Mg/4 Ml Vial Administered 01/16/23 12:03 Dose 40 mg .ROUTE .STK-MED ONE Ceftriaxone Sodium/Dextrose 1 g in 50 mls @ 100 mls/hr 01/16/23 12:02 01/16/23 12:46 Rocephin 1 Gm-D5w 50 Ml Bag IV 01/16/23 12:31 Infused STAT STA Infusion Ceftriaxone Sodium/Dextrose Confirm 01/16/23 12:04 Rocephin 1 Gm-D5w 50 Ml Bag Administered 01/16/23 12:05 Dose 1 g in 50 mls @ ud IV .STK-MED ONE Phytonadione 10 mg 01/16/23 13:15 01/16/23 13:16 Phytonadione 10 Mg/Ml Amp PO 01/16/23 13:16 10 mg STAT ONE Administration Lab/Rad Data: Laboratory Result Diagrams 01/16/23 12:33 01/16/23 12:12 Laboratory Results 01/16/23 01/16/23 01/16/23 Range/Units 12:33 12:33 12:33 WBC (4.0-10.5) x10^3/uL RBC (4.1-5.4) x10^6/uL Hgb (12.0-16.0) g/dL Hct (35-47) % MCV (78-100) fL MCH (26-32) pg MCHC (32-36) g/dL RDW (11.5-14.0) % Plt Count (150-450) x10^3/uL MPV (7.5-11.0) fL Gran % (36.0-66.0) % Immature Gran % (Auto) (0.00-0.4) % Nucleat RBC Rel Count (0.00-0.1) % Eos # (Auto) (0-0.5) x10^3/uL Immature Gran # (Auto) (0.00-0.03) x10^3u/L Absolute Lymphs (auto) (1.0-4.6) x10^3/uL Absolute Monos (auto) (0.0-1.3) x10^3/uL Absolute Nucleated RBC (0.00-0.01) x10^3u/L Lymphocytes % (24.0-44.0) % Monocytes % (0.0-12.0) % Eosinophils % (0.00-5.0) % Basophils % (0.0-0.4) % Absolute Granulocytes (1.4-6.9) x10^3/uL Basophils # (0-0.4) x10^3/uL PT 89.6 H (9.4-12.5) SECONDS INR 9.73 H* (0.8-3.0) Sodium (137-145) mmol/L Potassium (3.5-5.1) mmol/L Chloride (98-107) mmol/L Carbon Dioxide (22-30) mmol/L Anion Gap (5-15) MEQ/L BUN (7-17) mg/dL Creatinine (0.52-1.04) mg/dL Estimated GFR ML/MIN Glucose (74-106) mg/dL Calcium (8.4-10.2) mg/dL Magnesium (1.6-2.3) mg/dL Total Bilirubin (0.2-1.3) mg/dL AST (14-36) U/L ALT (0-35) U/L Alkaline Phosphatase (38-126) U/L Troponin I < 0.012 (0.000-0.034) ng/mL NT-Pro-B Natriuret Pep 1500 (<300) pg/mL Serum Total Protein (6.3-8.2) g/dL Albumin (3.5-5.0) g/dL Influenza Type A Ag NEGATIVE (NEGATIVE) Influenza Type B Ag NEGATIVE (NEGATIVE) RSV (PCR) NEGATIVE (NEGATIVE) SARS-CoV-2 (PCR) NEGATIVE (NEGATIVE) 01/16/23 01/16/23 Range/Units 12:33 12:12 WBC 4.3 (4.0-10.5) x10^3/uL RBC 3.12 L (4.1-5.4) x10^6/uL Hgb 9.7 L (12.0-16.0) g/dL Hct 31.6 L (35-47) % MCV 101.3 H (78-100) fL MCH 31.1 (26-32) pg MCHC 30.7 L (32-36) g/dL RDW 21.5 H (11.5-14.0) % Plt Count 147 L (150-450) x10^3/uL MPV 10.7 (7.5-11.0) fL Gran % 80.0 H (36.0-66.0) % Immature Gran % (Auto) 0.2 (0.00-0.4) % Nucleat RBC Rel Count 0.0 (0.00-0.1) % Eos # (Auto) 0.06 (0-0.5) x10^3/uL Immature Gran # (Auto) 0.01 (0.00-0.03) x10^3u/L Absolute Lymphs (auto) 0.40 L (1.0-4.6) x10^3/uL Absolute Monos (auto) 0.39 (0.0-1.3) x10^3/uL Absolute Nucleated RBC 0.00 (0.00-0.01) x10^3u/L Lymphocytes % 9.2 L (24.0-44.0) % Monocytes % 9.0 (0.0-12.0) % Eosinophils % 1.4 (0.00-5.0) % Basophils % 0.2 (0.0-0.4) % Absolute Granulocytes 3.47 (1.4-6.9) x10^3/uL Basophils # 0.01 (0-0.4) x10^3/uL PT (9.4-12.5) SECONDS INR (0.8-3.0) Sodium 143 (137-145) mmol/L Potassium 4.1 (3.5-5.1) mmol/L Chloride 116 H (98-107) mmol/L Carbon Dioxide 20 L (22-30) mmol/L Anion Gap 11.3 (5-15) MEQ/L BUN 18 H (7-17) mg/dL Creatinine 0.88 (0.52-1.04) mg/dL Estimated GFR > 60.0 ML/MIN Glucose 181 H (74-106) mg/dL Calcium 7.7 L (8.4-10.2) mg/dL Magnesium 2.1 (1.6-2.3) mg/dL Total Bilirubin 0.50 (0.2-1.3) mg/dL AST 117 H (14-36) U/L ALT 83 H (0-35) U/L Alkaline Phosphatase 396 H (38-126) U/L Troponin I (0.000-0.034) ng/mL NT-Pro-B Natriuret Pep (<300) pg/mL Serum Total Protein 5.4 L (6.3-8.2) g/dL Albumin 2.9 L (3.5-5.0) g/dL Influenza Type A Ag (NEGATIVE) Influenza Type B Ag (NEGATIVE) RSV (PCR) (NEGATIVE) SARS-CoV-2 (PCR) (NEGATIVE) - Progress Progress: unchanged Air Movement: good Progress Note: 01/16/23 13:30 Patient and family wanted patient to be transferred to [facility]. The hospitalist service contacted and they accepted patient. We will send all the records with patient via ambulance. Blood Culture(s) Obtained: No Antibiotics given: Yes Discussed with Dr.: Other (Dr Valdez (hospitalist service at [facility])) Will see patient in: hospital (full admit) Counseled pt/family regarding: lab results, diagnosis, need for follow-up, rad results Medical Desision Making - Independent Historian Additional History obtained from: Family - External Record(s) Reviewed Records reviewed as a part of evaluation & management: Inpatient, Discharge Summary - Discussion of managment Care discussed with:: hospitalist (At [facility]) Reviewed:: Test results, Need for additional workup Agreed on:: Treatment plan, need for follow-up, decision to admit - Diagnostic Testing Diagnostic test were ordered, analyzed, and reviewed by me: Yes Radiological Interpretation: Interpreted by me, Reviewed by me, Teleradiologist Report - Risk of complications The pt has a mod risk of morbidity or mortality based on: Diagnosis or treatment limited by SDOH The pt has a high risk of morbidity or mortality based on: Decision regarding hospitilization or escalation of hosp level of care - Departure Departure Disposition: Transfer ([facility]) Clinical Impression: Warfarin-induced coagulopathy, History of artificial heart valve, H/O mitral valve replacement with mechanical valve, intermediate frame tender current use of anticoagulant therapy, Thrombocytopenia, Symptomatic anemia CHF (congestive heart failure) Qualifiers: Heart failure type: biventricular Qualified Code(s): I50.82 - Biventricular heart failure Condition: Fair Critical Care Time: Yes Critical Care Time(excluding separately billable procedures): Critical 30-74 mins Referrals: ANA MARIA GUIDRY [Primary Care Provider] - Follow up/PCP as directed Instructions: Heart Failure
[2023-01-16 12:36] LABS: Absolute Neutrophil Ct (ANC) 3.47 x10^3/uL (1.4-6.9); BASOPHIL % 0.2 % (0.0-0.4); Basophil (Absolute #) 0.01 x10^3/uL (0-0.4); Eosinophil % 1.4 % (0.00-5.0); Eosinophil (Absolute #) 0.06 x10^3/uL (0-0.5); Hematocrit 31.6 % (35-47); Hemoglobin 9.7 g/dL (12.0-16.0); IMMATURE GRAN # 0.01 x10^3u/L (0.00-0.03); IMMATURE GRAN % 0.2 % (0.00-0.4); Lymphocytes % 9.2 % (24.0-44.0); Mean Cell Volume 101.3 fL (78-100); Mean Corpuscular Hemoglobin 31.1 pg (26-32); Mean Corpuscular Hgb Concent. 30.7 g/dL (32-36); Mean Platelet Volume 10.7 fL (7.5-11.0); Monocyte (Absolute #) 0.39 x10^3/uL (0.0-1.3); Platelet Count 147 x10^3/uL (150-450); Red Blood Count 3.12 x10^6/uL (4.1-5.4); Red Cell Distribution Width 21.5 % (11.5-14.0); White Blood Count 4.3 x10^3/uL (4.0-10.5)
[2023-01-16 12:38] VITALS: PULSE 60
[2023-01-16 12:46] LABS: ALBUMIN 2.9 g/dL (3.5-5.0); ALKALINE PHOSPHATASE 396 U/L (38-126); ANION GAP 11.3 MEQ/L (5-15); BLOOD UREA NITROGEN 18 mg/dL (7-17); CHLORIDE 116 mmol/L (98-107); Calcium 7.7 mg/dL (8.4-10.2); Carbon Dioxide 20 mmol/L (22-30); Creatinine 1 0.88 mg/dL (0.52-1.04); EST GLOMERULAR FILTRATION RATE > 60.0 ML/MIN; Glucose 181 mg/dL (74-106); MAGNESIUM 2.1 mg/dL (1.6-2.3); Potassium 4.1 mmol/L (3.5-5.1); SGOT/AST 117 U/L (14-36); SGPT/ALT 83 U/L (0-35); SODIUM 143 mmol/L (137-145); Total Protein 5.4 g/dL (6.3-8.2)
[2023-01-16 12:55] LABS: PROTIME 89.6 SECONDS (9.4-12.5)
[2023-01-16 12:58] LABS: NT PRO BNPII 1500 pg/mL (<300); TROPONIN < 0.012 ng/mL (0.000-0.034)
[2023-01-16 13:07] LABS: INR 9.73 (0.8-3.0)
[2023-01-16 13:13] LABS: INFLUENZA A NEGATIVE (NEGATIVE); INFLUENZA B NEGATIVE (NEGATIVE); RESPIRATORY SYNCTIAL VIRUS NEGATIVE (NEGATIVE); SARS-CoV-2 Xpert Express NEGATIVE (NEGATIVE)
[2023-01-16] MEDS ORDERED: Vitamin K 10 MG/ML PO ONE (13:15)
[2023-01-16 13:22] LABS: Appearance Clear (Clear); Bacteria None Seen /HPF (None Seen); Bilirubin Negative (Negative); Blood Negative (Negative); Epithelial Cells Few /HPF (None Seen); Glucose, Urine Negative (Negative); Ketones Trace (Negative); Leukocyte Esterase Trace (Negative); Nitrite Negative (Negative); Ph 5.5 (4.6-8.0); Protein,Urine Dip 100 (Negative); RBC 0-2 /HPF (0-5)
[2023-01-16 13:26] VITALS: O2SAT 100
[2023-01-16 13:42] LABS: ADD URINE CULTURE? NO (NO)
[2023-01-16 14:06] VITALS: BP 163/53
[2023-01-16 14:33] LABS: Slide Review 1 YES
--- NOTE | 2023-01-16 15:34 | XRAY ---
CLINICAL HISTORY:POSSIBLE BLEED. COMPARISON:The prior study dated 09/07/2022 was reviewed; TECHNIQUES:Multi-slice CT scan of the abdomen and pelvis with IV contrast including multi-planar reconstruction. CTDI: 27 mGy, DLP: 668 mGy*cm. FINDINGS: The liver is enlarged in size showing cirrhotic features are seen manifested by coarse attenuation, uneven contour, deep inter-lobar fissure and prominent left and caudate lobes with no enhanced focal lesions. No evidence of intra or extra-hepatic biliary radicals dilatation. Mildly dilated portal vein and its main divisions. Gallbladder is surgically removed. The spleen is enlarged in size showing widely distributed areas of abnormal perfusion and lack of contrast enhancement, being iso-dense in the delayed phase. Both kidneys are of normal site and size showing lobulated contour with small bilateral non-enhancing cortical cysts, the largest at the left side measures 3 cm (Bosniak type 1) no stones or back pressure changes. No solid lesions. Normal CT appearance of pancreas and suprarenal glands. Limited filling of the urinary bladder showing no stones, masses or diverticulae. Catheter is seen inside. Normal appearance of the rest of the pelvic organs. Significant atherosclerotic changes with dense atheromatous calcifications are seen including aorta and its branches. Non-complicated colonic diverticulosis is seen. No evidence of gross pathologically enlarged lymph nodes. Mild free fluid is seen at the dutch-hepatic, dutch-splenic regions and at the pelvic cavity. The scanned skeleton shows diffuse osteoporotic changes of the scanned bones and mild scoliosis with convexity towards left side and Davidson angle of 6. Lower chest cuts: Please refer to CT chest done in the same day. IMPRESSION: Enlarged cirrhotic liver with no focal lesions. Mildly dilated portal vein and its main divisions. Moderate splenomegaly. Mild free fluid / ascites is seen at the dutch-hepatic, dutch-splenic regions and at the pelvic cavity for aspiration cytology and analysis. No active bleed identified. Electronically Signed by: Wong Joseph MD. (01/16/2023 14:26:31 RN TELE)
--- NOTE | 2023-01-16 15:45 | XRAY ---
CLINICAL HISTORY:POSSIBLE BLEED. COMPARISON:03-16-2022 was reviewed. TECHNIQUES:Multi-slice CT of the chest was done with IV contrast. CTDI: 27 mGy, DLP: 668 mGy*cm. FINDINGS: Sternotomy metallic wires are seen with mitral valve replacement. Cardiac pacemaker is seen applied with intact wires. Mild to moderate right and minimal left side pleural effusion is seen with right basal atelectatic changes of adjacent lung parenchyma. Patchy opacities, atelectatic bands, reticulations and septal thickening are seen at the left upper and both lower lung lobes associated with tractional fibrotic changes and subsegmental areas of mild bronchiectasis are seen at the right lower lung lobe and lingula. No gross hilar or mediastinal lymph nodes enlargement. The heart is enlarged in size with no pericardial effusion. Arterial atherosclerotic changes with dense atheromatous calcifications are seen. Compression fracture and anterior wedging of a T5 vertebral body with mild posterior bony retropulsion is seen encroaching on the central spinal canal and indenting the cord. Focal kyphotic deformity noted at this level. IMPRESSION: 1. Mild to moderate right and minimal left side pleural effusion. 2. Patchy opacities, fibro-atelectatic bands, reticulations and septal thickening are seen at the left upper and both lower lung lobes associated with tractional fibrotic changes and subsegmental areas of mild bronchiectasis are seen at the right lower lung lobe and lingula, picture is likely related to chronic inflammatory process. 3. No consolidation or acute pulmonary infection. 4. Compression fracture and anterior wedging of T5 vertebral body with mild posterior bony retropulsion is seen encroaching on the central spinal canal and indenting the cord for MRI to exclude cord injury. 5. No active bleed identified. Electronically Signed by: Wong Joseph MD. (01/16/2023 14:37:34 TRANSPORT OPERATIONS INSPECTOR)
--- NOTE | 2023-01-16 20:17 | XRAY ---
Indication: Short of breath. Comparison: October 15, 2022 Portable chest again hyperinflated with scattered fibrosis/scarring greatest in the left. New small right and tiny left effusions. Heart remains borderline enlarged again with CABG mitral valve replacement and left pacemaker bony thorax again demonstrates osteopenia, degenerative changes, and old bilateral rib fractures.
== END 2023-01-16 14:32 | disposition short-term general hospital (02) ==
LOC: ED 11:47
DX: D68.32 Hemorrhagic disorder due to extrinsic circulating anticoagulants (principal); T45.515A Adverse effect of anticoagulants, initial encounter; Z79.01 Long term (current) use of anticoagulants; Z95.2 Presence of prosthetic heart valve; D69.6 Thrombocytopenia, unspecified; D64.9 Anemia, unspecified; I11.0 Hypertensive heart disease with heart failure; I50.82 Biventricular heart failure; R06.02 Shortness of breath; Z79.899 Other long term (current) drug therapy; Z79.891 Long term (current) use of opiate analgesic; Z20.828 Contact with and (suspected) exposure to other viral communicable diseases
CPT/HCPCS: 0241U; 36415; 51702; 71045; 71260; 74177; 80053; 81001; 83735; 83880; 84484; 85025; 85610; 93005; 93041; 96365; 96374; 99285; 99291; J0696; J1940; J3430

== ENCOUNTER 2023-02-03 12:54 | Emergency (ER) | payer MEDICARE ==
--- NOTE | 2023-02-03 14:10 | ERPHSYRPT ---
- History of Present Illness Time Seen by Provider: 02/03/23 14:05 Exam Limitations: no limitations Patient Subjective Stated Complaint: PT states "I was at [facility] for 10 days and I have been home for a week and yesterday I felt ok but now I just get really short of breath when I move around. I was in [facility] for pneumonia." Triage Nursing Assessment: PT presented alert and oriented x 3, skin pwd. Pt ambulates with a slow gait, able to speak in clear full sentences pt in no apparent respiratory distress. when she is sitting still. Physician History: Patient is a 77-year-old female presents to our ED for evaluation of shortness of breath. Patient has a mechanical heart valve and is currently on warfarin. Patient states she was supratherapeutic on warfarin yesterday based on routine INR testing. Per patient's sole rougher warfarin was held. Patient states she has a history of anemia due to gastric bleed. Additionally patient was discharged from [facility] approximately 1 week ago. She was hospitalized for 10 days for pneumonia. No active pain at this time. Patient states she feels weak. No chest pain. No nausea vomiting or diaphoresis. Symptoms are progressive. Symptoms are moderate in intensity. No specific worsening improving factors. at bedside. They voiced no other complaints or concerns at this time. Portions of this note were created with voice recognition technology. There may be grammatical, spelling, punctuation or sound alike errors Timing/Duration: today Severity: moderate Modifying Factors: Improves With: nothing Associated Symptoms: denies symptoms Allergies/Adverse Reactions: No Known Drug Allergies Allergy (Verified 01/16/23 11:50) Home Medications: Warfarin Sodium 3 mg [Coumadin 3 MG] 3 mg PO DAILY@1800 02/15/18 [History] Amiodarone HCl 200 mg PO DAILY 02/10/22 [History] Omeprazole 40 mg PO DAILY 10/15/22 [History] Tramadol HCl 50 mg [Ultram 50 mg] 50 mg PO Q12H PRN PRN 10/15/22 [History] PANTOPRAZOLE 40 mg Tablet [Protonix 40MG Tablet] 1 tab PO BID 01/16/23 [History] Sacubitril/Valsartan [Entresto 24 mg-26 mg Tablet] 1 tab PO BID 01/16/23 [History] Spironolactone 25 mg [Aldactone 25 MG] 1 tab PO DAILY 01/16/23 [History] Sucralfate 1 gm [Carafate 1 GM] 1 tab PO TID 01/16/23 [History] Warfarin Sodium 1 tab PO DAILY 01/16/23 [History] Hx Tetanus, Diphtheria Vaccination/Date Given: Yes Hx Influenza Vaccination/Date Given: No Hx Pneumococcal Vaccination/Date Given: No Travel Risk - International Travel Have you traveled outside of the country in past 3 weeks: No - Coronavirus Screening Are you exhibiting any of the following symptoms?: Yes Symptoms: Shortness of Breath Close contact with a COVID-19 positive Pt in past 14-21 Days: No - Vaccine Status Have you recieved a Covid-19 vaccination: Yes Marketing Planner: Moderna - Vaccination Dates Date of 2cond Vaccination (if applicable): ? - Review of Systems Constitutional: No Symptoms, No Fever, No Chills Eyes: No Symptoms Ears, Nose, & Throat: No Symptoms Respiratory: No Symptoms, No Cough, No Dyspnea Cardiac: No Symptoms, No Chest Pain, No Edema, No Syncope Abdominal/Gastrointestinal: No Symptoms, No Abdominal Pain, No Nausea, No Vomiting, No Diarrhea Genitourinary Symptoms: No Symptoms, No Dysuria Musculoskeletal: No Symptoms, No Back Pain, No Neck Pain Skin: No Symptoms, No Rash Neurological: No Symptoms, No Dizziness, No Focal Weakness, No Sensory Changes Psychological: No Symptoms Endocrine: No Symptoms Hematologic/Lymphatic: No Symptoms Immunological/Allergic: No Symptoms All Other Systems: Reviewed and Negative - Past Medical History Pertinent Past Medical History: Yes Neurological History: No Pertinent History ENT History: Cataracts, Macular Degeneration Cardiac History: Arrhythmia, Congestive Heart Failure, Coronary Artery Disease, Hypertension, Myocardial Infarction ([place]) Respiratory History: Bronchitis, Emphysema, Pneumonia Endocrine Medical History: No Pertinent History Musculoskeletal History: Osteoporosis, Other GI Medical History: Gallbladder Disease History: Other Psycho-Social History: Depression, Anxiety Female Reproductive Disorders: No Pertinent History Other Medical History: skin ca, kidney stones, anemia - Past Surgical History Past Surgical History: Yes Neuro Surgical History: No Pertinent History Cardiac: CABG, Valve Replacement, Cardiac Catheterization, Pacemaker Respiratory: No Pertinent History Gastrointestinal: Other, Cholecystectomy Genitourinary: Kidney Surgery Musculoskeletal: No Pertinent History Female Surgical History: No Pertinent History Other Surgical History: kidney stent x 2. colonoscopy and EGD 2017. revision of pacemaker. stent x 1 in 2020 - Social History Smoking Status: Former smoker How long have you smoked: 50 yrs Exposure to second hand smoke: No Alcohol Use: Socially Drug Use: none Patient Lives Alone: No Significant Family History: hypertension - Nursing Vital Signs Nursing Vital Signs: Initial Vital Signs Temperature 97.9 F 02/03/23 12:59 Pulse Rate 111 H 02/03/23 12:59 Respiratory Rate 24 02/03/23 12:59 Blood Pressure 99/54 02/03/23 12:59 O2 Sat by Pulse Oximetry 97 02/03/23 12:59 Pain Scale Pain Intensity 0 - Physical Exam General Appearance: no apparent distress, alert Eye Exam: PERRL/EOMI, eyes nml inspection Ears, Nose, Throat Exam: normal ENT inspection, TMs normal, pharynx normal, moist mucous membranes Neck Exam: normal inspection, non-tender, supple, full range of motion Respiratory Exam: normal breath sounds, lungs clear, airway intact, No respiratory distress Cardiovascular Exam: regular rate/rhythm, normal heart sounds, normal peripheral pulses Gastrointestinal/Abdomen Exam: soft, normal bowel sounds, No tenderness, No mass Back Exam: normal inspection, normal range of motion, No CVA tenderness, No vertebral tenderness Extremity Exam: normal inspection, normal range of motion, pelvis stable Neurologic Exam: alert, oriented x 3, cooperative, normal mood/affect, nml cerebellar function, nml station & gait, sensation nml, No motor deficits Skin Exam: normal color, warm, dry, No rash Lymphatic Exam: No adenopathy SpO2 Interpretation: normal SpO2: 98 O2 Delivery: Room Air - Course Nursing assessment & vital signs reviewed: Yes EKG Interpreted by Me: RATE (91), A-fib (A flutter received), Right Bundle Branch Block Ordered Tests: Active Orders 24 hr Category Date Time Status Cotton Washer STAT Care 02/03/23 13:41 Active EKG-ER Only STAT Care 02/03/23 13:39 Active IV Insertion STAT Care 02/03/23 13:39 Active Pulse Oximetry (ED) STAT Care 02/03/23 13:39 Active CHEST 1 VIEW (PORTABLE) Stat Exams 02/03/23 13:41 Completed CBC W DIFF Stat Lab 02/03/23 13:30 Completed CMP Stat Lab 02/03/23 13:30 Completed PROTIME WITH INR Stat Lab 02/03/23 15:40 Completed PTT Stat Lab 02/03/23 15:40 Completed TROPONIN Q4H Lab 02/03/23 13:30 Completed TROPONIN Q4H Lab 02/03/23 17:41 Completed TROPONIN Q4H Lab 02/03/23 21:45 Ordered UA W/RFX UR CULTURE Stat Lab 02/03/23 16:50 Completed Respiratory Therapy Assessment DAILY RT 02/03/23 18:03 Active Medication Summary Generic Name Dose Route Start Last Admin Trade Name Freq PRN Reason Stop Dose Admin Ceftriaxone Sodium/Dextrose 2 g in 50 mls @ 100 mls/hr 02/03/23 18:32 Rocephin 2 Gm-D5w 50ml Bag IV 02/03/23 19:01 STAT STA Azithromycin 500 mg in 250 mls @ 250 mls/hr 02/03/23 18:32 Zithromax 500 Mg/ 250 Ml Nacl Premix IV 02/03/23 19:31 STAT STA Discontinued Medications Generic Name Dose Route Start Last Admin Trade Name Freq PRN Reason Stop Dose Admin Albuterol/Ipratropium 3 ml 02/03/23 17:51 02/03/23 17:58 Ipratropium/Albuterol Sulfate 3 Ml Ampul.Neb IH 02/03/23 17:52 3 ml STAT ONE Administration Albuterol/Ipratropium Confirm 02/03/23 17:56 Ipratropium/Albuterol Sulfate 3 Ml Ampul.Neb Administered 02/03/23 17:57 Dose 3 ml IH .STK-MED ONE Methylprednisolone Sodium 0 mg 02/03/23 17:51 02/03/23 18:04 Succinate 125 mg/ Sterile IV 02/03/23 17:52 125 mg Water 2 ml STAT ONE Administration Methylprednisolone Sodium Succinate Confirm 02/03/23 18:03 Methylprednis Sod Succ 125 Mg/2 Ml Vial Administered 02/03/23 18:04 Dose 125 mg .ROUTE .STK-MED ONE Sterile Water Confirm 02/03/23 18:03 Water For Injection,Sterile 10 Ml Vial Administered 02/03/23 18:04 Dose 10 ml IJ .STK-MED ONE Lab/Rad Data: Laboratory Result Diagrams 02/03/23 13:30 02/03/23 13:30 Laboratory Results 02/03/23 02/03/23 02/03/23 Range/Units 17:41 16:50 15:40 WBC (4.0-10.5) x10^3/uL RBC (4.1-5.4) x10^6/uL Hgb (12.0-16.0) g/dL Hct (35-47) % MCV (78-100) fL MCH (26-32) pg MCHC (32-36) g/dL RDW (11.5-14.0) % Plt Count (150-450) x10^3/uL MPV (7.5-11.0) fL Gran % (36.0-66.0) % Immature Gran % (Auto) (0.00-0.4) % Nucleat RBC Rel Count (0.00-0.1) % Eos # (Auto) (0-0.5) x10^3/uL Immature Gran # (Auto) (0.00-0.03) x10^3u/L Absolute Lymphs (auto) (1.0-4.6) x10^3/uL Absolute Monos (auto) (0.0-1.3) x10^3/uL Absolute Nucleated RBC (0.00-0.01) x10^3u/L Lymphocytes % (24.0-44.0) % Monocytes % (0.0-12.0) % Eosinophils % (0.00-5.0) % Basophils % (0.0-0.4) % Absolute Granulocytes (1.4-6.9) x10^3/uL Basophils # (0-0.4) x10^3/uL PT 51.1 H (9.4-12.5) SECONDS INR 5.30 H* (0.8-3.0) APTT 51.5 H (25.1-36.5) SECONDS Sodium (137-145) mmol/L Potassium (3.5-5.1) mmol/L Chloride (98-107) mmol/L Carbon Dioxide (22-30) mmol/L Anion Gap (5-15) MEQ/L BUN (7-17) mg/dL Creatinine (0.52-1.04) mg/dL Estimated GFR ML/MIN Glucose (74-106) mg/dL Calcium (8.4-10.2) mg/dL Total Bilirubin (0.2-1.3) mg/dL AST (14-36) U/L ALT (0-35) U/L Alkaline Phosphatase (38-126) U/L Troponin I 0.025 (0.000-0.034) ng/mL Serum Total Protein (6.3-8.2) g/dL Albumin (3.5-5.0) g/dL Urine Color Yellow (Yellow) Urine Appearance Clear (Clear) Urine pH 6.5 (4.6-8.0) Ur Specific [place] 1.010 (1.005-1.030) Urine Protein Negative (Negative) Urine Glucose (UA) Negative (Negative) mg/dL Urine Ketones Negative (Negative) Urine Blood Negative (Negative) Urine Nitrite Negative (Negative) Urine Bilirubin Negative (Negative) Urine Urobilinogen 0.2 (0.2) mg/dL Ur Leukocyte Esterase Trace A (Negative) U Hyaline Cast (Auto) 0-2 (0-2) /LPF Urine Microscopic RBC 0-2 (0-5) /HPF Urine Microscopic WBC 0-2 (0-5) /HPF Ur Epithelial Cells Rare (None Seen) /HPF Urine Bacteria Rare A (None Seen) /HPF Urine Culture Reflexed NO (NO) 02/03/23 02/03/23 02/03/23 Range/Units 13:30 13:30 13:30 WBC 9.4 (4.0-10.5) x10^3/uL RBC 2.84 L (4.1-5.4) x10^6/uL Hgb 9.0 L (12.0-16.0) g/dL Hct 29.6 L (35-47) % MCV 104.2 H (78-100) fL MCH 31.7 (26-32) pg MCHC 30.4 L (32-36) g/dL RDW 19.5 H (11.5-14.0) % Plt Count 143 L (150-450) x10^3/uL MPV 11.5 H (7.5-11.0) fL Gran % 86.3 H (36.0-66.0) % Immature Gran % (Auto) 0.5 H (0.00-0.4) % Nucleat RBC Rel Count 0.0 (0.00-0.1) % Eos # (Auto) 0.09 (0-0.5) x10^3/uL Immature Gran # (Auto) 0.05 H (0.00-0.03) x10^3u/L Absolute Lymphs (auto) 0.61 L (1.0-4.6) x10^3/uL Absolute Monos (auto) 0.53 (0.0-1.3) x10^3/uL Absolute Nucleated RBC 0.00 (0.00-0.01) x10^3u/L Lymphocytes % 6.5 L (24.0-44.0) % Monocytes % 5.6 (0.0-12.0) % Eosinophils % 1.0 (0.00-5.0) % Basophils % 0.1 (0.0-0.4) % Absolute Granulocytes 8.12 H (1.4-6.9) x10^3/uL Basophils # 0.01 (0-0.4) x10^3/uL PT (9.4-12.5) SECONDS INR (0.8-3.0) APTT (25.1-36.5) SECONDS Sodium 143 (137-145) mmol/L Potassium 3.7 (3.5-5.1) mmol/L Chloride 107 (98-107) mmol/L Carbon Dioxide 26 (22-30) mmol/L Anion Gap 13.2 (5-15) MEQ/L BUN 38 H (7-17) mg/dL Creatinine 1.40 H (0.52-1.04) mg/dL Estimated GFR 38.6 ML/MIN Glucose 153 H (74-106) mg/dL Calcium 8.5 (8.4-10.2) mg/dL Total Bilirubin 0.90 (0.2-1.3) mg/dL AST 83 H (14-36) U/L ALT 92 H (0-35) U/L Alkaline Phosphatase 498 H (38-126) U/L Troponin I < 0.012 (0.000-0.034) ng/mL Serum Total Protein 5.5 L (6.3-8.2) g/dL Albumin 3.0 L (3.5-5.0) g/dL Urine Color (Yellow) Urine Appearance (Clear) Urine pH (4.6-8.0) Ur Specific [place] (1.005-1.030) Urine Protein (Negative) Urine Glucose (UA) (Negative) mg/dL Urine Ketones (Negative) Urine Blood (Negative) Urine Nitrite (Negative) Urine Bilirubin (Negative) Urine Urobilinogen (0.2) mg/dL Ur Leukocyte Esterase (Negative) U Hyaline Cast (Auto) (0-2) /LPF Urine Microscopic RBC (0-5) /HPF Urine Microscopic WBC (0-5) /HPF Ur Epithelial Cells (None Seen) /HPF Urine Bacteria (None Seen) /HPF Urine Culture Reflexed (NO) - Progress Progress: improved Progress Note: CTA chest rule out PE considered. However patient not a candidate for CTA due to compromised renal function. Patient not anticoagulated as patient is currently supratherapeutic on Coumadin. Admitting physician may consider VQ scan on the floor. Patient ambulated in our ED. Patient became hypoxic and profoundly short of breath. Decision was made to admit patient. COVID test pending. 02/03/23 18:[address] Diggs. In light of patient's complex medical history we will transfer patient to [facility]. 02/03/23 18:30 Patient declined transfer. Patient states she wants to go home. Risks and benefits discussed. Patient decided to leave AMA. Patient is of sound mind. Patient is appropriate to make informed and independent medical decisions. Patient understands that leaving AGAINST MEDICAL ADVICE can result in delayed diagnosis, increased risk of morbidity, mortality, short and long-term disability including . In spite of these risks, patient has decided to leave AGAINST MEDICAL ADVICE. Patient understands that she may return to our ED at any point if she reconsiders. Patient agrees to follow-up with her primary care doctor within 48 hours for reevaluation. Patient voices no other complaints or concerns at this time. We will release patient AGAINST MEDICAL ADVICE per their request. I advised them of the troponin level doubling although still in the normal range. They still request discharge. Portions of this note were created with voice recognition technology. There may be grammatical, spelling, punctuation or sound alike errors 02/03/23 18:41 77-year-old female presents to our ED with shortness of breath. Troponin doubled however still in the normal range. Case discussed with Dr. Diggs who request transfer. Patient declined transfer. Hemoglobin 9.0. Platelet 143. INR elevated at 5.3 supratherapeutic however is decreasing as patient's INR 2 days ago was 6.5. COVID test negative. Urinalysis negative. Patient received DuoNeb. Symptoms improved. Complexity of problem addressed is high. Patient requires hospitalization but declines. No critical care time. Complexity of data reviewed and analyzed is moderate. Management discussed with Dr. Diggs. Test ordered reviewed and analyzed. Patient will leave AMA. Risks and benefits of admission and further evaluation and treatment discussed. Despite of our extensive discussion patient and decided to leave AGAINST MEDICAL ADVICE 02/03/23 18:[address] Laney Will see patient in: office Counseled pt/family regarding: lab results, diagnosis, rad results - Departure Departure Disposition: AMA Clinical Impression: Macrocytic anemia, Shortness of breath, Generalized weakness, Chronic renal insufficiency, Elevated alkaline phosphatase level, Supratherapeutic INR, Hypoxia Condition: Stable Critical Care Time: No Referrals: ANA MARIA GUIDRY [Primary Care Provider] - Follow up/PCP as directed Additional Instructions: Discharge/Care Plan ERICK SONG was seen on 02/03/23 in the Emergency Room. The patient was counseled regarding Diagnosis,Lab results, Imaging studies, need for follow up and when to return to the Emergency Room. Prescriptions given: Discharge Note I have spoken with the patient and/or caregivers. I have explained the patient's condition, diagnosis and treatment plan based on the information available to me at this time. I have answered the patient's and/or caregiver's questions and addressed any concerns. The patient and/or caregivers have as good understanding of the patient's diagnosis, condition and treatment plan as can be expected at this point. The vital signs have been stable. The patient's condition is stable and appropriate for discharge from the emergency department. The patient will pursue further outpatient evaluation with the primary care physician or other designated or consulting physician as outlined in the discharge instructions. The patient and/or caregivers are agreeable to this plan of care and follow-up instructions have been explained in detail. The patient and/or caregivers have received these instruction. The patient/and or caregivers are aware that any significant change in condition or worsening of symptoms should prompt an immediate return to this or the closest emergency department or call 911.
[2023-02-03 14:14] LABS: Absolute Neutrophil Ct (ANC) 8.12 x10^3/uL (1.4-6.9); BASOPHIL % 0.1 % (0.0-0.4); Basophil (Absolute #) 0.01 x10^3/uL (0-0.4); Eosinophil (Absolute #) 0.09 x10^3/uL (0-0.5); Hematocrit 29.6 % (35-47); IMMATURE GRAN # 0.05 x10^3u/L (0.00-0.03); IMMATURE GRAN % 0.5 % (0.00-0.4); Lymphocyte (Absolute #) 0.61 x10^3/uL (1.0-4.6); Lymphocytes % 6.5 % (24.0-44.0); Mean Cell Volume 104.2 fL (78-100); Mean Corpuscular Hemoglobin 31.7 pg (26-32); Mean Corpuscular Hgb Concent. 30.4 g/dL (32-36); Mean Platelet Volume 11.5 fL (7.5-11.0); Monocyte (Absolute #) 0.53 x10^3/uL (0.0-1.3); Monocytes % 5.6 % (0.0-12.0); Neutrophil % 86.3 % (36.0-66.0); Platelet Count 143 x10^3/uL (150-450); Red Blood Count 2.84 x10^6/uL (4.1-5.4); Red Cell Distribution Width 19.5 % (11.5-14.0); White Blood Count 9.4 x10^3/uL (4.0-10.5)
--- NOTE | 2023-02-03 14:15 | XRAY ---
Indication: Short of breath. History of atrial fibrillation. Comparison: January 16, 2023 Portable chest again hyperinflated with clearing previous bibasilar effusions. Stable scattered fibrosis/scarring. Heart remains borderline enlarged again with CABG, mitral valve replacement, and left pacemaker. Bony thorax intact again with osteopenia, degenerative changes, and old bilateral rib fractures. Impression: Nonacute hyperinflated chest with chronic features.
[2023-02-03 14:21] LABS: ANION GAP 13.2 MEQ/L (5-15); BILIRUBIN,TOTAL 0.9 mg/dL (0.2-1.3); Calcium 8.5 mg/dL (8.4-10.2); Creatinine 1 1.4 mg/dL (0.52-1.04); EST GLOMERULAR FILTRATION RATE 38.6 ML/MIN; Potassium 3.7 mmol/L (3.5-5.1); Total Protein 5.5 g/dL (6.3-8.2)
[2023-02-03 16:05] LABS: PROTIME 51.1 SECONDS (9.4-12.5); PTT 51.5 SECONDS (25.1-36.5)
[2023-02-03 16:08] LABS: INR 5.3 (0.8-3.0)
[2023-02-03 17:23] LABS: ADD URINE CULTURE? NO (NO); Appearance Clear (Clear); Bacteria Rare /HPF (None Seen); Bilirubin Negative (Negative); Blood Negative (Negative); Epithelial Cells Rare /HPF (None Seen); Glucose, Urine Negative (Negative); Hyaline Casts 0-2 /LPF (0-2); Ketones Negative (Negative); Leukocyte Esterase Trace (Negative); Nitrite Negative (Negative); Ph 6.5 (4.6-8.0); Protein,Urine Dip Negative (Negative); RBC 0-2 /HPF (0-5); Urobilinogen 0.2 mg/dL (0.2); WBC 0-2 /HPF (0-5)
[2023-02-03] MEDS ORDERED: DUONEB 0.5-3 MG/3 ml Neb IH ONE ×3 (17:51→20:56)
[2023-02-03] MEDS ORDERED: solu-MEDROL 125 MG, Sterile H2O 10 ml 2 ML IV ONE ×2 (17:51)
[2023-02-03] MEDS ORDERED: solu-MEDROL ONE (18:03)
[2023-02-03] MEDS ORDERED: Sterile H2O 10 ml IJ ONE (18:03)
[2023-02-03] MEDS ORDERED: Zithromax 500 MG/ 250 ML NaCl Premix 500 MG/250 ML IVPB IV STA (18:32)
[2023-02-03] MEDS ORDERED: ROCEPHIN 2 Gm-D5w 50ML BAG** 2 G/50 ML IVPB IV STA (18:32)
[2023-02-03] MEDS ORDERED: ROCEPHIN 2 Gm-D5w 50ML BAG** 2 G/50 ML IVPB IV ONE (18:43)
[2023-02-03 18:57] LABS: INFLUENZA A NEGATIVE (NEGATIVE); INFLUENZA B NEGATIVE (NEGATIVE); RESPIRATORY SYNCTIAL VIRUS NEGATIVE (NEGATIVE); SARS-CoV-2 Xpert Express NEGATIVE (NEGATIVE)
[2023-02-03] MEDS ORDERED: Zithromax 500 MG/ 250 ML NaCl Premix 500 MG/250 ML IVPB IV ONE (19:16)
[2023-02-03 19:27] VITALS: BP 127/47; PULSE 72; O2SAT 99
== END 2023-02-03 20:40 | disposition left against medical advice (07) ==
LOC: ED 12:54
DX: R09.02 Hypoxemia (principal); R06.02 Shortness of breath; D53.9 Nutritional anemia, unspecified; R53.1 Weakness; R74.8 Abnormal levels of other serum enzymes; R79.1 Abnormal coagulation profile; I13.0 Hypertensive heart and chronic kidney disease with heart failure and stage 1 through stage 4 chronic kidney disease, or unspecified chronic kidney disease; N18.9 Chronic kidney disease, unspecified; I50.9 Heart failure, unspecified; Z79.01 Long term (current) use of anticoagulants; Z79.899 Other long term (current) drug therapy; Z20.828 Contact with and (suspected) exposure to other viral communicable diseases
CPT/HCPCS: 0241U; 36000; 36415; 71045; 80053; 81001; 84484; 85025; 85610; 85730; 93005; 93041; 94640; 94760; 96365; 96367; 96374; 99284; J0456; J0696; J2930; A9270-GY

== ENCOUNTER 2023-05-17 16:52 | Emergency (ER) | payer MEDICARE ==
[2023-05-17 17:14] VITALS: TEMP 96.2
--- NOTE | 2023-05-17 17:46 | ERPHSYRPT ---
- History of Present Illness Source: patient, family, old records Exam Limitations: no limitations Patient Subjective Stated Complaint: Abdnomal labs- HBG 5.9 Triage Nursing Assessment: Patient brought back to ED per w/c and transferred to bed with assist of 1. Patient A+O X3. Patient's skin pale, warm and dry. Patient states she has been feeling weak, SOB, lightheaded and dizzy since last , but got worse today. Patient had CBC drawn prior to coming to ED and w as told to stay until results came back. Lab called patient's PCP with results of HBG of 5.9 so he requested for patient to come to ED for eval. Patient complains of neck and back pain 01/18. Timing/Duration: day(s) (4), worse Severity: moderate Associated Symptoms: shortness of breath, weakness, other (Body aches), No chest pain Hx Tetanus, Diphtheria Vaccination/Date Given: Yes Hx Influenza Vaccination/Date Given: No Hx Pneumococcal Vaccination/Date Given: No Immunizations Up to Date: Yes <ELIZA FRITZ - Last Filed: 05/17/23 18:33> <JURGEN HATCH - Last Filed: 05/17/23 19:16> - History of Present Illness Time Seen by Provider: 05/17/23 17:25 Physician History: This is a 77-year-old white female patient of Dr. Elizalde, who presents to the emergency department with a 4-day history of weakness, shortness of breath, lig htheadedness and dizziness. Symptoms worsened today. Her doctor told her to come to the laboratory department and CBC was ordered for her. She was told to wait in the laboratory area for the hemoglobin and hematocrit levels. The hemoglobin came back at 5.9 and therefore the patient was sent to the emergency department for further evaluation and management. Patient has had several transfusions in the last several months. The area of blood loss has yet to be discovered. The patient has had upper and lower endoscopies as well as several different scans. She is being followed by hematology and gastroenterology and they have not localized the area of bleed. She has not been vomiting up blood or urinating blood. However she is having some lower cramping abdominal pain with dark tarry stools. She does deny chest pain at this time. She has pain in her neck and pain in her back. Patient does have a history of CHF, chronic anemia, gastroesophageal reflux disease, arrhythmias, coronary artery disease (CABG, valve replacement, cardiac stent x1, pacemaker placement with revision x1). Patient also has a renal stent in place. Patient has a history of hypertension and osteoporosis. Her symptoms are much worse today. Reviewing her old laboratory history, on 03/11/2023 her hemoglobin was 6.0. On 04/25/2023 her hemoglobin was 7.4. On 02/03/2023 her PT/INR were 51 and 5.3 respectively. (ELIZA FRITZ) Allergies/Adverse Reactions: No Known Drug Allergies Allergy (Verified 05/17/23 17:08) Home Medications: Warfarin Sodium 3 mg [Coumadin 3 MG] 3 mg PO DAILY@1800 02/15/18 [History] Amiodarone HCl 200 mg PO DAILY 02/10/22 [History] Omeprazole 40 mg PO DAILY 10/15/22 [History] Tramadol HCl 50 mg [Ultram 50 mg] 50 mg PO Q12H PRN PRN 10/15/22 [History] PANTOPRAZOLE 40 mg Tablet [Protonix 40MG Tablet] 1 tab PO BID 01/16/23 [History] Sacubitril/Valsartan [Entresto 24 mg-26 mg Tablet] 1 tab PO BID 01/16/23 [History] Spironolactone 25 mg [Aldactone 25 MG] 1 tab PO DAILY 01/16/23 [History] Sucralfate 1 gm [Carafate 1 GM] 1 tab PO TID 01/16/23 [History] Warfarin Sodium 1 tab PO DAILY 01/16/23 [History] Travel Risk - International Travel Have you traveled outside of the country in past 3 weeks: No - Coronavirus Screening Are you exhibiting any of the following symptoms?: Yes Symptoms: Shortness of Breath, Headaches/Body Aches/Fatigue - Vaccine Status Have you recieved a Covid-19 vaccination: Yes Eligibility Supervisor: Moderna - Vaccination Dates Date of 2cond Vaccination (if applicable): ? <ELIZA FRITZ - Last Filed: 05/17/23 18:33> - Review of Systems Constitutional: Weakness Eyes: No Symptoms Ears, Nose, & Throat: No Symptoms Respiratory: Dyspnea Cardiac: No Symptoms Abdominal/Gastrointestinal: Melena Genitourinary Symptoms: No Symptoms Musculoskeletal: Arthralgias, Myalgias Skin: No Symptoms Neurological: Dizziness, Other (Lightheadedness) Psychological: No Symptoms Endocrine: No Symptoms Hematologic/Lymphatic: Anemia, Other (Dark tarry stools) Immunological/Allergic: No Symptoms All Other Systems: Reviewed and Negative <ELIZA FRITZ - Last Filed: 05/17/23 18:33> - Past Medical History Pertinent Past Medical History: Yes Neurological History: No Pertinent History ENT History: Cataracts, Macular Degeneration Cardiac History: Arrhythmia, Congestive Heart Failure, Coronary Artery Disease, Hypertension, Myocardial Infarction ([place]) Respiratory History: Bronchitis, Emphysema, Pneumonia Endocrine Medical History: No Pertinent History Musculoskeletal History: Osteoporosis, Other GI Medical History: Gallbladder Disease History: Other Psycho-Social History: Depression, Anxiety Female Reproductive Disorders: No Pertinent History Other Medical History: skin ca, kidney stones, anemia - Past Surgical History Past Surgical History: Yes Neuro Surgical History: No Pertinent History Cardiac: CABG, Valve Replacement, Cardiac Catheterization, Pacemaker Respiratory: No Pertinent History Gastrointestinal: Other, Cholecystectomy Genitourinary: Kidney Surgery Musculoskeletal: No Pertinent History Female Surgical History: No Pertinent History Other Surgical History: kidney stent x 2. colonoscopy and EGD 2017. revision of pacemaker. stent x 1 in 2020 - Social History Smoking Status: Former smoker How long have you smoked: 50 yrs Exposure to second hand smoke: No Alcohol Use: Socially Drug Use: none Patient Lives Alone: No Significant Family History: hypertension <ELIZA FRITZ - Last Filed: 05/17/23 18:33> - Physical Exam General Appearance: no apparent distress, alert, anxiety, thin Eye Exam: PERRL/EOMI, pale conjunctivae Ears, Nose, Throat Exam: normal ENT inspection, dry mucous membranes Neck Exam: normal inspection, non-tender, supple, full range of motion Respiratory Exam: normal breath sounds, lungs clear, airway intact, No chest tenderness, No respiratory distress Cardiovascular Exam: regular rate/rhythm, normal heart sounds, normal peripheral pulses Gastrointestinal/Abdomen Exam: soft, normal bowel sounds, No tenderness Pelvic Exam: not done Rectal Exam: not done Back Exam: normal inspection, normal range of motion, No CVA tenderness, No vertebral tenderness Extremity Exam: normal inspection, normal range of motion, pelvis stable Neurologic Exam: alert, oriented x 3, cooperative, director life sales II-XII nml as tested, normal mood/affect, nml cerebellar function, nml station & gait, sensation nml Skin Exam: pale Lymphatic Exam: No adenopathy SpO2 Interpretation: normal O2 Delivery: Room Air <ELIZA FRITZ - Last Filed: 05/17/23 18:33> - Nursing Vital Signs Nursing Vital Signs: Initial Vital Signs Temperature 96.2 F 05/17/23 17:08 Pulse Rate 60 05/17/23 17:08 Blood Pressure 119/35 05/17/23 17:08 Pain Scale Pain Intensity 4 - Course Nursing assessment & vital signs reviewed: Yes EKG Interpreted by Me: RATE (62), Sinus Rhythm, NORMAL AXIS, Right Bundle Branch Block, Other (Rhythm shows pacemaker spikes. There is a sinus or ectopic at rial rhythm. There is prolonged FL interval. There is no evidence of any acute ischemic changes.) <ELIZA FRITZ - Last Filed: 05/17/23 18:33> - CT Exams Abdomen/Pelvis CT Interpretation: Tele-radiologist Report, Other (CT scan is unchanged from other recent scans.) <JURGEN HATCH - Last Filed: 05/17/23 19:16> Ordered Tests: Active Orders 24 hr Category Date Time Status Packaging Sales Consultant STAT Care 05/17/23 17:55 Active EKG-ER Only STAT Care 05/17/23 17:50 Active IV Insertion STAT Care 05/17/23 17:50 Active ABDOMEN AND PELVIS W/0 CONTRAS [CT] Stat Exams 05/17/23 17:51 Taken CBC W DIFF Stat Lab 05/17/23 17:30 Completed CMP Stat Lab 05/17/23 17:30 Completed PROTIME WITH INR Stat Lab 05/17/23 17:30 Completed TROPONIN Q4H Lab 05/17/23 17:30 Completed TROPONIN Q4H Lab 05/17/23 22:00 Ordered TROPONIN Q4H Lab 05/18/23 02:00 Ordered UA W/RFX UR CULTURE Stat Lab 05/17/23 17:51 Ordered Medication Summary Generic Name Dose Route Start Last Admin Trade Name Freq PRN Reason Stop Dose Admin Sodium Chloride 1,000 mls @ 100 mls/hr 05/17/23 18:00 05/17/23 17:59 Sodium Chloride 0.9% 1000 Ml IV 06/16/23 17:59 100 mls/hr .Q10H FELICIA Administration Discontinued Medications Generic Name Dose Route Start Last Admin Trade Name Nicolas PRN Reason Stop Dose Admin Pantoprazole Sodium 40 mg 05/17/23 17:50 05/17/23 17:59 Pantoprazole 40 Mg Vial IV 05/17/23 17:51 40 mg STAT ONE Administration Pantoprazole Sodium Confirm 05/17/23 17:56 Pantoprazole 40 Mg Vial Administered 05/17/23 17:57 Dose 40 mg IV .[email or web address] ONE Lab/Rad Data: Laboratory Result Diagrams 05/17/23 17:30 05/17/23 17:30 Laboratory Results 05/17/23 05/17/23 05/17/23 Range/Units 18:00 17:30 17:30 WBC (4.0-10.5) x10^3/uL RBC (4.1-5.4) x10^6/uL Hgb (12.0-16.0) g/dL Hct (35-47) % MCV (78-100) fL MCH (26-32) pg MCHC (32-36) g/dL RDW (11.5-14.0) % Plt Count (150-450) x10^3/uL MPV (7.5-11.0) fL Gran % (36.0-66.0) % Immature Gran % (Auto) (0.00-0.4) % Nucleat RBC Rel Count (0.00-0.1) % Eos # (Auto) (0-0.5) x10^3/uL Immature Gran # (Auto) (0.00-0.03) x10^3u/L Absolute Lymphs (auto) (1.0-4.6) x10^3/uL Absolute Monos (auto) (0.0-1.3) x10^3/uL Absolute Nucleated RBC (0.00-0.01) x10^3u/L Lymphocytes % (24.0-44.0) % Monocytes % (0.0-12.0) % Eosinophils % (0.00-5.0) % Basophils % (0.0-0.4) % Absolute Granulocytes (1.4-6.9) x10^3/uL Basophils # (0-0.4) x10^3/uL PT (9.4-12.5) SECONDS INR (0.8-3.0) Sodium (137-145) mmol/L Potassium (3.5-5.1) mmol/L Chloride (98-107) mmol/L Carbon Dioxide (22-30) mmol/L Anion Gap (5-15) MEQ/L BUN (7-17) mg/dL Creatinine (0.52-1.04) mg/dL Estimated GFR ML/MIN Glucose (74-106) mg/dL Calcium (8.4-10.2) mg/dL Total Bilirubin (0.2-1.3) mg/dL AST (14-36) U/L ALT (0-35) U/L Alkaline Phosphatase (38-126) U/L Troponin I < 0.012 (0.000-0.034) ng/mL Serum Total Protein (6.3-8.2) g/dL Albumin (3.5-5.0) g/dL ABO Group Rh Factor Antibody Screen (NEGATIVE) Crossmatch COMPATIBLE COMPATIBLE (COMPATIBLE) 05/17/23 05/17/23 05/17/23 Range/Units 17:30 17:30 17:30 WBC (4.0-10.5) x10^3/uL RBC (4.1-5.4) x10^6/uL Hgb (12.0-16.0) g/dL Hct (35-47) % MCV (78-100) fL MCH (26-32) pg MCHC (32-36) g/dL RDW (11.5-14.0) % Plt Count (150-450) x10^3/uL MPV (7.5-11.0) fL Gran % (36.0-66.0) % Immature Gran % (Auto) (0.00-0.4) % Nucleat RBC Rel Count (0.00-0.1) % Eos # (Auto) (0-0.5) x10^3/uL Immature Gran # (Auto) (0.00-0.03) x10^3u/L Absolute Lymphs (auto) (1.0-4.6) x10^3/uL Absolute Monos (auto) (0.0-1.3) x10^3/uL Absolute Nucleated RBC (0.00-0.01) x10^3u/L Lymphocytes % (24.0-44.0) % Monocytes % (0.0-12.0) % Eosinophils % (0.00-5.0) % Basophils % (0.0-0.4) % Absolute Granulocytes (1.4-6.9) x10^3/uL Basophils # (0-0.4) x10^3/uL PT 25.2 H (9.4-12.5) SECONDS INR 2.47 (0.8-3.0) Sodium 139 (137-145) mmol/L Potassium 4.1 (3.5-5.1) mmol/L Chloride 110 H (98-107) mmol/L Carbon Dioxide 20 L (22-30) mmol/L Anion Gap 13.0 (5-15) MEQ/L BUN 56 H (7-17) mg/dL Creatinine 1.66 H (0.52-1.04) mg/dL Estimated GFR 31.7 ML/MIN Glucose 99 (74-106) mg/dL Calcium 8.1 L (8.4-10.2) mg/dL Total Bilirubin 0.50 (0.2-1.3) mg/dL AST 61 H (14-36) U/L ALT 32 (0-35) U/L Alkaline Phosphatase 303 H (38-126) U/L Troponin I (0.000-0.034) ng/mL Serum Total Protein 4.8 L (6.3-8.2) g/dL Albumin 2.5 L (3.5-5.0) g/dL ABO Group A Rh Factor POSITIVE Antibody Screen NEGATIVE (NEGATIVE) Crossmatch COMPATIBLE (COMPATIBLE) 05/17/23 Range/Units 17:30 WBC 5.2 (4.0-10.5) x10^3/uL RBC 1.55 L (4.1-5.4) x10^6/uL Hgb 5.0 L* (12.0-16.0) g/dL Hct 17.1 L (35-47) % MCV 110.3 H D (78-100) fL MCH 32.3 H (26-32) pg MCHC 29.2 L (32-36) g/dL RDW 18.0 H (11.5-14.0) % Plt Count 143 L D (150-450) x10^3/uL MPV 11.4 H (7.5-11.0) fL Gran % 77.9 H (36.0-66.0) % Immature Gran % (Auto) 0.6 H (0.00-0.4) % Nucleat RBC Rel Count 0.0 (0.00-0.1) % Eos # (Auto) 0.09 (0-0.5) x10^3/uL Immature Gran # (Auto) 0.03 (0.00-0.03) x10^3u/L Absolute Lymphs (auto) 0.52 L (1.0-4.6) x10^3/uL Absolute Monos (auto) 0.48 (0.0-1.3) x10^3/uL Absolute Nucleated RBC 0.00 (0.00-0.01) x10^3u/L Lymphocytes % 10.0 L (24.0-44.0) % Monocytes % 9.2 (0.0-12.0) % Eosinophils % 1.7 (0.00-5.0) % Basophils % 0.6 (0.0-0.4) % Absolute Granulocytes 4.06 (1.4-6.9) x10^3/uL Basophils # 0.03 (0-0.4) x10^3/uL PT (9.4-12.5) SECONDS INR (0.8-3.0) Sodium (137-145) mmol/L Potassium (3.5-5.1) mmol/L Chloride (98-107) mmol/L Carbon Dioxide (22-30) mmol/L Anion Gap (5-15) MEQ/L BUN (7-17) mg/dL Creatinine (0.52-1.04) mg/dL Estimated GFR ML/MIN Glucose (74-106) mg/dL Calcium (8.4-10.2) mg/dL Total Bilirubin (0.2-1.3) mg/dL AST (14-36) U/L ALT (0-35) U/L Alkaline Phosphatase (38-126) U/L Troponin I (0.000-0.034) ng/mL Serum Total Protein (6.3-8.2) g/dL Albumin (3.5-5.0) g/dL ABO Group Rh Factor Antibody Screen (NEGATIVE) Crossmatch (COMPATIBLE) - Progress Progress: improved Counseled pt/family regarding: lab results, diagnosis, need for follow-up, rad results <ELIZA FRITZ - Last Filed: 05/17/23 18:33> - Progress Progress: unchanged <JURGEN HATCH - Last Filed: 05/17/23 19:16> - Progress Progress Note: 05/17/23 18:34 This patient's care be transferred to Dr. Hatch at 1835. He will follow-up on the test results and make final disposition. (ELIZA FRITZ) Medical Desision Making - Independent Historian Additional History obtained from: Spouse, Child - Discussion of managment Care discussed with:: specialist Reviewed:: Test results, Need for additional workup Agreed on:: Treatment plan, decision to admit (Discussed with Dr. Armenta ER physician at [facility] excepted this patient in transfer since we have no GI services here and her care has been given in the past by Dr. Elizalde) Will see patient: in ED - Diagnostic Testing Diagnostic test were ordered, analyzed, and reviewed by me: Yes Radiological Interpretation: Reviewed by me - Risk of complications The pt has a mod risk of morbidity or mortality based on: Need for minor surgi cassie intervention in patient with know risk factors The pt has a high risk of morbidity or mortality based on: Decision regarding hospitilization or escalation of hosp level of care <JURGEN HATCH - Last Filed: 05/17/23 19:16> - Departure Departure Disposition: Home Critical Care Time: No <ELIZA FRITZ - Last Filed: 05/17/23 18:33> - Departure Departure Disposition: Transfer (Patient will be transferred to [facility] for purposes of continuity of care, specialties unavailable at this hospital such as GI,Patient was excepted in transfer by Dr. Armenta in the ER.) Critical Care Time: No <JURGEN HATCH - Last Filed: 05/17/23 19:16> - Departure Clinical Impression: Symptomatic anemia, Rectal bleeding, Severe anemia Condition: Fair Referrals: RACHEL ELIZALDE [Primary Care Provider] - Follow up/PCP as directed
[2023-05-17] MEDS ORDERED: PROTONIX 40 MG IV IV ONE ×2 (17:50→17:56)
[2023-05-17] MEDS ORDERED: Sodium Chloride 0.9% 1000 ML 1,000 ML ONE (17:56)
[2023-05-17 18:00] LABS: Absolute Neutrophil Ct (ANC) 4.06 x10^3/uL (1.4-6.9); BASOPHIL % 0.6 % (0.0-0.4); Basophil (Absolute #) 0.03 x10^3/uL (0-0.4); Eosinophil % 1.7 % (0.00-5.0); Eosinophil (Absolute #) 0.09 x10^3/uL (0-0.5); Hematocrit 17.1 % (35-47); IMMATURE GRAN # 0.03 x10^3u/L (0.00-0.03); IMMATURE GRAN % 0.6 % (0.00-0.4); Lymphocyte (Absolute #) 0.52 x10^3/uL (1.0-4.6); Mean Cell Volume 110.3 fL (78-100); Mean Corpuscular Hemoglobin 32.3 pg (26-32); Mean Corpuscular Hgb Concent. 29.2 g/dL (32-36); Mean Platelet Volume 11.4 fL (7.5-11.0); Monocyte (Absolute #) 0.48 x10^3/uL (0.0-1.3); Monocytes % 9.2 % (0.0-12.0); Neutrophil % 77.9 % (36.0-66.0); Platelet Count 143 x10^3/uL (150-450); Red Blood Count 1.55 x10^6/uL (4.1-5.4); White Blood Count 5.2 x10^3/uL (4.0-10.5)
[2023-05-17] MEDS ORDERED: Sodium Chloride 0.9% 1000 ML 1,000 ML IV SCH (18:00)
[2023-05-17 18:05] LABS: ALBUMIN 2.5 g/dL (3.5-5.0); BILIRUBIN,TOTAL 0.5 mg/dL (0.2-1.3); Calcium 8.1 mg/dL (8.4-10.2); Creatinine 1 1.66 mg/dL (0.52-1.04); EST GLOMERULAR FILTRATION RATE 31.7 ML/MIN; Potassium 4.1 mmol/L (3.5-5.1); Total Protein 4.8 g/dL (6.3-8.2)
[2023-05-17 18:06] LABS: INR 2.47 (0.8-3.0); PROTIME 25.2 SECONDS (9.4-12.5)
[2023-05-17 18:56] LABS: ABO TYPING A; Antibody Screen NEGATIVE (NEGATIVE); RH TYPING POSITIVE
[2023-05-17 18:58] LABS: CROSS MATCH (PRBC) COMPATIBLE (COMPATIBLE)
[2023-05-17 18:59] LABS: CROSS MATCH (PRBC) COMPATIBLE (COMPATIBLE)
[2023-05-17] MEDS ORDERED: Sodium Chloride 0.9% 500 ML 500 ML IV ONE (19:40)
[2023-05-17 20:01] VITALS: PULSE 60
[2023-05-17 20:16] LABS: Slide Review 1 YES
[2023-05-17] MEDS ORDERED: Lasix 20 MG/2 ML ONE (20:26)
[2023-05-17] MEDS ORDERED: Lasix 20 MG/2 ML IV PRN (20:28)
[2023-05-17 20:56] VITALS: BP 132/40; RESP 16; O2SAT 98
[2023-05-17 21:46] LABS: Appearance Clear (Clear); Bilirubin Negative (Negative); Blood Negative (Negative); Glucose, Urine Negative (Negative); Ketones Negative (Negative); Leukocyte Esterase Trace (Negative); Nitrite Negative (Negative); Ph 5.5 (4.6-8.0); Protein,Urine Dip Negative (Negative); RBC 0-2 /HPF (0-5); Specific Gravity 1.015 (1.005-1.030); Urobilinogen 0.2 mg/dL (0.2)
[2023-05-17 21:51] LABS: ADD URINE CULTURE? ORDERED SEPARATELY (NO); Bacteria Rare /HPF (None Seen); Epithelial Cells Few /HPF (None Seen); Hyaline Casts 0-2 /LPF (0-2)
--- NOTE | 2023-05-18 08:40 | XRAY ---
Indication: Black tarry stools. Anemia. Multiple contiguous axial images obtained through the abdomen and pelvis without contrast. Comparison: January 16, 2023 Lung bases again demonstrates small bibasilar effusions with compressive atelectasis, less than before. Remaining lungs again demonstrate scattered fibrosis/scarring with minimal right base calcified pleural plaquing. Stable 8 mm left base noncalcified nodule and tiny right base calcified granuloma. Heart remains borderline enlarged. Noncontrasted stomach and bowel loops appear nonobstructed again with sigmoid diverticulosis. Again a tiny perihepatic and pelvic free fluid, less than before. Again mild cirrhotic appearing liver. Spleen remains enlarged measuring 13.4 cm. Both kidneys again appear small with lobular margins. Stable bilateral lower pole exophytic renal cysts. Inferior left kidney demonstrates nonobstructing punctate calculus not well seen on previous contrast exam. Again previous cholecystectomy. Remaining liver, pancreas, spleen, adrenal glands, kidneys, ureters, bladder, and uterus are unremarkable for noncontrast exam. Again extensive scattered arteriosclerotic disease without AAA. Osseous structures intact again with osteopenia and old S1 fracture. Impression: 1. Again borderline cardiomegaly with small bibasilar effusions/atelectasis. Rule out mild/early cardiac decompensation/CHF versus fluid overload. 2. Stable bibasilar calcified/noncalcified pulmonary nodules, pulmonary fibrosis/scarring, and right base calcific pleural plaquing. 3. Again cirrhotic liver with tiny perihepatic/pelvic free fluid and splenomegaly. 4. Nonobstructing left renal punctate calculus. Stable bilateral renal atrophy and bilateral renal cysts. 5. Continued chronic findings including arteriosclerotic disease and chronic bony findings.
== END 2023-05-17 20:57 | disposition short-term general hospital (02) ==
LOC: ED 16:52
DX: D64.9 Anemia, unspecified (principal); K62.5 Hemorrhage of anus and rectum; R53.1 Weakness; R06.02 Shortness of breath; R42 Dizziness and giddiness; M54.2 Cervicalgia; M54.9 Dorsalgia, unspecified; I11.0 Hypertensive heart disease with heart failure; I50.9 Heart failure, unspecified; Z79.01 Long term (current) use of anticoagulants; Z79.899 Other long term (current) drug therapy
CPT/HCPCS: 36000; 36415; 36430; 51702; 74176; 80053; 81001; 84484; 85025; 85610; 86850; 86900; 86901; 86922; 87086; 93005; 93041; 96374; 96375; 99285; P9016; J1940

== ENCOUNTER 2023-08-17 17:16 | Observation (INO) | payer MEDICARE ==
[2023-08-17 18:39] LABS: Absolute Neutrophil Ct (ANC) 3.78 x10^3/uL (1.4-6.9); BASOPHIL % 0.4 % (0.0-0.4); Basophil (Absolute #) 0.02 x10^3/uL (0-0.4); Eosinophil (Absolute #) 0.15 x10^3/uL (0-0.5); Hematocrit 17.9 % (35-47); IMMATURE GRAN # 0.02 x10^3u/L (0.00-0.03); IMMATURE GRAN % 0.4 % (0.00-0.4); Lymphocyte (Absolute #) 0.59 x10^3/uL (1.0-4.6); Lymphocytes % 11.6 % (24.0-44.0); Mean Cell Volume 98.4 fL (78-100); Mean Corpuscular Hemoglobin 29.7 pg (26-32); Mean Corpuscular Hgb Concent. 30.2 g/dL (32-36); Mean Platelet Volume 10.3 fL (7.5-11.0); Monocyte (Absolute #) 0.51 x10^3/uL (0.0-1.3); Monocytes % 10.1 % (0.0-12.0); Neutrophil % 74.5 % (36.0-66.0); Platelet Count 138 x10^3/uL (150-450); Red Blood Count 1.82 x10^6/uL (4.1-5.4); Red Cell Distribution Width 21.2 % (11.5-14.0); White Blood Count 5.1 x10^3/uL (4.0-10.5)
[2023-08-17 18:42] LABS: Hemoglobin 5.4 g/dL (12.0-16.0)
--- NOTE | 2023-08-17 18:47 | ERPHSYRPT ---
- History of Present Illness Time Seen by Provider: 08/17/23 17:30 Source: patient Exam Limitations: no limitations Patient Subjective Stated Complaint: Abnormal labs-HB.3 Triage Nursing Assessment: Patient brought back to ED per w/c and transferred to bed with assist of 1. Patient A+O X3. Patient's skin pale, warm and dry. Patient states she had her blood drawn today and received a phone call from Dr. Elizalde the her HBG was 6.3 and to come to ER. Patient denies pain or discomfort. Physician History: Patient 77-year-old female presents to our ED by her primary care doctor for a blood transfusion. 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 Patient requires Coumadin for mechanical mitral valve. Patient otherwise feels well. No chest pain or shortness of breath. No nausea vomiting or diaphoresis. Patient feels slightly weak and is somewhat pale on exam. Otherwise at her baseline. Patient reports that Dr. Elizalde ordered his labs frequently because she is known to develop anemia secondary to bleed from her stomach/duodenal angiodysplasia Patient's outpatient laboratory work-up revealed hemoglobin of 6.3. Patient's INR at that time was 2.47. Portions of this note were created with voice recognition technology. There may be grammatical, spelling, punctuation or sound alike errors Timing/Duration: today Severity: moderate Modifying Factors: Improves With: nothing Associated Symptoms: denies symptoms Allergies/Adverse Reactions: No Known Drug Allergies Allergy (Verified 05/17/23 17:08) Home Medications: Warfarin Sodium 3 mg [Coumadin 3 MG] 3 mg PO DAILY@1800 02/15/18 [History] Amiodarone HCl 200 mg PO DAILY 02/10/22 [History] Omeprazole 40 mg PO DAILY 10/15/22 [History] Tramadol HCl 50 mg [Ultram 50 mg] 50 mg PO Q12H PRN PRN 10/15/22 [History] PANTOPRAZOLE 40 mg Tablet [Protonix 40MG Tablet] 1 tab PO BID 01/16/23 [History] Sacubitril/Valsartan [Entresto 24 mg-26 mg Tablet] 1 tab PO BID 01/16/23 [History] Spironolactone 25 mg [Aldactone 25 MG] 1 tab PO DAILY 01/16/23 [History] Sucralfate 1 gm [Carafate 1 GM] 1 tab PO TID 01/16/23 [History] Warfarin Sodium 1 tab PO DAILY 01/16/23 [History] Hx Tetanus, Diphtheria Vaccination/Date Given: Yes Hx Influenza Vaccination/Date Given: No Hx Pneumococcal Vaccination/Date Given: No Immunizations Up to Date: Yes Travel Risk - International Travel Have you traveled outside of the country in past 3 weeks: No - Coronavirus Screening Are you exhibiting any of the following symptoms?: No Close contact with a COVID-19 positive Pt in past 14-21 Days: No - Vaccine Status Have you recieved a Covid-19 vaccination: Yes [employer] Mixer: Moderna - Vaccination Dates Date of 2cond Vaccination (if applicable): ? - Review of Systems Constitutional: No Symptoms, No Fever, No Chills Eyes: No Symptoms Ears, Nose, & Throat: No Symptoms Respiratory: No Symptoms, No Cough, No Dyspnea Cardiac: No Symptoms, No Chest Pain, No Edema, No Syncope Abdominal/Gastrointestinal: No Symptoms, No Abdominal Pain, No Nausea, No Vomiting, No Diarrhea Genitourinary Symptoms: No Symptoms, No Dysuria Musculoskeletal: No Symptoms, No Back Pain, No Neck Pain Skin: No Symptoms, No Rash Neurological: No Symptoms, No Dizziness, No Focal Weakness, No Sensory Changes Psychological: No Symptoms Endocrine: No Symptoms Hematologic/Lymphatic: No Symptoms Immunological/Allergic: No Symptoms All Other Systems: Reviewed and Negative - Past Medical History Pertinent Past Medical History: Yes Neurological History: No Pertinent History ENT History: Cataracts, Macular Degeneration Cardiac History: Arrhythmia, Congestive Heart Failure, Coronary Artery Disease, Hypertension, Myocardial Infarction ([place]) Respiratory History: Bronchitis, Emphysema, Pneumonia Endocrine Medical History: No Pertinent History Musculoskeletal History: Osteoporosis, Other GI Medical History: Gallbladder Disease History: Other Psycho-Social History: Depression, Anxiety Female Reproductive Disorders: No Pertinent History Other Medical History: skin ca, kidney stones, anemia - Past Surgical History Past Surgical History: Yes Neuro Surgical History: No Pertinent History Cardiac: CABG, Valve Replacement, Cardiac Catheterization, Pacemaker Respiratory: No Pertinent History Gastrointestinal: Other, Cholecystectomy Genitourinary: Kidney Surgery Musculoskeletal: No Pertinent History Female Surgical History: No Pertinent History Other Surgical History: kidney stent x 2. colonoscopy and EGD 2016. revision of pacemaker. stent x 1 in 2020 - Social History Smoking Status: Former smoker How long have you smoked: 50 yrs Exposure to second hand smoke: No Alcohol Use: Socially Drug Use: none Patient Lives Alone: No Significant Family History: hypertension - Nursing Vital Signs Nursing Vital Signs: Initial Vital Signs Pulse Rate 61 08/17/23 17:18 Respiratory Rate 16 08/17/23 17:18 Blood Pressure 138/42 08/17/23 17:18 Pain Scale Pain Intensity 0 - Physical Exam General Appearance: no apparent distress, alert, other (Patient appears pale) Eye Exam: PERRL/EOMI, eyes nml inspection Ears, Nose, Throat Exam: normal ENT inspection, TMs normal, pharynx normal, moist mucous membranes Neck Exam: normal inspection, non-tender, supple, full range of motion Respiratory Exam: normal breath sounds, lungs clear, airway intact, No respiratory distress Cardiovascular Exam: regular rate/rhythm, normal heart sounds, normal peripheral pulses Gastrointestinal/Abdomen Exam: soft, normal bowel sounds, No tenderness, No mass Back Exam: normal inspection, normal range of motion, No CVA tenderness, No vertebral tenderness Extremity Exam: normal inspection, normal range of motion, pelvis stable Neurologic Exam: alert, oriented x 3, cooperative, normal mood/affect, nml cerebellar function, nml station & gait, sensation nml, No motor deficits Skin Exam: normal color, warm, dry, No rash Lymphatic Exam: No adenopathy SpO2 Interpretation: normal SpO2: 100 O2 Delivery: Room Air - Course Nursing assessment & vital signs reviewed: Yes Ordered Tests: Active Orders 24 hr Category Date Time Status CBC W DIFF Stat Lab 08/17/23 18:27 Completed CMP Stat Lab 08/17/23 18:27 Received PROTIME WITH INR Stat Lab 08/17/23 18:37 Ordered PTT Stat Lab 08/17/23 18:37 Ordered TROPONIN Q4H Lab 08/17/23 18:27 Received TROPONIN Q4H Lab 08/17/23 22:00 Ordered TROPONIN Q4H Lab 08/18/23 02:00 Ordered Transfer Order Routine Transfer 08/17/23 Ordered Lab/Rad Data: Laboratory Result Diagrams 08/17/23 18:27 Laboratory Results 08/17/23 Range/Units 18:27 WBC 5.1 (4.0-10.5) x10^3/uL RBC 1.82 L (4.1-5.4) x10^6/uL Hgb 5.4 L* (12.0-16.0) g/dL Hct 17.9 L (35-47) % MCV 98.4 (78-100) fL MCH 29.7 (26-32) pg MCHC 30.2 L (32-36) g/dL RDW 21.2 H (11.5-14.0) % Plt Count 138 L (150-450) x10^3/uL MPV 10.3 (7.5-11.0) fL Gran % 74.5 H (36.0-66.0) % Immature Gran % (Auto) 0.4 (0.00-0.4) % Nucleat RBC Rel Count 0.0 (0.00-0.1) % Eos # (Auto) 0.15 (0-0.5) x10^3/uL Immature Gran # (Auto) 0.02 (0.00-0.03) x10^3u/L Absolute Lymphs (auto) 0.59 L (1.0-4.6) x10^3/uL Absolute Monos (auto) 0.51 (0.0-1.3) x10^3/uL Absolute Nucleated RBC 0.00 (0.00-0.01) x10^3u/L Lymphocytes % 11.6 L (24.0-44.0) % Monocytes % 10.1 (0.0-12.0) % Eosinophils % 3.0 (0.00-5.0) % Basophils % 0.4 (0.0-0.4) % Absolute Granulocytes 3.78 (1.4-6.9) x10^3/uL Basophils # 0.02 (0-0.4) x10^3/uL - Progress Progress: improved Progress Note: Patient 77-year-old female presents to our ED for blood transfusion. Patient develops chronic anemia usually due to angiodysplasia of her stomach and d uodenum. Patient is on Coumadin for mechanical heart valve. Patient's hemoglobin on an outpatient basis was 6.3. INR at that point was 0.47. Repeat hemoglobin here today is 5.4. Patient is pale on exam. No pain. Patient otherwise feels well. Patient will require transfusion which has been ordered. Patient will be admitted for transfusion. Case discussed with hospitalist who accepts admission to observation at 6:45 PM. Plan of care discussed with patient. She agrees to admission to [facility] for further evaluation and treatment. Portions of this note were created with voice recognition technology. There may be grammatical, spelling, punctuation or sound alike errors Complexity of problems addressed is moderate acute complicated No critical care time Complex of data reviewed and analyzed is extensive. Test ordered test reviewed. Results correlated clinically with history and physical examination. Management discussed with hospitalist who excepts admission to observation. Risk of complication and or risk of morbidity/mortality of patient management is high. Patient requires hospitalization for further evaluation and treatment. Vital stable. Time spent admit patient approximately 20 minutes. Plan of care established for shared decision making. Portions of this note were created with voice recognition technology. There may be grammatical, spelling, punctuation or sound alike errors 08/17/23 18:[address] Other (Remy at 6:45pm) Counseled pt/family regarding: lab results, diagnosis - Departure Departure Disposition: Observation Clinical Impression: Symptomatic anemia, Chronic GI bleeding Condition: Stable Critical Care Time: No Referrals: DOCTOR,NO FAMILY [NON-STAFF PHY W/O PRIVILEGES] - Follow up/PCP as directed
[2023-08-17 18:51] LABS: ALBUMIN 2.8 g/dL (3.5-5.0); ANION GAP 13.5 MEQ/L (5-15); BILIRUBIN,TOTAL 0.5 mg/dL (0.2-1.3); Calcium 8.8 mg/dL (8.4-10.2); Creatinine 1 1.66 mg/dL (0.52-1.04); EST GLOMERULAR FILTRATION RATE 31.2 ML/MIN; Potassium 3.5 mmol/L (3.5-5.1); Total Protein 5.4 g/dL (6.3-8.2)
[2023-08-17 19:08] LABS: INR 1.85 (0.8-3.0); PROTIME 19.3 SECONDS (9.4-12.5); PTT 29.1 SECONDS (25.1-36.5)
[2023-08-17 19:41] LABS: ABO TYPING A; Antibody Screen NEGATIVE (NEGATIVE); RH TYPING POSITIVE
[2023-08-17 19:42] LABS: CROSS MATCH (PRBC) COMPATIBLE (COMPATIBLE)
[2023-08-17 19:54] LABS: INFLUENZA A NEGATIVE (NEGATIVE); INFLUENZA B NEGATIVE (NEGATIVE); RESPIRATORY SYNCTIAL VIRUS NEGATIVE (NEGATIVE); SARS-CoV-2 Xpert Express NEGATIVE (NEGATIVE)
[2023-08-17] MEDS ORDERED: Docusate Sodium 100 MG PO PRN (20:22)
[2023-08-17] MEDS ORDERED: TYLENOL 325 MG PO PRN ×2 (20:22→23:45)
[2023-08-17 20:33] LABS: Slide Review 1 YES
[2023-08-17] MEDS ORDERED: Sodium Chloride 0.9% 1000 ML 1,000 ML ONE (22:14)
--- NOTE | 2023-08-17 23:28 | PCM.HP ---
History of Present Illness - Chief Complaint Chief Complaint: Symptomatic anemia, chronic GI blood loss Date: 08/17/23 History of Present Illness: Ms. Heck is a 77 year old female with a past medical history significant for hypertension, hyperlipidemia, valvular heart disease status post mechanical mitral valve replacement on oral Coumadin, and chronic kidney disease who presents to the hospital after outpatient labs demonstrated a drop in hemoglobin into the 5s. She reports some dark stool but no overt bleeding, and has required these transfusions on a regular basis. She was recommended for admission to the hospital as labs demonstrated a hemoglobin of 5.4 and creatinine of 1.7. No NSAIDs or exposure to contrast. - Review of Systems Constitutional: No Symptoms Eyes: No Symptoms Ears, Nose, & Throat: No Symptoms Respiratory: No Symptoms Cardiac: No Symptoms Abdominal/Gastrointestinal: No Symptoms Genitourinary Symptoms: No Symptoms Musculoskeletal: No Symptoms Skin: No Symptoms Neurological: No Symptoms Psychological: No Symptoms Endocrine: No Symptoms Hematologic/Lymphatic: No Anemia, No Blood Clots, No Easy Bleeding, No Gum Bleeding Medications & Allergies Home Medications: Home Medication List PANTOPRAZOLE 40 mg Tablet [Protonix 40MG Tablet] 1 tab PO BID 01/16/23 [History Confirmed 08/17/23] Spironolactone 25 mg [Aldactone 25 MG] 1 tab PO DAILY 01/16/23 [History Confirmed 08/17/23] Sucralfate 1 gm [Carafate 1 GM] 1 tab PO TID 01/16/23 [History Confirmed 08/17/23] Albuterol 2.5 mg/3 ml Neb [Proventil 2.5 mg/3 ml Neb] 1 neb IH Q6H PRN PRN 08/17/23 [History Confirmed 08/17/23] Escitalopram Oxalate [Lexapro] 10 mg PO DAILY 08/17/23 [History Confirmed 08/17/23] Furosemide 20 mg [Lasix 20 mg] 20 mg PO DAILY 08/17/23 [History Confirmed 08/17/23] Metoprolol Succinate 25 mg Xl* [Toprol-Xl 25MG Tablets] 25 mg PO DAILY 05/02 [History Confirmed 08/17/23] [place]-3 Fatty Acids/Fish Oil [Eql Fish Oil 1,000 mg Softgel] 1 each PO DAILY 08/17/23 [History Confirmed 08/17/23] Warfarin Sodium 2 mg [Coumadin 2 MG] 3 mg PO DAILY 08/17/23 [History Confirmed 08/17/23] clonazePAM [Clonazepam] 1 tab PO BID 08/17/23 [History Confirmed 08/17/23] Allergies/Adverse Reactions: Allergies Allergy/AdvReac Type Severity Reaction Status Date / Time hydrocodone Allergy Unknown Verified 08/17/23 19:34 propoxyphene Allergy Unknown Verified 08/17/23 19:34 - Past Medical History Past Medical History: Yes Neurological History: No Pertinent History ENT History: Cataracts, Macular Degeneration Cardiac History: Arrhythmia, Congestive Heart Failure, Coronary Artery Disease, Hypertension, Myocardial Infarction ([place]) Respiratory History: Bronchitis, COPD, Emphysema, Pneumonia Endocrine Medical History: No Pertinent History Musculoskelatal History: Osteoporosis, Other GI Medical History: Gallbladder Disease History: Other Pyscho-Social History: Depression, Anxiety Reproductive Disorders: No Pertinent History Comment: skin ca, kidney stones, anemia - Female History Are you now?: No - Past Surgical History Past Surgical History: Yes Neuro Surgical History: No Pertinent History Cardiac History: CABG, Valve Replacement, Cardiac Catheterization, Pacemaker Respiratory Surgery: No Pertinent History GI Surgical History: Other, Cholecystectomy Genitourinary Surgical Hx: Kidney Surgery Musculskeletal Surgical Hx: No Pertinent History Female Surgical History: No Pertinent History Other Surgical History: kidney stent x 2. colonoscopy and EGD 2016. revision of pacemaker. stent x 1 in 2020 - Social History Smoking Status: Former smoker How long have you smoked: 50 yrs Exposure to second hand smoke: No Alcohol: None Drug Use: none Significant Family History: hypertension - Physical Exam Vital Signs: Vital Signs - 24 hr Temp Pulse Resp BP BP Pulse Ox 08/17/23 20:36 97.7 F 64 18 142/57 95 08/17/23 20:00 65 15 143/49 99 08/17/23 19:30 65 17 135/49 100 08/17/23 19:08 67 15 136/49 100 08/17/23 19:00 66 15 133/42 100 08/17/23 18:58 100 08/17/23 17:21 97.3 F 68 18 138/42 100 08/17/23 17:18 61 16 138/42 General Appearance: no apparent distress Neurologic Exam: alert, oriented x 3 Ears, Nose, Throat Exam: normal ENT inspection Neck Exam: non-tender, supple, full range of motion Respiratory Exam: normal breath sounds Cardiovascular Exam: regular rate/rhythm Gastrointestinal/Abdomen Exam: soft Rectal Exam: deferred Extremity Exam: No pedal edema, No swelling Skin Exam: normal color Results - Labs Lab/Micro Results: Lab Results-Last 24 Hours 08/17/23 08/17/23 08/17/23 Range/Units 18:00 18:27 18:27 WBC 5.1 (4.0-10.5) x10^3/uL RBC 1.82 L (4.1-5.4) x10^6/uL Hgb 5.4 L* (12.0-16.0) g/dL Hct 17.9 L (35-47) % MCV 98.4 (78-100) fL MCH 29.7 (26-32) pg MCHC 30.2 L (32-36) g/dL RDW 21.2 H (11.5-14.0) % Plt Count 138 L (150-450) x10^3/uL MPV 10.3 (7.5-11.0) fL Gran % 74.5 H (36.0-66.0) % Immature Gran % (Auto) 0.4 (0.00-0.4) % Nucleat RBC Rel Count 0.0 (0.00-0.1) % Eos # (Auto) 0.15 (0-0.5) x10^3/uL Immature Gran # (Auto) 0.02 (0.00-0.03) x10^3u/L Absolute Lymphs (auto) 0.59 L (1.0-4.6) x10^3/uL Absolute Monos (auto) 0.51 (0.0-1.3) x10^3/uL Absolute Nucleated RBC 0.00 (0.00-0.01) x10^3u/L Lymphocytes % 11.6 L (24.0-44.0) % Monocytes % 10.1 (0.0-12.0) % Eosinophils % 3.0 (0.00-5.0) % Basophils % 0.4 (0.0-0.4) % Absolute Granulocytes 3.78 (1.4-6.9) x10^3/uL Basophils # 0.02 (0-0.4) x10^3/uL PT 19.3 H (9.4-12.5) SECONDS INR 1.85 (0.8-3.0) APTT 29.1 (25.1-36.5) SECONDS Sodium 137 (137-145) mmol/L Potassium 3.5 (3.5-5.1) mmol/L Chloride 106 (98-107) mmol/L Carbon Dioxide 21 L (22-30) mmol/L Anion Gap 13.5 (5-15) MEQ/L BUN 54 H (7-17) mg/dL Creatinine 1.66 H (0.52-1.04) mg/dL Estimated GFR 31.2 ML/MIN Glucose 123 H (74-106) mg/dL Calcium 8.8 (8.4-10.2) mg/dL Total Bilirubin 0.50 (0.2-1.3) mg/dL AST 60 H (14-36) U/L ALT 31 (0-35) U/L Alkaline Phosphatase 305 H (38-126) U/L Troponin I (0.000-0.034) ng/mL Serum Total Protein 5.4 L (6.3-8.2) g/dL Albumin 2.8 L (3.5-5.0) g/dL Influenza Type A Ag (NEGATIVE) Influenza Type B Ag (NEGATIVE) RSV (PCR) (NEGATIVE) SARS-CoV-2 (PCR) (NEGATIVE) Slides for Path Review YES ABO Group Rh Factor Antibody Screen (NEGATIVE) Crossmatch (COMPATIBLE) 08/17/23 08/17/23 08/17/23 Range/Units 18:27 18:27 18:36 WBC (4.0-10.5) x10^3/uL RBC (4.1-5.4) x10^6/uL Hgb (12.0-16.0) g/dL Hct (35-47) % MCV (78-100) fL MCH (26-32) pg MCHC (32-36) g/dL RDW (11.5-14.0) % Plt Count (150-450) x10^3/uL MPV (7.5-11.0) fL Gran % (36.0-66.0) % Immature Gran % (Auto) (0.00-0.4) % Nucleat RBC Rel Count (0.00-0.1) % Eos # (Auto) (0-0.5) x10^3/uL Immature Gran # (Auto) (0.00-0.03) x10^3u/L Absolute Lymphs (auto) (1.0-4.6) x10^3/uL Absolute Monos (auto) (0.0-1.3) x10^3/uL Absolute Nucleated RBC (0.00-0.01) x10^3u/L Lymphocytes % (24.0-44.0) % Monocytes % (0.0-12.0) % Eosinophils % (0.00-5.0) % Basophils % (0.0-0.4) % Absolute Granulocytes (1.4-6.9) x10^3/uL Basophils # (0-0.4) x10^3/uL PT (9.4-12.5) SECONDS INR (0.8-3.0) APTT (25.1-36.5) SECONDS Sodium (137-145) mmol/L Potassium (3.5-5.1) mmol/L Chloride (98-107) mmol/L Carbon Dioxide (22-30) mmol/L Anion Gap (5-15) MEQ/L BUN (7-17) mg/dL Creatinine (0.52-1.04) mg/dL Estimated GFR ML/MIN Glucose (74-106) mg/dL Calcium (8.4-10.2) mg/dL Total Bilirubin (0.2-1.3) mg/dL AST (14-36) U/L ALT (0-35) U/L Alkaline Phosphatase (38-126) U/L Troponin I < 0.012 (0.000-0.034) ng/mL Serum Total Protein (6.3-8.2) g/dL Albumin (3.5-5.0) g/dL Influenza Type A Ag NEGATIVE (NEGATIVE) Influenza Type B Ag NEGATIVE (NEGATIVE) RSV (PCR) NEGATIVE (NEGATIVE) SARS-CoV-2 (PCR) NEGATIVE (NEGATIVE) Slides for Path Review ABO Group A Rh Factor POSITIVE Antibody Screen NEGATIVE (NEGATIVE) Crossmatch COMPATIBLE (COMPATIBLE) 08/17/23 08/17/23 Range/Units 18:36 22:31 WBC (4.0-10.5) x10^3/uL RBC (4.1-5.4) x10^6/uL Hgb (12.0-16.0) g/dL Hct (35-47) % MCV (78-100) fL MCH (26-32) pg MCHC (32-36) g/dL RDW (11.5-14.0) % Plt Count (150-450) x10^3/uL MPV (7.5-11.0) fL Gran % (36.0-66.0) % Immature Gran % (Auto) (0.00-0.4) % Nucleat RBC Rel Count (0.00-0.1) % Eos # (Auto) (0-0.5) x10^3/uL Immature Gran # (Auto) (0.00-0.03) x10^3u/L Absolute Lymphs (auto) (1.0-4.6) x10^3/uL Absolute Monos (auto) (0.0-1.3) x10^3/uL Absolute Nucleated RBC (0.00-0.01) x10^3u/L Lymphocytes % (24.0-44.0) % Monocytes % (0.0-12.0) % Eosinophils % (0.00-5.0) % Basophils % (0.0-0.4) % Absolute Granulocytes (1.4-6.9) x10^3/uL Basophils # (0-0.4) x10^3/uL PT (9.4-12.5) SECONDS INR (0.8-3.0) APTT (25.1-36.5) SECONDS Sodium (137-145) mmol/L Potassium (3.5-5.1) mmol/L Chloride (98-107) mmol/L Carbon Dioxide (22-30) mmol/L Anion Gap (5-15) MEQ/L BUN (7-17) mg/dL Creatinine (0.52-1.04) mg/dL Estimated GFR ML/MIN Glucose (74-106) mg/dL Calcium (8.4-10.2) mg/dL Total Bilirubin (0.2-1.3) mg/dL AST (14-36) U/L ALT (0-35) U/L Alkaline Phosphatase (38-126) U/L Troponin I < 0.012 (0.000-0.034) ng/mL Serum Total Protein (6.3-8.2) g/dL Albumin (3.5-5.0) g/dL Influenza Type A Ag (NEGATIVE) Influenza Type B Ag (NEGATIVE) RSV (PCR) (NEGATIVE) SARS-CoV-2 (PCR) (NEGATIVE) Slides for Path Review ABO Group Rh Factor Antibody Screen (NEGATIVE) Crossmatch COMPATIBLE (COMPATIBLE) - Other Procedures and Tests Respiratory Therapy 08/17/23 20:54 RT Screen per Nursing Assess ONCE Assessment/Plan (1) Symptomatic anemia Current Visit: Yes Status: Acute Assessment & Plan: Anemia likely from GI bleed while on Coumadin - Hgb down to 5.4 Code(s): D64.9 - ANEMIA, UNSPECIFIED (2) CHF (congestive heart failure) Current Visit: No Status: Acute Qualifiers: Heart failure type: biventricular Qualified Code(s): I50.82 - Biventricular heart failure Assessment & Plan: Clinically euvolemic, controlled on diuretics 1. Will give Lasix 40mg IV after pRBC to prevent fluid overload Code(s): I50.9 - HEART FAILURE, UNSPECIFIED (3) Chronic renal insufficiency Current Visit: No Status: Acute Qualifiers: Chronic kidney disease stage 3 subtype: stage 3b (GFR 30-44) Assessment & Plan: Likely from cardiorenal syndrome +/- diuretics - GFR down to 32 mL/min 1. Hold Spironolactone 2. Loop diuretics prn 3. Continue Entresto 4. Follow I/Os 5. Watch electrolytes, creatinine closely Code(s): N18.9 - CHRONIC KIDNEY DISEASE, UNSPECIFIED
[2023-08-17] MEDS ORDERED: clonazePAM PO PRN (23:44)
[2023-08-18] MEDS ORDERED: ZOFRAN ODT 4 MG PO PRN (00:41)
[2023-08-18 05:50] LABS: Mean Corpuscular Hemoglobin 30.3 pg (26-32); Mean Corpuscular Hgb Concent. 31.3 g/dL (32-36); Mean Platelet Volume 10.8 fL (7.5-11.0); Platelet Count 123 x10^3/uL (150-450); Red Blood Count 1.65 x10^6/uL (4.1-5.4); Red Cell Distribution Width 21.4 % (11.5-14.0)
[2023-08-18 06:09] LABS: Calcium 8.8 mg/dL (8.4-10.2); Creatinine 1 1.93 mg/dL (0.52-1.04)
[2023-08-18] MEDS ORDERED: Xylocaine-Mpf 2% 5 Ml Vial ONE (07:36)
[2023-08-18] MEDS ORDERED: Sodium Chloride 0.9% 1000 ML 1,000 ML IV SCH (07:45)
[2023-08-18] MEDS: Carafate 1 GM PO SCH ×3 (07:49→16:52)
[2023-08-18 07:55] LABS: Slide Review YES
[2023-08-18 08:20] LABS: INR 1.69 (0.8-3.0); PROTIME 17.7 SECONDS (9.4-12.5)
[2023-08-18] MEDS ORDERED: Toprol-Xl 25MG Tablets PO SCH (10:00)
[2023-08-18] MEDS ORDERED: PROTONIX 40 MG IV IV SCH (10:00)
[2023-08-18] MEDS ORDERED: Protonix 40MG Tablet PO SCH ×2 (10:00)
[2023-08-18] MEDS ORDERED: Lexapro PO SCH (10:00)
[2023-08-18] MEDS: Lasix 40 MG/4 ML IV PRN ×2 (10:44→19:38)
[2023-08-18 11:52] LABS: Hematocrit 22.2 % (35-47); Hemoglobin 7.1 g/dL (12.0-16.0)
[2023-08-18 12:46] LABS: CROSS MATCH (PRBC) COMPATIBLE (COMPATIBLE)
--- NOTE | 2023-08-18 16:23 | PCM.DS ---
Discharge Summary Date of Admission: 08/17/23 20:24 Date of Discharge: 08/18/23 Admitting Physician: IRVIN ONEIL MD Primary Care Provider: RACHEL PARTIDA <KVNG SNOW - Last Filed: 08/18/23 16:41> Date of Admission: 08/17/23 20:24 Date of Discharge: 08/18/23 Admitting Physician: IRVIN ONEIL MD Primary Care Provider: RACHEL PARTIDA <IRVIN ONEIL - Last Filed: 08/19/23 18:44> Allergies <KVNG SNOW - Last Filed: 08/18/23 16:41> <IRVIN ONEIL - Last Filed: 08/19/23 18:44> Allergies hydrocodone Allergy (Unknown, Verified 08/17/23 19:34) propoxyphene Allergy (Unknown, Verified 08/17/23 19:34) Hospital Summary - Hospital Course Hospital Course: 08/17/23 Ms. Heck is a 77 year old female with a past medical history significant for hypertension, hyperlipidemia, valvular heart disease status post mechanical mitral valve replacement on oral Coumadin, and chronic kidney disease who presents to the hospital after outpatient labs demonstrated a drop in hemoglobin into the 5s. She reports some dark stool but no overt bleeding, and has required these transfusions on a regular basis. She was recommended for admission to the hospital as labs demonstrated a hemoglobin of 5.4 and creatinine of 1.7. No NSAIDs or exposure to contrast. 08/18/23 Pt resting in bed. She was only able to receive 1/2 unit of blood last night due to her IV going bad. A line was placed this morning and 3 units gave. If > 7 she wants to go home. She reports chronic anemia and refuses further evaluation by general surgery. She explained she has had multiple scopes and evaluations. Her future plan is to have the mitral valve replaced to where she does not need to be on Coumadin. She denies CP, SOB, abd. pain, N/V/D. She does admit to black stools. - Vitals & Intake/Output Vital Signs: Vital Signs Temperature 97.7 F 08/18/23 11:45 Pulse Rate 67 08/18/23 11:45 Respiratory Rate 16 08/18/23 11:45 Blood Pressure 136/63 08/18/23 11:45 O2 Sat by Pulse Oximetry 94 L 08/18/23 11:45 Intake & Output: Intake & Output 08/16/23 08/17/23 08/18/23 08/19/23 11:59 11:59 11:59 11:59 Intake Total 320 120 Output Total 600 600 Balance -280 -480 Weight 52.1 kg - Lab Result Diagrams: 08/18/23 11:40 08/18/23 04:47 Lab Results-Last 24 Hrs: Lab Results-Last 24 Hours 08/17/23 08/17/23 08/17/23 Range/Units 18:00 18:27 18:27 WBC 5.1 (4.0-10.5) x10^3/uL RBC 1.82 L (4.1-5.4) x10^6/uL Hgb 5.4 L* (12.0-16.0) g/dL Hct 17.9 L (35-47) % MCV 98.4 (78-100) fL MCH 29.7 (26-32) pg MCHC 30.2 L (32-36) g/dL RDW 21.2 H (11.5-14.0) % Plt Count 138 L (150-450) x10^3/uL MPV 10.3 (7.5-11.0) fL Gran % 74.5 H (36.0-66.0) % Immature Gran % (Auto) 0.4 (0.00-0.4) % Nucleat RBC Rel Count 0.0 (0.00-0.1) % Eos # (Auto) 0.15 (0-0.5) x10^3/uL Immature Gran # (Auto) 0.02 (0.00-0.03) x10^3u/L Absolute Lymphs (auto) 0.59 L (1.0-4.6) x10^3/uL Absolute Monos (auto) 0.51 (0.0-1.3) x10^3/uL Absolute Nucleated RBC 0.00 (0.00-0.01) x10^3u/L Lymphocytes % 11.6 L (24.0-44.0) % Monocytes % 10.1 (0.0-12.0) % Eosinophils % 3.0 (0.00-5.0) % Basophils % 0.4 (0.0-0.4) % Absolute Granulocytes 3.78 (1.4-6.9) x10^3/uL Basophils # 0.02 (0-0.4) x10^3/uL PT 19.3 H (9.4-12.5) SECONDS INR 1.85 (0.8-3.0) APTT 29.1 (25.1-36.5) SECONDS Sodium 137 (137-145) mmol/L Potassium 3.5 (3.5-5.1) mmol/L Chloride 106 (98-107) mmol/L Carbon Dioxide 21 L (22-30) mmol/L Anion Gap 13.5 (5-15) MEQ/L BUN 54 H (7-17) mg/dL Creatinine 1.66 H (0.52-1.04) mg/dL Estimated GFR 31.2 ML/MIN Glucose 123 H (74-106) mg/dL Calcium 8.8 (8.4-10.2) mg/dL Total Bilirubin 0.50 (0.2-1.3) mg/dL AST 60 H (14-36) U/L ALT 31 (0-35) U/L Alkaline Phosphatase 305 H (38-126) U/L Troponin I (0.000-0.034) ng/mL Serum Total Protein 5.4 L (6.3-8.2) g/dL Albumin 2.8 L (3.5-5.0) g/dL Influenza Type A Ag (NEGATIVE) Influenza Type B Ag (NEGATIVE) RSV (PCR) (NEGATIVE) SARS-CoV-2 (PCR) (NEGATIVE) Slides for Path Review YES ABO Group Rh Factor Antibody Screen (NEGATIVE) Crossmatch (COMPATIBLE) 08/17/23 08/17/23 08/17/23 Range/Units 18:27 18:27 18:36 WBC (4.0-10.5) x10^3/uL RBC (4.1-5.4) x10^6/uL Hgb (12.0-16.0) g/dL Hct (35-47) % MCV (78-100) fL MCH (26-32) pg MCHC (32-36) g/dL RDW (11.5-14.0) % Plt Count (150-450) x10^3/uL MPV (7.5-11.0) fL Gran % (36.0-66.0) % Immature Gran % (Auto) (0.00-0.4) % Nucleat RBC Rel Count (0.00-0.1) % Eos # (Auto) (0-0.5) x10^3/uL Immature Gran # (Auto) (0.00-0.03) x10^3u/L Absolute Lymphs (auto) (1.0-4.6) x10^3/uL Absolute Monos (auto) (0.0-1.3) x10^3/uL Absolute Nucleated RBC (0.00-0.01) x10^3u/L Lymphocytes % (24.0-44.0) % Monocytes % (0.0-12.0) % Eosinophils % (0.00-5.0) % Basophils % (0.0-0.4) % Absolute Granulocytes (1.4-6.9) x10^3/uL Basophils # (0-0.4) x10^3/uL PT (9.4-12.5) SECONDS INR (0.8-3.0) APTT (25.1-36.5) SECONDS Sodium (137-145) mmol/L Potassium (3.5-5.1) mmol/L Chloride (98-107) mmol/L Carbon Dioxide (22-30) mmol/L Anion Gap (5-15) MEQ/L BUN (7-17) mg/dL Creatinine (0.52-1.04) mg/dL Estimated GFR ML/MIN Glucose (74-106) mg/dL Calcium (8.4-10.2) mg/dL Total Bilirubin (0.2-1.3) mg/dL AST (14-36) U/L ALT (0-35) U/L Alkaline Phosphatase (38-126) U/L Troponin I < 0.012 (0.000-0.034) ng/mL Serum Total Protein (6.3-8.2) g/dL Albumin (3.5-5.0) g/dL Influenza Type A Ag NEGATIVE (NEGATIVE) Influenza Type B Ag NEGATIVE (NEGATIVE) RSV (PCR) NEGATIVE (NEGATIVE) SARS-CoV-2 (PCR) NEGATIVE (NEGATIVE) Slides for Path Review ABO Group A Rh Factor POSITIVE Antibody Screen NEGATIVE (NEGATIVE) Crossmatch COMPATIBLE (COMPATIBLE) 08/17/23 08/17/23 08/18/23 Range/Units 18:36 22:31 04:30 WBC (4.0-10.5) x10^3/uL RBC (4.1-5.4) x10^6/uL Hgb (12.0-16.0) g/dL Hct (35-47) % MCV (78-100) fL MCH (26-32) pg MCHC (32-36) g/dL RDW (11.5-14.0) % Plt Count (150-450) x10^3/uL MPV (7.5-11.0) fL Gran % (36.0-66.0) % Immature Gran % (Auto) (0.00-0.4) % Nucleat RBC Rel Count (0.00-0.1) % Eos # (Auto) (0-0.5) x10^3/uL Immature Gran # (Auto) (0.00-0.03) x10^3u/L Absolute Lymphs (auto) (1.0-4.6) x10^3/uL Absolute Monos (auto) (0.0-1.3) x10^3/uL Absolute Nucleated RBC (0.00-0.01) x10^3u/L Lymphocytes % (24.0-44.0) % Monocytes % (0.0-12.0) % Eosinophils % (0.00-5.0) % Basophils % (0.0-0.4) % Absolute Granulocytes (1.4-6.9) x10^3/uL Basophils # (0-0.4) x10^3/uL PT 17.7 H (9.4-12.5) SECONDS INR 1.69 (0.8-3.0) APTT (25.1-36.5) SECONDS Sodium (137-145) mmol/L Potassium (3.5-5.1) mmol/L Chloride (98-107) mmol/L Carbon Dioxide (22-30) mmol/L Anion Gap (5-15) MEQ/L BUN (7-17) mg/dL Creatinine (0.52-1.04) mg/dL Estimated GFR ML/MIN Glucose (74-106) mg/dL Calcium (8.4-10.2) mg/dL Total Bilirubin (0.2-1.3) mg/dL AST (14-36) U/L ALT (0-35) U/L Alkaline Phosphatase (38-126) U/L Troponin I < 0.012 (0.000-0.034) ng/mL Serum Total Protein (6.3-8.2) g/dL Albumin (3.5-5.0) g/dL Influenza Type A Ag (NEGATIVE) Influenza Type B Ag (NEGATIVE) RSV (PCR) (NEGATIVE) SARS-CoV-2 (PCR) (NEGATIVE) Slides for Path Review ABO Group Rh Factor Antibody Screen (NEGATIVE) Crossmatch COMPATIBLE (COMPATIBLE) 08/18/23 08/18/23 08/18/23 Range/Units 04:47 04:47 04:47 WBC 4.0 (4.0-10.5) x10^3/uL RBC 1.65 L (4.1-5.4) x10^6/uL Hgb 5.0 L* (12.0-16.0) g/dL Hct 16.0 L (35-47) % MCV 97.0 (78-100) fL MCH 30.3 (26-32) pg MCHC 31.3 L (32-36) g/dL RDW 21.4 H (11.5-14.0) % Plt Count 123 L (150-450) x10^3/uL MPV 10.8 (7.5-11.0) fL Gran % (36.0-66.0) % Immature Gran % (Auto) (0.00-0.4) % Nucleat RBC Rel Count (0.00-0.1) % Eos # (Auto) (0-0.5) x10^3/uL Immature Gran # (Auto) (0.00-0.03) x10^3u/L Absolute Lymphs (auto) (1.0-4.6) x10^3/uL Absolute Monos (auto) (0.0-1.3) x10^3/uL Absolute Nucleated RBC (0.00-0.01) x10^3u/L Lymphocytes % (24.0-44.0) % Monocytes % (0.0-12.0) % Eosinophils % (0.00-5.0) % Basophils % (0.0-0.4) % Absolute Granulocytes (1.4-6.9) x10^3/uL Basophils # (0-0.4) x10^3/uL PT (9.4-12.5) SECONDS INR (0.8-3.0) APTT (25.1-36.5) SECONDS Sodium 138 (137-145) mmol/L Potassium 4.0 (3.5-5.1) mmol/L Chloride 108 H (98-107) mmol/L Carbon Dioxide 23 (22-30) mmol/L Anion Gap 12.0 (5-15) MEQ/L BUN 56 H (7-17) mg/dL Creatinine 1.93 H (0.52-1.04) mg/dL Estimated GFR 26.0 ML/MIN Glucose 134 H (74-106) mg/dL Calcium 8.8 (8.4-10.2) mg/dL Total Bilirubin (0.2-1.3) mg/dL AST (14-36) U/L ALT (0-35) U/L Alkaline Phosphatase (38-126) U/L Troponin I < 0.012 (0.000-0.034) ng/mL Serum Total Protein (6.3-8.2) g/dL Albumin (3.5-5.0) g/dL Influenza Type A Ag (NEGATIVE) Influenza Type B Ag (NEGATIVE) RSV (PCR) (NEGATIVE) SARS-CoV-2 (PCR) (NEGATIVE) Slides for Path Review YES ABO Group Rh Factor Antibody Screen (NEGATIVE) Crossmatch (COMPATIBLE) 08/18/23 08/18/23 08/18/23 Range/Units 11:40 11:55 11:55 WBC (4.0-10.5) x10^3/uL RBC (4.1-5.4) x10^6/uL Hgb 7.1 L D (12.0-16.0) g/dL Hct 22.2 L (35-47) % MCV (78-100) fL MCH (26-32) pg MCHC (32-36) g/dL RDW (11.5-14.0) % Plt Count (150-450) x10^3/uL MPV (7.5-11.0) fL Gran % (36.0-66.0) % Immature Gran % (Auto) (0.00-0.4) % Nucleat RBC Rel Count (0.00-0.1) % Eos # (Auto) (0-0.5) x10^3/uL Immature Gran # (Auto) (0.00-0.03) x10^3u/L Absolute Lymphs (auto) (1.0-4.6) x10^3/uL Absolute Monos (auto) (0.0-1.3) x10^3/uL Absolute Nucleated RBC (0.00-0.01) x10^3u/L Lymphocytes % (24.0-44.0) % Monocytes % (0.0-12.0) % Eosinophils % (0.00-5.0) % Basophils % (0.0-0.4) % Absolute Granulocytes (1.4-6.9) x10^3/uL Basophils # (0-0.4) x10^3/uL PT (9.4-12.5) SECONDS INR (0.8-3.0) APTT (25.1-36.5) SECONDS Sodium (137-145) mmol/L Potassium (3.5-5.1) mmol/L Chloride (98-107) mmol/L Carbon Dioxide (22-30) mmol/L Anion Gap (5-15) MEQ/L BUN (7-17) mg/dL Creatinine (0.52-1.04) mg/dL Estimated GFR ML/MIN Glucose (74-106) mg/dL Calcium (8.4-10.2) mg/dL Total Bilirubin (0.2-1.3) mg/dL AST (14-36) U/L ALT (0-35) U/L Alkaline Phosphatase (38-126) U/L Troponin I (0.000-0.034) ng/mL Serum Total Protein (6.3-8.2) g/dL Albumin (3.5-5.0) g/dL Influenza Type A Ag (NEGATIVE) Influenza Type B Ag (NEGATIVE) RSV (PCR) (NEGATIVE) SARS-CoV-2 (PCR) (NEGATIVE) Slides for Path Review ABO Group Rh Factor Antibody Screen (NEGATIVE) Crossmatch COMPATIBLE COMPATIBLE (COMPATIBLE) - Procedures and Test Procedures and Tests throughout Hospitalization: Therapy Orders & Screens 08/17/23 20:54 RT Screen per Nursing Assess ONCE Comment: Protocol Order Physician Instructions: Greater than 3 points order RT Admission Screen Reason For Exam: Triggered on Admission Diagnosis: Symptomatic anemia, chronic GI blood loss Diagnosis: Symptomatic anemia, chronic GI blood loss Pneumonia: No Home O2: Yes Asthma: Yes CHF: Yes Home CPAP/BIPAP: No Home Nebs/MDI: Yes Total Points: 17 08/18/23 05:18 Oxygen Nasal Cannula 2 lpm Comment: Diagnosis: Symptomatic anemia, chronic GI blood loss <KVNG SNOW - Last Filed: 08/18/23 16:41> - Vitals & Intake/Output Vital Signs: Vital Signs Temperature 97.8 F 08/18/23 20:00 Pulse Rate 68 08/18/23 20:00 Respiratory Rate 18 08/18/23 20:00 Blood Pressure 140/63 08/18/23 20:00 O2 Sat by Pulse Oximetry 98 08/18/23 20:00 Intake & Output: Intake & Output 08/17/23 08/18/23 08/19/23 08/20/23 11:59 11:59 11:59 11:59 Intake Total 320 240 Output Total 600 1200 Balance -280 -960 Weight 52.1 kg - Lab Result Diagrams: 08/18/23 20:46 08/18/23 04:47 Lab Results-Last 24 Hrs: Lab Results-Last 24 Hours 08/18/23 Range/Units 20:46 Hgb 10.2 L D (12.0-16.0) g/dL Hct 31.6 L (35-47) % - Procedures and Test Procedures and Tests throughout Hospitalization: Therapy Orders & Screens 08/17/23 20:54 RT Screen per Nursing Assess ONCE Comment: Protocol Order Physician Instructions: Greater than 3 points order RT Admission Screen Reason For Exam: Triggered on Admission Diagnosis: Symptomatic anemia, chronic GI blood loss Diagnosis: Symptomatic anemia, chronic GI blood loss Pneumonia: No Home O2: Yes Asthma: Yes CHF: Yes Home CPAP/BIPAP: No Home Nebs/MDI: Yes Total Points: 17 08/18/23 05:18 Oxygen Nasal Cannula 2 lpm Comment: Diagnosis: Symptomatic anemia, chronic GI blood loss <KORAISHY,IRVIN - Last Filed: 08/19/23 18:44> Discharge Exam General Appearance: no apparent distress, alert Neurologic Exam: alert, oriented x 3, cooperative, normal mood/affect, nml cerebellar function, sensation nml, No motor deficits Eye Exam: PERRL, EOMI, eyes nml inspection Ears, Nose, Throat Exam: normal ENT inspection, pharynx normal, moist mucous membranes Neck Exam: normal inspection, non-tender, supple, full range of motion Respiratory Exam: normal breath sounds, lungs clear, No respiratory distress Cardiovascular Exam: regular rate/rhythm, normal heart sounds Gastrointestinal/Abdomen Exam: soft, No tenderness, No mass Pelvic Exam: deferred Rectal Exam: deferred Back Exam: normal inspection, normal range of motion, No CVA tenderness, No vertebral tenderness Extremity Exam: normal inspection, normal range of motion Skin Exam: warm, dry, pale <KVNG SNOW - Last Filed: 08/18/23 16:41> Final Diagnosis/Problem List - Final Discharge Diagnosis/Problem (1) Anemia Status: Acute Assessment & Plan: -Anemia likely from GI bleed while on Coumadin - Hgb down to 5 - 3 units of blood gave and 1/2 unit today. Code(s): D64.9 - ANEMIA, UNSPECIFIED (2) Chronic GI bleeding Status: Acute Assessment & Plan: -Pt aware and refuses referral at this time for further eval Code(s): K92.2 - GASTROINTESTINAL HEMORRHAGE, UNSPECIFIED (3) CHF (congestive heart failure) Status: Acute Assessment & Plan: Clinically euvolemic, controlled on diuretics 1. Will give Lasix 40mg IV after pRBC to prevent fluid overload Code(s): I50.9 - HEART FAILURE, UNSPECIFIED (4) Chronic renal insufficiency Status: Acute Assessment & Plan: 1. Hold Spironolactone 2. Loop diuretics prn 3. Continue Entresto 4. Follow I/Os 5. Watch electrolytes, creatinine closely Code(s): N18.9 - CHRONIC KIDNEY DISEASE, UNSPECIFIED <KVNG SNOW - Last Filed: 08/18/23 16:41> - Discharge Discharge Date: 08/18/23 <KVNG SNOW - Last Filed: 08/18/23 16:41> <IRVIN ONEIL - Last Filed: 08/19/23 18:44> - Discharge Disposition: HOME HEALTH SERVICE Condition: Stable Prescriptions: Continue Spironolactone 25 mg [Aldactone 25 MG] 1 tab PO DAILY PANTOPRAZOLE 40 mg Tablet [Protonix 40MG Tablet] 1 tab PO BID Sucralfate 1 gm [Carafate 1 GM] 1 tab PO TID Warfarin Sodium 2 mg [Coumadin 2 MG] 3 mg PO DAILY Grady-3 Fatty Acids/Fish Oil [Eql Grady-3 Fish Oil 1,000 mg] 1 each PO DAILY Metoprolol Succinate 25 mg Xl* [Toprol-Xl 25MG Tablets] 25 mg PO DAILY Furosemide 20 mg [Lasix 20 mg] 20 mg PO DAILY clonazePAM [Clonazepam] 1 tab PO BID Escitalopram Oxalate [Lexapro] 10 mg PO DAILY Albuterol 2.5 mg/3 ml Neb [Proventil 2.5 mg/3 ml Neb] 1 neb IH Q6H PRN PRN PRN Reason: Shortness Of Breath Instructions: Anemia Caused by Low Iron, Adult (DC), Gastrointestinal Bleeding (DC) Additional Instructions: Pt needs to follow up with PCP regarding repeat labs and need for OP blood products. Follow up with: RACHEL PARTIDA [Primary Care Provider] - Forms: Discharge Instructions FRANTZ Encounter - FRANTZ Encounter Attestation FRANTZ Encounter Attestation: "IhavepersonallyseenandMellissaERICK NEO on 08/18/2023 andhavediscussed pertinent aspects of their care with Kvng Lewis agree with the history, physical exam (any modifications based on my personal exam will be noted below), assessment, and plan as outlined in original note. Please see immediately below for my summary of findings and additional assessment and plan along with any meaningful corrections/explanations to the Subjective/Objective portions of the FRANTZ note will be noted." My portion of the encounter took place via telemedicine. <IRVIN ONEIL - Last Filed: 08/19/23 18:44>
[2023-08-18] MEDS ORDERED: Coumadin 3 MG PO SCH ×2 (18:00)
[2023-08-18 20:50] LABS: Hematocrit 31.6 % (35-47); Hemoglobin 10.2 g/dL (12.0-16.0)
[2023-08-18 20:52] VITALS: BP 140/63; PULSE 68; RESP 18; TEMP 97.8; O2SAT 98
== END 2023-08-18 21:48 | disposition home health service (06) ==
LOC: ED 17:16 → MED SURG 20:24
PROVIDERS: ADMIT Internal Medicine; ATTEND Internal Medicine
DX: D64.9 Anemia, unspecified (principal); K92.2 Gastrointestinal hemorrhage, unspecified; I11.0 Hypertensive heart disease with heart failure; I50.9 Heart failure, unspecified; N18.9 Chronic kidney disease, unspecified; E78.5 Hyperlipidemia, unspecified; I25.2 Old myocardial infarction; I25.10 Atherosclerotic heart disease of native coronary artery without angina pectoris; Z79.01 Long term (current) use of anticoagulants; Z79.899 Other long term (current) drug therapy; Z20.828 Contact with and (suspected) exposure to other viral communicable diseases; Z95.0 Presence of cardiac pacemaker; Z85.828 Personal history of other malignant neoplasm of skin
CPT/HCPCS: 0241U; 36000; 36415; 36430; 80048; 80053; 84484; 85014; 85018; 85025; 85027; 85610; 85730; 86850; 86900; 86901; 86922; 94762; 99284; P9016; 93268; J1940; Q0162; A9270-GY; G0378